=== PATIENT | male | born 1955 | race Caucasian/White ===

== ENCOUNTER 2017-11-21 16:53 | Inpatient (IN) | payer SELFPAY ==
[2017-11-21] VITALS (8 sets, daily range): BP systolic 107–155; BP diastolic 59–78
[~2017-11-21] VITALS: Ht 182.9 cm; Wt 99.8 kg
[2017-11-21] MEDS ORDERED: PROPOFOL 50 ML IV ONE ×2 (17:07→19:38)
[2017-11-21] MEDS ORDERED: MIDAZOLAM HCL/PF 5 MG/5 ML VIAL. NS ONE (17:15)
[2017-11-21] MEDS ORDERED: levETIRAcetam 1,000 MG in IV DEXTROSE 5% 100ML 100 ML IV ONE (17:15)
[2017-11-21] MEDS ORDERED: fentaNYL PF VIAL 100 MCG/2 ML VIAL IV ONE (17:15)
[2017-11-21] MEDS ORDERED: IV NORMAL SALINE 1000ML BAG 1,000 ML IV ONE (17:15)
[2017-11-21] MEDS ORDERED: PROPOFOL 10 MG/ML (20ML) VIAL. IV ONE (17:15)
[2017-11-21 17:21] LABS: BASO # 0.1 x10^3/uL (0.0-0.2); BASO % 1 % (0-3); EOS # 0.4 x10^3/uL (0.0-0.7); EOS % 3 % (0-3); HEMATOCRIT 40.3 % (39.0-53.0); HEMOGLOBIN 12.9 g/dL (13.0-17.5); LYMPH % 17 % (24-48); MEAN CORPUSCULAR HEMOGLOBIN 29 pg (25-35); MEAN CORPUSCULAR HGB CONC 32 g/dL (31-37); MEAN CORPUSCULAR VOLUME 91 fL (79-100); MONO # 1.9 x10^3/uL (0.0-1.1); MONO % 11 % (0-9); NEUT # 11.7 x10^3uL (1.8-7.7); NEUT % 69 % (31-73); PLATELET COUNT 565 x10^3/uL (140-400); RED BLOOD COUNT 4.42 x10^6/uL (4.30-5.70); RED CELL DISTRIBUTION WIDTH 13.9 % (11.5-14.5); WHITE BLOOD COUNT 17.1 x10^3/uL (4.0-11.0)
[2017-11-21 17:28] LABS: PROTHROMBIN TIME PATIENT 15.1 SEC (11.7-14.0)
[2017-11-21 17:29] LABS: CALCIUM 9.4 mg/dL (8.5-10.1); CREATININE 1.5 mg/dL (0.7-1.3); GFR 47.7; POTASSIUM 3.7 mmol/L (3.5-5.1)
[2017-11-21 17:30] LABS: BILIRUBIN,URINE NEGATIVE (NEG); CLARITY,URINE CLEAR; COLOR,URINE YELLOW; NITRITE,URINE NEGATIVE (NEG); PH,URINE 5.5; PROTEIN,URINE 30 mg/dL (NEG-TRACE); UROBILINOGEN,URINE 0.2 mg/dL (0.2 mg/dL)
[2017-11-21 17:33] LABS: ACETAMIN < 2 mcg/ml (10-30); ETHANOL < 10 mg/dL (0-10); SALIC < 2.8 mg/dL (2.8-20.0)
[2017-11-21 17:37] LABS: BARBITURATES NEG (NEG); BENZODIAZEPINES NEG (NEG); CANNABINOIDS NEG (NEG); COCAINE NEG (NEG); METHADONE NEG (NEG); OPIATES NEG (NEG); PHENCYCLIDINE NEG (NEG)
--- NOTE | 2017-11-21 17:37 | PHYS DOC ---
Adult General Chief Complaint Chief Complaint: SEIZURE HPI HPI Patient is a 62 year old he got 2-1/2 of Valium because he was combative postictal and then he became basically inadequate respirations and he was being bagged on arrival the blood sugar is 483. Review of Systems Review of Systems C Limited by mental status Current Medications Current Medications Current Medications Medications (Trade) Dose Ordered Sig/Ximena Start Time Stop Time Status Last Admin Dose Admin Fentanyl Citrate (Fentanyl 2ml Vial) 100 mcg 1X ONCE 11/21/17 17:15 11/21/17 17:16 DC Levetiracetam 1000 mg/Dextrose 110 ml @ 440 mls/hr 1X ONCE 11/21/17 17:15 11/21/17 17:29 DC 11/21/17 17:25 440 MLS/HR Midazolam HCl (Versed) 5 mg 1X ONCE 11/21/17 17:45 11/21/17 17:50 DC Piperacillin Sod/ Tazobactam Sod 3.375 gm/Sodium Chloride 50 ml @ 100 mls/hr 1X ONCE 11/21/17 18:00 11/21/17 18:29 UNV Propofol (Diprivan) 200 mg 1X ONCE 11/21/17 17:15 11/21/17 17:16 DC Sodium Chloride 1,000 ml @ 150 mls/hr [id number] 11/21/17 17:57 11/22/17 17:56 UNV Vancomycin HCl (Vanco Per Pharmacy) 1 each PRN DAILY PRN 11/21/17 18:00 UNV Allergies Allergies Allergies Coded Allergies Type Severity Reaction Last Updated Verified Unable to Assess 11/21/17 No Physical Exam Physical Exam Very ill-appearing not breathing very well. ENT: Normocephalic, atraumatic, bilateral external ears normal, oropharynx moist , no oral exudates, nose normal. [] Eyes: Pupils are 2 mm and reactive bilaterally. Is no gaze deficit. Neck: Normal range of motion, no tenderness, supple, no stridor. [] Cardiovascular:Heart rate regular rhythm, no murmur [] Lungs & Thorax: Being bagged coarse bilateral breath sounds Abdomen: Bowel sounds normal, soft, no tenderness, no masses, no pulsatile masses. [] Extremities:Bilateral wounds on both feet.associated cellulitis likely Neurologic: E 1 V 1 M 3. Patient is flexor posturing, no seizurEs inadequate respirations. Psychologic: Affect normal, judgement normal, mood normal. [] Current Patient Data Vital Signs Vital Signs Date Time Temp Pulse Resp B/P (MAP) Pulse Ox O2 Delivery O2 Flow Rate FiO2 11/21/17 17:10 97 Ventilator Lab Values Laboratory Tests Test 11/21/17 17:10 11/21/17 17:18 White Blood Count 17.1 x10^3/uL (4.0-11.0) H Red Blood Count 4.42 x10^6/uL (4.30-5.70) Hemoglobin 12.9 g/dL (13.0-17.5) L Hematocrit 40.3 % (39.0-53.0) Mean Corpuscular Volume 91 fL (79-100) Mean Corpuscular Hemoglobin 29 pg (25-35) Mean Corpuscular Hemoglobin Concent 32 g/dL (31-37) Red Cell Distribution Width 13.9 % (11.5-14.5) Platelet Count 565 x10^3/uL (140-400) H Neutrophils (%) (Auto) 69 % (31-73) Lymphocytes (%) (Auto) 17 % (24-48) L Monocytes (%) (Auto) 11 % (0-9) H Eosinophils (%) (Auto) 3 % (0-3) Basophils (%) (Auto) 1 % (0-3) Neutrophils # (Auto) 11.7 x10^3uL (1.8-7.7) H Lymphocytes # (Auto) 3.0 x10^3/uL (1.0-4.8) Monocytes # (Auto) 1.9 x10^3/uL (0.0-1.1) H Eosinophils # (Auto) 0.4 x10^3/uL (0.0-0.7) Basophils # (Auto) 0.1 x10^3/uL (0.0-0.2) Platelet Estimate Pending Prothrombin Time 15.1 SEC (11.7-14.0) H Prothrombin Time INR 1.2 (0.8-1.1) H Sodium Level 138 mmol/L (136-145) Potassium Level 3.7 mmol/L (3.5-5.1) Chloride Level 98 mmol/L (98-107) Carbon Dioxide Level 20 mmol/L (21-32) L Anion Gap 20 (6-14) H Blood Urea Nitrogen 22 mg/dL (8-26) Creatinine 1.5 mg/dL (0.7-1.3) H Estimated GFR (Cockcroft-Gault) 47.7 BUN/Creatinine Ratio 15 (6-20) Glucose Level 490 mg/dL (70-99) H Calcium Level 9.4 mg/dL (8.5-10.1) Total Bilirubin 0.2 mg/dL (0.2-1.0) Aspartate Amino Transferase (AST) 15 U/L (15-37) Alanine Aminotransferase (ALT) 24 U/L (16-63) Alkaline Phosphatase 84 U/L (46-116) Creatine Kinase 187 U/L (39-308) Total Protein 8.2 g/dL (6.4-8.2) Albumin 2.9 g/dL (3.4-5.0) L Albumin/Globulin Ratio 0.5 (1.0-1.7) L Salicylates Level < 2.8 mg/dL (2.8-20.0) L Salicylate Last Dose Date Unknown Salicylate Last Dose Time Unknown Acetaminophen Level < 2 mcg/ml (10-30) L Acetaminophen Last Dose Date Unknown Acetaminophen Last Dose Time Unknown Ethyl Alcohol Level < 10 mg/dL (0-10) Urine Collection Type U cath Urine Color Yellow Urine Clarity Clear Urine pH 5.5 Urine Specific [place] >=1.030 Urine Protein 30 mg/dL (NEG-TRACE) Urine Glucose (UA) >=1000 mg/dL (NEG) Urine Ketones (Stick) 15 mg/dL (NEG) Urine Blood Negative (NEG) Urine Nitrite Negative (NEG) Urine Bilirubin Negative (NEG) Urine Urobilinogen Dipstick 0.2 mg/dL (0.2 mg/dL) Urine Leukocyte Esterase Negative (NEG) Urine RBC 1-2 /HPF (0-2) Urine WBC 11-20 /HPF (0-4) Urine Squamous Epithelial Cells Few /LPF Urine Amorphous Sediment Present /HPF Urine Bacteria Few /HPF (0-FEW) Urine Hyaline Casts Occasional /HPF Urine Mucus Slight /LPF Urine Opiates Screen Neg (NEG) Urine Methadone Screen Neg (NEG) Urine Barbiturates Neg (NEG) Urine Phencyclidine Screen Neg (NEG) Urine Amphetamine/Methamphetamine Neg (NEG) Urine Benzodiazepines Screen Neg (NEG) Urine Cocaine Screen Neg (NEG) Urine Cannabinoids Screen Neg (NEG) Urine Ethyl Alcohol Neg (NEG) Laboratory Tests 11/21/17 17:10 Laboratory Tests 11/21/17 17:10 EKG EKG [] Interpretation Time: Normal sinus rhythm rate of 82 no obvious acute ischemic changes noted interpreted by me the time of encounter. Radiology/Procedures Radiology/Procedures [] Impressions: IMPRESSION: 1. No acute intracranial bleed or calvarial fractures. 2. Peripherally calcified lesion in the region of anterior communicating artery is highly suggestive of aneurysm. Nonemergent CT angiogram of the head recommended. Electronically signed by: Jourdan Gaviria DO (11/21/2017 5:54 PM) [facility] Course & Med Decision Making Course & Med Decision Making Pertinent Labs and Imaging studies reviewed. (See chart for details) [] Critical care time was 55 minutes exclusive of procedures. Intubation: 7.5 ET tube Mac 4, GRADE 1 ETOMIDATE SUCCINYLCHOLINE. Confirmed with end-tidal CO2 breath sounds and chest x-ray. This patient had a witnessed seizure no previous history of the same we have no real good history. Patient was having inadequate respirations after only 2.5 mg of Valium most concerned about intracranial hemorrhage in order to facilitate head CT intubated the patient. I gave Versed and fentanyl for post intubation sedation as well as propofol and a gram of IV Keppra. Rectal temperature 99.7 I think sepsis and meningitis is unlikely as he was AT WORK on lunch break prior to seizure.. NOTED U/A, SQUAMES BUT POSSIBLE UTI. In addition patient does have bilateral foot wounds concerning for infected diabetic ulcers. We will treat this patient for these infections however the neck was supple temperature was technically afebrile white count can be explained by seizure I don't think that this patient has meningitis. Discussed with Dr. Yenni ABDULLAHI, from neurology who recommended 500 mg of Keppra every 12 2 mg of Ativan when necessary every 4 EEG in the morning and vitamin B1. Dragon Disclaimer Dragon Disclaimer This electronic medical record was generated, in whole or in part, using a voice recognition dictation system. Departure Departure Impression: Primary Impression: Seizure Disposition: ADMITTED INPATIENT Admitting Physician: Gregor Minor Condition: CRITICAL STEPHIE RAE MD Nov 21, 2017 17:37
[2017-11-21 17:39] LABS: ALBUMIN 2.9 g/dL (3.4-5.0); ALBUMIN/GLOBULIN RATIO 0.5 (1.0-1.7); TOTAL BILIRUBIN 0.2 mg/dL (0.2-1.0); TOTAL PROTEIN 8.2 g/dL (6.4-8.2)
[2017-11-21 17:40] LABS: AMPHETAMINE/METHAMPHETAMINE NEG (NEG)
[2017-11-21 17:44] LABS: AMORPHOUS SEDIMENT,UR PRESENT /HPF; BACTERIA,URINE FEW /HPF (0-FEW); SQUAMOUS EPITHELIAL CELL,UR FEW /LPF
[2017-11-21 17:45] LABS: HYALINE CASTS, URINE OCCASIONAL /HPF
[2017-11-21] MEDS ORDERED: MIDAZOLAM HCL/PF 5 MG/5 ML VIAL. IV ONE ×2 (17:45→20:00)
--- NOTE | 2017-11-21 17:57 | RAD ---
PQRS Compliance statement: One or more of the following individualized dose reduction techniques were utilized for this examination: 1. Automated exposure control. 2. Adjustment of the mA and/or kV according to patient size. 3. Use of iterative reconstruction technique. Indication:seen shaking and then fell to floor at work today no prev TECHNIQUE: CT head without IV contrast COMPARISON:None FINDINGS: No pathologic extra-axial or intra-axial fluid collection. No acute intracranial bleed. The ventricles and basal cisterns are within normal limits. There is a peripherally calcified 1.6 x 1.2 cm lesion in the region of the anterior communicating artery. No focal loss of hair-white differentiation. Orbits are within normal limits. No suspicious calvarial lesion or fracture. Mucous retention cyst or polyp is seen in the left maxillary sinus. The visualized paranasal sinuses and mastoid air cells are clear. Atherosclerotic calcifications seen of the bilateral cavernous segments of the ICA. IMPRESSION: 1. No acute intracranial bleed or calvarial fractures. 2. Peripherally calcified lesion in the region of anterior communicating artery is highly suggestive of aneurysm. Nonemergent CT angiogram of the head recommended. Electronically signed by: Jourdan Gaviria DO (11/21/2017 5:54 PM) [facility]
[2017-11-21] MEDS ORDERED: THIAMINE INJ 100 MG in IV DEXTROSE 5% 50 ML IV STA (18:11)
[2017-11-21] MEDS ORDERED: POTASSIUM CHLORIDE 20 MEQ/15 ML ORAL LIQUID. NG ONE (18:15)
[2017-11-21] MEDS ORDERED: INSULIN REGULAR 100 UNIT/ML 3ML VIAL. IV ONE (18:15)
[2017-11-21] MEDS ORDERED: PIPERACILLIN/TAZOBACTAM 3.375 GM in IV NORMAL SALINE 50ML 50 ML IV ONE (18:15)
[2017-11-21 18:21] LABS: BASE EXCESS ABG -2 mmol/L (-3-3); CORRECTED PCO2 ABG 33 mmHg; CORRECTED PH ABG 7.45; CORRECTED PO2 ABG 279 mmHg; HCO3 ABG 24 mmol/L (21-28); SAT O2 ABG 99 % (92-99)
[2017-11-21 18:22] LABS: PCO2 ABG 41 mmHg (35-46); PO2 ABG 302 mmHg (65-108)
--- NOTE | 2017-11-21 18:31 | RAD ---
Indication: OG tube placement check TECHNIQUE: Single supine AP view of the abdomen COMPARISON: None FINDINGS: NG tube is seen with its tip in the body of the stomach. The visualized lung bases are clear. No abnormally dilated bowel loops. Degenerative disc disease is seen in the lumbar spine. IMPRESSION: Tip of the OG tube is in the body of the stomach. Electronically signed by: Jourdan Gaviria DO (11/21/2017 6:28 PM) [facility]
--- NOTE | 2017-11-21 18:36 | HP ---
ADMIT DATE: 11/21/2017 CHIEF COMPLAINT: Seizure and respiratory failure. HISTORY OF PRESENT ILLNESS: The patient is a pleasant elderly male who works at [employer]. He was working there today, seemed to be doing fine. In fact, I had lunch there myself and saw him working. He was fine. Apparently, he became unresponsive and had a seizure, it was witnessed. When EMS arrived, they bagged him, they gave him some Valium, but he became apneic, so they brought him to the ER. We have intubated and now admitting the patient to the ICU. We will be consulting Neurology and Pulmonary. PAST MEDICAL HISTORY: Unable to obtain. The patient is sedated on the vent. ALLERGIES: Unable to assess. FAMILY HISTORY: Unknown. SOCIAL HISTORY: We know he works at [employer], but otherwise, we did not know any other social history. MEDICATIONS: Unknown. REVIEW OF SYSTEMS: Unable to obtain. The patient is intubated. PHYSICAL EXAMINATION: VITAL SIGNS: Temperature afebrile, pulse 100, respirations 18, blood pressure 144/90 and O2 sat 97%. GENERAL: He is on a ventilator. HEART: Distant S1, S2. LUNGS: Mostly clear. ABDOMEN: Soft, a little distended. EXTREMITIES: The right foot has a severe wound. We suspect this is from peripheral vascular disease, probably secondary to diabetes. ENDOCRINE: No thyromegaly. LYMPHATICS: No cervical nodes. HEMATOPOIETIC: No bruising. LABORATORY DATA: White count 17, hemoglobin 12.9, platelets 565. Electrolytes: Sodium 138, potassium 3.7, chloride 98, bicarbonate 20, BUN 22, creatinine 1.5, glucose 490. Albumin is 2.9. Drug screen is negative. Urinalysis negative. INR is 1.2. CT of the head negative for any acute disease. ASSESSMENT AND PLAN: Seizure, elderly male who appears to have severe diabetes with severe peripheral vascular disease and foot wound. The patient has been admitted. He has been intubated, will be going to the ICU. We sedated him. We will consult Pulmonary for vent weaning, consult Neurology, consult the wound care team. Once we get his home meds, we will try to get those resumed. Frequent labs. PROGNOSIS: Guarded. CEASAR SALAS DO DR: SHEELA/chyna JOB#: [id number] / [id number]
[2017-11-21] MEDS ORDERED: VANCOMYCIN 2 GM in IV NORMAL SALINE 500ML BAG 500 ML IV ONE (19:00)
[2017-11-21] MEDS ORDERED: ETOMIDATE 20 MG/10 ML VIAL. IV ONE ×2 (19:04→20:00)
[2017-11-21] MEDS ORDERED: SUCCINYLCHOLINE 200 MG/10 ML VIAL. ONE (19:05)
[2017-11-21] MEDS ORDERED: SUCCINYLCHOLINE 200 MG/10 ML VIAL. IV ONE (20:00)
[2017-11-21 20:15] LABS: % EOS 3 % (0-5); % LYMPHS 20 % (24-48); % MONOS 10 % (0-10); % SEGS 67 % (35-66)
[2017-11-21 20:16] LABS: PLT ESTIMATE INCREASED (ADEQUATE)
[2017-11-21] MEDS: IV NORMAL SALINE 1000ML BAG 1,000 ML IV SCH (20:52)
[2017-11-21] MEDS: VANCOMYCIN PER PHARMACY MC PRN (21:02)
[2017-11-21] MEDS: levETIRAcetam 500 MG in IV DEXTROSE 5% 100ML 100 ML IV SCH (21:20)
[2017-11-21] MEDS: PROPOFOL 100 ML IV PRN (22:07)
--- NOTE | 2017-11-21 23:28 | RAD ---
Indication:ET TUBE PLACEMENT TECHNIQUE:Portable AP chest X-ray COMPARISON:Study from the same day earlier FINDINGS: Heart is normal in size. Interval retraction of ET tube with its tip in appropriate position. NG tube is seen with its tip in the body of the stomach. Heart is normal in size. Lungs are clear. No pneumothorax or pleural effusion. Visualized bony thorax within normal limits. IMPRESSION: Appropriately positioned ET tube and NG tube. No acute pulmonary process.. Electronically signed by: Jourdan Gaviria DO (11/21/2017 11:25 PM) [facility]
--- NOTE | 2017-11-21 23:42 | RAD ---
Indication:POST INTUBATION TECHNIQUE:Portable AP chest X-ray COMPARISON:None FINDINGS: ET tube is seen with its tip above the level of shi in appropriate position. NG tube is seen with its tip in the body of the stomach. Heart is normal in size. Lungs are clear. No pneumothorax or pleural effusion. Visualized bony thorax is within normal limits. IMPRESSION: Appropriately positioned ET tube and NG tube. Electronically signed by: Jourdan Gaviria DO (11/21/2017 11:39 PM) [facility]
[2017-11-22] VITALS (24 sets, daily range): BP systolic 102–175; BP diastolic 49–85
[2017-11-22 03:33] LABS: CALCIUM 8.1 mg/dL (8.5-10.1); CREATININE 0.7 mg/dL (0.7-1.3); POTASSIUM 3.8 mmol/L (3.5-5.1)
[2017-11-22] MEDS: PROPOFOL 100 ML IV PRN ×4 (04:15→21:25)
[2017-11-22] MEDS: IV NORMAL SALINE 1000ML BAG 1,000 ML IV SCH ×3 (06:15→12:12)
--- NOTE | 2017-11-22 07:41 | EKG ---
[facility] [address] [place] [address] Test Date: 2017-11-21 Test Time: 17:57:41 Pat Name: ROLY ALY Department: Room: 109 1 Gender: M [employer]: : [id number] Requested By: STEPHIE RAE Order Number: [id number] Reading MD: Alex Ward Measurements Intervals [place] Rate: 82 P: 38 NE: 180 QRS: -1 QRSD: 84 T: -21 QT: 384 QTc: 452 Interpretive Statements SINUS RHYTHM LEFTWARD AXIS Electronically Signed On 11-22-2017 16:30:00 CDT by Alex Ward
--- NOTE | 2017-11-22 07:49 | RAD ---
Portable abdomen, 11/21/2017, 8:49 PM: HISTORY: Check NG tube placement Comparison is made to a study from earlier the same day. The tip of the NG tube lies in the body of the stomach. The abdominal gas pattern is unremarkable. No organomegaly is seen. Degenerative changes are evident in the spine. IMPRESSION: The tip of the NG tube lies in the body of the stomach. Electronically signed by: Sam Jauregui MD (11/22/2017 7:45 AM) [facility]
--- NOTE | 2017-11-22 07:50 | RAD ---
Portable chest, 11/22/2017: HISTORY: Respiratory failure Comparison is made to a study from 11/21/2017. The ET tube tip lies well above the shi. An NG tube extends into the stomach. The heart size and pulmonary vascularity are normal. There is minimal right parahilar discoid atelectasis. No pulmonary consolidation is seen. There is no evidence of pleural fluid. IMPRESSION: 1. The ET tube and NG tube are in satisfactory positions. 2. Minimal right parahilar discoid atelectasis. Electronically signed by: Sam Jauregui MD (11/22/2017 7:47 AM) [facility]
--- NOTE | 2017-11-22 07:59 | PDOC ---
Infectious Disease Note Vital Sign Vital Signs Vital Signs Date Time Temp Pulse Resp B/P (MAP) Pulse Ox O2 Delivery O2 Flow Rate FiO2 11/22/17 07:00 65 15 111/60 (77) 100 Ventilator 11/22/17 04:00 97.7 97.7 Labs Lab Laboratory Tests Test 11/21/17 17:10 11/21/17 17:18 11/21/17 18:15 11/21/17 21:00 White Blood Count 17.1 x10^3/uL (4.0-11.0) Red Blood Count 4.42 x10^6/uL (4.30-5.70) Hemoglobin 12.9 g/dL (13.0-17.5) Hematocrit 40.3 % (39.0-53.0) Mean Corpuscular Volume 91 fL (79-100) Mean Corpuscular Hemoglobin 29 pg (25-35) Mean Corpuscular Hemoglobin Concent 32 g/dL (31-37) Red Cell Distribution Width 13.9 % (11.5-14.5) Platelet Count 565 x10^3/uL (140-400) Neutrophils (%) (Auto) 69 % (31-73) Lymphocytes (%) (Auto) 17 % (24-48) Monocytes (%) (Auto) 11 % (0-9) Eosinophils (%) (Auto) 3 % (0-3) Basophils (%) (Auto) 1 % (0-3) Neutrophils # (Auto) 11.7 x10^3uL (1.8-7.7) Lymphocytes # (Auto) 3.0 x10^3/uL (1.0-4.8) Monocytes # (Auto) 1.9 x10^3/uL (0.0-1.1) Eosinophils # (Auto) 0.4 x10^3/uL (0.0-0.7) Basophils # (Auto) 0.1 x10^3/uL (0.0-0.2) Segmented Neutrophils % 67 % (35-66) Lymphocytes % 20 % (24-48) Monocytes % 10 % (0-10) Eosinophils % 3 % (0-5) Platelet Estimate Increased (ADEQUATE) Prothrombin Time 15.1 SEC (11.7-14.0) Prothromb Time International Ratio 1.2 (0.8-1.1) Sodium Level 138 mmol/L (136-145) Potassium Level 3.7 mmol/L (3.5-5.1) Chloride Level 98 mmol/L (98-107) Carbon Dioxide Level 20 mmol/L (21-32) Anion Gap 20 (6-14) Blood Urea Nitrogen 22 mg/dL (8-26) Creatinine 1.5 mg/dL (0.7-1.3) Estimated GFR (Cockcroft-Gault) 47.7 BUN/Creatinine Ratio 15 (6-20) Glucose Level 490 mg/dL (70-99) Calcium Level 9.4 mg/dL (8.5-10.1) Total Bilirubin 0.2 mg/dL (0.2-1.0) Aspartate Amino Transf (AST/SGOT) 15 U/L (15-37) Alanine Aminotransferase (ALT/SGPT) 24 U/L (16-63) Alkaline Phosphatase 84 U/L (46-116) Creatine Kinase 187 U/L (39-308) Total Protein 8.2 g/dL (6.4-8.2) Albumin 2.9 g/dL (3.4-5.0) Albumin/Globulin Ratio 0.5 (1.0-1.7) Salicylates Level < 2.8 mg/dL (2.8-20.0) Salicylate Last Dose Date Unknown Salicylate Last Dose Time Unknown Acetaminophen Level < 2 mcg/ml (10-30) Acetaminophen Last Dose Date Unknown Acetaminophen Last Dose Time Unknown Ethyl Alcohol Level < 10 mg/dL (0-10) Urine Collection Type U cath Urine Color Yellow Urine Clarity Clear Urine pH 5.5 Urine Specific [place] >=1.030 Urine Protein 30 mg/dL (NEG-TRACE) Urine Glucose (UA) >=1000 mg/dL (NEG) Urine Ketones (Stick) 15 mg/dL (NEG) Urine Blood Negative (NEG) Urine Nitrite Negative (NEG) Urine Bilirubin Negative (NEG) Urine Urobilinogen Dipstick 0.2 mg/dL (0.2 mg/dL) Urine Leukocyte Esterase Negative (NEG) Urine RBC 1-2 /HPF (0-2) Urine WBC 11-20 /HPF (0-4) Urine Squamous Epithelial Cells Few /LPF Urine Amorphous Sediment Present /HPF Urine Bacteria Few /HPF (0-FEW) Urine Hyaline Casts Occasional /HPF Urine Mucus Slight /LPF Urine Opiates Screen Neg (NEG) Urine Methadone Screen Neg (NEG) Urine Barbiturates Neg (NEG) Urine Phencyclidine Screen Neg (NEG) Urine Amphetamine/Methamphetamine Neg (NEG) Urine Benzodiazepines Screen Neg (NEG) Urine Cocaine Screen Neg (NEG) Urine Cannabinoids Screen Neg (NEG) Urine Ethyl Alcohol Neg (NEG) O2 Saturation 99 % (92-99) Arterial Blood pH 7.38 (7.35-7.45) Arterial Blood pH (Temp corrected) 7.45 Arterial Blood pCO2 at Patient Temp 41 mmHg (35-46) Arterial Blood pCO2 (Temp correct) 33 mmHg Arterial Blood pO2 at Patient Temp 302 mmHg (65-108) Arterial Blood pO2 (Temp corrected) 279 mmHg Arterial Blood HCO3 24 mmol/L (21-28) Arterial Blood Base Excess -2 mmol/L (-3-3) FiO2 100.0 Lactic Acid Level 1.2 mmol/L (0.4-2.0) Test 11/22/17 02:50 Sodium Level 140 mmol/L (136-145) Potassium Level 3.8 mmol/L (3.5-5.1) Chloride Level 105 mmol/L (98-107) Carbon Dioxide Level 28 mmol/L (21-32) Anion Gap 7 (6-14) Blood Urea Nitrogen 17 mg/dL (8-26) Creatinine 0.7 mg/dL (0.7-1.3) Estimated GFR (Cockcroft-Gault) 115.0 Glucose Level 259 mg/dL (70-99) Calcium Level 8.1 mg/dL (8.5-10.1) Objective Assessment Extensive rt foot infection with likely osteomyelitis Rt foot ulcer with infection DM Respiratory failure Seizure Plan Plan of Care marla and niru vascular consult, likely will need amputation supportive care check cultures EMILIANO OLIVEIRA MD Nov 22, 2017 07:59
[2017-11-22 08:01] LABS: BASE EXCESS ABG 1 mmol/L (-3-3); HCO3 ABG 25 mmol/L (21-28); PCO2 ABG 41 mmHg (35-46); PO2 ABG 174 mmHg (65-108); SAT O2 ABG 99 % (92-99)
[2017-11-22] MEDS: CHLORHEXIDINE 0.12% 15 ML MOUTHWASH. MM SCH ×2 (09:00→20:54)
[2017-11-22] MEDS: FAMOTIDINE 20 MG/2 ML VIAL IVP SCH ×2 (09:00→20:51)
[2017-11-22] MEDS ORDERED: VANCOMYCIN 1.5 GM in IV NORMAL SALINE 500ML BAG 500 ML IV SCH ×2 (09:00→22:00)
[2017-11-22] MEDS: levETIRAcetam 500 MG in IV DEXTROSE 5% 100ML 100 ML IV SCH ×2 (09:00→20:51)
[2017-11-22 09:34] LABS: HEMATOCRIT 33.7 % (39.0-53.0); HEMOGLOBIN 11.3 g/dL (13.0-17.5); RED BLOOD COUNT 3.82 x10^6/uL (4.30-5.70); RED CELL DISTRIBUTION WIDTH 13.2 % (11.5-14.5); WHITE BLOOD COUNT 8.8 x10^3/uL (4.0-11.0)
[2017-11-22 09:43] LABS: FIO2 ABG 45
--- NOTE | 2017-11-22 09:57 | PDOC ---
Provider Note Provider Note Vascular Surgery Consult dictated Recommend right and left 1st toe open ray amputations with wound VACs for open wounds with exposed bone and severe infection. Surgery scheduled for tomorrow. LAN YAÑEZ MD Nov 22, 2017 09:57
[2017-11-22] MEDS: ENOXAPARIN 40 MG/0.4 ML SYRINGE. SQ SCH (10:00)
[2017-11-22 10:13] LABS: CALCIUM 7.5 mg/dL (8.5-10.1); CREATININE 0.7 mg/dL (0.7-1.3); MAGNESIUM 1.9 mg/dL (1.8-2.4); POTASSIUM 3.7 mmol/L (3.5-5.1)
--- NOTE | 2017-11-22 10:43 | RAD ---
Right foot, 2 views, 11/22/2017: HISTORY: Osteomyelitis No previous foot radiographs are available at this time for comparison purposes. The toes are held in dorsiflexion at the MTP joint levels. There is a mild hallux valgus deformity Foci of cortical discontinuity are seen along the medial margin of the first metatarsal head. There is some overlying soft tissue deformity. The appearance is suggestive of osteomyelitis. A lucency projected over the distal end of the proximal phalanx of the great toe is probably due to an overlying shadow. No definite fracture or dislocation is evident. Moderate degenerative changes are present the mid foot level. There is calcification along the plantar aponeurosis posteriorly related to a calcaneal spur. Arterial calcifications are evident. There is diffuse soft tissue swelling about the foot. IMPRESSION: 1. Cortical lucencies involving the first metatarsal head suggesting osteomyelitis. 2. Additional chronic findings as described above. Electronically signed by: Sam Jauregui MD (11/22/2017 10:39 AM) [facility]
[2017-11-22] MEDS ORDERED: IOHEXOL 300 MG/ML 100ML VIAL. ONE (10:45)
[2017-11-22] MEDS ORDERED: IOHEXOL 300 MG/ML 100ML VIAL. IV ONE (10:45)
[2017-11-22] MEDS ORDERED: CONTRAST GIVEN. MC PRN (11:00)
[2017-11-22] MEDS: VANCOMYCIN PER PHARMACY MC PRN (11:12)
--- NOTE | 2017-11-22 11:43 | PDOC ---
PULMONARY PROGRESS NOTES Vitals Vital Signs Date Time Temp Pulse Resp B/P (MAP) Pulse Ox O2 Delivery O2 Flow Rate FiO2 11/22/17 11:00 75 15 151/77 (101) 100 Ventilator 11/22/17 08:00 98.2 98.2 Labs Laboratory Tests Test 11/21/17 17:10 11/21/17 17:18 11/21/17 18:15 11/21/17 21:00 White Blood Count 17.1 x10^3/uL (4.0-11.0) Red Blood Count 4.42 x10^6/uL (4.30-5.70) Hemoglobin 12.9 g/dL (13.0-17.5) Hematocrit 40.3 % (39.0-53.0) Mean Corpuscular Volume 91 fL (79-100) Mean Corpuscular Hemoglobin 29 pg (25-35) Mean Corpuscular Hemoglobin Concent 32 g/dL (31-37) Red Cell Distribution Width 13.9 % (11.5-14.5) Platelet Count 565 x10^3/uL (140-400) Neutrophils (%) (Auto) 69 % (31-73) Lymphocytes (%) (Auto) 17 % (24-48) Monocytes (%) (Auto) 11 % (0-9) Eosinophils (%) (Auto) 3 % (0-3) Basophils (%) (Auto) 1 % (0-3) Neutrophils # (Auto) 11.7 x10^3uL (1.8-7.7) Lymphocytes # (Auto) 3.0 x10^3/uL (1.0-4.8) Monocytes # (Auto) 1.9 x10^3/uL (0.0-1.1) Eosinophils # (Auto) 0.4 x10^3/uL (0.0-0.7) Basophils # (Auto) 0.1 x10^3/uL (0.0-0.2) Segmented Neutrophils % 67 % (35-66) Lymphocytes % 20 % (24-48) Monocytes % 10 % (0-10) Eosinophils % 3 % (0-5) Platelet Estimate Increased (ADEQUATE) Prothrombin Time 15.1 SEC (11.7-14.0) Prothromb Time International Ratio 1.2 (0.8-1.1) Sodium Level 138 mmol/L (136-145) Potassium Level 3.7 mmol/L (3.5-5.1) Chloride Level 98 mmol/L (98-107) Carbon Dioxide Level 20 mmol/L (21-32) Anion Gap 20 (6-14) Blood Urea Nitrogen 22 mg/dL (8-26) Creatinine 1.5 mg/dL (0.7-1.3) Estimated GFR (Cockcroft-Gault) 47.7 BUN/Creatinine Ratio 15 (6-20) Glucose Level 490 mg/dL (70-99) Calcium Level 9.4 mg/dL (8.5-10.1) Total Bilirubin 0.2 mg/dL (0.2-1.0) Aspartate Amino Transf (AST/SGOT) 15 U/L (15-37) Alanine Aminotransferase (ALT/SGPT) 24 U/L (16-63) Alkaline Phosphatase 84 U/L (46-116) Creatine Kinase 187 U/L (39-308) Total Protein 8.2 g/dL (6.4-8.2) Albumin 2.9 g/dL (3.4-5.0) Albumin/Globulin Ratio 0.5 (1.0-1.7) Salicylates Level < 2.8 mg/dL (2.8-20.0) Salicylate Last Dose Date Unknown Salicylate Last Dose Time Unknown Acetaminophen Level < 2 mcg/ml (10-30) Acetaminophen Last Dose Date Unknown Acetaminophen Last Dose Time Unknown Ethyl Alcohol Level < 10 mg/dL (0-10) Urine Collection Type U cath Urine Color Yellow Urine Clarity Clear Urine pH 5.5 Urine Specific Ryan >=1.030 Urine Protein 30 mg/dL (NEG-TRACE) Urine Glucose (UA) >=1000 mg/dL (NEG) Urine Ketones (Stick) 15 mg/dL (NEG) Urine Blood Negative (NEG) Urine Nitrite Negative (NEG) Urine Bilirubin Negative (NEG) Urine Urobilinogen Dipstick 0.2 mg/dL (0.2 mg/dL) Urine Leukocyte Esterase Negative (NEG) Urine RBC 1-2 /HPF (0-2) Urine WBC 11-20 /HPF (0-4) Urine Squamous Epithelial Cells Few /LPF Urine Amorphous Sediment Present /HPF Urine Bacteria Few /HPF (0-FEW) Urine Hyaline Casts Occasional /HPF Urine Mucus Slight /LPF Urine Opiates Screen Neg (NEG) Urine Methadone Screen Neg (NEG) Urine Barbiturates Neg (NEG) Urine Phencyclidine Screen Neg (NEG) Urine Amphetamine/Methamphetamine Neg (NEG) Urine Benzodiazepines Screen Neg (NEG) Urine Cocaine Screen Neg (NEG) Urine Cannabinoids Screen Neg (NEG) Urine Ethyl Alcohol Neg (NEG) O2 Saturation 99 % (92-99) Arterial Blood pH 7.38 (7.35-7.45) Arterial Blood pH (Temp corrected) 7.45 Arterial Blood pCO2 at Patient Temp 41 mmHg (35-46) Arterial Blood pCO2 (Temp correct) 33 mmHg Arterial Blood pO2 at Patient Temp 302 mmHg (65-108) Arterial Blood pO2 (Temp corrected) 279 mmHg Arterial Blood HCO3 24 mmol/L (21-28) Arterial Blood Base Excess -2 mmol/L (-3-3) FiO2 100.0 Lactic Acid Level 1.2 mmol/L (0.4-2.0) Test 11/22/17 02:50 11/22/17 07:50 11/22/17 09:20 Sodium Level 140 mmol/L (136-145) 138 mmol/L (136-145) Potassium Level 3.8 mmol/L (3.5-5.1) 3.7 mmol/L (3.5-5.1) Chloride Level 105 mmol/L (98-107) 105 mmol/L (98-107) Carbon Dioxide Level 28 mmol/L (21-32) 26 mmol/L (21-32) Anion Gap 7 (6-14) 7 (6-14) Blood Urea Nitrogen 17 mg/dL (8-26) 16 mg/dL (8-26) Creatinine 0.7 mg/dL (0.7-1.3) 0.7 mg/dL (0.7-1.3) Estimated GFR (Cockcroft-Gault) 115.0 115.0 Glucose Level 259 mg/dL (70-99) 266 mg/dL (70-99) Calcium Level 8.1 mg/dL (8.5-10.1) 7.5 mg/dL (8.5-10.1) O2 Saturation 99 % (92-99) Arterial Blood pH 7.41 (7.35-7.45) Arterial Blood pCO2 at Patient Temp 41 mmHg (35-46) Arterial Blood pO2 at Patient Temp 174 mmHg (65-108) Arterial Blood HCO3 25 mmol/L (21-28) Arterial Blood Base Excess 1 mmol/L (-3-3) FiO2 45 White Blood Count 8.8 x10^3/uL (4.0-11.0) Red Blood Count 3.82 x10^6/uL (4.30-5.70) Hemoglobin 11.3 g/dL (13.0-17.5) Hematocrit 33.7 % (39.0-53.0) Mean Corpuscular Volume 88 fL (79-100) Mean Corpuscular Hemoglobin 30 pg (25-35) Mean Corpuscular Hemoglobin Concent 34 g/dL (31-37) Red Cell Distribution Width 13.2 % (11.5-14.5) Platelet Count 389 x10^3/uL (140-400) Magnesium Level 1.9 mg/dL (1.8-2.4) Triglycerides Level 100 mg/dL (0-150) Vitamin B12 Level 967 pg/mL (247-911) Thyroid Stimulating Hormone (TSH) 1.087 uIU/mL (0.358-3.74) Laboratory Tests Test 11/21/17 17:10 11/21/17 17:18 11/21/17 18:15 11/21/17 21:00 White Blood Count 17.1 x10^3/uL (4.0-11.0) Red Blood Count 4.42 x10^6/uL (4.30-5.70) Hemoglobin 12.9 g/dL (13.0-17.5) Hematocrit 40.3 % (39.0-53.0) Mean Corpuscular Volume 91 fL (79-100) Mean Corpuscular Hemoglobin 29 pg (25-35) Mean Corpuscular Hemoglobin Concent 32 g/dL (31-37) Red Cell Distribution Width 13.9 % (11.5-14.5) Platelet Count 565 x10^3/uL (140-400) Neutrophils (%) (Auto) 69 % (31-73) Lymphocytes (%) (Auto) 17 % (24-48) Monocytes (%) (Auto) 11 % (0-9) Eosinophils (%) (Auto) 3 % (0-3) Basophils (%) (Auto) 1 % (0-3) Neutrophils # (Auto) 11.7 x10^3uL (1.8-7.7) Lymphocytes # (Auto) 3.0 x10^3/uL (1.0-4.8) Monocytes # (Auto) 1.9 x10^3/uL (0.0-1.1) Eosinophils # (Auto) 0.4 x10^3/uL (0.0-0.7) Basophils # (Auto) 0.1 x10^3/uL (0.0-0.2) Segmented Neutrophils % 67 % (35-66) Lymphocytes % 20 % (24-48) Monocytes % 10 % (0-10) Eosinophils % 3 % (0-5) Platelet Estimate Increased (ADEQUATE) Prothrombin Time 15.1 SEC (11.7-14.0) Prothromb Time International Ratio 1.2 (0.8-1.1) Sodium Level 138 mmol/L (136-145) Potassium Level 3.7 mmol/L (3.5-5.1) Chloride Level 98 mmol/L (98-107) Carbon Dioxide Level 20 mmol/L (21-32) Anion Gap 20 (6-14) Blood Urea Nitrogen 22 mg/dL (8-26) Creatinine 1.5 mg/dL (0.7-1.3) Estimated GFR (Cockcroft-Gault) 47.7 BUN/Creatinine Ratio 15 (6-20) Glucose Level 490 mg/dL (70-99) Calcium Level 9.4 mg/dL (8.5-10.1) Total Bilirubin 0.2 mg/dL (0.2-1.0) Aspartate Amino Transf (AST/SGOT) 15 U/L (15-37) Alanine Aminotransferase (ALT/SGPT) 24 U/L (16-63) Alkaline Phosphatase 84 U/L (46-116) Creatine Kinase 187 U/L (39-308) Total Protein 8.2 g/dL (6.4-8.2) Albumin 2.9 g/dL (3.4-5.0) Albumin/Globulin Ratio 0.5 (1.0-1.7) Salicylates Level < 2.8 mg/dL (2.8-20.0) Salicylate Last Dose Date Unknown Salicylate Last Dose Time Unknown Acetaminophen Level < 2 mcg/ml (10-30) Acetaminophen Last Dose Date Unknown Acetaminophen Last Dose Time Unknown Ethyl Alcohol Level < 10 mg/dL (0-10) Urine Collection Type U cath Urine Color Yellow Urine Clarity Clear Urine pH 5.5 Urine Specific Ryan >=1.030 Urine Protein 30 mg/dL (NEG-TRACE) Urine Glucose (UA) >=1000 mg/dL (NEG) Urine Ketones (Stick) 15 mg/dL (NEG) Urine Blood Negative (NEG) Urine Nitrite Negative (NEG) Urine Bilirubin Negative (NEG) Urine Urobilinogen Dipstick 0.2 mg/dL (0.2 mg/dL) Urine Leukocyte Esterase Negative (NEG) Urine RBC 1-2 /HPF (0-2) Urine WBC 11-20 /HPF (0-4) Urine Squamous Epithelial Cells Few /LPF Urine Amorphous Sediment Present /HPF Urine Bacteria Few /HPF (0-FEW) Urine Hyaline Casts Occasional /HPF Urine Mucus Slight /LPF Urine Opiates Screen Neg (NEG) Urine Methadone Screen Neg (NEG) Urine Barbiturates Neg (NEG) Urine Phencyclidine Screen Neg (NEG) Urine Amphetamine/Methamphetamine Neg (NEG) Urine Benzodiazepines Screen Neg (NEG) Urine Cocaine Screen Neg (NEG) Urine Cannabinoids Screen Neg (NEG) Urine Ethyl Alcohol Neg (NEG) O2 Saturation 99 % (92-99) Arterial Blood pH 7.38 (7.35-7.45) Arterial Blood pH (Temp corrected) 7.45 Arterial Blood pCO2 at Patient Temp 41 mmHg (35-46) Arterial Blood pCO2 (Temp correct) 33 mmHg Arterial Blood pO2 at Patient Temp 302 mmHg (65-108) Arterial Blood pO2 (Temp corrected) 279 mmHg Arterial Blood HCO3 24 mmol/L (21-28) Arterial Blood Base Excess -2 mmol/L (-3-3) FiO2 100.0 Lactic Acid Level 1.2 mmol/L (0.4-2.0) Test 11/22/17 02:50 11/22/17 07:50 11/22/17 09:20 Sodium Level 140 mmol/L (136-145) 138 mmol/L (136-145) Potassium Level 3.8 mmol/L (3.5-5.1) 3.7 mmol/L (3.5-5.1) Chloride Level 105 mmol/L (98-107) 105 mmol/L (98-107) Carbon Dioxide Level 28 mmol/L (21-32) 26 mmol/L (21-32) Anion Gap 7 (6-14) 7 (6-14) Blood Urea Nitrogen 17 mg/dL (8-26) 16 mg/dL (8-26) Creatinine 0.7 mg/dL (0.7-1.3) 0.7 mg/dL (0.7-1.3) Estimated GFR (Cockcroft-Gault) 115.0 115.0 Glucose Level 259 mg/dL (70-99) 266 mg/dL (70-99) Calcium Level 8.1 mg/dL (8.5-10.1) 7.5 mg/dL (8.5-10.1) O2 Saturation 99 % (92-99) Arterial Blood pH 7.41 (7.35-7.45) Arterial Blood pCO2 at Patient Temp 41 mmHg (35-46) Arterial Blood pO2 at Patient Temp 174 mmHg (65-108) Arterial Blood HCO3 25 mmol/L (21-28) Arterial Blood Base Excess 1 mmol/L (-3-3) FiO2 45 White Blood Count 8.8 x10^3/uL (4.0-11.0) Red Blood Count 3.82 x10^6/uL (4.30-5.70) Hemoglobin 11.3 g/dL (13.0-17.5) Hematocrit 33.7 % (39.0-53.0) Mean Corpuscular Volume 88 fL (79-100) Mean Corpuscular Hemoglobin 30 pg (25-35) Mean Corpuscular Hemoglobin Concent 34 g/dL (31-37) Red Cell Distribution Width 13.2 % (11.5-14.5) Platelet Count 389 x10^3/uL (140-400) Magnesium Level 1.9 mg/dL (1.8-2.4) Triglycerides Level 100 mg/dL (0-150) Vitamin B12 Level 967 pg/mL (247-911) Thyroid Stimulating Hormone (TSH) 1.087 uIU/mL (0.358-3.74) Impression . FULL CONSULT DICTATED AGREE WITH CURRENT RX ACUTE RESP FAILURE/SEPSIS/SEIZURES DENNYS SHARMA MD Nov 22, 2017 11:43
[2017-11-22] MEDS: PIPERACILLIN/TAZOBACTAM 3.375 GM in IV NORMAL SALINE 50ML 50 ML IV SCH ×3 (12:16→23:57)
--- NOTE | 2017-11-22 12:26 | CONS ---
DATE OF CONSULTATION: 11/22/2017 DICTATION NUMBER: [id number] CHIEF COMPLAINT: Right and left foot open wounds and infection. HISTORY OF PRESENT ILLNESS: The patient is a 62-year-old male who reportedly developed seizures and was unresponsive at his job. He was brought to the hospital and intubated and is currently in the Intensive Care Unit. Because of this, we have no history on the patient since he is not able to give a history and no family has been able to be contacted at this point. He is currently intubated on the ventilator. There is no other history because I cannot speak with the patient and have no information in the chart and no family to speak with. REVIEW OF SYSTEMS: Unobtainable because the patient is intubated. PAST MEDICAL HISTORY: Unknown since the patient is intubated. PAST SURGICAL HISTORY: Unknown. ALLERGIES: Unknown. FAMILY HISTORY: Unknown. SOCIAL HISTORY: Unknown. MEDICATIONS: Unknown. PHYSICAL EXAMINATION: GENERAL: The patient is intubated on the ventilator. VITAL SIGNS: His blood pressure is 142/68, pulse of 74, respirations 16. He is 100% on the ventilator. NECK: His neck is supple. It is difficult to examine for carotid bruits since he is not able to hold his breath, but I do not hear any loud bruits. HEART: Regular rate and rhythm with no murmurs. LUNGS: Bilateral breath sounds to auscultation. ABDOMEN: Soft, moderately obese, nondistended and nontender to deep palpation. EXTREMITIES: His bilateral upper extremities are warm with palpable radial pulses and no swelling. His bilateral lower extremities, the right leg has moderate to severe swelling of the calf, ankle and foot, there is a large open wound on the plantar surface overlying the first metatarsal head of his toe with purulent drainage and necrotic tissue throughout the wound bed. This does palpate deep down to the bone and the first toe was also very swollen. There is a small superficial ulcer on the dorsal aspect of the fourth toe. The left lower extremity has mild swelling of the foot and ankle. There is a large open wound over the plantar surface of the first metatarsal head with pink tissue. There is necrotic tissue at the base of the wound and there is exposure of his bone which is easily palpated within the wound. On vascular examination, he has palpable bilateral dorsalis pedis pulses and bilateral palpable femoral pulses in the groins. IMPRESSION: Right and left first toe open wounds over the first metatarsal head with necrotic tissue and exposed bone consistent with bilateral osteomyelitis. I recommend bilateral open first toe ray amputations with wound VACs because of the significant infection and exposure of bone with clinical osteomyelitis. This will be scheduled for surgery tomorrow and his consent can be obtained from family. We have ordered venous and arterial duplex scans of the bilateral lower extremities. I also recommend a carotid artery duplex scan with his seizure history and difficulty examining bruits. He is currently on IV antibiotics per Infectious Disease. LAN YAÑEZ MD DR: JEANINE/chyna JOB#: [id number] / [id number]
[2017-11-22] MEDS ORDERED: DEXTROSE 50% 25 GM / 50ML DISP.SYRIN. IV PRN (12:45)
--- NOTE | 2017-11-22 13:06 | CONS ---
DATE OF CONSULTATION: 11/22/2017 ATTENDING PHYSICIAN: Gregor Minor D.O. REASON FOR CONSULTATION: The patient seen in Pulmonary consultation at the request of Dr. Minor for vent management. HISTORY OF PRESENT ILLNESS: The patient is a 62-year old who presented to the Emergency Department with seizure. He was intubated. I was asked to see him in consultation for vent management. The patient has been seen by Infectious Disease Service. He has a prior history of diabetes. Apparently, he has previous diabetic foot infection. ID has seen him in consultation. The patient was started on vancomycin and Zosyn. Apparently, he may need an amputation. There are no family members at the bedside. The history is obtained by reviewing the current documentation. PAST MEDICAL HISTORY: Diabetes, prior infection of the foot. It is not clear if he has had previous seizures in the past. SOCIAL HISTORY: Socially, no history of illicit drug or tobacco use. REVIEW OF SYSTEMS: Unobtainable secondary to the patient's condition. CURRENT MEDICATIONS: List was reviewed. PHYSICAL EXAMINATION: GENERAL: The patient was undergoing EEG. He has been afebrile. VITAL SIGNS: He is currently on assist control ventilation, tidal volume 600 and rate of 14, 30%, 5 of PEEP, sedated with Diprivan. HEENT: Eyes, the sclerae were nonicteric. NECK: Jugular venous distention could not be assessed secondary to endotracheal tube in place. CHEST: Full expansion. LUNGS: Adequate airway flow. No wheezes. CARDIOVASCULAR: Regular rate and rhythm with S1 and S2. No S3. ABDOMEN: Soft, nontender and nondistended. EXTREMITIES: No clubbing or cyanosis. Right foot ulcer and infection was present. LABORATORY DATA: White count was elevated at 17,000 and hemoglobin and hematocrit were noted. Arterial blood gas this morning: pH of 7.41, PaCO2 of 41 and pO2 174. INR was 1.2. Electrolytes noted. BUN was 22 and creatinine was 1.5. UA was noted, positive for 11-20 wbc's. Toxicology screen was negative. Ethyl alcohol was negative. RADIOLOGICAL DATA: Chest x-ray was reviewed. Minimal right perihilar atelectasis, otherwise no significant consolidation. CT head from yesterday revealed though no acute intracranial bleed or fractures. There was possible evidence of an anterior communicating artery suggestive of aneurysm. IMPRESSION: 1. Acute respiratory failure, multifactorial secondary to seizures and possible sepsis. 2. Extensive right diabetic foot infection, possible osteomyelitis. 3. Seizures. 4. Leukocytosis. 5. Diabetes. PLAN: 1. We will continue current support with a ventilator. 2. Neurology has been consulted and we will await EEG. 3. IV antibiotics per ID. 4. DVT and GI prophylaxis. 5. Initiate tube feeding for nutritional support. 6. Follow vascular surgeon input. The patient is scheduled to undergo surgery tomorrow. I do appreciate the privilege in sharing in the patient's care. DENNYS SHARMA MD DR: DEMETRIA/chyna JOB#: [id number] / [id number]
--- NOTE | 2017-11-22 13:17 | PDOC ---
PROGRESS NOTES Chief Complaint Chief Complaint Seizure DM 2 Peripheral vascular disease Foot wound History of Present Illness History of Present Illness Pt seen and examined in ICU Dw RN and resp therapy Pt sedated on ventilator A/C/14/600/30% w/ 5 PEEP Pt undergoing EEG Vitals Vitals Vital Signs Date Time Temp Pulse Resp B/P (MAP) Pulse Ox O2 Delivery O2 Flow Rate FiO2 11/22/17 12:00 Mechanical Ventilator 11/22/17 12:00 97.6 78 14 163/81 (108) 100 97.6 Physical Exam General: mild distress, Other (Pt sedated on ventilator) Heart: Regular rate, Normal S1, Normal S2 Lungs: Clear Abdomen: Normal bowel sounds, Soft Extremities: No clubbing, Other (foot wound) Skin: No rashes, Other (Foot wound) Labs LABS Laboratory Tests Test 11/21/17 17:10 11/21/17 17:18 11/21/17 18:15 11/21/17 21:00 White Blood Count 17.1 x10^3/uL (4.0-11.0) Red Blood Count 4.42 x10^6/uL (4.30-5.70) Hemoglobin 12.9 g/dL (13.0-17.5) Hematocrit 40.3 % (39.0-53.0) Mean Corpuscular Volume 91 fL (79-100) Mean Corpuscular Hemoglobin 29 pg (25-35) Mean Corpuscular Hemoglobin Concent 32 g/dL (31-37) Red Cell Distribution Width 13.9 % (11.5-14.5) Platelet Count 565 x10^3/uL (140-400) Neutrophils (%) (Auto) 69 % (31-73) Lymphocytes (%) (Auto) 17 % (24-48) Monocytes (%) (Auto) 11 % (0-9) Eosinophils (%) (Auto) 3 % (0-3) Basophils (%) (Auto) 1 % (0-3) Neutrophils # (Auto) 11.7 x10^3uL (1.8-7.7) Lymphocytes # (Auto) 3.0 x10^3/uL (1.0-4.8) Monocytes # (Auto) 1.9 x10^3/uL (0.0-1.1) Eosinophils # (Auto) 0.4 x10^3/uL (0.0-0.7) Basophils # (Auto) 0.1 x10^3/uL (0.0-0.2) Segmented Neutrophils % 67 % (35-66) Lymphocytes % 20 % (24-48) Monocytes % 10 % (0-10) Eosinophils % 3 % (0-5) Platelet Estimate Increased (ADEQUATE) Prothrombin Time 15.1 SEC (11.7-14.0) Prothromb Time International Ratio 1.2 (0.8-1.1) Sodium Level 138 mmol/L (136-145) Potassium Level 3.7 mmol/L (3.5-5.1) Chloride Level 98 mmol/L (98-107) Carbon Dioxide Level 20 mmol/L (21-32) Anion Gap 20 (6-14) Blood Urea Nitrogen 22 mg/dL (8-26) Creatinine 1.5 mg/dL (0.7-1.3) Estimated GFR (Cockcroft-Gault) 47.7 BUN/Creatinine Ratio 15 (6-20) Glucose Level 490 mg/dL (70-99) Calcium Level 9.4 mg/dL (8.5-10.1) Total Bilirubin 0.2 mg/dL (0.2-1.0) Aspartate Amino Transf (AST/SGOT) 15 U/L (15-37) Alanine Aminotransferase (ALT/SGPT) 24 U/L (16-63) Alkaline Phosphatase 84 U/L (46-116) Creatine Kinase 187 U/L (39-308) Total Protein 8.2 g/dL (6.4-8.2) Albumin 2.9 g/dL (3.4-5.0) Albumin/Globulin Ratio 0.5 (1.0-1.7) Salicylates Level < 2.8 mg/dL (2.8-20.0) Salicylate Last Dose Date Unknown Salicylate Last Dose Time Unknown Acetaminophen Level < 2 mcg/ml (10-30) Acetaminophen Last Dose Date Unknown Acetaminophen Last Dose Time Unknown Ethyl Alcohol Level < 10 mg/dL (0-10) Urine Collection Type U cath Urine Color Yellow Urine Clarity Clear Urine pH 5.5 Urine Specific [place] >=1.030 Urine Protein 30 mg/dL (NEG-TRACE) Urine Glucose (UA) >=1000 mg/dL (NEG) Urine Ketones (Stick) 15 mg/dL (NEG) Urine Blood Negative (NEG) Urine Nitrite Negative (NEG) Urine Bilirubin Negative (NEG) Urine Urobilinogen Dipstick 0.2 mg/dL (0.2 mg/dL) Urine Leukocyte Esterase Negative (NEG) Urine RBC 1-2 /HPF (0-2) Urine WBC 11-20 /HPF (0-4) Urine Squamous Epithelial Cells Few /LPF Urine Amorphous Sediment Present /HPF Urine Bacteria Few /HPF (0-FEW) Urine Hyaline Casts Occasional /HPF Urine Mucus Slight /LPF Urine Opiates Screen Neg (NEG) Urine Methadone Screen Neg (NEG) Urine Barbiturates Neg (NEG) Urine Phencyclidine Screen Neg (NEG) Urine Amphetamine/Methamphetamine Neg (NEG) Urine Benzodiazepines Screen Neg (NEG) Urine Cocaine Screen Neg (NEG) Urine Cannabinoids Screen Neg (NEG) Urine Ethyl Alcohol Neg (NEG) O2 Saturation 99 % (92-99) Arterial Blood pH 7.38 (7.35-7.45) Arterial Blood pH (Temp corrected) 7.45 Arterial Blood pCO2 at Patient Temp 41 mmHg (35-46) Arterial Blood pCO2 (Temp correct) 33 mmHg Arterial Blood pO2 at Patient Temp 302 mmHg (65-108) Arterial Blood pO2 (Temp corrected) 279 mmHg Arterial Blood HCO3 24 mmol/L (21-28) Arterial Blood Base Excess -2 mmol/L (-3-3) FiO2 100.0 Lactic Acid Level 1.2 mmol/L (0.4-2.0) Test 11/22/17 02:50 11/22/17 07:50 11/22/17 09:20 11/22/17 12:23 Sodium Level 140 mmol/L (136-145) 138 mmol/L (136-145) Potassium Level 3.8 mmol/L (3.5-5.1) 3.7 mmol/L (3.5-5.1) Chloride Level 105 mmol/L (98-107) 105 mmol/L (98-107) Carbon Dioxide Level 28 mmol/L (21-32) 26 mmol/L (21-32) Anion Gap 7 (6-14) 7 (6-14) Blood Urea Nitrogen 17 mg/dL (8-26) 16 mg/dL (8-26) Creatinine 0.7 mg/dL (0.7-1.3) 0.7 mg/dL (0.7-1.3) Estimated GFR (Cockcroft-Gault) 115.0 115.0 Glucose Level 259 mg/dL (70-99) 266 mg/dL (70-99) Calcium Level 8.1 mg/dL (8.5-10.1) 7.5 mg/dL (8.5-10.1) O2 Saturation 99 % (92-99) Arterial Blood pH 7.41 (7.35-7.45) Arterial Blood pCO2 at Patient Temp 41 mmHg (35-46) Arterial Blood pO2 at Patient Temp 174 mmHg (65-108) Arterial Blood HCO3 25 mmol/L (21-28) Arterial Blood Base Excess 1 mmol/L (-3-3) FiO2 45 White Blood Count 8.8 x10^3/uL (4.0-11.0) Red Blood Count 3.82 x10^6/uL (4.30-5.70) Hemoglobin 11.3 g/dL (13.0-17.5) Hematocrit 33.7 % (39.0-53.0) Mean Corpuscular Volume 88 fL (79-100) Mean Corpuscular Hemoglobin 30 pg (25-35) Mean Corpuscular Hemoglobin Concent 34 g/dL (31-37) Red Cell Distribution Width 13.2 % (11.5-14.5) Platelet Count 389 x10^3/uL (140-400) Magnesium Level 1.9 mg/dL (1.8-2.4) Triglycerides Level 100 mg/dL (0-150) Vitamin B12 Level 967 pg/mL (247-911) Thyroid Stimulating Hormone (TSH) 1.087 uIU/mL (0.358-3.74) Glucose (Fingerstick) 233 mg/dL (70-99) Review of Systems Review of Systems Pt sedated on ventilator Assessment and Plan Assessmemt and Plan Problems Medical Problems: (1) Seizure Status: Acute Plan: ICU monitoring Ventilator Propofol sedation Abx Vascular surgery consult Neuro consult OG feeds [place] to bedside drainage Prognosis guarded Total time 33 minutes Comment Review of Relevant I have reviewed the following items alta (where applicable) has been applied. Labs Laboratory Tests Test 11/21/17 17:10 11/21/17 17:18 11/21/17 18:15 11/21/17 21:00 White Blood Count 17.1 x10^3/uL (4.0-11.0) Red Blood Count 4.42 x10^6/uL (4.30-5.70) Hemoglobin 12.9 g/dL (13.0-17.5) Hematocrit 40.3 % (39.0-53.0) Mean Corpuscular Volume 91 fL (79-100) Mean Corpuscular Hemoglobin 29 pg (25-35) Mean Corpuscular Hemoglobin Concent 32 g/dL (31-37) Red Cell Distribution Width 13.9 % (11.5-14.5) Platelet Count 565 x10^3/uL (140-400) Neutrophils (%) (Auto) 69 % (31-73) Lymphocytes (%) (Auto) 17 % (24-48) Monocytes (%) (Auto) 11 % (0-9) Eosinophils (%) (Auto) 3 % (0-3) Basophils (%) (Auto) 1 % (0-3) Neutrophils # (Auto) 11.7 x10^3uL (1.8-7.7) Lymphocytes # (Auto) 3.0 x10^3/uL (1.0-4.8) Monocytes # (Auto) 1.9 x10^3/uL (0.0-1.1) Eosinophils # (Auto) 0.4 x10^3/uL (0.0-0.7) Basophils # (Auto) 0.1 x10^3/uL (0.0-0.2) Segmented Neutrophils % 67 % (35-66) Lymphocytes % 20 % (24-48) Monocytes % 10 % (0-10) Eosinophils % 3 % (0-5) Platelet Estimate Increased (ADEQUATE) Prothrombin Time 15.1 SEC (11.7-14.0) Prothromb Time International Ratio 1.2 (0.8-1.1) Sodium Level 138 mmol/L (136-145) Potassium Level 3.7 mmol/L (3.5-5.1) Chloride Level 98 mmol/L (98-107) Carbon Dioxide Level 20 mmol/L (21-32) Anion Gap 20 (6-14) Blood Urea Nitrogen 22 mg/dL (8-26) Creatinine 1.5 mg/dL (0.7-1.3) Estimated GFR (Cockcroft-Gault) 47.7 BUN/Creatinine Ratio 15 (6-20) Glucose Level 490 mg/dL (70-99) Calcium Level 9.4 mg/dL (8.5-10.1) Total Bilirubin 0.2 mg/dL (0.2-1.0) Aspartate Amino Transf (AST/SGOT) 15 U/L (15-37) Alanine Aminotransferase (ALT/SGPT) 24 U/L (16-63) Alkaline Phosphatase 84 U/L (46-116) Creatine Kinase 187 U/L (39-308) Total Protein 8.2 g/dL (6.4-8.2) Albumin 2.9 g/dL (3.4-5.0) Albumin/Globulin Ratio 0.5 (1.0-1.7) Salicylates Level < 2.8 mg/dL (2.8-20.0) Salicylate Last Dose Date Unknown Salicylate Last Dose Time Unknown Acetaminophen Level < 2 mcg/ml (10-30) Acetaminophen Last Dose Date Unknown Acetaminophen Last Dose Time Unknown Ethyl Alcohol Level < 10 mg/dL (0-10) Urine Collection Type U cath Urine Color Yellow Urine Clarity Clear Urine pH 5.5 Urine Specific [place] >=1.030 Urine Protein 30 mg/dL (NEG-TRACE) Urine Glucose (UA) >=1000 mg/dL (NEG) Urine Ketones (Stick) 15 mg/dL (NEG) Urine Blood Negative (NEG) Urine Nitrite Negative (NEG) Urine Bilirubin Negative (NEG) Urine Urobilinogen Dipstick 0.2 mg/dL (0.2 mg/dL) Urine Leukocyte Esterase Negative (NEG) Urine RBC 1-2 /HPF (0-2) Urine WBC 11-20 /HPF (0-4) Urine Squamous Epithelial Cells Few /LPF Urine Amorphous Sediment Present /HPF Urine Bacteria Few /HPF (0-FEW) Urine Hyaline Casts Occasional /HPF Urine Mucus Slight /LPF Urine Opiates Screen Neg (NEG) Urine Methadone Screen Neg (NEG) Urine Barbiturates Neg (NEG) Urine Phencyclidine Screen Neg (NEG) Urine Amphetamine/Methamphetamine Neg (NEG) Urine Benzodiazepines Screen Neg (NEG) Urine Cocaine Screen Neg (NEG) Urine Cannabinoids Screen Neg (NEG) Urine Ethyl Alcohol Neg (NEG) O2 Saturation 99 % (92-99) Arterial Blood pH 7.38 (7.35-7.45) Arterial Blood pH (Temp corrected) 7.45 Arterial Blood pCO2 at Patient Temp 41 mmHg (35-46) Arterial Blood pCO2 (Temp correct) 33 mmHg Arterial Blood pO2 at Patient Temp 302 mmHg (65-108) Arterial Blood pO2 (Temp corrected) 279 mmHg Arterial Blood HCO3 24 mmol/L (21-28) Arterial Blood Base Excess -2 mmol/L (-3-3) FiO2 100.0 Lactic Acid Level 1.2 mmol/L (0.4-2.0) Test 11/22/17 02:50 11/22/17 07:50 11/22/17 09:20 11/22/17 12:23 Sodium Level 140 mmol/L (136-145) 138 mmol/L (136-145) Potassium Level 3.8 mmol/L (3.5-5.1) 3.7 mmol/L (3.5-5.1) Chloride Level 105 mmol/L (98-107) 105 mmol/L (98-107) Carbon Dioxide Level 28 mmol/L (21-32) 26 mmol/L (21-32) Anion Gap 7 (6-14) 7 (6-14) Blood Urea Nitrogen 17 mg/dL (8-26) 16 mg/dL (8-26) Creatinine 0.7 mg/dL (0.7-1.3) 0.7 mg/dL (0.7-1.3) Estimated GFR (Cockcroft-Gault) 115.0 115.0 Glucose Level 259 mg/dL (70-99) 266 mg/dL (70-99) Calcium Level 8.1 mg/dL (8.5-10.1) 7.5 mg/dL (8.5-10.1) O2 Saturation 99 % (92-99) Arterial Blood pH 7.41 (7.35-7.45) Arterial Blood pCO2 at Patient Temp 41 mmHg (35-46) Arterial Blood pO2 at Patient Temp 174 mmHg (65-108) Arterial Blood HCO3 25 mmol/L (21-28) Arterial Blood Base Excess 1 mmol/L (-3-3) FiO2 45 White Blood Count 8.8 x10^3/uL (4.0-11.0) Red Blood Count 3.82 x10^6/uL (4.30-5.70) Hemoglobin 11.3 g/dL (13.0-17.5) Hematocrit 33.7 % (39.0-53.0) Mean Corpuscular Volume 88 fL (79-100) Mean Corpuscular Hemoglobin 30 pg (25-35) Mean Corpuscular Hemoglobin Concent 34 g/dL (31-37) Red Cell Distribution Width 13.2 % (11.5-14.5) Platelet Count 389 x10^3/uL (140-400) Magnesium Level 1.9 mg/dL (1.8-2.4) Triglycerides Level 100 mg/dL (0-150) Vitamin B12 Level 967 pg/mL (247-911) Thyroid Stimulating Hormone (TSH) 1.087 uIU/mL (0.358-3.74) Glucose (Fingerstick) 233 mg/dL (70-99) Laboratory Tests Test 11/21/17 17:10 11/21/17 17:18 11/21/17 18:15 11/21/17 21:00 White Blood Count 17.1 x10^3/uL (4.0-11.0) Red Blood Count 4.42 x10^6/uL (4.30-5.70) Hemoglobin 12.9 g/dL (13.0-17.5) Hematocrit 40.3 % (39.0-53.0) Mean Corpuscular Volume 91 fL (79-100) Mean Corpuscular Hemoglobin 29 pg (25-35) Mean Corpuscular Hemoglobin Concent 32 g/dL (31-37) Red Cell Distribution Width 13.9 % (11.5-14.5) Platelet Count 565 x10^3/uL (140-400) Neutrophils (%) (Auto) 69 % (31-73) Lymphocytes (%) (Auto) 17 % (24-48) Monocytes (%) (Auto) 11 % (0-9) Eosinophils (%) (Auto) 3 % (0-3) Basophils (%) (Auto) 1 % (0-3) Neutrophils # (Auto) 11.7 x10^3uL (1.8-7.7) Lymphocytes # (Auto) 3.0 x10^3/uL (1.0-4.8) Monocytes # (Auto) 1.9 x10^3/uL (0.0-1.1) Eosinophils # (Auto) 0.4 x10^3/uL (0.0-0.7) Basophils # (Auto) 0.1 x10^3/uL (0.0-0.2) Segmented Neutrophils % 67 % (35-66) Lymphocytes % 20 % (24-48) Monocytes % 10 % (0-10) Eosinophils % 3 % (0-5) Platelet Estimate Increased (ADEQUATE) Prothrombin Time 15.1 SEC (11.7-14.0) Prothromb Time International Ratio 1.2 (0.8-1.1) Sodium Level 138 mmol/L (136-145) Potassium Level 3.7 mmol/L (3.5-5.1) Chloride Level 98 mmol/L (98-107) Carbon Dioxide Level 20 mmol/L (21-32) Anion Gap 20 (6-14) Blood Urea Nitrogen 22 mg/dL (8-26) Creatinine 1.5 mg/dL (0.7-1.3) Estimated GFR (Cockcroft-Gault) 47.7 BUN/Creatinine Ratio 15 (6-20) Glucose Level 490 mg/dL (70-99) Calcium Level 9.4 mg/dL (8.5-10.1) Total Bilirubin 0.2 mg/dL (0.2-1.0) Aspartate Amino Transf (AST/SGOT) 15 U/L (15-37) Alanine Aminotransferase (ALT/SGPT) 24 U/L (16-63) Alkaline Phosphatase 84 U/L (46-116) Creatine Kinase 187 U/L (39-308) Total Protein 8.2 g/dL (6.4-8.2) Albumin 2.9 g/dL (3.4-5.0) Albumin/Globulin Ratio 0.5 (1.0-1.7) Salicylates Level < 2.8 mg/dL (2.8-20.0) Salicylate Last Dose Date Unknown Salicylate Last Dose Time Unknown Acetaminophen Level < 2 mcg/ml (10-30) Acetaminophen Last Dose Date Unknown Acetaminophen Last Dose Time Unknown Ethyl Alcohol Level < 10 mg/dL (0-10) Urine Collection Type U cath Urine Color Yellow Urine Clarity Clear Urine pH 5.5 Urine Specific [place] >=1.030 Urine Protein 30 mg/dL (NEG-TRACE) Urine Glucose (UA) >=1000 mg/dL (NEG) Urine Ketones (Stick) 15 mg/dL (NEG) Urine Blood Negative (NEG) Urine Nitrite Negative (NEG) Urine Bilirubin Negative (NEG) Urine Urobilinogen Dipstick 0.2 mg/dL (0.2 mg/dL) Urine Leukocyte Esterase Negative (NEG) Urine RBC 1-2 /HPF (0-2) Urine WBC 11-20 /HPF (0-4) Urine Squamous Epithelial Cells Few /LPF Urine Amorphous Sediment Present /HPF Urine Bacteria Few /HPF (0-FEW) Urine Hyaline Casts Occasional /HPF Urine Mucus Slight /LPF Urine Opiates Screen Neg (NEG) Urine Methadone Screen Neg (NEG) Urine Barbiturates Neg (NEG) Urine Phencyclidine Screen Neg (NEG) Urine Amphetamine/Methamphetamine Neg (NEG) Urine Benzodiazepines Screen Neg (NEG) Urine Cocaine Screen Neg (NEG) Urine Cannabinoids Screen Neg (NEG) Urine Ethyl Alcohol Neg (NEG) O2 Saturation 99 % (92-99) Arterial Blood pH 7.38 (7.35-7.45) Arterial Blood pH (Temp corrected) 7.45 Arterial Blood pCO2 at Patient Temp 41 mmHg (35-46) Arterial Blood pCO2 (Temp correct) 33 mmHg Arterial Blood pO2 at Patient Temp 302 mmHg (65-108) Arterial Blood pO2 (Temp corrected) 279 mmHg Arterial Blood HCO3 24 mmol/L (21-28) Arterial Blood Base Excess -2 mmol/L (-3-3) FiO2 100.0 Lactic Acid Level 1.2 mmol/L (0.4-2.0) Test 11/22/17 02:50 11/22/17 07:50 11/22/17 09:20 11/22/17 12:23 Sodium Level 140 mmol/L (136-145) 138 mmol/L (136-145) Potassium Level 3.8 mmol/L (3.5-5.1) 3.7 mmol/L (3.5-5.1) Chloride Level 105 mmol/L (98-107) 105 mmol/L (98-107) Carbon Dioxide Level 28 mmol/L (21-32) 26 mmol/L (21-32) Anion Gap 7 (6-14) 7 (6-14) Blood Urea Nitrogen 17 mg/dL (8-26) 16 mg/dL (8-26) Creatinine 0.7 mg/dL (0.7-1.3) 0.7 mg/dL (0.7-1.3) Estimated GFR (Cockcroft-Gault) 115.0 115.0 Glucose Level 259 mg/dL (70-99) 266 mg/dL (70-99) Calcium Level 8.1 mg/dL (8.5-10.1) 7.5 mg/dL (8.5-10.1) O2 Saturation 99 % (92-99) Arterial Blood pH 7.41 (7.35-7.45) Arterial Blood pCO2 at Patient Temp 41 mmHg (35-46) Arterial Blood pO2 at Patient Temp 174 mmHg (65-108) Arterial Blood HCO3 25 mmol/L (21-28) Arterial Blood Base Excess 1 mmol/L (-3-3) FiO2 45 White Blood Count 8.8 x10^3/uL (4.0-11.0) Red Blood Count 3.82 x10^6/uL (4.30-5.70) Hemoglobin 11.3 g/dL (13.0-17.5) Hematocrit 33.7 % (39.0-53.0) Mean Corpuscular Volume 88 fL (79-100) Mean Corpuscular Hemoglobin 30 pg (25-35) Mean Corpuscular Hemoglobin Concent 34 g/dL (31-37) Red Cell Distribution Width 13.2 % (11.5-14.5) Platelet Count 389 x10^3/uL (140-400) Magnesium Level 1.9 mg/dL (1.8-2.4) Triglycerides Level 100 mg/dL (0-150) Vitamin B12 Level 967 pg/mL (247-911) Thyroid Stimulating Hormone (TSH) 1.087 uIU/mL (0.358-3.74) Glucose (Fingerstick) 233 mg/dL (70-99) Medications Current Medications Propofol 50 ml @ As Directed STK-MED ONCE IV ; Start 11/21/17 at 17:07; Stop 12/29 at 17:08; Status DC Midazolam HCl (Versed) 5 mg 1X ONCE NS Last administered on 11/21/17at 17:05; Start 11/21/17 at 17:15; Stop 11/21/17 at 17:16; Status DC Fentanyl Citrate (Fentanyl 2ml Vial) 100 mcg 1X ONCE IV Last administered on at 17:09; Start 11/21/17 at 17:15; Stop 11/21/17 at 17:16; Status DC Levetiracetam 1000 mg/Dextrose 110 ml @ 440 mls/hr 1X ONCE IV Last administered on 11/21/17at 17:25; Start 11/21/17 at 17:15; Stop 11/21/17 at 17:29 ; Status DC Sodium Chloride 1,000 ml @ 1,000 mls/hr 1X ONCE IV Last administered on at 19:39; Start 11/21/17 at 17:15; Stop 11/21/17 at 18:14; Status DC Propofol (Diprivan) 200 mg 1X ONCE IV Last administered on 11/21/17at 17:14; Start 11/21/17 at 17:15; Stop 11/21/17 at 17:16; Status DC Midazolam HCl (Versed) 5 mg 1X ONCE IV Last administered on 11/21/17at 19:20; Start 11/21/17 at 17:45; Stop 11/21/17 at 17:50; Status DC Sodium Chloride 1,000 ml @ 150 mls/hr Q6H40M IV Last administered on at 12:12; Start 11/21/17 at 18:15; Stop 11/22/17 at 18:14 Vancomycin HCl (Vanco Per Pharmacy) 1 each PRN DAILY PRN MC SEE COMMENTS Last administered on 11/22/17at 11:12; Start 11/21/17 at 18:00 Piperacillin Sod/ Tazobactam Sod 3.375 gm/Sodium Chloride 50 ml @ 100 mls/hr 1X ONCE IV Last administered on 11/21/17at 19:04; Start 11/21/17 at 18:15; Stop 11/21/17 at 18:44; Status DC Insulin Human Regular (HumuLIN R VIAL) 10 unit 1X ONCE IV Last administered on 11/21/17at 20:55; Start 11/21/17 at 18:15; Stop 11/21/17 at 18:16; Status DC Potassium Chloride (KCl Oral Soln) 40 meq 1X ONCE NG Last administered on 11/21at 22:08; Start 11/21/17 at 18:15; Stop 11/21/17 at 18:16; Status DC Levetiracetam 500 mg/Dextrose 105 ml @ 420 mls/hr Q12HR IV Last administered on 11/22/17at 09:00; Start 11/21/17 at 21:00 Lorazepam (Ativan) 2 mg PRN Q4HRS PRN IV ANXIETY / AGITATION Last administered on 11/22/17at 12:12; Start 11/21/17 at 18:15 Thiamine HCl 100 mg/Dextrose 51 ml @ 102 mls/hr 1X STAT IV Last administered on 11/21/17at 18:33; Start 11/21/17 at 18:11; Stop 11/21/17 at 18:40; Status DC Vancomycin HCl 2 gm/Sodium Chloride 500 ml @ 250 mls/hr 1X ONCE IV Last administered on 11/21/17at 20:52; Start 11/21/17 at 19:00; Stop 11/21/17 at 20:59 ; Status DC Etomidate (Amidate) 20 mg STK-MED ONCE IV ; Start 11/21/17 at 19:04; Stop at 19:05; Status DC Succinylcholine Chloride (Anectine) 200 mg STK-MED ONCE .ROUTE ; Start 11/21/17 at 19:05; Stop 11/21/17 at 19:06; Status DC Propofol 50 ml @ As Directed STK-MED ONCE IV ; Start 11/21/17 at 19:38; Stop 12/29 at 19:39; Status DC Etomidate (Amidate) 20 mg 1X ONCE IV Last administered on 11/21/17at 17:01; Start 11/21/17 at 20:00; Stop 11/21/17 at 20:01; Status DC Succinylcholine Chloride (Anectine) 100 mg 1X ONCE IV Last administered on 12/29at 17:01; Start 11/21/17 at 20:00; Stop 11/21/17 at 20:01; Status DC Midazolam HCl (Versed) 5 mg 1X ONCE IV Last administered on 11/21/17at 17:39; Start 11/21/17 at 20:00; Stop 11/21/17 at 20:01; Status DC Vancomycin HCl 1.5 gm/Sodium Chloride 500 ml @ 250 mls/hr Q12H IV Last administered on 11/22/17at 09:56; Start 11/22/17 at 09:00; Stop 11/22/17 at 11:03 ; Status DC Fentanyl Citrate 30 ml @ 0 mls/hr CONT PRN IV PER PROTOCOL; Start 11/21/17 at 22:00 Propofol 100 ml @ 0 mls/hr CONT PRN IV PER PROTOCOL Last administered on at 07:18; Start 11/21/17 at 22:00 Chlorhexidine Gluconate (Peridex) 15 ml BID MM Last administered on 11/22/17at 09:00; Start 11/22/17 at 09:00 Famotidine (Pepcid Vial) 20 mg BID IVP Last administered on 11/22/17at 09:00; Start 11/22/17 at 09:00 Enoxaparin Sodium (Lovenox Per Pharmacy Prophylaxis Dosing) 1 each PRN DAILY PRN MC SEE COMMENTS; Start 11/22/17 at 09:30 Enoxaparin Sodium (Lovenox 40mg Syringe) 40 mg Q24H SQ Last administered on 01/29at 10:00; Start 11/22/17 at 10:00 Iohexol (Omnipaque 300 Mg/ml) 75 ml 1X ONCE IV ; Start 11/22/17 at 10:45; Stop 11/22/17 at 10:46; Status DC Info (CONTRAST GIVEN -- Rx MONITORING) 1 each PRN DAILY PRN MC SEE COMMENTS; Start 11/22/17 at 11:00; Stop 11/24/17 at 10:59 Iohexol (Omnipaque 300 Mg/ml) 100 ml STK-MED ONCE .ROUTE ; Start 11/22/17 at 10: 45; Stop 11/22/17 at 10:46; Status DC Vancomycin HCl 1.5 gm/Sodium Chloride 500 ml @ 250 mls/hr Q12H IV ; Start 11/22 at 22:00 Vancomycin HCl (Vancomycin Trough Level) 1 each 1X ONCE MC ; Start 11/23/17 at 09:30; Stop 11/23/17 at 09:31 Piperacillin Sod/ Tazobactam Sod 3.375 gm/Sodium Chloride 50 ml @ 100 mls/hr Q6HRS IV Last administered on 11/22/17at 12:16; Start 11/22/17 at 12:00 Insulin Human Lispro (HumaLOG) 0-5 UNITS Q6HRS SQ ; Start 11/22/17 at 18:00 Dextrose (Dextrose 50%-Water Syringe) 12.5 gm PRN Q15MIN PRN IV SEE COMMENTS; Start 11/22/17 at 12:45 Vitals/I & O Vital Sign - Last 24 Hours 11/21/17 11/21/17 11/21/17 11/21/17 16:55 17:09 17:10 18:46 Temp 99.7 99.7 Pulse 109 82 Resp 20 14 B/P (MAP) 162/69 (100) Pulse Ox 98 97 97 O2 Delivery Bag Valve Mask Bag Valve Mask Ventilator 11/21/17 11/21/17 11/21/17 11/21/17 18:51 18:56 19:01 19:06 Pulse 80 82 80 80 Resp 14 14 14 14 Pulse Ox 97 97 98 98 11/21/17 11/21/17 11/21/17 11/21/17 19:11 19:16 19:21 19:26 Pulse 84 90 84 80 Resp 14 14 14 14 Pulse Ox 98 98 99 100 11/21/17 11/21/17 11/21/17 11/21/17 19:31 19:36 19:41 19:46 Pulse 80 80 80 84 Resp 14 14 14 14 Pulse Ox 100 99 99 99 11/21/17 11/21/17 11/21/17 11/21/17 19:58 20:00 20:00 20:15 Temp 98.2 98.2 Pulse 84 Resp 17 17 B/P (MAP) 142/75 (97) 149/62 (91) Pulse Ox 99 99 99 O2 Delivery Ventilator Mechanical Ventilator Ventilator Ventilator 11/21/17 11/21/17 11/21/17 11/21/17 20:30 20:45 21:00 21:30 Pulse 86 74 72 68 Resp 17 17 17 17 B/P (MAP) 133/71 (91) 151/78 (102) 155/71 (99) 109/59 (76) Pulse Ox 100 100 100 100 O2 Delivery Ventilator Ventilator Ventilator Ventilator 11/21/17 11/21/17 11/21/17 11/21/17 22:00 22:20 23:00 23:51 Pulse 68 64 Resp 17 17 B/P (MAP) 107/60 (76) 119/67 (84) Pulse Ox 100 100 100 100 O2 Delivery Ventilator Ventilator Ventilator Ventilator 11/21/17 11/22/17 11/22/17 11/22/17 23:59 00:00 01:00 01:35 Temp 97.7 97.7 Pulse 66 62 Resp 17 17 B/P (MAP) 153/81 (105) 143/75 (97) Pulse Ox 100 100 100 O2 Delivery Mechanical Ventilator Ventilator Ventilator Ventilator 11/22/17 11/22/17 11/22/17 11/22/17 02:00 03:00 03:50 04:00 Temp 97.7 97.7 Pulse 64 64 71 Resp 19 17 17 B/P (MAP) 140/70 (93) 156/80 (105) 135/70 (91) Pulse Ox 100 100 100 100 O2 Delivery Ventilator Ventilator Ventilator Ventilator 11/22/17 11/22/17 11/22/17 11/22/17 04:00 05:00 05:50 06:00 Pulse 66 63 Resp 18 18 B/P (MAP) 140/63 (88) 122/61 (81) Pulse Ox 100 100 100 O2 Delivery Mechanical Ventilator Ventilator Ventilator Ventilator 11/22/17 11/22/17 11/22/17 11/22/17 07:00 07:27 08:00 08:00 Temp 98.2 98.2 Pulse 65 66 Resp 15 14 B/P (MAP) 111/60 (77) 109/67 (81) Pulse Ox 100 100 100 O2 Delivery Ventilator Ventilator Mechanical Ventilator Ventilator 11/22/17 11/22/17 11/22/17 11/22/17 09:00 09:25 10:00 11:00 Pulse 74 78 75 Resp 16 14 15 B/P (MAP) 142/68 (92) 145/73 (97) 151/77 (101) Pulse Ox 100 100 100 100 O2 Delivery Ventilator Ventilator Ventilator Ventilator 11/22/17 11/22/17 11/22/17 11:30 12:00 12:00 Temp 97.6 97.6 Pulse 78 Resp 14 B/P (MAP) 163/81 (108) Pulse Ox 100 100 O2 Delivery Ventilator Ventilator Mechanical Ventilator Intake and Output 11/21/17 11/21/17 11/22/17 15:00 23:00 07:00 Intake Total 211 ml 2356 ml Output Total 535 ml 430 ml Balance -324 ml 1926 ml CASTLE,NIAL K III DO Nov 22, 2017 13:17
--- NOTE | 2017-11-22 15:04 | PDOC2 ---
NEUROLOGY CONSULT Date of Admission Date of Admission DATE: 11/22/17 TIME: 14:46 Reason for Consult Reason for Consult: IMPRESSION: Seizure, provoked by metabolic disturbances. Metabolic encephalopathy. Respiratory failure, acute. Hyperglycemia, glucose level 490 mg/dlL on 11/21. UTI. DM, not well controlled. HTN. Acon aneurysm? Chronic cellulitis, LE. Obesity. RECOMMENDATIONS/PLAN: Keppra 500 mg q12h x 1 week, then 250 mg bid x 1 week, then stop. Ativan 2 mg IV q 4-6 h PRN for seizures. Control hyperglycemia. Treat medical diseases. HCT to help rule out aneurysm. Lab: see orders. Prevent DVT. HISTORY OF THE PRESENT ILLNESS: This 62-y-old male patient with Hx of DM on Insulin per history of the patient suddenly LOC and had a seizure as convulsion during work. EMS was called and he was brought to the ER of [facility] and was found hyperglycemia and his glucose level was 490 mg/dl. No history of seizure in the past. PAST MEDICAL HISTORY: DM. PAST SURGERY HISTORY: No major surgery recently. ALLERGY: Unknown MEDICATIONS: Refer to [facility] HISTORY: Non contributory. SOCIAL HISTORY: He works at [employer]. Unknown his history of substance or drugs. REVIEW OF SYSTEMS: Constitutional: Obese. Head: No traumatic brain or head injury. Skin: No edema, or rash. Ear: No infection. Eyes: No vision loss or color blindness. Nose: No bleeding or purulent discharges. Hearing: No hearing decrease. Neck: No injury. Cardiac: HTN. Pulmonary: No COPD. GI: No GI ulcer, GI bleeding. Urinary/genital: UTI. Endocrinologic: Diabetes Mellitus, obesity. Skeletomuscular: No muscular atrophy, deformity. Neurological: see HP. Psychiatric: Unknown drug use/abuse. Otherwise, not [id number] review of systems. PHYSICAL EXAMINATION: General appearance is in acute distress. HEENT: Normocephalic and nontraumatic. Eyes, nose, ears, and throat are unremarkable. Neck is supple. No lymphadenopathy. No bruits are heard over the carotid artery. No crepitus. Cardiovascular: S1, S2, regular rate and rhythm. Pulmonary: On event. Abdomen: Bowel sounds are positive. Extremities: Wounds in LE. No restriction of range of motion NEUROLOGICAL EXAMINATION: Lethargic. Not oriented to time, place and person. PERRL. EOMI. CN: no focal findings. Muscle tone: within normal. Muscle strength: moves all extremities to stimuli. DTR: 1-2 Plantar reflex: Neutral response bilaterally Gait: not examined in bed. . Sensory exam: no abnormal findings. Not able to access cerebellar signs. F-T-N test not performed. Current Medications Current Medications Current Medications Propofol 50 ml @ As Directed STK-MED ONCE IV ; Start 11/21/17 at 17:07; Stop 12/29 at 17:08; Status DC Midazolam HCl (Versed) 5 mg 1X ONCE NS Last administered on 11/21/17at 17:05; Start 11/21/17 at 17:15; Stop 11/21/17 at 17:16; Status DC Fentanyl Citrate (Fentanyl 2ml Vial) 100 mcg 1X ONCE IV Last administered on at 17:09; Start 11/21/17 at 17:15; Stop 11/21/17 at 17:16; Status DC Levetiracetam 1000 mg/Dextrose 110 ml @ 440 mls/hr 1X ONCE IV Last administered on 11/21/17at 17:25; Start 11/21/17 at 17:15; Stop 11/21/17 at 17:29 ; Status DC Sodium Chloride 1,000 ml @ 1,000 mls/hr 1X ONCE IV Last administered on at 19:39; Start 11/21/17 at 17:15; Stop 11/21/17 at 18:14; Status DC Propofol (Diprivan) 200 mg 1X ONCE IV Last administered on 11/21/17at 17:14; Start 11/21/17 at 17:15; Stop 11/21/17 at 17:16; Status DC Midazolam HCl (Versed) 5 mg 1X ONCE IV Last administered on 11/21/17at 19:20; Start 11/21/17 at 17:45; Stop 11/21/17 at 17:50; Status DC Sodium Chloride 1,000 ml @ 150 mls/hr Q6H40M IV Last administered on at 12:12; Start 11/21/17 at 18:15; Stop 11/22/17 at 18:14 Vancomycin HCl (Vanco Per Pharmacy) 1 each PRN DAILY PRN MC SEE COMMENTS Last administered on 11/22/17at 11:12; Start 11/21/17 at 18:00 Piperacillin Sod/ Tazobactam Sod 3.375 gm/Sodium Chloride 50 ml @ 100 mls/hr 1X ONCE IV Last administered on 11/21/17at 19:04; Start 11/21/17 at 18:15; Stop 11/21/17 at 18:44; Status DC Insulin Human Regular (HumuLIN R VIAL) 10 unit 1X ONCE IV Last administered on 11/21/17at 20:55; Start 11/21/17 at 18:15; Stop 11/21/17 at 18:16; Status DC Potassium Chloride (KCl Oral Soln) 40 meq 1X ONCE NG Last administered on 11/21at 22:08; Start 11/21/17 at 18:15; Stop 11/21/17 at 18:16; Status DC Levetiracetam 500 mg/Dextrose 105 ml @ 420 mls/hr Q12HR IV Last administered on 11/22/17at 09:00; Start 11/21/17 at 21:00 Lorazepam (Ativan) 2 mg PRN Q4HRS PRN IV ANXIETY / AGITATION Last administered on 11/22/17at 12:12; Start 11/21/17 at 18:15 Thiamine HCl 100 mg/Dextrose 51 ml @ 102 mls/hr 1X STAT IV Last administered on 11/21/17at 18:33; Start 11/21/17 at 18:11; Stop 11/21/17 at 18:40; Status DC Vancomycin HCl 2 gm/Sodium Chloride 500 ml @ 250 mls/hr 1X ONCE IV Last administered on 11/21/17at 20:52; Start 11/21/17 at 19:00; Stop 11/21/17 at 20:59 ; Status DC Etomidate (Amidate) 20 mg STK-MED ONCE IV ; Start 11/21/17 at 19:04; Stop at 19:05; Status DC Succinylcholine Chloride (Anectine) 200 mg STK-MED ONCE .ROUTE ; Start 11/21/17 at 19:05; Stop 11/21/17 at 19:06; Status DC Propofol 50 ml @ As Directed STK-MED ONCE IV ; Start 11/21/17 at 19:38; Stop 12/29 at 19:39; Status DC Etomidate (Amidate) 20 mg 1X ONCE IV Last administered on 11/21/17at 17:01; Start 11/21/17 at 20:00; Stop 11/21/17 at 20:01; Status DC Succinylcholine Chloride (Anectine) 100 mg 1X ONCE IV Last administered on 12/29at 17:01; Start 11/21/17 at 20:00; Stop 11/21/17 at 20:01; Status DC Midazolam HCl (Versed) 5 mg 1X ONCE IV Last administered on 11/21/17at 17:39; Start 11/21/17 at 20:00; Stop 11/21/17 at 20:01; Status DC Vancomycin HCl 1.5 gm/Sodium Chloride 500 ml @ 250 mls/hr Q12H IV Last administered on 11/22/17at 09:56; Start 11/22/17 at 09:00; Stop 11/22/17 at 11:03 ; Status DC Fentanyl Citrate 30 ml @ 0 mls/hr CONT PRN IV PER PROTOCOL; Start 11/21/17 at 22:00 Propofol 100 ml @ 0 mls/hr CONT PRN IV PER PROTOCOL Last administered on at 07:18; Start 11/21/17 at 22:00 Chlorhexidine Gluconate (Peridex) 15 ml BID MM Last administered on 11/22/17at 09:00; Start 11/22/17 at 09:00 Famotidine (Pepcid Vial) 20 mg BID IVP Last administered on 11/22/17at 09:00; Start 11/22/17 at 09:00 Enoxaparin Sodium (Lovenox Per Pharmacy Prophylaxis Dosing) 1 each PRN DAILY PRN MC SEE COMMENTS; Start 11/22/17 at 09:30 Enoxaparin Sodium (Lovenox 40mg Syringe) 40 mg Q24H SQ Last administered on 01/29at 10:00; Start 11/22/17 at 10:00 Iohexol (Omnipaque 300 Mg/ml) 75 ml 1X ONCE IV ; Start 11/22/17 at 10:45; Stop 11/22/17 at 10:46; Status DC Info (CONTRAST GIVEN -- Rx MONITORING) 1 each PRN DAILY PRN MC SEE COMMENTS; Start 11/22/17 at 11:00; Stop 11/24/17 at 10:59 Iohexol (Omnipaque 300 Mg/ml) 100 ml STK-MED ONCE .ROUTE ; Start 11/22/17 at 10: 45; Stop 11/22/17 at 10:46; Status DC Vancomycin HCl 1.5 gm/Sodium Chloride 500 ml @ 250 mls/hr Q12H IV ; Start 11/22 at 22:00 Vancomycin HCl (Vancomycin Trough Level) 1 each 1X ONCE MC ; Start 11/23/17 at 09:30; Stop 11/23/17 at 09:31 Piperacillin Sod/ Tazobactam Sod 3.375 gm/Sodium Chloride 50 ml @ 100 mls/hr Q6HRS IV Last administered on 11/22/17at 12:16; Start 11/22/17 at 12:00 Insulin Human Lispro (HumaLOG) 0-5 UNITS Q6HRS SQ ; Start 11/22/17 at 18:00 Dextrose (Dextrose 50%-Water Syringe) 12.5 gm PRN Q15MIN PRN IV SEE COMMENTS; Start 11/22/17 at 12:45 Allergies Allergies: Allergies Coded Allergies Type Severity Reaction Last Updated Verified Unable to Assess 11/21/17 No ROS Review of System The patient denies any associated fevers, chills, headache, ear pain, rhinorrhea , sore throat, stiff neck, productive cough, chest pain, shortness of breath, back or flank pain, abdominal pain, nausea, vomiting, diarrhea, constipation, dysuria, rash, numbness, weakness, tingling, incontinence, difficulty ambulating, or diaphoresis. Physical Exam Physical Exam General: Well developed, well nourished, no acute distress, well appearing HEENT: Pupils equally round and reactive to light, EOMI, no discharge, normal conjunctiva Neck: Supple, no nuchal rigidity, no JVD, trachea midline, no tenderness Cardiac: RRR, no murmurs, no gallops, no rubs Chest/Lungs: CTAB, no wheeze, no rhonchi, no crackles Abdomen: soft, non-distended, no guarding, no peritoneal signs, non-tender Back: No tenderness Extremities: no edema, pulses intact, non-tender,capillary refill <3 sec bilateral upper and lower extremities, Neuro: Alert and oriented x 4, no focal deficits, normal speech Vitals Vitals: Vital Signs Date Time Temp Pulse Resp B/P (MAP) Pulse Ox O2 Delivery O2 Flow Rate FiO2 11/22/17 14:00 71 14 111/54 (73) 100 Ventilator 11/22/17 12:00 97.6 97.6 Labs Labs Laboratory Tests Test 11/21/17 17:10 11/21/17 17:18 11/21/17 18:15 11/21/17 21:00 White Blood Count 17.1 x10^3/uL (4.0-11.0) Red Blood Count 4.42 x10^6/uL (4.30-5.70) Hemoglobin 12.9 g/dL (13.0-17.5) Hematocrit 40.3 % (39.0-53.0) Mean Corpuscular Volume 91 fL (79-100) Mean Corpuscular Hemoglobin 29 pg (25-35) Mean Corpuscular Hemoglobin Concent 32 g/dL (31-37) Red Cell Distribution Width 13.9 % (11.5-14.5) Platelet Count 565 x10^3/uL (140-400) Neutrophils (%) (Auto) 69 % (31-73) Lymphocytes (%) (Auto) 17 % (24-48) Monocytes (%) (Auto) 11 % (0-9) Eosinophils (%) (Auto) 3 % (0-3) Basophils (%) (Auto) 1 % (0-3) Neutrophils # (Auto) 11.7 x10^3uL (1.8-7.7) Lymphocytes # (Auto) 3.0 x10^3/uL (1.0-4.8) Monocytes # (Auto) 1.9 x10^3/uL (0.0-1.1) Eosinophils # (Auto) 0.4 x10^3/uL (0.0-0.7) Basophils # (Auto) 0.1 x10^3/uL (0.0-0.2) Segmented Neutrophils % 67 % (35-66) Lymphocytes % 20 % (24-48) Monocytes % 10 % (0-10) Eosinophils % 3 % (0-5) Platelet Estimate Increased (ADEQUATE) Prothrombin Time 15.1 SEC (11.7-14.0) Prothromb Time International Ratio 1.2 (0.8-1.1) Sodium Level 138 mmol/L (136-145) Potassium Level 3.7 mmol/L (3.5-5.1) Chloride Level 98 mmol/L (98-107) Carbon Dioxide Level 20 mmol/L (21-32) Anion Gap 20 (6-14) Blood Urea Nitrogen 22 mg/dL (8-26) Creatinine 1.5 mg/dL (0.7-1.3) Estimated GFR (Cockcroft-Gault) 47.7 BUN/Creatinine Ratio 15 (6-20) Glucose Level 490 mg/dL (70-99) Calcium Level 9.4 mg/dL (8.5-10.1) Total Bilirubin 0.2 mg/dL (0.2-1.0) Aspartate Amino Transf (AST/SGOT) 15 U/L (15-37) Alanine Aminotransferase (ALT/SGPT) 24 U/L (16-63) Alkaline Phosphatase 84 U/L (46-116) Creatine Kinase 187 U/L (39-308) Total Protein 8.2 g/dL (6.4-8.2) Albumin 2.9 g/dL (3.4-5.0) Albumin/Globulin Ratio 0.5 (1.0-1.7) Salicylates Level < 2.8 mg/dL (2.8-20.0) Salicylate Last Dose Date Unknown Salicylate Last Dose Time Unknown Acetaminophen Level < 2 mcg/ml (10-30) Acetaminophen Last Dose Date Unknown Acetaminophen Last Dose Time Unknown Ethyl Alcohol Level < 10 mg/dL (0-10) Urine Collection Type U cath Urine Color Yellow Urine Clarity Clear Urine pH 5.5 Urine Specific Hosford >=1.030 Urine Protein 30 mg/dL (NEG-TRACE) Urine Glucose (UA) >=1000 mg/dL (NEG) Urine Ketones (Stick) 15 mg/dL (NEG) Urine Blood Negative (NEG) Urine Nitrite Negative (NEG) Urine Bilirubin Negative (NEG) Urine Urobilinogen Dipstick 0.2 mg/dL (0.2 mg/dL) Urine Leukocyte Esterase Negative (NEG) Urine RBC 1-2 /HPF (0-2) Urine WBC 11-20 /HPF (0-4) Urine Squamous Epithelial Cells Few /LPF Urine Amorphous Sediment Present /HPF Urine Bacteria Few /HPF (0-FEW) Urine Hyaline Casts Occasional /HPF Urine Mucus Slight /LPF Urine Opiates Screen Neg (NEG) Urine Methadone Screen Neg (NEG) Urine Barbiturates Neg (NEG) Urine Phencyclidine Screen Neg (NEG) Urine Amphetamine/Methamphetamine Neg (NEG) Urine Benzodiazepines Screen Neg (NEG) Urine Cocaine Screen Neg (NEG) Urine Cannabinoids Screen Neg (NEG) Urine Ethyl Alcohol Neg (NEG) O2 Saturation 99 % (92-99) Arterial Blood pH 7.38 (7.35-7.45) Arterial Blood pH (Temp corrected) 7.45 Arterial Blood pCO2 at Patient Temp 41 mmHg (35-46) Arterial Blood pCO2 (Temp correct) 33 mmHg Arterial Blood pO2 at Patient Temp 302 mmHg (65-108) Arterial Blood pO2 (Temp corrected) 279 mmHg Arterial Blood HCO3 24 mmol/L (21-28) Arterial Blood Base Excess -2 mmol/L (-3-3) FiO2 100.0 Lactic Acid Level 1.2 mmol/L (0.4-2.0) Test 11/22/17 02:50 11/22/17 07:50 11/22/17 09:20 11/22/17 12:23 Sodium Level 140 mmol/L (136-145) 138 mmol/L (136-145) Potassium Level 3.8 mmol/L (3.5-5.1) 3.7 mmol/L (3.5-5.1) Chloride Level 105 mmol/L (98-107) 105 mmol/L (98-107) Carbon Dioxide Level 28 mmol/L (21-32) 26 mmol/L (21-32) Anion Gap 7 (6-14) 7 (6-14) Blood Urea Nitrogen 17 mg/dL (8-26) 16 mg/dL (8-26) Creatinine 0.7 mg/dL (0.7-1.3) 0.7 mg/dL (0.7-1.3) Estimated GFR (Cockcroft-Gault) 115.0 115.0 Glucose Level 259 mg/dL (70-99) 266 mg/dL (70-99) Calcium Level 8.1 mg/dL (8.5-10.1) 7.5 mg/dL (8.5-10.1) O2 Saturation 99 % (92-99) Arterial Blood pH 7.41 (7.35-7.45) Arterial Blood pCO2 at Patient Temp 41 mmHg (35-46) Arterial Blood pO2 at Patient Temp 174 mmHg (65-108) Arterial Blood HCO3 25 mmol/L (21-28) Arterial Blood Base Excess 1 mmol/L (-3-3) FiO2 45 White Blood Count 8.8 x10^3/uL (4.0-11.0) Red Blood Count 3.82 x10^6/uL (4.30-5.70) Hemoglobin 11.3 g/dL (13.0-17.5) Hematocrit 33.7 % (39.0-53.0) Mean Corpuscular Volume 88 fL (79-100) Mean Corpuscular Hemoglobin 30 pg (25-35) Mean Corpuscular Hemoglobin Concent 34 g/dL (31-37) Red Cell Distribution Width 13.2 % (11.5-14.5) Platelet Count 389 x10^3/uL (140-400) Magnesium Level 1.9 mg/dL (1.8-2.4) Triglycerides Level 100 mg/dL (0-150) Vitamin B12 Level 967 pg/mL (247-911) Thyroid Stimulating Hormone (TSH) 1.087 uIU/mL (0.358-3.74) Glucose (Fingerstick) 233 mg/dL (70-99) Laboratory Tests Test 11/21/17 17:10 11/21/17 17:18 11/21/17 18:15 11/21/17 21:00 White Blood Count 17.1 x10^3/uL (4.0-11.0) Red Blood Count 4.42 x10^6/uL (4.30-5.70) Hemoglobin 12.9 g/dL (13.0-17.5) Hematocrit 40.3 % (39.0-53.0) Mean Corpuscular Volume 91 fL (79-100) Mean Corpuscular Hemoglobin 29 pg (25-35) Mean Corpuscular Hemoglobin Concent 32 g/dL (31-37) Red Cell Distribution Width 13.9 % (11.5-14.5) Platelet Count 565 x10^3/uL (140-400) Neutrophils (%) (Auto) 69 % (31-73) Lymphocytes (%) (Auto) 17 % (24-48) Monocytes (%) (Auto) 11 % (0-9) Eosinophils (%) (Auto) 3 % (0-3) Basophils (%) (Auto) 1 % (0-3) Neutrophils # (Auto) 11.7 x10^3uL (1.8-7.7) Lymphocytes # (Auto) 3.0 x10^3/uL (1.0-4.8) Monocytes # (Auto) 1.9 x10^3/uL (0.0-1.1) Eosinophils # (Auto) 0.4 x10^3/uL (0.0-0.7) Basophils # (Auto) 0.1 x10^3/uL (0.0-0.2) Segmented Neutrophils % 67 % (35-66) Lymphocytes % 20 % (24-48) Monocytes % 10 % (0-10) Eosinophils % 3 % (0-5) Platelet Estimate Increased (ADEQUATE) Prothrombin Time 15.1 SEC (11.7-14.0) Prothromb Time International Ratio 1.2 (0.8-1.1) Sodium Level 138 mmol/L (136-145) Potassium Level 3.7 mmol/L (3.5-5.1) Chloride Level 98 mmol/L (98-107) Carbon Dioxide Level 20 mmol/L (21-32) Anion Gap 20 (6-14) Blood Urea Nitrogen 22 mg/dL (8-26) Creatinine 1.5 mg/dL (0.7-1.3) Estimated GFR (Cockcroft-Gault) 47.7 BUN/Creatinine Ratio 15 (6-20) Glucose Level 490 mg/dL (70-99) Calcium Level 9.4 mg/dL (8.5-10.1) Total Bilirubin 0.2 mg/dL (0.2-1.0) Aspartate Amino Transf (AST/SGOT) 15 U/L (15-37) Alanine Aminotransferase (ALT/SGPT) 24 U/L (16-63) Alkaline Phosphatase 84 U/L (46-116) Creatine Kinase 187 U/L (39-308) Total Protein 8.2 g/dL (6.4-8.2) Albumin 2.9 g/dL (3.4-5.0) Albumin/Globulin Ratio 0.5 (1.0-1.7) Salicylates Level < 2.8 mg/dL (2.8-20.0) Salicylate Last Dose Date Unknown Salicylate Last Dose Time Unknown Acetaminophen Level < 2 mcg/ml (10-30) Acetaminophen Last Dose Date Unknown Acetaminophen Last Dose Time Unknown Ethyl Alcohol Level < 10 mg/dL (0-10) Urine Collection Type U cath Urine Color Yellow Urine Clarity Clear Urine pH 5.5 Urine Specific Hos[place] >=1.030 Urine Protein 30 mg/dL (NEG-TRACE) Urine Glucose (UA) >=1000 mg/dL (NEG) Urine Ketones (Stick) 15 mg/dL (NEG) Urine Blood Negative (NEG) Urine Nitrite Negative (NEG) Urine Bilirubin Negative (NEG) Urine Urobilinogen Dipstick 0.2 mg/dL (0.2 mg/dL) Urine Leukocyte Esterase Negative (NEG) Urine RBC 1-2 /HPF (0-2) Urine WBC 11-20 /HPF (0-4) Urine Squamous Epithelial Cells Few /LPF Urine Amorphous Sediment Present /HPF Urine Bacteria Few /HPF (0-FEW) Urine Hyaline Casts Occasional /HPF Urine Mucus Slight /LPF Urine Opiates Screen Neg (NEG) Urine Methadone Screen Neg (NEG) Urine Barbiturates Neg (NEG) Urine Phencyclidine Screen Neg (NEG) Urine Amphetamine/Methamphetamine Neg (NEG) Urine Benzodiazepines Screen Neg (NEG) Urine Cocaine Screen Neg (NEG) Urine Cannabinoids Screen Neg (NEG) Urine Ethyl Alcohol Neg (NEG) O2 Saturation 99 % (92-99) Arterial Blood pH 7.38 (7.35-7.45) Arterial Blood pH (Temp corrected) 7.45 Arterial Blood pCO2 at Patient Temp 41 mmHg (35-46) Arterial Blood pCO2 (Temp correct) 33 mmHg Arterial Blood pO2 at Patient Temp 302 mmHg (65-108) Arterial Blood pO2 (Temp corrected) 279 mmHg Arterial Blood HCO3 24 mmol/L (21-28) Arterial Blood Base Excess -2 mmol/L (-3-3) FiO2 100.0 Lactic Acid Level 1.2 mmol/L (0.4-2.0) Test 11/22/17 02:50 11/22/17 07:50 11/22/17 09:20 11/22/17 12:23 Sodium Level 140 mmol/L (136-145) 138 mmol/L (136-145) Potassium Level 3.8 mmol/L (3.5-5.1) 3.7 mmol/L (3.5-5.1) Chloride Level 105 mmol/L (98-107) 105 mmol/L (98-107) Carbon Dioxide Level 28 mmol/L (21-32) 26 mmol/L (21-32) Anion Gap 7 (6-14) 7 (6-14) Blood Urea Nitrogen 17 mg/dL (8-26) 16 mg/dL (8-26) Creatinine 0.7 mg/dL (0.7-1.3) 0.7 mg/dL (0.7-1.3) Estimated GFR (Cockcroft-Gault) 115.0 115.0 Glucose Level 259 mg/dL (70-99) 266 mg/dL (70-99) Calcium Level 8.1 mg/dL (8.5-10.1) 7.5 mg/dL (8.5-10.1) O2 Saturation 99 % (92-99) Arterial Blood pH 7.41 (7.35-7.45) Arterial Blood pCO2 at Patient Temp 41 mmHg (35-46) Arterial Blood pO2 at Patient Temp 174 mmHg (65-108) Arterial Blood HCO3 25 mmol/L (21-28) Arterial Blood Base Excess 1 mmol/L (-3-3) FiO2 45 White Blood Count 8.8 x10^3/uL (4.0-11.0) Red Blood Count 3.82 x10^6/uL (4.30-5.70) Hemoglobin 11.3 g/dL (13.0-17.5) Hematocrit 33.7 % (39.0-53.0) Mean Corpuscular Volume 88 fL (79-100) Mean Corpuscular Hemoglobin 30 pg (25-35) Mean Corpuscular Hemoglobin Concent 34 g/dL (31-37) Red Cell Distribution Width 13.2 % (11.5-14.5) Platelet Count 389 x10^3/uL (140-400) Magnesium Level 1.9 mg/dL (1.8-2.4) Triglycerides Level 100 mg/dL (0-150) Vitamin B12 Level 967 pg/mL (247-911) Thyroid Stimulating Hormone (TSH) 1.087 uIU/mL (0.358-3.74) Glucose (Fingerstick) 233 mg/dL (70-99) POLLO ABDULLAHI MD Nov 22, 2017 15:04
--- NOTE | 2017-11-22 15:18 | RAD ---
CTA of the head with contrast, 11/22/2017: HISTORY: Abnormal CT, seizure, patient unresponsive Multidetector CT imaging was performed following an IV bolus injection of iodinated contrast material. Multiplanar reconstructions were produced including coronal and sagittal MIP images as well as 3-D volume rendered reconstructions of the major arteries. The degree of arterial opacification is suboptimal. There is moderate calcific plaquing involving the cavernous segments of both distal internal carotid arteries without evidence of high-grade stenosis. There is an aneurysm arising from the left side of the anterior communicating artery. Its opacified segment measures approximately 6 x 7 x 8 mm. There is an adjacent rim-like calcification extending anterolaterally to the left which presumably represents a thrombosed component of the aneurysm. This overall process including the opacified stump and thrombosed segment measures approximately 1.8 cm in greatest diameter. The A1 segment of the left anterior cerebral artery is smaller than on the right. Both anterior cerebral arteries and their major branches are patent. The middle cerebral arteries and their major branches are unremarkable. The basilar and posterior cerebral arteries are patent. No additional aneurysm is identified. IMPRESSION: 1. Suboptimal exam. 2. Large, partially thrombosed anterior communicating artery aneurysm as described above. PQRS Compliance Statement: One or more of the following individualized dose reduction techniques were utilized for this examination: 1. Automated exposure control 2. Adjustment of the mA and/or kV according to patient size 3. Use of iterative reconstruction technique Electronically signed by: Sam Jauregui MD (11/22/2017 3:15 PM) [facility]
[2017-11-22] MEDS: INSULIN LISPRO 300 UNITS/3 ML INSULN.PEN. SQ SCH (18:00)
[2017-11-23] VITALS (25 sets, daily range): BP systolic 103–187; BP diastolic 48–97
--- NOTE | 2017-11-23 01:29 | CONS ---
DATE OF CONSULTATION: REASON FOR CONSULTATION: Intracranial aneurysm. HISTORY OF PRESENT ILLNESS: The patient is a 62-year-old man who was working at [employer] near [facility]. Yesterday evening, he lost consciousness and per witnesses, he experienced a seizure. He was treated by EMS and was felt to be apneic and he was intubated after being brought through the Emergency Room and admitted to the Intensive Care Unit. Per the nurse, he was scheduled to have toe amputations done tomorrow and today, he was left intubated in preparation for that. During his evaluation, he had a CT scan of the head performed in which the abnormality was seen suggesting intracranial aneurysm and later today, he underwent a CT angiogram. PAST MEDICAL HISTORY: Includes poorly controlled diabetes, hypertension, cellulitis of his lower extremities and now with osteomyelitis and necrotic tissue in both the feet, hyperglycemia, urinary tract infection. PAST SURGICAL HISTORY: No major surgery recently. ALLERGIES: Unknown. MEDICATIONS: Reviewed in the MRAD and noncontributory. PERSONAL HISTORY: Works at [employer]. REVIEW OF SYSTEMS: Unobtainable. PHYSICAL EXAMINATION: At this time, he is supine in bed, sedated. Earlier today, it was related to me that he was off sedation and he awakens and open his eyes, follow commands briskly with upper and lower extremities bilaterally. Currently, his pupils are equal and reactive to light with conjugate gaze. His face is symmetric. Neck supple. He responds to painful stimulation, upper and lower extremities bilaterally. LABORATORY DATA: I reviewed a CT scan of the brain. On that study, there is an abnormality in the region of the anterior kashia of Membreno/anterior communicating artery region, in which there is a peripherally calcified 1.6 x 1.2 cm lesion. A CTA was performed in which an anterior communicating artery aneurysm was seen with an opacified segment measuring 6 x 7 x 8 mm and then an adjacent calcified portion which appeared to have a thrombus present and in total diameter measured 18 mm. There was no evidence of hemorrhage. SUMMARY: I have a number of thoughts about the patient. The etiology of his episode of loss of conscious is not clearly defined. If one supposes that it is due to sepsis related to his toes, then I think it is reasonable to move forward with surgical debridement, etc. tomorrow followed by extubation and assessment of his neurologic condition. I am going to have his images placed on the cloud and his asymptomatic aneurysm can be then discussed with [facility]. There is a significant 5-year hemorrhage right from an aneurysm of this size; therefore, it will need to be treated. I appreciate asking us to see the patient. LEX NICHOLS MD DR: TEENA/chyna JOB#: [id number] / [id number]
[2017-11-23] MEDS: PROPOFOL 100 ML IV PRN ×2 (02:09→06:42)
[2017-11-23 05:07] LABS: BASO % 0 % (0-3); EOS # 0.3 x10^3/uL (0.0-0.7); EOS % 3 % (0-3); HEMOGLOBIN 12.3 g/dL (13.0-17.5); LYMPH # 1.3 x10^3/uL (1.0-4.8); LYMPH % 15 % (24-48); MEAN CORPUSCULAR HEMOGLOBIN 30 pg (25-35); MEAN CORPUSCULAR HGB CONC 34 g/dL (31-37); MEAN CORPUSCULAR VOLUME 88 fL (79-100); MONO # 0.7 x10^3/uL (0.0-1.1); MONO % 8 % (0-9); NEUT # 6.7 x10^3uL (1.8-7.7); NEUT % 74 % (31-73); PLATELET COUNT 431 x10^3/uL (140-400); RED BLOOD COUNT 4.09 x10^6/uL (4.30-5.70); RED CELL DISTRIBUTION WIDTH 13.5 % (11.5-14.5); WHITE BLOOD COUNT 9.1 x10^3/uL (4.0-11.0)
[2017-11-23 05:15] LABS: CALCIUM 7.5 mg/dL (8.5-10.1); CREATININE 0.7 mg/dL (0.7-1.3); POTASSIUM 3.4 mmol/L (3.5-5.1)
[2017-11-23] MEDS ORDERED: BACITRACIN 50,000 UNIT in IV NORMAL SALINE 500ML BAG 500 ML IRR ONE (06:00)
[2017-11-23] MEDS: INSULIN LISPRO 300 UNITS/3 ML INSULN.PEN. SQ SCH ×5 (06:00→23:30)
[2017-11-23] MEDS: PIPERACILLIN/TAZOBACTAM 3.375 GM in IV NORMAL SALINE 50ML 50 ML IV SCH ×4 (06:08→23:29)
[2017-11-23] MEDS ORDERED: fentaNYL PF VIAL 100 MCG/2 ML VIAL IV PRN ×2 (07:00)
[2017-11-23] MEDS ORDERED: LIDOCAINE 1% PF 2 ML VIAL. ID PRN (07:00)
[2017-11-23] MEDS ORDERED: MORPHINE SULFATE 2 MG/ML VIAL. IV PRN (07:00)
[2017-11-23] MEDS ORDERED: PROCHLORPERAZINE 10 MG/2 ML VIAL. IV PRN (07:00)
[2017-11-23] MEDS ORDERED: IV RINGERS,LACTATED 1000ML 1,000 ML IV SCH (07:00)
[2017-11-23] MEDS ORDERED: HYDROmorphone 2 MG/ML VIAL IV PRN (07:00)
--- NOTE | 2017-11-23 07:46 | PDOC ---
Infectious Disease Note Subjective Subjective pt is intubated on vent ROS ROS no n/v/d/fever Vital Sign Vital Signs Vital Signs Date Time Temp Pulse Resp B/P (MAP) Pulse Ox O2 Delivery O2 Flow Rate FiO2 11/23/17 07:00 77 15 121/63 (82) 100 Ventilator 11/23/17 04:00 98.2 98.2 Physical Exam PHYSICAL EXAM GENERAL: Sedated, orally intubated gentleman, not in distress. VITAL SIGNS: Stable, afebrile. HEENT: NAD. NECK: Supple, no JVP, no lymphadenopathy. LUNGS: Clear. HEART: S1, S2 regular. ABDOMEN: Benign. EXTREMITIES: Some pitting edema present. The patient does have extensive infection of the right foot at the first metatarsophalangeal joint area with lopez pus coming and appears to have a destroyed bone. The patient does have a similar area on the left foot ulcer, which appears to be not as bad as the right one. The patient had been moving all the extremities before his intubation. NEUROLOGIC: Intact other than seizure and postictal state. Labs Lab Laboratory Tests Test 11/22/17 07:50 11/22/17 09:20 11/22/17 12:23 11/22/17 18:09 O2 Saturation 99 % (92-99) Arterial Blood pH 7.41 (7.35-7.45) Arterial Blood pCO2 at Patient Temp 41 mmHg (35-46) Arterial Blood pO2 at Patient Temp 174 mmHg (65-108) Arterial Blood HCO3 25 mmol/L (21-28) Arterial Blood Base Excess 1 mmol/L (-3-3) FiO2 45 White Blood Count 8.8 x10^3/uL (4.0-11.0) Red Blood Count 3.82 x10^6/uL (4.30-5.70) Hemoglobin 11.3 g/dL (13.0-17.5) Hematocrit 33.7 % (39.0-53.0) Mean Corpuscular Volume 88 fL (79-100) Mean Corpuscular Hemoglobin 30 pg (25-35) Mean Corpuscular Hemoglobin Concent 34 g/dL (31-37) Red Cell Distribution Width 13.2 % (11.5-14.5) Platelet Count 389 x10^3/uL (140-400) Sodium Level 138 mmol/L (136-145) Potassium Level 3.7 mmol/L (3.5-5.1) Chloride Level 105 mmol/L (98-107) Carbon Dioxide Level 26 mmol/L (21-32) Anion Gap 7 (6-14) Blood Urea Nitrogen 16 mg/dL (8-26) Creatinine 0.7 mg/dL (0.7-1.3) Estimated GFR (Cockcroft-Gault) 115.0 Glucose Level 266 mg/dL (70-99) Calcium Level 7.5 mg/dL (8.5-10.1) Magnesium Level 1.9 mg/dL (1.8-2.4) Triglycerides Level 100 mg/dL (0-150) Vitamin B12 Level 967 pg/mL (247-911) Thyroid Stimulating Hormone (TSH) 1.087 uIU/mL (0.358-3.74) Glucose (Fingerstick) 233 mg/dL (70-99) 242 mg/dL (70-99) Test 11/22/17 23:53 11/23/17 04:30 11/23/17 06:06 Glucose (Fingerstick) 213 mg/dL (70-99) 192 mg/dL (70-99) White Blood Count 9.1 x10^3/uL (4.0-11.0) Red Blood Count 4.09 x10^6/uL (4.30-5.70) Hemoglobin 12.3 g/dL (13.0-17.5) Hematocrit 36.0 % (39.0-53.0) Mean Corpuscular Volume 88 fL (79-100) Mean Corpuscular Hemoglobin 30 pg (25-35) Mean Corpuscular Hemoglobin Concent 34 g/dL (31-37) Red Cell Distribution Width 13.5 % (11.5-14.5) Platelet Count 431 x10^3/uL (140-400) Neutrophils (%) (Auto) 74 % (31-73) Lymphocytes (%) (Auto) 15 % (24-48) Monocytes (%) (Auto) 8 % (0-9) Eosinophils (%) (Auto) 3 % (0-3) Basophils (%) (Auto) 0 % (0-3) Neutrophils # (Auto) 6.7 x10^3uL (1.8-7.7) Lymphocytes # (Auto) 1.3 x10^3/uL (1.0-4.8) Monocytes # (Auto) 0.7 x10^3/uL (0.0-1.1) Eosinophils # (Auto) 0.3 x10^3/uL (0.0-0.7) Basophils # (Auto) 0.0 x10^3/uL (0.0-0.2) Sodium Level 138 mmol/L (136-145) Potassium Level 3.4 mmol/L (3.5-5.1) Chloride Level 105 mmol/L (98-107) Carbon Dioxide Level 24 mmol/L (21-32) Anion Gap 9 (6-14) Blood Urea Nitrogen 8 mg/dL (8-26) Creatinine 0.7 mg/dL (0.7-1.3) Estimated GFR (Cockcroft-Gault) 115.0 Glucose Level 226 mg/dL (70-99) Calcium Level 7.5 mg/dL (8.5-10.1) Micro Microbiology 11/21/17 Blood Culture - Preliminary, Resulted NO GROWTH AFTER 1 DAY Objective Assessment 1. Extensive right diabetic foot infection with osteomyelitis 2. Left foot also there is an ulcer with arthropathy. 3. Seizure. 4. Leukocytosis. 5 Respiratory failure. 6. Diabetes with poor control. Plan Plan of Care vanc and zosyn amputation planned for today supportive care check cultures EMILIANO OLIVEIRA MD Nov 23, 2017 07:46
[2017-11-23] MEDS ORDERED: POTASSIUM CHLORIDE 20MEQ 50 ML IV ONE (08:00)
--- NOTE | 2017-11-23 08:21 | RAD ---
BILATERAL LOWER EXTREMITY ULTRASOUND WITH DOPPLER 11/23/2017 12:32 AM Clinical Information: Bilateral lower extremity edema and lesions involving the feet. Comparison: None. Technique: Multiple grayscale, color Doppler, and spectral Doppler sonographic images of the lower extremity venous and arterial structures were obtained. Findings: Venous: The right common femoral, femoral, and popliteal veins exhibit normal compression, respiratory phasicity, and augmentation. No intraluminal thrombi are identified. Color Doppler flow is demonstrated in the right posterior tibial and peroneal veins. The left common femoral, femoral, and popliteal veins exhibit normal compression, respiratory phasicity, and augmentation. No intraluminal thrombi are identified. Color Doppler flow is demonstrated in the left posterior tibial and peroneal veins. Greater saphenous veins are patent. There is a right groin lymph node measuring 11 mm by short axis. Findings are likely reactive. Arterial: Monophasic waveforms are identified in the right posterior tibial artery, anterior tibial artery, peroneal artery and dorsalis pedis artery. Monophasic waveforms are identified in the left dorsalis pedis artery. Otherwise, triphasic waveforms are identified. Mild plaque is identified throughout bilateral lower extremities. Right lower extremity arterial system peak systolic velocities: Common femoral artery: 162 cm/s Deep femoral artery: 107 cm/s Superficial femoral artery, proximal: 122 cm/s Superficial femoral artery, mid: 136 cm/s Superficial femoral artery, distal: 117 cm/s Popliteal artery: 130 cm/s Posterior tibial artery, proximal: 108 cm/s Posterior tibial artery, distal: 96 cm/s Peroneal artery: 62 cm/s Anterior tibial artery: 115 cm/s Dorsalis pedis artery: 143 cm/s Left lower extremity arterial system peak systolic velocities: Common femoral artery: 127 cm/s Deep femoral artery: 68 cm/s Superficial femoral artery, proximal: 85 cm/s Superficial femoral artery, mid: 99 cm/s Superficial femoral artery, distal: 96 cm/s Popliteal artery: 89 cm/s Posterior tibial artery, proximal: 91 cm/s Posterior tibial artery, distal: 71 cm/s Peroneal artery: 59 cm/s Anterior tibial artery: 47 cm/s Dorsalis pedis artery: 48 cm/s Impression: 1. No evidence of deep venous thrombosis. 2. There is increased velocity within the right dorsalis pedis artery suggestive of at least mild stenosis. 3. Mild plaque noted throughout bilateral lower extremities without significant flow-limiting stenosis. Electronically signed by: Fadia Alvarez MD (11/23/2017 8:18 AM) [id number]
--- NOTE | 2017-11-23 08:26 | RAD ---
Chest radiograph 11/23/2017 9:00 AM INDICATION: Respiratory failure COMPARISON: November 22, 2017 TECHNIQUE: Portable upright frontal view of the chest is provided. FINDINGS: The cardiomediastinal silhouette is within normal limits. Endotracheal tube terminates 6.5 cm above the level of the shi. This may be advanced 2-3 cm. Nasogastric tube appears to be in similar position. There are no pleural effusions. There is no pulmonary vascular congestion. There is no pneumothorax. The lungs are clear. Moderate osteoarthrosis of the glenohumeral joints, right greater than left. IMPRESSION: Endotracheal tube terminates 6.5 cm above the level of shi. This may be advanced 2-3 cm. Findings are similar to the prior examination. Electronically signed by: Fadia Alvarez MD (11/23/2017 8:22 AM) [id number]
--- NOTE | 2017-11-23 08:31 | RAD ---
Ultrasound carotid Doppler 11/23/2017 12:01 AM INDICATION: Altered mental status, ventilated COMPARISON: None available TECHNIQUE: Sonographic imaging of the carotid vasculature was performed utilizing grayscale, color Doppler and spectral waveform analysis. FINDINGS: (All velocities are measured cm per second) Right carotid: Peak systolic velocity: Proximal common carotid artery: 77 Middle common carotid artery: 98 Distal common carotid artery: 76 Proximal internal carotid artery: 48 Middle internal carotid artery: 69 Distal internal carotid artery: 75 End-diastolic velocity: 38 Internal carotid artery/common carotid artery ratio: 0.4-0.7 External carotid artery: 70 Vertebral artery: Antegrade flow; 23 Left carotid: Peak systolic velocity: Proximal common carotid artery: 117 Middle common carotid artery: 124 Distal common carotid artery: 99 Proximal internal carotid artery: 79 Middle internal carotid artery: 88 Distal internal carotid artery: 71 End-diastolic velocity: 35 Internal carotid artery/common carotid artery ratio: 0.5-0.7 External carotid artery: 181 Vertebral artery: Antegrade flow; 54 IMPRESSION: 1. No evidence for flow-limiting carotid stenosis. 2. 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 3. Evaluation of the carotid vasculature and measurements for luminal stenosis was performed utilizing NASCET criteria. Electronically signed by: Fadia Alvarez MD (11/23/2017 8:28 AM) [id number]
[2017-11-23] MEDS: FAMOTIDINE 20 MG/2 ML VIAL IVP SCH ×2 (08:33→20:50)
[2017-11-23] MEDS: levETIRAcetam 500 MG in IV DEXTROSE 5% 100ML 100 ML IV SCH ×2 (08:33→20:50)
[2017-11-23] MEDS: ENOXAPARIN 40 MG/0.4 ML SYRINGE. SQ SCH (08:33)
[2017-11-23] MEDS: CHLORHEXIDINE 0.12% 15 ML MOUTHWASH. MM SCH (08:33)
--- NOTE | 2017-11-23 08:37 | PDOC ---
PULMONARY PROGRESS NOTES Subjective PT ON AC MODE Vitals Vital Signs Date Time Temp Pulse Resp B/P (MAP) Pulse Ox O2 Delivery O2 Flow Rate FiO2 11/23/17 07:50 100 Ventilator 11/23/17 07:00 77 15 121/63 (82) 11/23/17 04:00 98.2 98.2 ROS: No Nausea, No Chest Pain, No Abdominal Pain, No Increase Cough Lungs: Clear Cardiovascular: S1, S2 Abdomen: Soft Extremities: No Edema Skin: Warm Labs Laboratory Tests Test 11/21/17 17:10 11/21/17 17:18 11/21/17 18:15 11/21/17 21:00 White Blood Count 17.1 x10^3/uL (4.0-11.0) Red Blood Count 4.42 x10^6/uL (4.30-5.70) Hemoglobin 12.9 g/dL (13.0-17.5) Hematocrit 40.3 % (39.0-53.0) Mean Corpuscular Volume 91 fL (79-100) Mean Corpuscular Hemoglobin 29 pg (25-35) Mean Corpuscular Hemoglobin Concent 32 g/dL (31-37) Red Cell Distribution Width 13.9 % (11.5-14.5) Platelet Count 565 x10^3/uL (140-400) Neutrophils (%) (Auto) 69 % (31-73) Lymphocytes (%) (Auto) 17 % (24-48) Monocytes (%) (Auto) 11 % (0-9) Eosinophils (%) (Auto) 3 % (0-3) Basophils (%) (Auto) 1 % (0-3) Neutrophils # (Auto) 11.7 x10^3uL (1.8-7.7) Lymphocytes # (Auto) 3.0 x10^3/uL (1.0-4.8) Monocytes # (Auto) 1.9 x10^3/uL (0.0-1.1) Eosinophils # (Auto) 0.4 x10^3/uL (0.0-0.7) Basophils # (Auto) 0.1 x10^3/uL (0.0-0.2) Segmented Neutrophils % 67 % (35-66) Lymphocytes % 20 % (24-48) Monocytes % 10 % (0-10) Eosinophils % 3 % (0-5) Platelet Estimate Increased (ADEQUATE) Prothrombin Time 15.1 SEC (11.7-14.0) Prothromb Time International Ratio 1.2 (0.8-1.1) Sodium Level 138 mmol/L (136-145) Potassium Level 3.7 mmol/L (3.5-5.1) Chloride Level 98 mmol/L (98-107) Carbon Dioxide Level 20 mmol/L (21-32) Anion Gap 20 (6-14) Blood Urea Nitrogen 22 mg/dL (8-26) Creatinine 1.5 mg/dL (0.7-1.3) Estimated GFR (Cockcroft-Gault) 47.7 BUN/Creatinine Ratio 15 (6-20) Glucose Level 490 mg/dL (70-99) Calcium Level 9.4 mg/dL (8.5-10.1) Total Bilirubin 0.2 mg/dL (0.2-1.0) Aspartate Amino Transf (AST/SGOT) 15 U/L (15-37) Alanine Aminotransferase (ALT/SGPT) 24 U/L (16-63) Alkaline Phosphatase 84 U/L (46-116) Creatine Kinase 187 U/L (39-308) Total Protein 8.2 g/dL (6.4-8.2) Albumin 2.9 g/dL (3.4-5.0) Albumin/Globulin Ratio 0.5 (1.0-1.7) Salicylates Level < 2.8 mg/dL (2.8-20.0) Salicylate Last Dose Date Unknown Salicylate Last Dose Time Unknown Acetaminophen Level < 2 mcg/ml (10-30) Acetaminophen Last Dose Date Unknown Acetaminophen Last Dose Time Unknown Ethyl Alcohol Level < 10 mg/dL (0-10) Urine Collection Type U cath Urine Color Yellow Urine Clarity Clear Urine pH 5.5 Urine Specific [place] >=1.030 Urine Protein 30 mg/dL (NEG-TRACE) Urine Glucose (UA) >=1000 mg/dL (NEG) Urine Ketones (Stick) 15 mg/dL (NEG) Urine Blood Negative (NEG) Urine Nitrite Negative (NEG) Urine Bilirubin Negative (NEG) Urine Urobilinogen Dipstick 0.2 mg/dL (0.2 mg/dL) Urine Leukocyte Esterase Negative (NEG) Urine RBC 1-2 /HPF (0-2) Urine WBC 11-20 /HPF (0-4) Urine Squamous Epithelial Cells Few /LPF Urine Amorphous Sediment Present /HPF Urine Bacteria Few /HPF (0-FEW) Urine Hyaline Casts Occasional /HPF Urine Mucus Slight /LPF Urine Opiates Screen Neg (NEG) Urine Methadone Screen Neg (NEG) Urine Barbiturates Neg (NEG) Urine Phencyclidine Screen Neg (NEG) Urine Amphetamine/Methamphetamine Neg (NEG) Urine Benzodiazepines Screen Neg (NEG) Urine Cocaine Screen Neg (NEG) Urine Cannabinoids Screen Neg (NEG) Urine Ethyl Alcohol Neg (NEG) O2 Saturation 99 % (92-99) Arterial Blood pH 7.38 (7.35-7.45) Arterial Blood pH (Temp corrected) 7.45 Arterial Blood pCO2 at Patient Temp 41 mmHg (35-46) Arterial Blood pCO2 (Temp correct) 33 mmHg Arterial Blood pO2 at Patient Temp 302 mmHg (65-108) Arterial Blood pO2 (Temp corrected) 279 mmHg Arterial Blood HCO3 24 mmol/L (21-28) Arterial Blood Base Excess -2 mmol/L (-3-3) FiO2 100.0 Lactic Acid Level 1.2 mmol/L (0.4-2.0) Test 11/21/17 22:30 11/22/17 02:50 11/22/17 07:50 11/22/17 09:20 Nasal Screen MRSA (PCR) Negative (Negative) Sodium Level 140 mmol/L (136-145) 138 mmol/L (136-145) Potassium Level 3.8 mmol/L (3.5-5.1) 3.7 mmol/L (3.5-5.1) Chloride Level 105 mmol/L (98-107) 105 mmol/L (98-107) Carbon Dioxide Level 28 mmol/L (21-32) 26 mmol/L (21-32) Anion Gap 7 (6-14) 7 (6-14) Blood Urea Nitrogen 17 mg/dL (8-26) 16 mg/dL (8-26) Creatinine 0.7 mg/dL (0.7-1.3) 0.7 mg/dL (0.7-1.3) Estimated GFR (Cockcroft-Gault) 115.0 115.0 Glucose Level 259 mg/dL (70-99) 266 mg/dL (70-99) Calcium Level 8.1 mg/dL (8.5-10.1) 7.5 mg/dL (8.5-10.1) O2 Saturation 99 % (92-99) Arterial Blood pH 7.41 (7.35-7.45) Arterial Blood pCO2 at Patient Temp 41 mmHg (35-46) Arterial Blood pO2 at Patient Temp 174 mmHg (65-108) Arterial Blood HCO3 25 mmol/L (21-28) Arterial Blood Base Excess 1 mmol/L (-3-3) FiO2 45 White Blood Count 8.8 x10^3/uL (4.0-11.0) Red Blood Count 3.82 x10^6/uL (4.30-5.70) Hemoglobin 11.3 g/dL (13.0-17.5) Hematocrit 33.7 % (39.0-53.0) Mean Corpuscular Volume 88 fL (79-100) Mean Corpuscular Hemoglobin 30 pg (25-35) Mean Corpuscular Hemoglobin Concent 34 g/dL (31-37) Red Cell Distribution Width 13.2 % (11.5-14.5) Platelet Count 389 x10^3/uL (140-400) Magnesium Level 1.9 mg/dL (1.8-2.4) Triglycerides Level 100 mg/dL (0-150) Vitamin B12 Level 967 pg/mL (247-911) Thyroid Stimulating Hormone (TSH) 1.087 uIU/mL (0.358-3.74) Test 11/22/17 12:23 11/22/17 18:09 11/22/17 23:53 11/23/17 04:30 Glucose (Fingerstick) 233 mg/dL (70-99) 242 mg/dL (70-99) 213 mg/dL (70-99) White Blood Count 9.1 x10^3/uL (4.0-11.0) Red Blood Count 4.09 x10^6/uL (4.30-5.70) Hemoglobin 12.3 g/dL (13.0-17.5) Hematocrit 36.0 % (39.0-53.0) Mean Corpuscular Volume 88 fL (79-100) Mean Corpuscular Hemoglobin 30 pg (25-35) Mean Corpuscular Hemoglobin Concent 34 g/dL (31-37) Red Cell Distribution Width 13.5 % (11.5-14.5) Platelet Count 431 x10^3/uL (140-400) Neutrophils (%) (Auto) 74 % (31-73) Lymphocytes (%) (Auto) 15 % (24-48) Monocytes (%) (Auto) 8 % (0-9) Eosinophils (%) (Auto) 3 % (0-3) Basophils (%) (Auto) 0 % (0-3) Neutrophils # (Auto) 6.7 x10^3uL (1.8-7.7) Lymphocytes # (Auto) 1.3 x10^3/uL (1.0-4.8) Monocytes # (Auto) 0.7 x10^3/uL (0.0-1.1) Eosinophils # (Auto) 0.3 x10^3/uL (0.0-0.7) Basophils # (Auto) 0.0 x10^3/uL (0.0-0.2) Sodium Level 138 mmol/L (136-145) Potassium Level 3.4 mmol/L (3.5-5.1) Chloride Level 105 mmol/L (98-107) Carbon Dioxide Level 24 mmol/L (21-32) Anion Gap 9 (6-14) Blood Urea Nitrogen 8 mg/dL (8-26) Creatinine 0.7 mg/dL (0.7-1.3) Estimated GFR (Cockcroft-Gault) 115.0 Glucose Level 226 mg/dL (70-99) Calcium Level 7.5 mg/dL (8.5-10.1) Test 11/23/17 06:06 Glucose (Fingerstick) 192 mg/dL (70-99) Laboratory Tests Test 11/22/17 09:20 11/22/17 12:23 11/22/17 18:09 11/22/17 23:53 White Blood Count 8.8 x10^3/uL (4.0-11.0) Red Blood Count 3.82 x10^6/uL (4.30-5.70) Hemoglobin 11.3 g/dL (13.0-17.5) Hematocrit 33.7 % (39.0-53.0) Mean Corpuscular Volume 88 fL (79-100) Mean Corpuscular Hemoglobin 30 pg (25-35) Mean Corpuscular Hemoglobin Concent 34 g/dL (31-37) Red Cell Distribution Width 13.2 % (11.5-14.5) Platelet Count 389 x10^3/uL (140-400) Sodium Level 138 mmol/L (136-145) Potassium Level 3.7 mmol/L (3.5-5.1) Chloride Level 105 mmol/L (98-107) Carbon Dioxide Level 26 mmol/L (21-32) Anion Gap 7 (6-14) Blood Urea Nitrogen 16 mg/dL (8-26) Creatinine 0.7 mg/dL (0.7-1.3) Estimated GFR (Cockcroft-Gault) 115.0 Glucose Level 266 mg/dL (70-99) Calcium Level 7.5 mg/dL (8.5-10.1) Magnesium Level 1.9 mg/dL (1.8-2.4) Triglycerides Level 100 mg/dL (0-150) Vitamin B12 Level 967 pg/mL (247-911) Thyroid Stimulating Hormone (TSH) 1.087 uIU/mL (0.358-3.74) Glucose (Fingerstick) 233 mg/dL (70-99) 242 mg/dL (70-99) 213 mg/dL (70-99) Test 11/23/17 04:30 11/23/17 06:06 White Blood Count 9.1 x10^3/uL (4.0-11.0) Red Blood Count 4.09 x10^6/uL (4.30-5.70) Hemoglobin 12.3 g/dL (13.0-17.5) Hematocrit 36.0 % (39.0-53.0) Mean Corpuscular Volume 88 fL (79-100) Mean Corpuscular Hemoglobin 30 pg (25-35) Mean Corpuscular Hemoglobin Concent 34 g/dL (31-37) Red Cell Distribution Width 13.5 % (11.5-14.5) Platelet Count 431 x10^3/uL (140-400) Neutrophils (%) (Auto) 74 % (31-73) Lymphocytes (%) (Auto) 15 % (24-48) Monocytes (%) (Auto) 8 % (0-9) Eosinophils (%) (Auto) 3 % (0-3) Basophils (%) (Auto) 0 % (0-3) Neutrophils # (Auto) 6.7 x10^3uL (1.8-7.7) Lymphocytes # (Auto) 1.3 x10^3/uL (1.0-4.8) Monocytes # (Auto) 0.7 x10^3/uL (0.0-1.1) Eosinophils # (Auto) 0.3 x10^3/uL (0.0-0.7) Basophils # (Auto) 0.0 x10^3/uL (0.0-0.2) Sodium Level 138 mmol/L (136-145) Potassium Level 3.4 mmol/L (3.5-5.1) Chloride Level 105 mmol/L (98-107) Carbon Dioxide Level 24 mmol/L (21-32) Anion Gap 9 (6-14) Blood Urea Nitrogen 8 mg/dL (8-26) Creatinine 0.7 mg/dL (0.7-1.3) Estimated GFR (Cockcroft-Gault) 115.0 Glucose Level 226 mg/dL (70-99) Calcium Level 7.5 mg/dL (8.5-10.1) Glucose (Fingerstick) 192 mg/dL (70-99) Impression . 1. Acute respiratory failure, multifactorial secondary to seizures and possible sepsis. 2. Extensive right diabetic foot infection, possible osteomyelitis. 3. Seizures. 4. Leukocytosis. 5. Diabetes. Plan . EMR DOWN COULD NOT FINISH NOTE SURGERY TODAY POSSIBLE EXTUBATION LATER DVT GI PROPH D/W DR ABDULLAHI FOLLOW NEURO INPUT DENNYS SHARMA MD Nov 23, 2017 08:37
[2017-11-23 09:15] LABS: BASE EXCESS ABG -1 mmol/L (-3-3); HCO3 ABG 24 mmol/L (21-28); PCO2 ABG 39 mmHg (35-46); PO2 ABG 103 mmHg (65-108); SAT O2 ABG 98 % (92-99)
[2017-11-23] MEDS: VANCOMYCIN PER PHARMACY MC PRN ×3 (09:29→10:05)
[2017-11-23 09:31] LABS: FIO2 ABG 30
--- NOTE | 2017-11-23 09:37 | PDOC ---
PROGRESS NOTES Chief Complaint Chief Complaint Sepsis Osteomyelitis Seizure DM 2 Peripheral vascular disease Foot wound Acom aneurysm History of Present Illness History of Present Illness Pt seen and examined in ICU Dw RN Pt sedated on ventilator A/C/14/600/30% w/ 5 PEEP Vitals Vitals Vital Signs Date Time Temp Pulse Resp B/P (MAP) Pulse Ox O2 Delivery O2 Flow Rate FiO2 11/23/17 07:50 100 Ventilator 11/23/17 07:00 77 15 121/63 (82) 11/23/17 04:00 98.2 98.2 Physical Exam General: No acute distress, Other (Pt sedated on ventilator) Heart: Regular rate, Normal S1, Normal S2 Lungs: Clear Abdomen: Normal bowel sounds, Soft Extremities: No clubbing, Other (R foot infection, L foot ulcer) Skin: No rashes, Other (R foot infection, L foot ulcer) Labs LABS Laboratory Tests Test 11/22/17 12:23 11/22/17 18:09 11/22/17 23:53 11/23/17 04:30 Glucose (Fingerstick) 233 mg/dL (70-99) 242 mg/dL (70-99) 213 mg/dL (70-99) White Blood Count 9.1 x10^3/uL (4.0-11.0) Red Blood Count 4.09 x10^6/uL (4.30-5.70) Hemoglobin 12.3 g/dL (13.0-17.5) Hematocrit 36.0 % (39.0-53.0) Mean Corpuscular Volume 88 fL (79-100) Mean Corpuscular Hemoglobin 30 pg (25-35) Mean Corpuscular Hemoglobin Concent 34 g/dL (31-37) Red Cell Distribution Width 13.5 % (11.5-14.5) Platelet Count 431 x10^3/uL (140-400) Neutrophils (%) (Auto) 74 % (31-73) Lymphocytes (%) (Auto) 15 % (24-48) Monocytes (%) (Auto) 8 % (0-9) Eosinophils (%) (Auto) 3 % (0-3) Basophils (%) (Auto) 0 % (0-3) Neutrophils # (Auto) 6.7 x10^3uL (1.8-7.7) Lymphocytes # (Auto) 1.3 x10^3/uL (1.0-4.8) Monocytes # (Auto) 0.7 x10^3/uL (0.0-1.1) Eosinophils # (Auto) 0.3 x10^3/uL (0.0-0.7) Basophils # (Auto) 0.0 x10^3/uL (0.0-0.2) Sodium Level 138 mmol/L (136-145) Potassium Level 3.4 mmol/L (3.5-5.1) Chloride Level 105 mmol/L (98-107) Carbon Dioxide Level 24 mmol/L (21-32) Anion Gap 9 (6-14) Blood Urea Nitrogen 8 mg/dL (8-26) Creatinine 0.7 mg/dL (0.7-1.3) Estimated GFR (Cockcroft-Gault) 115.0 Glucose Level 226 mg/dL (70-99) Calcium Level 7.5 mg/dL (8.5-10.1) Test 11/23/17 06:06 11/23/17 08:30 Glucose (Fingerstick) 192 mg/dL (70-99) O2 Saturation 98 % (92-99) Arterial Blood pH 7.40 (7.35-7.45) Arterial Blood pCO2 at Patient Temp 39 mmHg (35-46) Arterial Blood pO2 at Patient Temp 103 mmHg (65-108) Arterial Blood HCO3 24 mmol/L (21-28) Arterial Blood Base Excess -1 mmol/L (-3-3) FiO2 30 Review of Systems Review of Systems Pt sedated on ventilator Assessment and Plan Assessmemt and Plan Problems Medical Problems: (1) Seizure Status: Acute Sepsis Osteomyelitis Seizure DM 2 Peripheral vascular disease Foot wound Acom aneurysm Plan: ICU monitoring Ventilator Propofol sedation Abx OG tube [place] to bedside drainage Labs Amputation planned for today Appreciate subspecialist input Comment Review of Relevant I have reviewed the following items alta (where applicable) has been applied. Labs Laboratory Tests Test 11/21/17 17:10 11/21/17 17:18 11/21/17 18:15 11/21/17 21:00 White Blood Count 17.1 x10^3/uL (4.0-11.0) Red Blood Count 4.42 x10^6/uL (4.30-5.70) Hemoglobin 12.9 g/dL (13.0-17.5) Hematocrit 40.3 % (39.0-53.0) Mean Corpuscular Volume 91 fL (79-100) Mean Corpuscular Hemoglobin 29 pg (25-35) Mean Corpuscular Hemoglobin Concent 32 g/dL (31-37) Red Cell Distribution Width 13.9 % (11.5-14.5) Platelet Count 565 x10^3/uL (140-400) Neutrophils (%) (Auto) 69 % (31-73) Lymphocytes (%) (Auto) 17 % (24-48) Monocytes (%) (Auto) 11 % (0-9) Eosinophils (%) (Auto) 3 % (0-3) Basophils (%) (Auto) 1 % (0-3) Neutrophils # (Auto) 11.7 x10^3uL (1.8-7.7) Lymphocytes # (Auto) 3.0 x10^3/uL (1.0-4.8) Monocytes # (Auto) 1.9 x10^3/uL (0.0-1.1) Eosinophils # (Auto) 0.4 x10^3/uL (0.0-0.7) Basophils # (Auto) 0.1 x10^3/uL (0.0-0.2) Segmented Neutrophils % 67 % (35-66) Lymphocytes % 20 % (24-48) Monocytes % 10 % (0-10) Eosinophils % 3 % (0-5) Platelet Estimate Increased (ADEQUATE) Prothrombin Time 15.1 SEC (11.7-14.0) Prothromb Time International Ratio 1.2 (0.8-1.1) Sodium Level 138 mmol/L (136-145) Potassium Level 3.7 mmol/L (3.5-5.1) Chloride Level 98 mmol/L (98-107) Carbon Dioxide Level 20 mmol/L (21-32) Anion Gap 20 (6-14) Blood Urea Nitrogen 22 mg/dL (8-26) Creatinine 1.5 mg/dL (0.7-1.3) Estimated GFR (Cockcroft-Gault) 47.7 BUN/Creatinine Ratio 15 (6-20) Glucose Level 490 mg/dL (70-99) Calcium Level 9.4 mg/dL (8.5-10.1) Total Bilirubin 0.2 mg/dL (0.2-1.0) Aspartate Amino Transf (AST/SGOT) 15 U/L (15-37) Alanine Aminotransferase (ALT/SGPT) 24 U/L (16-63) Alkaline Phosphatase 84 U/L (46-116) Creatine Kinase 187 U/L (39-308) Total Protein 8.2 g/dL (6.4-8.2) Albumin 2.9 g/dL (3.4-5.0) Albumin/Globulin Ratio 0.5 (1.0-1.7) Salicylates Level < 2.8 mg/dL (2.8-20.0) Salicylate Last Dose Date Unknown Salicylate Last Dose Time Unknown Acetaminophen Level < 2 mcg/ml (10-30) Acetaminophen Last Dose Date Unknown Acetaminophen Last Dose Time Unknown Ethyl Alcohol Level < 10 mg/dL (0-10) Urine Collection Type U cath Urine Color Yellow Urine Clarity Clear Urine pH 5.5 Urine Specific [place] >=1.030 Urine Protein 30 mg/dL (NEG-TRACE) Urine Glucose (UA) >=1000 mg/dL (NEG) Urine Ketones (Stick) 15 mg/dL (NEG) Urine Blood Negative (NEG) Urine Nitrite Negative (NEG) Urine Bilirubin Negative (NEG) Urine Urobilinogen Dipstick 0.2 mg/dL (0.2 mg/dL) Urine Leukocyte Esterase Negative (NEG) Urine RBC 1-2 /HPF (0-2) Urine WBC 11-20 /HPF (0-4) Urine Squamous Epithelial Cells Few /LPF Urine Amorphous Sediment Present /HPF Urine Bacteria Few /HPF (0-FEW) Urine Hyaline Casts Occasional /HPF Urine Mucus Slight /LPF Urine Opiates Screen Neg (NEG) Urine Methadone Screen Neg (NEG) Urine Barbiturates Neg (NEG) Urine Phencyclidine Screen Neg (NEG) Urine Amphetamine/Methamphetamine Neg (NEG) Urine Benzodiazepines Screen Neg (NEG) Urine Cocaine Screen Neg (NEG) Urine Cannabinoids Screen Neg (NEG) Urine Ethyl Alcohol Neg (NEG) O2 Saturation 99 % (92-99) Arterial Blood pH 7.38 (7.35-7.45) Arterial Blood pH (Temp corrected) 7.45 Arterial Blood pCO2 at Patient Temp 41 mmHg (35-46) Arterial Blood pCO2 (Temp correct) 33 mmHg Arterial Blood pO2 at Patient Temp 302 mmHg (65-108) Arterial Blood pO2 (Temp corrected) 279 mmHg Arterial Blood HCO3 24 mmol/L (21-28) Arterial Blood Base Excess -2 mmol/L (-3-3) FiO2 100.0 Lactic Acid Level 1.2 mmol/L (0.4-2.0) Test 11/21/17 22:30 11/22/17 02:50 11/22/17 07:50 11/22/17 09:20 Nasal Screen MRSA (PCR) Negative (Negative) Sodium Level 140 mmol/L (136-145) 138 mmol/L (136-145) Potassium Level 3.8 mmol/L (3.5-5.1) 3.7 mmol/L (3.5-5.1) Chloride Level 105 mmol/L (98-107) 105 mmol/L (98-107) Carbon Dioxide Level 28 mmol/L (21-32) 26 mmol/L (21-32) Anion Gap 7 (6-14) 7 (6-14) Blood Urea Nitrogen 17 mg/dL (8-26) 16 mg/dL (8-26) Creatinine 0.7 mg/dL (0.7-1.3) 0.7 mg/dL (0.7-1.3) Estimated GFR (Cockcroft-Gault) 115.0 115.0 Glucose Level 259 mg/dL (70-99) 266 mg/dL (70-99) Calcium Level 8.1 mg/dL (8.5-10.1) 7.5 mg/dL (8.5-10.1) O2 Saturation 99 % (92-99) Arterial Blood pH 7.41 (7.35-7.45) Arterial Blood pCO2 at Patient Temp 41 mmHg (35-46) Arterial Blood pO2 at Patient Temp 174 mmHg (65-108) Arterial Blood HCO3 25 mmol/L (21-28) Arterial Blood Base Excess 1 mmol/L (-3-3) FiO2 45 White Blood Count 8.8 x10^3/uL (4.0-11.0) Red Blood Count 3.82 x10^6/uL (4.30-5.70) Hemoglobin 11.3 g/dL (13.0-17.5) Hematocrit 33.7 % (39.0-53.0) Mean Corpuscular Volume 88 fL (79-100) Mean Corpuscular Hemoglobin 30 pg (25-35) Mean Corpuscular Hemoglobin Concent 34 g/dL (31-37) Red Cell Distribution Width 13.2 % (11.5-14.5) Platelet Count 389 x10^3/uL (140-400) Magnesium Level 1.9 mg/dL (1.8-2.4) Triglycerides Level 100 mg/dL (0-150) Vitamin B12 Level 967 pg/mL (247-911) Thyroid Stimulating Hormone (TSH) 1.087 uIU/mL (0.358-3.74) Test 11/22/17 12:23 11/22/17 18:09 11/22/17 23:53 11/23/17 04:30 Glucose (Fingerstick) 233 mg/dL (70-99) 242 mg/dL (70-99) 213 mg/dL (70-99) White Blood Count 9.1 x10^3/uL (4.0-11.0) Red Blood Count 4.09 x10^6/uL (4.30-5.70) Hemoglobin 12.3 g/dL (13.0-17.5) Hematocrit 36.0 % (39.0-53.0) Mean Corpuscular Volume 88 fL (79-100) Mean Corpuscular Hemoglobin 30 pg (25-35) Mean Corpuscular Hemoglobin Concent 34 g/dL (31-37) Red Cell Distribution Width 13.5 % (11.5-14.5) Platelet Count 431 x10^3/uL (140-400) Neutrophils (%) (Auto) 74 % (31-73) Lymphocytes (%) (Auto) 15 % (24-48) Monocytes (%) (Auto) 8 % (0-9) Eosinophils (%) (Auto) 3 % (0-3) Basophils (%) (Auto) 0 % (0-3) Neutrophils # (Auto) 6.7 x10^3uL (1.8-7.7) Lymphocytes # (Auto) 1.3 x10^3/uL (1.0-4.8) Monocytes # (Auto) 0.7 x10^3/uL (0.0-1.1) Eosinophils # (Auto) 0.3 x10^3/uL (0.0-0.7) Basophils # (Auto) 0.0 x10^3/uL (0.0-0.2) Sodium Level 138 mmol/L (136-145) Potassium Level 3.4 mmol/L (3.5-5.1) Chloride Level 105 mmol/L (98-107) Carbon Dioxide Level 24 mmol/L (21-32) Anion Gap 9 (6-14) Blood Urea Nitrogen 8 mg/dL (8-26) Creatinine 0.7 mg/dL (0.7-1.3) Estimated GFR (Cockcroft-Gault) 115.0 Glucose Level 226 mg/dL (70-99) Calcium Level 7.5 mg/dL (8.5-10.1) Test 11/23/17 06:06 11/23/17 08:30 Glucose (Fingerstick) 192 mg/dL (70-99) O2 Saturation 98 % (92-99) Arterial Blood pH 7.40 (7.35-7.45) Arterial Blood pCO2 at Patient Temp 39 mmHg (35-46) Arterial Blood pO2 at Patient Temp 103 mmHg (65-108) Arterial Blood HCO3 24 mmol/L (21-28) Arterial Blood Base Excess -1 mmol/L (-3-3) FiO2 30 Laboratory Tests Test 11/22/17 12:23 11/22/17 18:09 11/22/17 23:53 11/23/17 04:30 Glucose (Fingerstick) 233 mg/dL (70-99) 242 mg/dL (70-99) 213 mg/dL (70-99) White Blood Count 9.1 x10^3/uL (4.0-11.0) Red Blood Count 4.09 x10^6/uL (4.30-5.70) Hemoglobin 12.3 g/dL (13.0-17.5) Hematocrit 36.0 % (39.0-53.0) Mean Corpuscular Volume 88 fL (79-100) Mean Corpuscular Hemoglobin 30 pg (25-35) Mean Corpuscular Hemoglobin Concent 34 g/dL (31-37) Red Cell Distribution Width 13.5 % (11.5-14.5) Platelet Count 431 x10^3/uL (140-400) Neutrophils (%) (Auto) 74 % (31-73) Lymphocytes (%) (Auto) 15 % (24-48) Monocytes (%) (Auto) 8 % (0-9) Eosinophils (%) (Auto) 3 % (0-3) Basophils (%) (Auto) 0 % (0-3) Neutrophils # (Auto) 6.7 x10^3uL (1.8-7.7) Lymphocytes # (Auto) 1.3 x10^3/uL (1.0-4.8) Monocytes # (Auto) 0.7 x10^3/uL (0.0-1.1) Eosinophils # (Auto) 0.3 x10^3/uL (0.0-0.7) Basophils # (Auto) 0.0 x10^3/uL (0.0-0.2) Sodium Level 138 mmol/L (136-145) Potassium Level 3.4 mmol/L (3.5-5.1) Chloride Level 105 mmol/L (98-107) Carbon Dioxide Level 24 mmol/L (21-32) Anion Gap 9 (6-14) Blood Urea Nitrogen 8 mg/dL (8-26) Creatinine 0.7 mg/dL (0.7-1.3) Estimated GFR (Cockcroft-Gault) 115.0 Glucose Level 226 mg/dL (70-99) Calcium Level 7.5 mg/dL (8.5-10.1) Test 11/23/17 06:06 11/23/17 08:30 Glucose (Fingerstick) 192 mg/dL (70-99) O2 Saturation 98 % (92-99) Arterial Blood pH 7.40 (7.35-7.45) Arterial Blood pCO2 at Patient Temp 39 mmHg (35-46) Arterial Blood pO2 at Patient Temp 103 mmHg (65-108) Arterial Blood HCO3 24 mmol/L (21-28) Arterial Blood Base Excess -1 mmol/L (-3-3) FiO2 30 Microbiology 11/21/17 Blood Culture - Preliminary, Resulted NO GROWTH AFTER 1 DAY Medications Current Medications Propofol 50 ml @ As Directed STK-MED ONCE IV ; Start 11/21/17 at 17:07; Stop 12/29 at 17:08; Status DC Midazolam HCl (Versed) 5 mg 1X ONCE NS Last administered on 11/21/17at 17:05; Start 11/21/17 at 17:15; Stop 11/21/17 at 17:16; Status DC Fentanyl Citrate (Fentanyl 2ml Vial) 100 mcg 1X ONCE IV Last administered on at 17:09; Start 11/21/17 at 17:15; Stop 11/21/17 at 17:16; Status DC Levetiracetam 1000 mg/Dextrose 110 ml @ 440 mls/hr 1X ONCE IV Last administered on 11/21/17at 17:25; Start 11/21/17 at 17:15; Stop 11/21/17 at 17:29 ; Status DC Sodium Chloride 1,000 ml @ 1,000 mls/hr 1X ONCE IV Last administered on at 19:39; Start 11/21/17 at 17:15; Stop 11/21/17 at 18:14; Status DC Propofol (Diprivan) 200 mg 1X ONCE IV Last administered on 11/21/17at 17:14; Start 11/21/17 at 17:15; Stop 11/21/17 at 17:16; Status DC Midazolam HCl (Versed) 5 mg 1X ONCE IV Last administered on 11/21/17at 19:20; Start 11/21/17 at 17:45; Stop 11/21/17 at 17:50; Status DC Sodium Chloride 1,000 ml @ 150 mls/hr Q6H40M IV Last administered on at 12:12; Start 11/21/17 at 18:15; Stop 11/22/17 at 18:14; Status DC Vancomycin HCl (Vanco Per Pharmacy) 1 each PRN DAILY PRN MC SEE COMMENTS Last administered on 11/22/17at 11:12; Start 11/21/17 at 18:00 Piperacillin Sod/ Tazobactam Sod 3.375 gm/Sodium Chloride 50 ml @ 100 mls/hr 1X ONCE IV Last administered on 11/21/17at 19:04; Start 11/21/17 at 18:15; Stop 11/21/17 at 18:44; Status DC Insulin Human Regular (HumuLIN R VIAL) 10 unit 1X ONCE IV Last administered on 11/21/17at 20:55; Start 11/21/17 at 18:15; Stop 11/21/17 at 18:16; Status DC Potassium Chloride (KCl Oral Soln) 40 meq 1X ONCE NG Last administered on 11/21at 22:08; Start 11/21/17 at 18:15; Stop 11/21/17 at 18:16; Status DC Levetiracetam 500 mg/Dextrose 105 ml @ 420 mls/hr Q12HR IV Last administered on 11/23/17at 08:33; Start 11/21/17 at 21:00 Lorazepam (Ativan) 2 mg PRN Q4HRS PRN IV ANXIETY / AGITATION Last administered on 11/22/17at 12:12; Start 11/21/17 at 18:15 Thiamine HCl 100 mg/Dextrose 51 ml @ 102 mls/hr 1X STAT IV Last administered on 11/21/17at 18:33; Start 11/21/17 at 18:11; Stop 11/21/17 at 18:40; Status DC Vancomycin HCl 2 gm/Sodium Chloride 500 ml @ 250 mls/hr 1X ONCE IV Last administered on 11/21/17at 20:52; Start 11/21/17 at 19:00; Stop 11/21/17 at 20:59 ; Status DC Etomidate (Amidate) 20 mg STK-MED ONCE IV ; Start 11/21/17 at 19:04; Stop at 19:05; Status DC Succinylcholine Chloride (Anectine) 200 mg STK-MED ONCE .ROUTE ; Start 11/21/17 at 19:05; Stop 11/21/17 at 19:06; Status DC Propofol 50 ml @ As Directed STK-MED ONCE IV ; Start 11/21/17 at 19:38; Stop 12/29 at 19:39; Status DC Etomidate (Amidate) 20 mg 1X ONCE IV Last administered on 11/21/17at 17:01; Start 11/21/17 at 20:00; Stop 11/21/17 at 20:01; Status DC Succinylcholine Chloride (Anectine) 100 mg 1X ONCE IV Last administered on 12/29at 17:01; Start 11/21/17 at 20:00; Stop 11/21/17 at 20:01; Status DC Midazolam HCl (Versed) 5 mg 1X ONCE IV Last administered on 11/21/17at 17:39; Start 11/21/17 at 20:00; Stop 11/21/17 at 20:01; Status DC Vancomycin HCl 1.5 gm/Sodium Chloride 500 ml @ 250 mls/hr Q12H IV Last administered on 11/22/17at 09:56; Start 11/22/17 at 09:00; Stop 11/22/17 at 11:03 ; Status DC Fentanyl Citrate 30 ml @ 0 mls/hr CONT PRN IV PER PROTOCOL; Start 11/21/17 at 22:00 Propofol 100 ml @ 0 mls/hr CONT PRN IV PER PROTOCOL Last administered on at 06:42; Start 11/21/17 at 22:00 Chlorhexidine Gluconate (Peridex) 15 ml BID MM Last administered on 11/23/17at 08:33; Start 11/22/17 at 09:00 Famotidine (Pepcid Vial) 20 mg BID IVP Last administered on 11/23/17at 08:33; Start 11/22/17 at 09:00 Enoxaparin Sodium (Lovenox Per Pharmacy Prophylaxis Dosing) 1 each PRN DAILY PRN MC SEE COMMENTS; Start 11/22/17 at 09:30 Enoxaparin Sodium (Lovenox 40mg Syringe) 40 mg Q24H SQ Last administered on 01/29at 10:00; Start 11/22/17 at 10:00 Iohexol (Omnipaque 300 Mg/ml) 75 ml 1X ONCE IV Last administered on 11/22/17at 10:45; Start 11/22/17 at 10:45; Stop 11/22/17 at 10:46; Status DC Info (CONTRAST GIVEN -- Rx MONITORING) 1 each PRN DAILY PRN MC SEE COMMENTS; Start 11/22/17 at 11:00; Stop 11/24/17 at 10:59 Iohexol (Omnipaque 300 Mg/ml) 100 ml STK-MED ONCE .ROUTE ; Start 11/22/17 at 10: 45; Stop 11/22/17 at 10:46; Status DC Vancomycin HCl 1.5 gm/Sodium Chloride 500 ml @ 250 mls/hr Q12H IV Last administered on 11/22/17at 22:24; Start 11/22/17 at 22:00 Vancomycin HCl (Vancomycin Trough Level) 1 each 1X ONCE MC ; Start 11/23/17 at 09:30; Stop 11/23/17 at 09:31 Piperacillin Sod/ Tazobactam Sod 3.375 gm/Sodium Chloride 50 ml @ 100 mls/hr Q6HRS IV Last administered on 11/23/17at 06:08; Start 11/22/17 at 12:00 Insulin Human Lispro (HumaLOG) 0-5 UNITS Q6HRS SQ ; Start 11/22/17 at 18:00 Dextrose (Dextrose 50%-Water Syringe) 12.5 gm PRN Q15MIN PRN IV SEE COMMENTS; Start 11/22/17 at 12:45 Fentanyl Citrate (Fentanyl 2ml Vial) 25 mcg PRN Q5MIN PRN IV MILD PAIN; Start 11/23/17 at 07:00; Stop 11/24/17 at 06:59 Fentanyl Citrate (Fentanyl 2ml Vial) 50 mcg PRN Q5MIN PRN IV MODERATE TO SEVERE PAIN; Start 11/23/17 at 07:00; Stop 11/24/17 at 06:59 Morphine Sulfate (Morphine Sulfate) 1 mg PRN Q10MIN PRN IV SEVERE PAIN; Start 11/23/17 at 07:00; Stop 11/24/17 at 06:59 Ringer's Solution 1,000 ml @ 30 mls/hr Q24H IV ; Start 11/23/17 at 07:00; Stop 11/23/17 at 18:59 Lidocaine HCl (Xylocaine-Mpf 1% 2ml Vial) 2 ml PRN 1X PRN ID IV START; Start at 07:00; Stop 11/24/17 at 06:59 Hydromorphone HCl (Dilaudid) 0.5 mg PRN Q10MIN PRN IV SEV PAIN, Second choice; Start 11/23/17 at 07:00; Stop 11/24/17 at 06:59 Prochlorperazine Edisylate (Compazine) 5 mg PACU PRN PRN IV NAUSEA, MRX1; Start 11/23/17 at 07:00; Stop 11/24/17 at 06:59 Bacitracin 00725 unit/Sodium Chloride 500 ml @ 500 mls/hr 1X ONCE IRR ; Start 11/23/17 at 06:00; Stop 11/23/17 at 06:59; Status DC Potassium Chloride/Water 50 ml @ 50 mls/hr 1X ONCE IV Last administered on 02/28at 07:58; Start 11/23/17 at 08:00; Stop 11/23/17 at 08:59; Status DC Vitals/I & O Vital Sign - Last 24 Hours 11/22/17 11/22/17 11/22/17 11/22/17 10:00 11:00 11:30 12:00 Temp 97.6 97.6 Pulse 78 75 78 Resp 14 15 14 B/P (MAP) 145/73 (97) 151/77 (101) 163/81 (108) Pulse Ox 100 100 100 100 O2 Delivery Ventilator Ventilator Ventilator Ventilator 11/22/17 11/22/17 11/22/17 11/22/17 12:00 13:00 13:21 14:00 Pulse 72 71 Resp 12 14 B/P (MAP) 102/49 (66) 111/54 (73) Pulse Ox 100 100 100 O2 Delivery Mechanical Ventilator Ventilator Ventilator Ventilator 11/22/17 11/22/17 11/22/17 11/22/17 15:00 15:27 16:00 16:00 Temp 98.3 98.3 Pulse 78 79 Resp 14 14 B/P (MAP) 172/79 (110) 151/75 (100) Pulse Ox 100 100 100 O2 Delivery Ventilator Ventilator Mechanical Ventilator Ventilator 11/22/17 11/22/17 11/22/17 11/22/17 17:00 17:10 18:00 19:00 Pulse 79 78 76 Resp 14 14 14 B/P (MAP) 166/80 (108) 163/80 (107) 164/80 (108) Pulse Ox 100 100 100 100 O2 Delivery Ventilator Ventilator Ventilator Ventilator 11/22/17 11/22/17 11/22/17 11/22/17 19:38 20:00 20:00 21:00 Temp 98.6 98.6 Pulse 84 78 Resp 13 15 B/P (MAP) 173/81 (111) 175/85 (115) Pulse Ox 100 100 100 O2 Delivery Ventilator Mechanical Ventilator Ventilator Ventilator 11/22/17 11/22/17 11/22/17 11/22/17 21:11 22:00 23:00 23:15 Pulse 76 76 Resp 14 14 B/P (MAP) 163/79 (107) 165/75 (105) Pulse Ox 100 100 100 100 O2 Delivery Ventilator Ventilator Ventilator 11/22/17 11/23/17 11/23/17 11/23/17 23:59 00:00 01:00 01:00 Temp 99.2 99.2 Pulse 71 75 Resp 14 14 B/P (MAP) 170/81 (110) 159/71 (100) Pulse Ox 100 100 100 O2 Delivery Mechanical Ventilator Ventilator Ventilator Ventilator 11/23/17 11/23/17 11/23/17 11/23/17 02:00 02:56 03:00 04:00 Pulse 74 78 Resp 15 14 B/P (MAP) 137/64 (88) 126/64 (84) Pulse Ox 100 100 100 O2 Delivery Ventilator Ventilator Ventilator Mechanical Ventilator 11/23/17 11/23/17 11/23/17 11/23/17 04:00 05:00 05:30 06:00 Temp 98.2 98.2 Pulse 74 78 76 Resp 14 14 14 B/P (MAP) 142/60 (87) 154/69 (97) 127/65 (85) Pulse Ox 100 100 100 100 O2 Delivery Ventilator Ventilator Ventilator Ventilator 11/23/17 11/23/17 07:00 07:50 Pulse 77 Resp 15 B/P (MAP) 121/63 (82) Pulse Ox 100 100 O2 Delivery Ventilator Ventilator Intake and Output 11/22/17 11/22/17 11/23/17 15:00 23:00 07:00 Intake Total 655 ml 1840.29 ml 820 ml Output Total 1785 ml 1410 ml 520 ml Balance -1130 ml 430.29 ml 300 ml CEASAR SALAS III DO Nov 23, 2017 09:37
[2017-11-23 09:54] LABS: VANC TR 7.7 mcg/mL (10.0-20.0)
[2017-11-23] MEDS: VANCOMYCIN 1.5 GM in IV NORMAL SALINE 500ML BAG 500 ML IV SCH ×2 (10:39→18:05)
--- NOTE | 2017-11-23 11:23 | CONS ---
DATE OF CONSULTATION: 11/22/2017 REQUESTING PHYSICIAN: Dr. Minor. REASON FOR CONSULTATION: Diabetic foot infection. HISTORY OF PRESENT ILLNESS: This is a 62-year-old gentleman who was brought in after having a seizure. It is unknown whether the patient has history of seizure or not. The patient is diabetic. He does not have insurance. He has diabetic foot infection and he has been using "fish" antibiotics. The patient is currently orally intubated on a ventilator. All the information was obtained through chart review and discussing with the patient's nurse. There is no nausea, vomiting, diarrhea noted. There was no fever noted. The patient did have leukocytosis and he had acute renal failure that has improved. PAST MEDICAL HISTORY: Evidently is positive for diabetes and he has infection and he has been using the fish antibiotics. It is unclear whether he has had history of seizure or not. SOCIAL HISTORY: Negative for smoking, alcohol, illicit drug use. He works at ____. CURRENT MEDICATIONS: The patient is started on vancomycin and Zosyn. REVIEW OF SYSTEMS: Unable to obtain other than what I mentioned in the HPI through the patient's nurse. PHYSICAL EXAMINATION: GENERAL: Sedated, orally intubated gentleman, not in distress. VITAL SIGNS: Stable, afebrile. The patient did have a T-max of 99.7. HEENT: NAD. NECK: Supple, no JVP, no lymphadenopathy. LUNGS: Clear. HEART: S1, S2 regular. ABDOMEN: Benign. EXTREMITIES: Some pitting edema present. The patient does have extensive infection of the right foot at the first metatarsophalangeal joint area with lopez pus coming and appears to have a destroyed bone. The patient does have a similar area on the left foot ulcer, which appears to be not as bad as the right one. The patient had been moving all the extremities before his intubation. NEUROLOGIC: Intact other than seizure and postictal state. LABORATORY DATA: White count is 17.1, hemoglobin 12.9, platelets are 565,000. BUN and creatinine from 22 and 1.5, improved to 17 and 0.7. Blood glucose has been all over the place. Lactic acid 1.2. Urinalysis showed 11-20 wbc's. His drug screen was negative. IMAGING: Chest x-ray unremarkable. CT of the head showed there is a peripherally calcified lesion in the region of the anterior communicating artery highly suggestive of aneurysm. IMPRESSION: 1. Extensive right diabetic foot infection with appears to have osteomyelitis and infection. 2. Left foot also there is an ulcer with arthropathy. 3. Seizure. 4. Leukocytosis. 5 Respiratory failure. 6. Diabetes with poor control. RECOMMENDATIONS: Continue vancomycin and Zosyn. The patient is going to need amputation, at least right first ray amputation. He may also need that on the left side eventually. Supportive care. Leg elevation. We will check the cultures and continue to follow. Thank you very much, Dr. Minor, for giving me the opportunity to participate in this patient's care. EMILIANO OLIVEIRA MD DR: ATIYA/chyna JOB#: [id number] / [id number]
[2017-11-23] MEDS ORDERED: ROCURONIUM 50 MG/5 ML VIAL. ONE (13:30)
[2017-11-23] MEDS ORDERED: SEVOFLURANE 31 TO 60 MINUTES. IH ONE (14:00)
--- NOTE | 2017-11-23 14:06 | PDOC ---
BRIEF OPERATIVE NOTE Date: Nov 23, 2017 Pre-Op Diagnosis Right first toe ulcer with infection, left first toe ulcer Post-Op Diagnosis same Procedure Performed Right first toe open ray amputation Left first toe ulcer excisional debridement of bone and tissue, [id number] Surgeon Dr. Laws Telephonic Rn Emmanuel Ramírez NP Anesthesia Type: General Blood Loss 100cc Specimens Obtained right first toe Findings right first toe with purulent drainage, left toe no drainage Complications none Operative Note see dictated note EMMANUEL RAMÍREZ [employer] Nov 23, 2017 14:06
--- NOTE | 2017-11-23 15:20 | PDOC ---
PROGRESS NOTES Assessment Assessment Seizure, provoked by metabolic disturbances. Metabolic encephalopathy. Respiratory failure, acute. Hyperglycemia, glucose level 490 mg/dlL on 11/21. UTI. DM, not well controlled. HTN. 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 Chronic cellulitis, LE. Ulcers in toes. Obesity. RECOMMENDATIONS/PLAN: Keppra 500 mg q12h x 1 week, then 250 mg bid x 1 week, then stop. Ativan 2 mg IV q 4-6 h PRN for seizures. Control hyperglycemia. Treat medical diseases. Consulted Neurosurgery for aneurysm. Surgical treatment for toe ulcers. Prevent DVT. HISTORY OF THE PRESENT ILLNESS: This 62-y-old male patient with Hx of DM on Insulin per history of the patient suddenly LOC and had a seizure as convulsion during work. EMS was called and he was brought to the ER of [facility] and was found hyperglycemia and his glucose level was 490 mg/dl. No history of seizure in the past. PAST MEDICAL HISTORY: DM. PAST SURGERY HISTORY: No major surgery recently. ALLERGY: Unknown MEDICATIONS: Refer to [facility] HISTORY: Non contributory. SOCIAL HISTORY: He works at [employer]. Unknown his history of substance or drugs. REVIEW OF SYSTEMS: Constitutional: Obese. Head: No traumatic brain or head injury. Skin: No edema, or rash. Ear: No infection. Eyes: No vision loss or color blindness. Nose: No bleeding or purulent discharges. Hearing: No hearing decrease. Neck: No injury. Cardiac: HTN. Pulmonary: No COPD. GI: No GI ulcer, GI bleeding. Urinary/genital: UTI. Endocrinologic: Diabetes Mellitus, obesity. Skeletomuscular: No muscular atrophy, deformity. Neurological: see HP. Psychiatric: Unknown drug use/abuse. Otherwise, not [id number] review of systems. PHYSICAL EXAMINATION: General appearance is in subacute distress. HEENT: Normocephalic and nontraumatic. Eyes, nose, ears, and throat are unremarkable. Neck is supple. No lymphadenopathy. No bruits are heard over the carotid artery. No crepitus. Cardiovascular: S1, S2, regular rate and rhythm. Pulmonary: On event. Abdomen: Bowel sounds are positive. Extremities: Wounds in LE. No restriction of range of motion NEUROLOGICAL EXAMINATION: Lethargic. Not oriented to time, place and person. PERRL. EOMI. CN: no focal findings. Muscle tone: within normal. Muscle strength: moves all extremities to stimuli. DTR: 1-2 Plantar reflex: Neutral response bilaterally Gait: Not able to walk at the present time. Sensory exam: no abnormal findings. Not able to access cerebellar signs. F-T-N test not performed due to not follow commands. Objective Objective Vital Signs Date Time Temp Pulse Resp B/P (MAP) Pulse Ox O2 Delivery O2 Flow Rate FiO2 11/23/17 13:00 70 14 107/49 (68) 100 Ventilator 11/23/17 12:00 99.0 99.0 Intake and Output 11/23/17 07:00 Intake Total 3315.29 ml Output Total 3715 ml Balance -399.71 ml Intake IV Total 3315.29 ml Output Urine Total 3415 ml Gastric Drainage Total 300 ml Vitals Signs Vitals VS - Last 72 Hours, by Label Date Time Temp Pulse Resp B/P (MAP) Pulse Ox O2 Delivery O2 Flow Rate FiO2 11/23/17 13:00 70 14 107/49 (68) 100 Ventilator 11/23/17 12:00 99.0 77 16 154/68 (96) 100 Ventilator 99.0 11/23/17 12:00 Mechanical Ventilator 11/23/17 11:00 76 15 153/66 (95) 100 Ventilator 11/23/17 10:00 79 15 149/69 (95) 100 Ventilator 11/23/17 09:51 100 Ventilator 11/23/17 09:00 77 14 147/75 (99) 100 Ventilator 11/23/17 08:00 Mechanical Ventilator 11/23/17 08:00 98.4 80 14 163/79 (107) 100 Ventilator 98.4 11/23/17 07:50 100 Ventilator 11/23/17 07:00 77 15 121/63 (82) 100 Ventilator 11/23/17 06:00 76 14 127/65 (85) 100 Ventilator 11/23/17 05:30 100 Ventilator 11/23/17 05:00 78 14 154/69 (97) 100 Ventilator 11/23/17 04:00 98.2 74 14 142/60 (87) 100 Ventilator 98.2 11/23/17 04:00 Mechanical Ventilator 11/23/17 03:00 78 14 126/64 (84) 100 Ventilator 11/23/17 02:56 100 Ventilator 11/23/17 02:00 74 15 137/64 (88) 100 Ventilator 11/23/17 01:00 100 Ventilator 11/23/17 01:00 75 14 159/71 (100) 100 Ventilator 11/23/17 00:00 99.2 71 14 170/81 (110) 100 Ventilator 99.2 11/22/17 23:59 Mechanical Ventilator 11/22/17 23:15 100 Ventilator 11/22/17 23:00 76 14 165/75 (105) 100 11/22/17 22:00 76 14 163/79 (107) 100 Ventilator 11/22/17 21:11 100 Ventilator 11/22/17 21:00 78 15 175/85 (115) 100 Ventilator 11/22/17 20:00 98.6 84 13 173/81 (111) 100 Ventilator 98.6 11/22/17 20:00 Mechanical Ventilator 11/22/17 19:38 100 Ventilator 11/22/17 19:00 76 14 164/80 (108) 100 Ventilator 11/22/17 18:00 78 14 163/80 (107) 100 Ventilator 11/22/17 17:10 100 Ventilator 11/22/17 17:00 79 14 166/80 (108) 100 Ventilator 11/22/17 16:00 98.3 79 14 151/75 (100) 100 Ventilator 98.3 11/22/17 16:00 Mechanical Ventilator 11/22/17 15:27 100 Ventilator 11/22/17 15:00 78 14 172/79 (110) 100 Ventilator 11/22/17 14:00 71 14 111/54 (73) 100 Ventilator 11/22/17 13:21 100 Ventilator 11/22/17 13:00 72 12 102/49 (66) 100 Ventilator 11/22/17 12:00 Mechanical Ventilator 11/22/17 12:00 97.6 78 14 163/81 (108) 100 Ventilator 97.6 11/22/17 11:30 100 Ventilator 11/22/17 11:00 75 15 151/77 (101) 100 Ventilator 11/22/17 10:00 78 14 145/73 (97) 100 Ventilator 11/22/17 09:25 100 Ventilator 11/22/17 09:00 74 16 142/68 (92) 100 Ventilator 11/22/17 08:00 98.2 66 14 109/67 (81) 100 Ventilator 98.2 11/22/17 08:00 Mechanical Ventilator 11/22/17 07:27 100 Ventilator 11/22/17 07:00 65 15 111/60 (77) 100 Ventilator Laboratory Laboratory Laboratory Tests Test 11/22/17 18:09 11/22/17 23:53 11/23/17 04:30 11/23/17 06:06 Glucose (Fingerstick) 242 mg/dL (70-99) 213 mg/dL (70-99) 192 mg/dL (70-99) White Blood Count 9.1 x10^3/uL (4.0-11.0) Red Blood Count 4.09 x10^6/uL (4.30-5.70) Hemoglobin 12.3 g/dL (13.0-17.5) Hematocrit 36.0 % (39.0-53.0) Mean Corpuscular Volume 88 fL (79-100) Mean Corpuscular Hemoglobin 30 pg (25-35) Mean Corpuscular Hemoglobin Concent 34 g/dL (31-37) Red Cell Distribution Width 13.5 % (11.5-14.5) Platelet Count 431 x10^3/uL (140-400) Neutrophils (%) (Auto) 74 % (31-73) Lymphocytes (%) (Auto) 15 % (24-48) Monocytes (%) (Auto) 8 % (0-9) Eosinophils (%) (Auto) 3 % (0-3) Basophils (%) (Auto) 0 % (0-3) Neutrophils # (Auto) 6.7 x10^3uL (1.8-7.7) Lymphocytes # (Auto) 1.3 x10^3/uL (1.0-4.8) Monocytes # (Auto) 0.7 x10^3/uL (0.0-1.1) Eosinophils # (Auto) 0.3 x10^3/uL (0.0-0.7) Basophils # (Auto) 0.0 x10^3/uL (0.0-0.2) Sodium Level 138 mmol/L (136-145) Potassium Level 3.4 mmol/L (3.5-5.1) Chloride Level 105 mmol/L (98-107) Carbon Dioxide Level 24 mmol/L (21-32) Anion Gap 9 (6-14) Blood Urea Nitrogen 8 mg/dL (8-26) Creatinine 0.7 mg/dL (0.7-1.3) Estimated GFR (Cockcroft-Gault) 115.0 Glucose Level 226 mg/dL (70-99) Calcium Level 7.5 mg/dL (8.5-10.1) Test 11/23/17 08:30 11/23/17 09:25 11/23/17 12:50 O2 Saturation 98 % (92-99) Arterial Blood pH 7.40 (7.35-7.45) Arterial Blood pCO2 at Patient Temp 39 mmHg (35-46) Arterial Blood pO2 at Patient Temp 103 mmHg (65-108) Arterial Blood HCO3 24 mmol/L (21-28) Arterial Blood Base Excess -1 mmol/L (-3-3) FiO2 30 Vancomycin Level Trough 7.7 mcg/mL (10.0-20.0) Vancomycin Last Dose Date 11/22/17 Vancomycin Last Dose Time 2200 Glucose (Fingerstick) 224 mg/dL (70-99) Microbiology 11/21/17 Blood Culture - Preliminary, Resulted NO GROWTH AFTER 1 DAY Medication Medications Current Medications Bacitracin 43394 unit/Sodium Chloride 500 ml @ 500 mls/hr 1X ONCE IRR Last administered on 11/23/17at 13:32; Start 11/23/17 at 06:00; Stop 11/23/17 at 06:59 ; Status DC Fentanyl Citrate (Fentanyl 2ml Vial) 25 mcg PRN Q5MIN PRN IV MILD PAIN; Start 11/23/17 at 07:00; Stop 11/24/17 at 06:59 Fentanyl Citrate (Fentanyl 2ml Vial) 50 mcg PRN Q5MIN PRN IV MODERATE TO SEVERE PAIN; Start 11/23/17 at 07:00; Stop 11/24/17 at 06:59 Hydromorphone HCl (Dilaudid) 0.5 mg PRN Q10MIN PRN IV SEV PAIN, Second choice; Start 11/23/17 at 07:00; Stop 11/24/17 at 06:59 Insulin Human Lispro (HumaLOG) 0-5 UNITS Q6HRS SQ ; Start 11/22/17 at 18:00 Lidocaine HCl (Xylocaine-Mpf 1% 2ml Vial) 2 ml PRN 1X PRN ID IV START; Start at 07:00; Stop 11/24/17 at 06:59 Morphine Sulfate (Morphine Sulfate) 1 mg PRN Q10MIN PRN IV SEVERE PAIN; Start 11/23/17 at 07:00; Stop 11/24/17 at 06:59 Potassium Chloride/Water 50 ml @ 50 mls/hr 1X ONCE IV Last administered on 02/28at 07:58; Start 11/23/17 at 08:00; Stop 11/23/17 at 08:59; Status DC Prochlorperazine Edisylate (Compazine) 5 mg PACU PRN PRN IV NAUSEA, MRX1; Start 11/23/17 at 07:00; Stop 11/24/17 at 06:59 Ringer's Solution 1,000 ml @ 30 mls/hr Q24H IV ; Start 11/23/17 at 07:00; Stop 11/23/17 at 18:59 Rocuronium [place] (Zemuron) 50 mg STK-MED ONCE .ROUTE ; Start 11/23/17 at 13:30 ; Stop 11/23/17 at 13:31; Status DC Sevoflurane (Ultane) 30 ml STK-MED ONCE IH ; Start 11/23/17 at 14:00; Stop 11/23 at 14:01; Status DC Vancomycin HCl (Vancomycin Trough Level) 1 each 1X ONCE MC Last administered on 11/23/17at 09:30; Start 11/23/17 at 09:30; Stop 11/23/17 at 09:31; Status DC Vancomycin HCl (Vancomycin Trough Level) 1 each 1X ONCE MC ; Start 11/24/17 at 10:00; Stop 11/24/17 at 10:01 Vancomycin HCl 1.5 gm/Sodium Chloride 500 ml @ 250 mls/hr Q12H IV Last administered on 11/22/17at 22:24; Start 11/22/17 at 22:00; Stop 11/23/17 at 10:01 ; Status DC Vancomycin HCl 1.5 gm/Sodium Chloride 500 ml @ 250 mls/hr Q8H IV Last administered on 11/23/17at 10:39; Start 11/23/17 at 10:30 Comment Review of Relevant I have reviewed the following items alta (where applicable) has been applied. POLLO ABDULLAHI MD Nov 23, 2017 15:20
--- NOTE | 2017-11-23 15:27 | PDOC ---
PROGRESS NOTES Subjective Subjective sedated on vent back from OR Objective Objective Vital Signs Date Time Temp Pulse Resp B/P (MAP) Pulse Ox O2 Delivery O2 Flow Rate FiO2 11/23/17 13:00 70 14 107/49 (68) 100 Ventilator 11/23/17 12:00 99.0 99.0 Intake and Output 11/23/17 07:00 Intake Total 3315.29 ml Output Total 3715 ml Balance -399.71 ml Intake IV Total 3315.29 ml Output Urine Total 3415 ml Gastric Drainage Total 300 ml Physical Exam General: Other (sedated, VSS) Assessment Assessment Problems Medical Problems: (1) Seizure Status: Acute Plan Plan of Care work towards extubation so that he may be assessed neurologically will follow Comment Review of Relevant I have reviewed the following items alta (where applicable) has been applied. Labs Laboratory Tests Test 11/21/17 17:10 11/21/17 17:18 11/21/17 18:15 11/21/17 21:00 White Blood Count 17.1 x10^3/uL (4.0-11.0) Red Blood Count 4.42 x10^6/uL (4.30-5.70) Hemoglobin 12.9 g/dL (13.0-17.5) Hematocrit 40.3 % (39.0-53.0) Mean Corpuscular Volume 91 fL (79-100) Mean Corpuscular Hemoglobin 29 pg (25-35) Mean Corpuscular Hemoglobin Concent 32 g/dL (31-37) Red Cell Distribution Width 13.9 % (11.5-14.5) Platelet Count 565 x10^3/uL (140-400) Neutrophils (%) (Auto) 69 % (31-73) Lymphocytes (%) (Auto) 17 % (24-48) Monocytes (%) (Auto) 11 % (0-9) Eosinophils (%) (Auto) 3 % (0-3) Basophils (%) (Auto) 1 % (0-3) Neutrophils # (Auto) 11.7 x10^3uL (1.8-7.7) Lymphocytes # (Auto) 3.0 x10^3/uL (1.0-4.8) Monocytes # (Auto) 1.9 x10^3/uL (0.0-1.1) Eosinophils # (Auto) 0.4 x10^3/uL (0.0-0.7) Basophils # (Auto) 0.1 x10^3/uL (0.0-0.2) Segmented Neutrophils % 67 % (35-66) Lymphocytes % 20 % (24-48) Monocytes % 10 % (0-10) Eosinophils % 3 % (0-5) Platelet Estimate Increased (ADEQUATE) Prothrombin Time 15.1 SEC (11.7-14.0) Prothromb Time International Ratio 1.2 (0.8-1.1) Sodium Level 138 mmol/L (136-145) Potassium Level 3.7 mmol/L (3.5-5.1) Chloride Level 98 mmol/L (98-107) Carbon Dioxide Level 20 mmol/L (21-32) Anion Gap 20 (6-14) Blood Urea Nitrogen 22 mg/dL (8-26) Creatinine 1.5 mg/dL (0.7-1.3) Estimated GFR (Cockcroft-Gault) 47.7 BUN/Creatinine Ratio 15 (6-20) Glucose Level 490 mg/dL (70-99) Calcium Level 9.4 mg/dL (8.5-10.1) Total Bilirubin 0.2 mg/dL (0.2-1.0) Aspartate Amino Transf (AST/SGOT) 15 U/L (15-37) Alanine Aminotransferase (ALT/SGPT) 24 U/L (16-63) Alkaline Phosphatase 84 U/L (46-116) Creatine Kinase 187 U/L (39-308) Total Protein 8.2 g/dL (6.4-8.2) Albumin 2.9 g/dL (3.4-5.0) Albumin/Globulin Ratio 0.5 (1.0-1.7) Salicylates Level < 2.8 mg/dL (2.8-20.0) Salicylate Last Dose Date Unknown Salicylate Last Dose Time Unknown Acetaminophen Level < 2 mcg/ml (10-30) Acetaminophen Last Dose Date Unknown Acetaminophen Last Dose Time Unknown Ethyl Alcohol Level < 10 mg/dL (0-10) Urine Collection Type U cath Urine Color Yellow Urine Clarity Clear Urine pH 5.5 Urine Specific [place] >=1.030 Urine Protein 30 mg/dL (NEG-TRACE) Urine Glucose (UA) >=1000 mg/dL (NEG) Urine Ketones (Stick) 15 mg/dL (NEG) Urine Blood Negative (NEG) Urine Nitrite Negative (NEG) Urine Bilirubin Negative (NEG) Urine Urobilinogen Dipstick 0.2 mg/dL (0.2 mg/dL) Urine Leukocyte Esterase Negative (NEG) Urine RBC 1-2 /HPF (0-2) Urine WBC 11-20 /HPF (0-4) Urine Squamous Epithelial Cells Few /LPF Urine Amorphous Sediment Present /HPF Urine Bacteria Few /HPF (0-FEW) Urine Hyaline Casts Occasional /HPF Urine Mucus Slight /LPF Urine Opiates Screen Neg (NEG) Urine Methadone Screen Neg (NEG) Urine Barbiturates Neg (NEG) Urine Phencyclidine Screen Neg (NEG) Urine Amphetamine/Methamphetamine Neg (NEG) Urine Benzodiazepines Screen Neg (NEG) Urine Cocaine Screen Neg (NEG) Urine Cannabinoids Screen Neg (NEG) Urine Ethyl Alcohol Neg (NEG) O2 Saturation 99 % (92-99) Arterial Blood pH 7.38 (7.35-7.45) Arterial Blood pH (Temp corrected) 7.45 Arterial Blood pCO2 at Patient Temp 41 mmHg (35-46) Arterial Blood pCO2 (Temp correct) 33 mmHg Arterial Blood pO2 at Patient Temp 302 mmHg (65-108) Arterial Blood pO2 (Temp corrected) 279 mmHg Arterial Blood HCO3 24 mmol/L (21-28) Arterial Blood Base Excess -2 mmol/L (-3-3) FiO2 100.0 Lactic Acid Level 1.2 mmol/L (0.4-2.0) Test 11/21/17 22:30 11/22/17 02:50 11/22/17 07:50 11/22/17 09:20 Nasal Screen MRSA (PCR) Negative (Negative) Sodium Level 140 mmol/L (136-145) 138 mmol/L (136-145) Potassium Level 3.8 mmol/L (3.5-5.1) 3.7 mmol/L (3.5-5.1) Chloride Level 105 mmol/L (98-107) 105 mmol/L (98-107) Carbon Dioxide Level 28 mmol/L (21-32) 26 mmol/L (21-32) Anion Gap 7 (6-14) 7 (6-14) Blood Urea Nitrogen 17 mg/dL (8-26) 16 mg/dL (8-26) Creatinine 0.7 mg/dL (0.7-1.3) 0.7 mg/dL (0.7-1.3) Estimated GFR (Cockcroft-Gault) 115.0 115.0 Glucose Level 259 mg/dL (70-99) 266 mg/dL (70-99) Calcium Level 8.1 mg/dL (8.5-10.1) 7.5 mg/dL (8.5-10.1) O2 Saturation 99 % (92-99) Arterial Blood pH 7.41 (7.35-7.45) Arterial Blood pCO2 at Patient Temp 41 mmHg (35-46) Arterial Blood pO2 at Patient Temp 174 mmHg (65-108) Arterial Blood HCO3 25 mmol/L (21-28) Arterial Blood Base Excess 1 mmol/L (-3-3) FiO2 45 White Blood Count 8.8 x10^3/uL (4.0-11.0) Red Blood Count 3.82 x10^6/uL (4.30-5.70) Hemoglobin 11.3 g/dL (13.0-17.5) Hematocrit 33.7 % (39.0-53.0) Mean Corpuscular Volume 88 fL (79-100) Mean Corpuscular Hemoglobin 30 pg (25-35) Mean Corpuscular Hemoglobin Concent 34 g/dL (31-37) Red Cell Distribution Width 13.2 % (11.5-14.5) Platelet Count 389 x10^3/uL (140-400) Magnesium Level 1.9 mg/dL (1.8-2.4) Triglycerides Level 100 mg/dL (0-150) Vitamin B12 Level 967 pg/mL (247-911) Thyroid Stimulating Hormone (TSH) 1.087 uIU/mL (0.358-3.74) Test 11/22/17 12:23 11/22/17 18:09 11/22/17 23:53 11/23/17 04:30 Glucose (Fingerstick) 233 mg/dL (70-99) 242 mg/dL (70-99) 213 mg/dL (70-99) White Blood Count 9.1 x10^3/uL (4.0-11.0) Red Blood Count 4.09 x10^6/uL (4.30-5.70) Hemoglobin 12.3 g/dL (13.0-17.5) Hematocrit 36.0 % (39.0-53.0) Mean Corpuscular Volume 88 fL (79-100) Mean Corpuscular Hemoglobin 30 pg (25-35) Mean Corpuscular Hemoglobin Concent 34 g/dL (31-37) Red Cell Distribution Width 13.5 % (11.5-14.5) Platelet Count 431 x10^3/uL (140-400) Neutrophils (%) (Auto) 74 % (31-73) Lymphocytes (%) (Auto) 15 % (24-48) Monocytes (%) (Auto) 8 % (0-9) Eosinophils (%) (Auto) 3 % (0-3) Basophils (%) (Auto) 0 % (0-3) Neutrophils # (Auto) 6.7 x10^3uL (1.8-7.7) Lymphocytes # (Auto) 1.3 x10^3/uL (1.0-4.8) Monocytes # (Auto) 0.7 x10^3/uL (0.0-1.1) Eosinophils # (Auto) 0.3 x10^3/uL (0.0-0.7) Basophils # (Auto) 0.0 x10^3/uL (0.0-0.2) Sodium Level 138 mmol/L (136-145) Potassium Level 3.4 mmol/L (3.5-5.1) Chloride Level 105 mmol/L (98-107) Carbon Dioxide Level 24 mmol/L (21-32) Anion Gap 9 (6-14) Blood Urea Nitrogen 8 mg/dL (8-26) Creatinine 0.7 mg/dL (0.7-1.3) Estimated GFR (Cockcroft-Gault) 115.0 Glucose Level 226 mg/dL (70-99) Calcium Level 7.5 mg/dL (8.5-10.1) Test 11/23/17 06:06 11/23/17 08:30 11/23/17 09:25 11/23/17 12:50 Glucose (Fingerstick) 192 mg/dL (70-99) 224 mg/dL (70-99) O2 Saturation 98 % (92-99) Arterial Blood pH 7.40 (7.35-7.45) Arterial Blood pCO2 at Patient Temp 39 mmHg (35-46) Arterial Blood pO2 at Patient Temp 103 mmHg (65-108) Arterial Blood HCO3 24 mmol/L (21-28) Arterial Blood Base Excess -1 mmol/L (-3-3) FiO2 30 Vancomycin Level Trough 7.7 mcg/mL (10.0-20.0) Vancomycin Last Dose Date 11/22/17 Vancomycin Last Dose Time 2200 Laboratory Tests Test 11/22/17 18:09 11/22/17 23:53 11/23/17 04:30 11/23/17 06:06 Glucose (Fingerstick) 242 mg/dL (70-99) 213 mg/dL (70-99) 192 mg/dL (70-99) White Blood Count 9.1 x10^3/uL (4.0-11.0) Red Blood Count 4.09 x10^6/uL (4.30-5.70) Hemoglobin 12.3 g/dL (13.0-17.5) Hematocrit 36.0 % (39.0-53.0) Mean Corpuscular Volume 88 fL (79-100) Mean Corpuscular Hemoglobin 30 pg (25-35) Mean Corpuscular Hemoglobin Concent 34 g/dL (31-37) Red Cell Distribution Width 13.5 % (11.5-14.5) Platelet Count 431 x10^3/uL (140-400) Neutrophils (%) (Auto) 74 % (31-73) Lymphocytes (%) (Auto) 15 % (24-48) Monocytes (%) (Auto) 8 % (0-9) Eosinophils (%) (Auto) 3 % (0-3) Basophils (%) (Auto) 0 % (0-3) Neutrophils # (Auto) 6.7 x10^3uL (1.8-7.7) Lymphocytes # (Auto) 1.3 x10^3/uL (1.0-4.8) Monocytes # (Auto) 0.7 x10^3/uL (0.0-1.1) Eosinophils # (Auto) 0.3 x10^3/uL (0.0-0.7) Basophils # (Auto) 0.0 x10^3/uL (0.0-0.2) Sodium Level 138 mmol/L (136-145) Potassium Level 3.4 mmol/L (3.5-5.1) Chloride Level 105 mmol/L (98-107) Carbon Dioxide Level 24 mmol/L (21-32) Anion Gap 9 (6-14) Blood Urea Nitrogen 8 mg/dL (8-26) Creatinine 0.7 mg/dL (0.7-1.3) Estimated GFR (Cockcroft-Gault) 115.0 Glucose Level 226 mg/dL (70-99) Calcium Level 7.5 mg/dL (8.5-10.1) Test 11/23/17 08:30 11/23/17 09:25 11/23/17 12:50 O2 Saturation 98 % (92-99) Arterial Blood pH 7.40 (7.35-7.45) Arterial Blood pCO2 at Patient Temp 39 mmHg (35-46) Arterial Blood pO2 at Patient Temp 103 mmHg (65-108) Arterial Blood HCO3 24 mmol/L (21-28) Arterial Blood Base Excess -1 mmol/L (-3-3) FiO2 30 Vancomycin Level Trough 7.7 mcg/mL (10.0-20.0) Vancomycin Last Dose Date 11/22/17 Vancomycin Last Dose Time 2200 Glucose (Fingerstick) 224 mg/dL (70-99) Microbiology 11/21/17 Blood Culture - Preliminary, Resulted NO GROWTH AFTER 1 DAY Medications Current Medications Propofol 50 ml @ As Directed STK-MED ONCE IV ; Start 11/21/17 at 17:07; Stop 12/29 at 17:08; Status DC Midazolam HCl (Versed) 5 mg 1X ONCE NS Last administered on 11/21/17at 17:05; Start 11/21/17 at 17:15; Stop 11/21/17 at 17:16; Status DC Fentanyl Citrate (Fentanyl 2ml Vial) 100 mcg 1X ONCE IV Last administered on at 17:09; Start 11/21/17 at 17:15; Stop 11/21/17 at 17:16; Status DC Levetiracetam 1000 mg/Dextrose 110 ml @ 440 mls/hr 1X ONCE IV Last administered on 11/21/17at 17:25; Start 11/21/17 at 17:15; Stop 11/21/17 at 17:29 ; Status DC Sodium Chloride 1,000 ml @ 1,000 mls/hr 1X ONCE IV Last administered on at 19:39; Start 11/21/17 at 17:15; Stop 11/21/17 at 18:14; Status DC Propofol (Diprivan) 200 mg 1X ONCE IV Last administered on 11/21/17at 17:14; Start 11/21/17 at 17:15; Stop 11/21/17 at 17:16; Status DC Midazolam HCl (Versed) 5 mg 1X ONCE IV Last administered on 11/21/17at 19:20; Start 11/21/17 at 17:45; Stop 11/21/17 at 17:50; Status DC Sodium Chloride 1,000 ml @ 150 mls/hr Q6H40M IV Last administered on at 12:12; Start 11/21/17 at 18:15; Stop 11/22/17 at 18:14; Status DC Vancomycin HCl (Vanco Per Pharmacy) 1 each PRN DAILY PRN MC SEE COMMENTS Last administered on 11/23/17at 10:05; Start 11/21/17 at 18:00 Piperacillin Sod/ Tazobactam Sod 3.375 gm/Sodium Chloride 50 ml @ 100 mls/hr 1X ONCE IV Last administered on 11/21/17at 19:04; Start 11/21/17 at 18:15; Stop 11/21/17 at 18:44; Status DC Insulin Human Regular (HumuLIN R VIAL) 10 unit 1X ONCE IV Last administered on 11/21/17at 20:55; Start 11/21/17 at 18:15; Stop 11/21/17 at 18:16; Status DC Potassium Chloride (KCl Oral Soln) 40 meq 1X ONCE NG Last administered on 11/21at 22:08; Start 11/21/17 at 18:15; Stop 11/21/17 at 18:16; Status DC Levetiracetam 500 mg/Dextrose 105 ml @ 420 mls/hr Q12HR IV Last administered on 11/23/17at 08:33; Start 11/21/17 at 21:00 Lorazepam (Ativan) 2 mg PRN Q4HRS PRN IV ANXIETY / AGITATION Last administered on 11/22/17at 12:12; Start 11/21/17 at 18:15 Thiamine HCl 100 mg/Dextrose 51 ml @ 102 mls/hr 1X STAT IV Last administered on 11/21/17at 18:33; Start 11/21/17 at 18:11; Stop 11/21/17 at 18:40; Status DC Vancomycin HCl 2 gm/Sodium Chloride 500 ml @ 250 mls/hr 1X ONCE IV Last administered on 11/21/17at 20:52; Start 11/21/17 at 19:00; Stop 11/21/17 at 20:59 ; Status DC Etomidate (Amidate) 20 mg STK-MED ONCE IV ; Start 11/21/17 at 19:04; Stop at 19:05; Status DC Succinylcholine Chloride (Anectine) 200 mg STK-MED ONCE .ROUTE ; Start 11/21/17 at 19:05; Stop 11/21/17 at 19:06; Status DC Propofol 50 ml @ As Directed STK-MED ONCE IV ; Start 11/21/17 at 19:38; Stop 12/29 at 19:39; Status DC Etomidate (Amidate) 20 mg 1X ONCE IV Last administered on 11/21/17at 17:01; Start 11/21/17 at 20:00; Stop 11/21/17 at 20:01; Status DC Succinylcholine Chloride (Anectine) 100 mg 1X ONCE IV Last administered on 12/29at 17:01; Start 11/21/17 at 20:00; Stop 11/21/17 at 20:01; Status DC Midazolam HCl (Versed) 5 mg 1X ONCE IV Last administered on 11/21/17at 17:39; Start 11/21/17 at 20:00; Stop 11/21/17 at 20:01; Status DC Vancomycin HCl 1.5 gm/Sodium Chloride 500 ml @ 250 mls/hr Q12H IV Last administered on 11/22/17at 09:56; Start 11/22/17 at 09:00; Stop 11/22/17 at 11:03 ; Status DC Fentanyl Citrate 30 ml @ 0 mls/hr CONT PRN IV PER PROTOCOL; Start 11/21/17 at 22:00 Propofol 100 ml @ 0 mls/hr CONT PRN IV PER PROTOCOL Last administered on at 06:42; Start 11/21/17 at 22:00 Chlorhexidine Gluconate (Peridex) 15 ml BID MM Last administered on 11/23/17at 08:33; Start 11/22/17 at 09:00 Famotidine (Pepcid Vial) 20 mg BID IVP Last administered on 11/23/17at 08:33; Start 11/22/17 at 09:00 Enoxaparin Sodium (Lovenox Per Pharmacy Prophylaxis Dosing) 1 each PRN DAILY PRN MC SEE COMMENTS; Start 11/22/17 at 09:30 Enoxaparin Sodium (Lovenox 40mg Syringe) 40 mg Q24H SQ Last administered on 01/29at 10:00; Start 11/22/17 at 10:00 Iohexol (Omnipaque 300 Mg/ml) 75 ml 1X ONCE IV Last administered on 11/22/17at 10:45; Start 11/22/17 at 10:45; Stop 11/22/17 at 10:46; Status DC Info (CONTRAST GIVEN -- Rx MONITORING) 1 each PRN DAILY PRN MC SEE COMMENTS; Start 11/22/17 at 11:00; Stop 11/24/17 at 10:59 Iohexol (Omnipaque 300 Mg/ml) 100 ml STK-MED ONCE .ROUTE ; Start 11/22/17 at 10: 45; Stop 11/22/17 at 10:46; Status DC Vancomycin HCl 1.5 gm/Sodium Chloride 500 ml @ 250 mls/hr Q12H IV Last administered on 11/22/17at 22:24; Start 11/22/17 at 22:00; Stop 11/23/17 at 10:01 ; Status DC Vancomycin HCl (Vancomycin Trough Level) 1 each 1X ONCE MC Last administered on 11/23/17at 09:30; Start 11/23/17 at 09:30; Stop 11/23/17 at 09:31; Status DC Piperacillin Sod/ Tazobactam Sod 3.375 gm/Sodium Chloride 50 ml @ 100 mls/hr Q6HRS IV Last administered on 11/23/17at 12:45; Start 11/22/17 at 12:00 Insulin Human Lispro (HumaLOG) 0-5 UNITS Q6HRS SQ ; Start 11/22/17 at 18:00 Dextrose (Dextrose 50%-Water Syringe) 12.5 gm PRN Q15MIN PRN IV SEE COMMENTS; Start 11/22/17 at 12:45 Fentanyl Citrate (Fentanyl 2ml Vial) 25 mcg PRN Q5MIN PRN IV MILD PAIN; Start 11/23/17 at 07:00; Stop 11/24/17 at 06:59 Fentanyl Citrate (Fentanyl 2ml Vial) 50 mcg PRN Q5MIN PRN IV MODERATE TO SEVERE PAIN; Start 11/23/17 at 07:00; Stop 11/24/17 at 06:59 Morphine Sulfate (Morphine Sulfate) 1 mg PRN Q10MIN PRN IV SEVERE PAIN; Start 11/23/17 at 07:00; Stop 11/24/17 at 06:59 Ringer's Solution 1,000 ml @ 30 mls/hr Q24H IV ; Start 11/23/17 at 07:00; Stop 11/23/17 at 18:59 Lidocaine HCl (Xylocaine-Mpf 1% 2ml Vial) 2 ml PRN 1X PRN ID IV START; Start at 07:00; Stop 11/24/17 at 06:59 Hydromorphone HCl (Dilaudid) 0.5 mg PRN Q10MIN PRN IV SEV PAIN, Second choice; Start 11/23/17 at 07:00; Stop 11/24/17 at 06:59 Prochlorperazine Edisylate (Compazine) 5 mg PACU PRN PRN IV NAUSEA, MRX1; Start 11/23/17 at 07:00; Stop 11/24/17 at 06:59 Bacitracin 38210 unit/Sodium Chloride 500 ml @ 500 mls/hr 1X ONCE IRR Last administered on 11/23/17at 13:32; Start 11/23/17 at 06:00; Stop 11/23/17 at 06:59 ; Status DC Potassium Chloride/Water 50 ml @ 50 mls/hr 1X ONCE IV Last administered on 02/28at 07:58; Start 11/23/17 at 08:00; Stop 11/23/17 at 08:59; Status DC Vancomycin HCl 1.5 gm/Sodium Chloride 500 ml @ 250 mls/hr Q8H IV Last administered on 11/23/17at 10:39; Start 11/23/17 at 10:30 Vancomycin HCl (Vancomycin Trough Level) 1 each 1X ONCE MC ; Start 11/24/17 at 10:00; Stop 11/24/17 at 10:01 Rocuronium [place] (Zemuron) 50 mg STK-MED ONCE .ROUTE ; Start 11/23/17 at 13:30 ; Stop 11/23/17 at 13:31; Status DC Sevoflurane (Ultane) 30 ml STK-MED ONCE IH ; Start 11/23/17 at 14:00; Stop 11/23 at 14:01; Status DC Vitals/I & O Vital Sign - Last 24 Hours 11/22/17 11/22/17 11/22/17 11/22/17 15:27 16:00 16:00 17:00 Temp 98.3 98.3 Pulse 79 79 Resp 14 14 B/P (MAP) 151/75 (100) 166/80 (108) Pulse Ox 100 100 100 O2 Delivery Ventilator Mechanical Ventilator Ventilator Ventilator 11/22/17 11/22/17 11/22/17 11/22/17 17:10 18:00 19:00 19:38 Pulse 78 76 Resp 14 14 B/P (MAP) 163/80 (107) 164/80 (108) Pulse Ox 100 100 100 100 O2 Delivery Ventilator Ventilator Ventilator Ventilator 11/22/17 11/22/17 11/22/17 11/22/17 20:00 20:00 21:00 21:11 Temp 98.6 98.6 Pulse 84 78 Resp 13 15 B/P (MAP) 173/81 (111) 175/85 (115) Pulse Ox 100 100 100 O2 Delivery Mechanical Ventilator Ventilator Ventilator Ventilator 11/22/17 11/22/17 11/22/17 11/22/17 22:00 23:00 23:15 23:59 Pulse 76 76 Resp 14 14 B/P (MAP) 163/79 (107) 165/75 (105) Pulse Ox 100 100 100 O2 Delivery Ventilator Ventilator Mechanical Ventilator 11/23/17 11/23/17 11/23/17 11/23/17 00:00 01:00 01:00 02:00 Temp 99.2 99.2 Pulse 71 75 74 Resp 14 14 15 B/P (MAP) 170/81 (110) 159/71 (100) 137/64 (88) Pulse Ox 100 100 100 100 O2 Delivery Ventilator Ventilator Ventilator Ventilator 11/23/17 11/23/17 11/23/17 11/23/17 02:56 03:00 04:00 04:00 Temp 98.2 98.2 Pulse 78 74 Resp 14 14 B/P (MAP) 126/64 (84) 142/60 (87) Pulse Ox 100 100 100 O2 Delivery Ventilator Ventilator Mechanical Ventilator Ventilator 11/23/17 11/23/17 11/23/17 11/23/17 05:00 05:30 06:00 07:00 Pulse 78 76 77 Resp 14 14 15 B/P (MAP) 154/69 (97) 127/65 (85) 121/63 (82) Pulse Ox 100 100 100 100 O2 Delivery Ventilator Ventilator Ventilator Ventilator 11/23/17 11/23/17 11/23/17 11/23/17 07:50 08:00 08:00 09:00 Temp 98.4 98.4 Pulse 80 77 Resp 14 14 B/P (MAP) 163/79 (107) 147/75 (99) Pulse Ox 100 100 100 O2 Delivery Ventilator Ventilator Mechanical Ventilator Ventilator 11/23/17 11/23/17 11/23/17 11/23/17 09:51 10:00 11:00 12:00 Pulse 79 76 Resp 15 15 B/P (MAP) 149/69 (95) 153/66 (95) Pulse Ox 100 100 100 O2 Delivery Ventilator Ventilator Ventilator Mechanical Ventilator 11/23/17 11/23/17 12:00 13:00 Temp 99.0 99.0 Pulse 77 70 Resp 16 14 B/P (MAP) 154/68 (96) 107/49 (68) Pulse Ox 100 100 O2 Delivery Ventilator Ventilator Intake and Output 11/22/17 11/22/17 11/23/17 15:00 23:00 07:00 Intake Total 655 ml 1840.29 ml 820 ml Output Total 1785 ml 1410 ml 520 ml Balance -1130 ml 430.29 ml 300 ml LEX NICHOLS MD Nov 23, 2017 15:27
--- NOTE | 2017-11-23 16:14 | OP ---
DATE OF SURGERY: 11/23/2017 SURGEON: Kay Laws M.D. REGISTERED ART THERAPIST: Barb Cuello APRN. PREOPERATIVE DIAGNOSIS: 1. 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 2. Left foot open wound with necrotic tissue overlying the first metatarsal head. POSTOPERATIVE DIAGNOSES: 1. 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 2. Left foot open wound with necrotic tissue overlying the first metatarsal head. OPERATION PERFORMED: 1. Right first toe open ray amputation with amputation including the metatarsal head. 2. Left foot debridement removing necrotic skin, subcutaneous tissue and bone from the wound overlying the first metatarsal head, following debridement the wound measured 2.5 cm in length x 2 cm in width x 1 cm in depth. ANESTHESIA USED: General anesthesia. BLOOD LOSS: 50 mL. INDICATIONS: The patient is a 62-year-old male who at his work yesterday developed seizures and became unresponsive. He was brought to [facility], intubated and placed in the intensive care unit. He was found to have a large open gangrenous wound on the plantar surface of his right foot overlying the first metatarsal head. This had purulent drainage, lopez gangrene and exposed bone with cellulitis of his foot and lower leg. He also has a chronic open wound on the plantar surface of the left foot overlying the first metatarsal head with some necrotic tissue within the wound bed and palpable bone. This wound was smaller than the right and certainly less infection. I recommended a right first toe ray open amputation and likely left first toe amputation versus debridement of the wound. Informed consent was obtained from the patient's sister since the patient himself was intubated. DETAILS OF THE OPERATION: The patient was brought into the operating room and placed on table in supine position. He was under general anesthesia monitored throughout the case by the anesthesiologist. His right and left foot were prepped and draped by normal sterile fashion. I began by making an incision around the base of the right first toe. I extended this onto the plantar surface of the foot, making an elliptical incision around the large open gangrenous wound. I saved as much healthy skin as possible, but this was a large incision because of the large size of the wound itself. We then dissected down through the subcutaneous tissue, all muscular and tendon layers were divided down to the bone. We dissected out the metatarsal head and transected the bone proximal to the metatarsal head with a bone cutter and removed the toe. There was good pulsatile bleeding, which was controlled with electrocautery. The bone was brought back within the wound with a rongeur. So, there is no exposed or protruding bone and it was healthy at this level. All areas of unhealthy tissue were excised. There is no further lopez gangrene or purulent drainage from the residual wound itself. This is a large open area with the large size of his foot and gangrenous wound that had to be excised. Hemostasis was gained with electrocautery. All exposed tendons were removed. We irrigated the open wound with copious amounts of antibiotic solution. The wound was packed with antibiotic-soaked gauze, ABD pads, Kerlix wraps and an Henry bandage. We then explored the left foot wound, the open wound is overlying the first metatarsal head. I excised out some necrotic subcutaneous tissue and dissection continued to unhealthy exposed bone. The bone was very soft. I excised this area of the bone with a rongeur and underlying this was fairly healthy bone with no purulent drainage, no abscess cavities or gangrene found. I felt it was worth trying a wound VAC to the left foot and seeing if we could heal this wound without amputation of the first toe. First toe would need to require a ray amputation because of the location of the wound. I therefore irrigated the open wound with copious amounts of antibiotic solution. Hemostasis was gained with electrocautery. We packed the wound with antibiotic-soaked gauze, wrapped it with ABD pads, Kerlix and an Henry bandage. He tolerated the surgery, will be taken back to the Intensive Care Unit for further monitoring and care. KAY LAWS MD DR: JEANINE/chyna JOB#: [id number] / [id number]
[2017-11-23] MEDS: LABETALOL 20 MG/4 ML DISP.SYRIN. IVP PRN (18:07)
--- NOTE | 2017-11-23 19:27 | EEG ---
DATE OF SERVICE: 11/22/2017 ELECTROENCEPHALOGRAM NUMBER: [id number]. OBJECTIVE: This is a 62-year-old male patient with history of mental status changes and new onset seizure. EEG was requested to evaluate cerebral activity. METHODS: Twenty electrodes were applied according to the international 10-20 electrode placement system. EKG monitoring, hyperventilation, intermittent photic stimulation, monopolar and bipolar montages are routinely utilized. The record was obtained on a digital system with video monitoring. FINDINGS: 1. Background: The patient was recorded in the decreased response state. The overall background amplitude is 10-20 microvolts. A posterior dominant rhythm of 7-8 Hz is observed with superimposed slowing in the theta and delta frequencies. 2. Abnormalities: No specific epileptiform discharge or electrographic seizure is seen. Slowing in the theta and delta frequencies for about 50% of the time. 3. Activation: Hyperventilation was not performed because the patient was ventilated. Intermittent photic stimulation was performed with photic driving. IMPRESSION: This electroencephalogram is an abnormal study for the decreased response state. There is superimposed slowing in the theta and delta frequencies about 50% of time. No focal, lateralizing, specific epileptiform discharge or electrographic seizure is seen. This pattern of electroencephalogram may suggest encephalopathy. POLLO ABDULLAHI MD DR: DEYSI/chyna JOB#: [id number] / [id number] MARTITA
[2017-11-23] MEDS: HYDROcodone/APAP 5/325MG 1 TAB TABLET PO PRN (21:43)
[2017-11-24] VITALS (19 sets, daily range): BP systolic 102–208; BP diastolic 48–94
[2017-11-24] MEDS: VANCOMYCIN 1.5 GM in IV NORMAL SALINE 500ML BAG 500 ML IV SCH ×2 (02:00→10:30)
[2017-11-24] MEDS: HYDROcodone/APAP 5/325MG 1 TAB TABLET PO PRN ×3 (02:01→10:02)
[2017-11-24 05:11] LABS: BASO % 0 % (0-3); EOS # 0.2 x10^3/uL (0.0-0.7); EOS % 2 % (0-3); HEMATOCRIT 34.3 % (39.0-53.0); HEMOGLOBIN 11.6 g/dL (13.0-17.5); LYMPH # 1.7 x10^3/uL (1.0-4.8); LYMPH % 18 % (24-48); MEAN CORPUSCULAR HEMOGLOBIN 30 pg (25-35); MEAN CORPUSCULAR HGB CONC 34 g/dL (31-37); MEAN CORPUSCULAR VOLUME 88 fL (79-100); MONO # 0.8 x10^3/uL (0.0-1.1); MONO % 9 % (0-9); NEUT # 6.4 x10^3uL (1.8-7.7); NEUT % 70 % (31-73); PLATELET COUNT 404 x10^3/uL (140-400); RED BLOOD COUNT 3.91 x10^6/uL (4.30-5.70); RED CELL DISTRIBUTION WIDTH 13.4 % (11.5-14.5); WHITE BLOOD COUNT 9.2 x10^3/uL (4.0-11.0)
[2017-11-24] MEDS: PIPERACILLIN/TAZOBACTAM 3.375 GM in IV NORMAL SALINE 50ML 50 ML IV SCH ×3 (05:33→17:59)
[2017-11-24] MEDS: INSULIN LISPRO 300 UNITS/3 ML INSULN.PEN. SQ SCH ×3 (05:34→18:07)
[2017-11-24 05:47] LABS: CALCIUM 7.8 mg/dL (8.5-10.1); CREATININE 0.7 mg/dL (0.7-1.3); POTASSIUM 3.4 mmol/L (3.5-5.1)
--- NOTE | 2017-11-24 07:53 | PDOC ---
Infectious Disease Note Subjective Subjective extubated , awake , says feeling good ROS ROS no n/v/d/sob Vital Sign Vital Signs Vital Signs Date Time Temp Pulse Resp B/P (MAP) Pulse Ox O2 Delivery O2 Flow Rate FiO2 11/24/17 07:00 77 15 140/58 (85) 100 Room Air 11/24/17 04:00 99.1 99.1 11/23/17 21:00 2.0 Physical Exam PHYSICAL EXAM GENERAL: awake, not in distress. VITAL SIGNS: Stable, HEENT: NAD. NECK: Supple, no JVP, no lymphadenopathy. LUNGS: Clear. HEART: S1, S2 regular. ABDOMEN: Benign. EXTREMITIES: Some pitting edema present. The patient does have extensive infection of the right foot at the first metatarsophalangeal joint area with lopez pus coming and appears to have a destroyed bone. The patient does have a similar area on the left foot ulcer, which appears to be not as bad as the right one. The patient had been moving all the extremities before his intubation. NEUROLOGIC: A and O x 3, no focal deficit Labs Lab Laboratory Tests Test 11/23/17 08:30 11/23/17 09:25 11/23/17 12:50 11/23/17 17:30 O2 Saturation 98 % (92-99) Arterial Blood pH 7.40 (7.35-7.45) Arterial Blood pCO2 at Patient Temp 39 mmHg (35-46) Arterial Blood pO2 at Patient Temp 103 mmHg (65-108) Arterial Blood HCO3 24 mmol/L (21-28) Arterial Blood Base Excess -1 mmol/L (-3-3) FiO2 30 Vancomycin Level Trough 7.7 mcg/mL (10.0-20.0) Vancomycin Last Dose Date 11/22/17 Vancomycin Last Dose Time 2200 Glucose (Fingerstick) 224 mg/dL (70-99) 212 mg/dL (70-99) Test 11/23/17 23:28 11/24/17 04:55 11/24/17 05:32 Glucose (Fingerstick) 247 mg/dL (70-99) 189 mg/dL (70-99) White Blood Count 9.2 x10^3/uL (4.0-11.0) Red Blood Count 3.91 x10^6/uL (4.30-5.70) Hemoglobin 11.6 g/dL (13.0-17.5) Hematocrit 34.3 % (39.0-53.0) Mean Corpuscular Volume 88 fL (79-100) Mean Corpuscular Hemoglobin 30 pg (25-35) Mean Corpuscular Hemoglobin Concent 34 g/dL (31-37) Red Cell Distribution Width 13.4 % (11.5-14.5) Platelet Count 404 x10^3/uL (140-400) Neutrophils (%) (Auto) 70 % (31-73) Lymphocytes (%) (Auto) 18 % (24-48) Monocytes (%) (Auto) 9 % (0-9) Eosinophils (%) (Auto) 2 % (0-3) Basophils (%) (Auto) 0 % (0-3) Neutrophils # (Auto) 6.4 x10^3uL (1.8-7.7) Lymphocytes # (Auto) 1.7 x10^3/uL (1.0-4.8) Monocytes # (Auto) 0.8 x10^3/uL (0.0-1.1) Eosinophils # (Auto) 0.2 x10^3/uL (0.0-0.7) Basophils # (Auto) 0.0 x10^3/uL (0.0-0.2) Sodium Level 142 mmol/L (136-145) Potassium Level 3.4 mmol/L (3.5-5.1) Chloride Level 107 mmol/L (98-107) Carbon Dioxide Level 25 mmol/L (21-32) Anion Gap 10 (6-14) Blood Urea Nitrogen 5 mg/dL (8-26) Creatinine 0.7 mg/dL (0.7-1.3) Estimated GFR (Cockcroft-Gault) 115.0 Glucose Level 216 mg/dL (70-99) Calcium Level 7.8 mg/dL (8.5-10.1) Micro Microbiology 11/21/17 Blood Culture - Preliminary, Resulted NO GROWTH AFTER 1 DAY Objective Assessment 1. Extensive right diabetic foot infection with osteomyelitis s/p left foot debridement, rt [address] st ray amputation 2. Left foot also there is an ulcer with arthropathy. 3. Seizure. 4. Leukocytosis. 5 Respiratory failure. 6. Diabetes with poor control. Plan Plan of Care [facility] supportive care check cultures EMILIANO OLIVEIRA MD Nov 24, 2017 07:53
[2017-11-24] MEDS: FAMOTIDINE 20 MG/2 ML VIAL IVP SCH ×2 (08:37→20:47)
[2017-11-24] MEDS: levETIRAcetam 500 MG in IV DEXTROSE 5% 100ML 100 ML IV SCH ×2 (08:47→20:47)
[2017-11-24] MEDS ORDERED: INSULIN LISPRO 300 UNITS/3 ML INSULN.PEN. SQ SCH ×2 (09:00→17:00)
--- NOTE | 2017-11-24 09:27 | PDOC ---
PULMONARY PROGRESS NOTES Subjective PT OFF 02 DID WELL EXTUBATED 11/23 Vitals Vital Signs Date Time Temp Pulse Resp B/P (MAP) Pulse Ox O2 Delivery O2 Flow Rate FiO2 11/24/17 07:00 77 15 140/58 (85) 100 Room Air 11/24/17 04:00 99.1 99.1 11/23/17 21:00 2.0 ROS: No Nausea, No Chest Pain, No Abdominal Pain, No Increase Cough Lungs: Clear Cardiovascular: S1, S2 Abdomen: Soft Neuro Exam: Alert Extremities: No Edema Labs Laboratory Tests Test 11/22/17 12:23 11/22/17 18:09 11/22/17 23:53 11/23/17 04:30 Glucose (Fingerstick) 233 mg/dL (70-99) 242 mg/dL (70-99) 213 mg/dL (70-99) White Blood Count 9.1 x10^3/uL (4.0-11.0) Red Blood Count 4.09 x10^6/uL (4.30-5.70) Hemoglobin 12.3 g/dL (13.0-17.5) Hematocrit 36.0 % (39.0-53.0) Mean Corpuscular Volume 88 fL (79-100) Mean Corpuscular Hemoglobin 30 pg (25-35) Mean Corpuscular Hemoglobin Concent 34 g/dL (31-37) Red Cell Distribution Width 13.5 % (11.5-14.5) Platelet Count 431 x10^3/uL (140-400) Neutrophils (%) (Auto) 74 % (31-73) Lymphocytes (%) (Auto) 15 % (24-48) Monocytes (%) (Auto) 8 % (0-9) Eosinophils (%) (Auto) 3 % (0-3) Basophils (%) (Auto) 0 % (0-3) Neutrophils # (Auto) 6.7 x10^3uL (1.8-7.7) Lymphocytes # (Auto) 1.3 x10^3/uL (1.0-4.8) Monocytes # (Auto) 0.7 x10^3/uL (0.0-1.1) Eosinophils # (Auto) 0.3 x10^3/uL (0.0-0.7) Basophils # (Auto) 0.0 x10^3/uL (0.0-0.2) Sodium Level 138 mmol/L (136-145) Potassium Level 3.4 mmol/L (3.5-5.1) Chloride Level 105 mmol/L (98-107) Carbon Dioxide Level 24 mmol/L (21-32) Anion Gap 9 (6-14) Blood Urea Nitrogen 8 mg/dL (8-26) Creatinine 0.7 mg/dL (0.7-1.3) Estimated GFR (Cockcroft-Gault) 115.0 Glucose Level 226 mg/dL (70-99) Calcium Level 7.5 mg/dL (8.5-10.1) Test 11/23/17 06:06 11/23/17 08:30 11/23/17 09:25 11/23/17 12:50 Glucose (Fingerstick) 192 mg/dL (70-99) 224 mg/dL (70-99) O2 Saturation 98 % (92-99) Arterial Blood pH 7.40 (7.35-7.45) Arterial Blood pCO2 at Patient Temp 39 mmHg (35-46) Arterial Blood pO2 at Patient Temp 103 mmHg (65-108) Arterial Blood HCO3 24 mmol/L (21-28) Arterial Blood Base Excess -1 mmol/L (-3-3) FiO2 30 Vancomycin Level Trough 7.7 mcg/mL (10.0-20.0) Vancomycin Last Dose Date 11/22/17 Vancomycin Last Dose Time 2199 Test 11/23/17 17:30 11/23/17 23:28 11/24/17 04:55 11/24/17 05:32 Glucose (Fingerstick) 212 mg/dL (70-99) 247 mg/dL (70-99) 189 mg/dL (70-99) White Blood Count 9.2 x10^3/uL (4.0-11.0) Red Blood Count 3.91 x10^6/uL (4.30-5.70) Hemoglobin 11.6 g/dL (13.0-17.5) Hematocrit 34.3 % (39.0-53.0) Mean Corpuscular Volume 88 fL (79-100) Mean Corpuscular Hemoglobin 30 pg (25-35) Mean Corpuscular Hemoglobin Concent 34 g/dL (31-37) Red Cell Distribution Width 13.4 % (11.5-14.5) Platelet Count 404 x10^3/uL (140-400) Neutrophils (%) (Auto) 70 % (31-73) Lymphocytes (%) (Auto) 18 % (24-48) Monocytes (%) (Auto) 9 % (0-9) Eosinophils (%) (Auto) 2 % (0-3) Basophils (%) (Auto) 0 % (0-3) Neutrophils # (Auto) 6.4 x10^3uL (1.8-7.7) Lymphocytes # (Auto) 1.7 x10^3/uL (1.0-4.8) Monocytes # (Auto) 0.8 x10^3/uL (0.0-1.1) Eosinophils # (Auto) 0.2 x10^3/uL (0.0-0.7) Basophils # (Auto) 0.0 x10^3/uL (0.0-0.2) Sodium Level 142 mmol/L (136-145) Potassium Level 3.4 mmol/L (3.5-5.1) Chloride Level 107 mmol/L (98-107) Carbon Dioxide Level 25 mmol/L (21-32) Anion Gap 10 (6-14) Blood Urea Nitrogen 5 mg/dL (8-26) Creatinine 0.7 mg/dL (0.7-1.3) Estimated GFR (Cockcroft-Gault) 115.0 Glucose Level 216 mg/dL (70-99) Calcium Level 7.8 mg/dL (8.5-10.1) Test 11/24/17 08:21 Glucose (Fingerstick) 172 mg/dL (70-99) Laboratory Tests Test 11/23/17 12:50 11/23/17 17:30 11/23/17 23:28 11/24/17 04:55 Glucose (Fingerstick) 224 mg/dL (70-99) 212 mg/dL (70-99) 247 mg/dL (70-99) White Blood Count 9.2 x10^3/uL (4.0-11.0) Red Blood Count 3.91 x10^6/uL (4.30-5.70) Hemoglobin 11.6 g/dL (13.0-17.5) Hematocrit 34.3 % (39.0-53.0) Mean Corpuscular Volume 88 fL (79-100) Mean Corpuscular Hemoglobin 30 pg (25-35) Mean Corpuscular Hemoglobin Concent 34 g/dL (31-37) Red Cell Distribution Width 13.4 % (11.5-14.5) Platelet Count 404 x10^3/uL (140-400) Neutrophils (%) (Auto) 70 % (31-73) Lymphocytes (%) (Auto) 18 % (24-48) Monocytes (%) (Auto) 9 % (0-9) Eosinophils (%) (Auto) 2 % (0-3) Basophils (%) (Auto) 0 % (0-3) Neutrophils # (Auto) 6.4 x10^3uL (1.8-7.7) Lymphocytes # (Auto) 1.7 x10^3/uL (1.0-4.8) Monocytes # (Auto) 0.8 x10^3/uL (0.0-1.1) Eosinophils # (Auto) 0.2 x10^3/uL (0.0-0.7) Basophils # (Auto) 0.0 x10^3/uL (0.0-0.2) Sodium Level 142 mmol/L (136-145) Potassium Level 3.4 mmol/L (3.5-5.1) Chloride Level 107 mmol/L (98-107) Carbon Dioxide Level 25 mmol/L (21-32) Anion Gap 10 (6-14) Blood Urea Nitrogen 5 mg/dL (8-26) Creatinine 0.7 mg/dL (0.7-1.3) Estimated GFR (Cockcroft-Gault) 115.0 Glucose Level 216 mg/dL (70-99) Calcium Level 7.8 mg/dL (8.5-10.1) Test 11/24/17 05:32 11/24/17 08:21 Glucose (Fingerstick) 189 mg/dL (70-99) 172 mg/dL (70-99) Impression . 1. Acute respiratory failure, multifactorial secondary to seizures and possible sepsis. 2. Extensive right diabetic foot infection, possible osteomyelitis. 3. Seizures. 4. Leukocytosis. 5. Diabetes. Plan . OFF VENT WILL CONTINUE THE SAME FOLLOW NEURO INPUT D/W FAMILY YESTERDAY RESP STATUS IS COMPENSATED PT EXTUBATED 9/12 ORAL INTAKE ANTIBX PER DENNYS LIND MD Nov 24, 2017 09:27
[2017-11-24] MEDS: LABETALOL 20 MG/4 ML DISP.SYRIN. IVP PRN (09:46)
[2017-11-24 10:33] LABS: VANC TR 11.7 mcg/mL (10.0-20.0)
[2017-11-24] MEDS ORDERED: VANCOMYCIN 2 GM in IV NORMAL SALINE 500ML BAG 500 ML IV SCH (11:00)
[2017-11-24] MEDS: VANCOMYCIN 1.75 GM in IV NORMAL SALINE 500ML BAG 500 ML IV SCH ×2 (11:10→20:49)
--- NOTE | 2017-11-24 11:26 | PDOC ---
PROGRESS NOTES Chief Complaint Chief Complaint Sepsis Osteomyelitis Seizure DM 2 Peripheral vascular disease Foot wound Acom aneurysm History of Present Illness History of Present Illness Pt seen and examined in ICU Dw RN Pt off ventilator and sedation today Pt reports no prior hx of seizure Vitals Vitals Vital Signs Date Time Temp Pulse Resp B/P (MAP) Pulse Ox O2 Delivery O2 Flow Rate FiO2 11/24/17 11:09 96 Room Air 2.0 11/24/17 10:02 18 11/24/17 09:46 85 169/86 11/24/17 04:00 99.1 99.1 Physical Exam Physical Exam GENERAL: awake, not in distress. VITAL SIGNS: Stable, HEENT: NAD. NECK: Supple, no JVP, no lymphadenopathy. LUNGS: Clear. HEART: S1, S2 regular. ABDOMEN: Benign. EXTREMITIES: Some pitting edema present. The patient does have extensive infection of the right foot at the first metatarsophalangeal joint area with lopez pus coming and appears to have a destroyed bone. The patient does have a similar area on the left foot ulcer, which appears to be not as bad as the right one. The patient had been moving all the extremities before his intubation. NEUROLOGIC: A and O x 3, no focal deficit General: Alert, Cooperative, No acute distress Heart: Regular rate, Normal S1, Normal S2 Lungs: Clear Abdomen: Normal bowel sounds, Soft Extremities: No clubbing, Other (CDI bilateral legs) Skin: No rashes, Other (CDI dressings bilateral legs) Labs LABS Laboratory Tests Test 11/23/17 12:50 11/23/17 17:30 11/23/17 23:28 11/24/17 04:55 Glucose (Fingerstick) 224 mg/dL (70-99) 212 mg/dL (70-99) 247 mg/dL (70-99) White Blood Count 9.2 x10^3/uL (4.0-11.0) Red Blood Count 3.91 x10^6/uL (4.30-5.70) Hemoglobin 11.6 g/dL (13.0-17.5) Hematocrit 34.3 % (39.0-53.0) Mean Corpuscular Volume 88 fL (79-100) Mean Corpuscular Hemoglobin 30 pg (25-35) Mean Corpuscular Hemoglobin Concent 34 g/dL (31-37) Red Cell Distribution Width 13.4 % (11.5-14.5) Platelet Count 404 x10^3/uL (140-400) Neutrophils (%) (Auto) 70 % (31-73) Lymphocytes (%) (Auto) 18 % (24-48) Monocytes (%) (Auto) 9 % (0-9) Eosinophils (%) (Auto) 2 % (0-3) Basophils (%) (Auto) 0 % (0-3) Neutrophils # (Auto) 6.4 x10^3uL (1.8-7.7) Lymphocytes # (Auto) 1.7 x10^3/uL (1.0-4.8) Monocytes # (Auto) 0.8 x10^3/uL (0.0-1.1) Eosinophils # (Auto) 0.2 x10^3/uL (0.0-0.7) Basophils # (Auto) 0.0 x10^3/uL (0.0-0.2) Sodium Level 142 mmol/L (136-145) Potassium Level 3.4 mmol/L (3.5-5.1) Chloride Level 107 mmol/L (98-107) Carbon Dioxide Level 25 mmol/L (21-32) Anion Gap 10 (6-14) Blood Urea Nitrogen 5 mg/dL (8-26) Creatinine 0.7 mg/dL (0.7-1.3) Estimated GFR (Cockcroft-Gault) 115.0 Glucose Level 216 mg/dL (70-99) Calcium Level 7.8 mg/dL (8.5-10.1) Test 11/24/17 05:32 11/24/17 08:21 11/24/17 10:00 Glucose (Fingerstick) 189 mg/dL (70-99) 172 mg/dL (70-99) Vancomycin Level Trough 11.7 mcg/mL (10.0-20.0) Vancomycin Last Dose Date 11/24/17 Vancomycin Last Dose Time 0230 Review of Systems Review of Systems CO fatigue CO pain Assessment and Plan Assessmemt and Plan Problems Medical Problems: (1) Seizure Status: Acute Sepsis Osteomyelitis Seizure DM 2 Peripheral vascular disease Foot wound Acom aneurysm Plan: ICU monitoring Wound care Abx Keppra Home meds Labs PT/OT Comment Review of Relevant I have reviewed the following items alta (where applicable) has been applied. Labs Laboratory Tests Test 11/22/17 12:23 11/22/17 18:09 11/22/17 23:53 11/23/17 04:30 Glucose (Fingerstick) 233 mg/dL (70-99) 242 mg/dL (70-99) 213 mg/dL (70-99) White Blood Count 9.1 x10^3/uL (4.0-11.0) Red Blood Count 4.09 x10^6/uL (4.30-5.70) Hemoglobin 12.3 g/dL (13.0-17.5) Hematocrit 36.0 % (39.0-53.0) Mean Corpuscular Volume 88 fL (79-100) Mean Corpuscular Hemoglobin 30 pg (25-35) Mean Corpuscular Hemoglobin Concent 34 g/dL (31-37) Red Cell Distribution Width 13.5 % (11.5-14.5) Platelet Count 431 x10^3/uL (140-400) Neutrophils (%) (Auto) 74 % (31-73) Lymphocytes (%) (Auto) 15 % (24-48) Monocytes (%) (Auto) 8 % (0-9) Eosinophils (%) (Auto) 3 % (0-3) Basophils (%) (Auto) 0 % (0-3) Neutrophils # (Auto) 6.7 x10^3uL (1.8-7.7) Lymphocytes # (Auto) 1.3 x10^3/uL (1.0-4.8) Monocytes # (Auto) 0.7 x10^3/uL (0.0-1.1) Eosinophils # (Auto) 0.3 x10^3/uL (0.0-0.7) Basophils # (Auto) 0.0 x10^3/uL (0.0-0.2) Sodium Level 138 mmol/L (136-145) Potassium Level 3.4 mmol/L (3.5-5.1) Chloride Level 105 mmol/L (98-107) Carbon Dioxide Level 24 mmol/L (21-32) Anion Gap 9 (6-14) Blood Urea Nitrogen 8 mg/dL (8-26) Creatinine 0.7 mg/dL (0.7-1.3) Estimated GFR (Cockcroft-Gault) 115.0 Glucose Level 226 mg/dL (70-99) Calcium Level 7.5 mg/dL (8.5-10.1) Test 11/23/17 06:06 11/23/17 08:30 11/23/17 09:25 11/23/17 12:50 Glucose (Fingerstick) 192 mg/dL (70-99) 224 mg/dL (70-99) O2 Saturation 98 % (92-99) Arterial Blood pH 7.40 (7.35-7.45) Arterial Blood pCO2 at Patient Temp 39 mmHg (35-46) Arterial Blood pO2 at Patient Temp 103 mmHg (65-108) Arterial Blood HCO3 24 mmol/L (21-28) Arterial Blood Base Excess -1 mmol/L (-3-3) FiO2 30 Vancomycin Level Trough 7.7 mcg/mL (10.0-20.0) Vancomycin Last Dose Date 11/22/17 Vancomycin Last Dose Time 2200 Test 11/23/17 17:30 11/23/17 23:28 11/24/17 04:55 11/24/17 05:32 Glucose (Fingerstick) 212 mg/dL (70-99) 247 mg/dL (70-99) 189 mg/dL (70-99) White Blood Count 9.2 x10^3/uL (4.0-11.0) Red Blood Count 3.91 x10^6/uL (4.30-5.70) Hemoglobin 11.6 g/dL (13.0-17.5) Hematocrit 34.3 % (39.0-53.0) Mean Corpuscular Volume 88 fL (79-100) Mean Corpuscular Hemoglobin 30 pg (25-35) Mean Corpuscular Hemoglobin Concent 34 g/dL (31-37) Red Cell Distribution Width 13.4 % (11.5-14.5) Platelet Count 404 x10^3/uL (140-400) Neutrophils (%) (Auto) 70 % (31-73) Lymphocytes (%) (Auto) 18 % (24-48) Monocytes (%) (Auto) 9 % (0-9) Eosinophils (%) (Auto) 2 % (0-3) Basophils (%) (Auto) 0 % (0-3) Neutrophils # (Auto) 6.4 x10^3uL (1.8-7.7) Lymphocytes # (Auto) 1.7 x10^3/uL (1.0-4.8) Monocytes # (Auto) 0.8 x10^3/uL (0.0-1.1) Eosinophils # (Auto) 0.2 x10^3/uL (0.0-0.7) Basophils # (Auto) 0.0 x10^3/uL (0.0-0.2) Sodium Level 142 mmol/L (136-145) Potassium Level 3.4 mmol/L (3.5-5.1) Chloride Level 107 mmol/L (98-107) Carbon Dioxide Level 25 mmol/L (21-32) Anion Gap 10 (6-14) Blood Urea Nitrogen 5 mg/dL (8-26) Creatinine 0.7 mg/dL (0.7-1.3) Estimated GFR (Cockcroft-Gault) 115.0 Glucose Level 216 mg/dL (70-99) Calcium Level 7.8 mg/dL (8.5-10.1) Test 11/24/17 08:21 11/24/17 10:00 Glucose (Fingerstick) 172 mg/dL (70-99) Vancomycin Level Trough 11.7 mcg/mL (10.0-20.0) Vancomycin Last Dose Date 11/24/17 Vancomycin Last Dose Time 0230 Laboratory Tests Test 11/23/17 12:50 11/23/17 17:30 11/23/17 23:28 11/24/17 04:55 Glucose (Fingerstick) 224 mg/dL (70-99) 212 mg/dL (70-99) 247 mg/dL (70-99) White Blood Count 9.2 x10^3/uL (4.0-11.0) Red Blood Count 3.91 x10^6/uL (4.30-5.70) Hemoglobin 11.6 g/dL (13.0-17.5) Hematocrit 34.3 % (39.0-53.0) Mean Corpuscular Volume 88 fL (79-100) Mean Corpuscular Hemoglobin 30 pg (25-35) Mean Corpuscular Hemoglobin Concent 34 g/dL (31-37) Red Cell Distribution Width 13.4 % (11.5-14.5) Platelet Count 404 x10^3/uL (140-400) Neutrophils (%) (Auto) 70 % (31-73) Lymphocytes (%) (Auto) 18 % (24-48) Monocytes (%) (Auto) 9 % (0-9) Eosinophils (%) (Auto) 2 % (0-3) Basophils (%) (Auto) 0 % (0-3) Neutrophils # (Auto) 6.4 x10^3uL (1.8-7.7) Lymphocytes # (Auto) 1.7 x10^3/uL (1.0-4.8) Monocytes # (Auto) 0.8 x10^3/uL (0.0-1.1) Eosinophils # (Auto) 0.2 x10^3/uL (0.0-0.7) Basophils # (Auto) 0.0 x10^3/uL (0.0-0.2) Sodium Level 142 mmol/L (136-145) Potassium Level 3.4 mmol/L (3.5-5.1) Chloride Level 107 mmol/L (98-107) Carbon Dioxide Level 25 mmol/L (21-32) Anion Gap 10 (6-14) Blood Urea Nitrogen 5 mg/dL (8-26) Creatinine 0.7 mg/dL (0.7-1.3) Estimated GFR (Cockcroft-Gault) 115.0 Glucose Level 216 mg/dL (70-99) Calcium Level 7.8 mg/dL (8.5-10.1) Test 11/24/17 05:32 11/24/17 08:21 11/24/17 10:00 Glucose (Fingerstick) 189 mg/dL (70-99) 172 mg/dL (70-99) Vancomycin Level Trough 11.7 mcg/mL (10.0-20.0) Vancomycin Last Dose Date 11/24/17 Vancomycin Last Dose Time 0230 Microbiology 11/21/17 Blood Culture - Preliminary, Resulted NO GROWTH AFTER 2 DAYS 11/21/17 Urine Culture - Final, Complete 11/21/17 Urine Culture Result 1 (GIUSEPPE) - Final, Complete 11/21/17 Anaerobic/Aerobic Culture, Resulted Pending 11/21/17 Anaerobic Culture Result 1 (GIUSEPPE), Resulted Pending 11/21/17 Aerobic Culture, Resulted Pending 11/21/17 Aerobic Culture Result 1 (GIUSEPPE), Resulted Pending 11/21/17 Gram Stain - Final, Resulted 11/21/17 Gram Stain Result 1 (GIUSEPPE) - Final, Resulted 11/21/17 Gram Stain Result 2 (GIUSEPPE) - Final, Resulted 11/21/17 Gram Stain Result 3 (GIUSEPPE) - Final, Resulted Medications Current Medications Propofol 50 ml @ As Directed STK-MED ONCE IV ; Start 11/21/17 at 17:07; Stop 12/29 at 17:08; Status DC Midazolam HCl (Versed) 5 mg 1X ONCE NS Last administered on 11/21/17at 17:05; Start 11/21/17 at 17:15; Stop 11/21/17 at 17:16; Status DC Fentanyl Citrate (Fentanyl 2ml Vial) 100 mcg 1X ONCE IV Last administered on at 17:09; Start 11/21/17 at 17:15; Stop 11/21/17 at 17:16; Status DC Levetiracetam 1000 mg/Dextrose 110 ml @ 440 mls/hr 1X ONCE IV Last administered on 11/21/17at 17:25; Start 11/21/17 at 17:15; Stop 11/21/17 at 17:29 ; Status DC Sodium Chloride 1,000 ml @ 1,000 mls/hr 1X ONCE IV Last administered on at 19:39; Start 11/21/17 at 17:15; Stop 11/21/17 at 18:14; Status DC Propofol (Diprivan) 200 mg 1X ONCE IV Last administered on 11/21/17at 17:14; Start 11/21/17 at 17:15; Stop 11/21/17 at 17:16; Status DC Midazolam HCl (Versed) 5 mg 1X ONCE IV Last administered on 11/21/17at 19:20; Start 11/21/17 at 17:45; Stop 11/21/17 at 17:50; Status DC Sodium Chloride 1,000 ml @ 150 mls/hr Q6H40M IV Last administered on at 12:12; Start 11/21/17 at 18:15; Stop 11/22/17 at 18:14; Status DC Vancomycin HCl (Vanco Per Pharmacy) 1 each PRN DAILY PRN MC SEE COMMENTS Last administered on 11/23/17at 10:05; Start 11/21/17 at 18:00 Piperacillin Sod/ Tazobactam Sod 3.375 gm/Sodium Chloride 50 ml @ 100 mls/hr 1X ONCE IV Last administered on 11/21/17at 19:04; Start 11/21/17 at 18:15; Stop 11/21/17 at 18:44; Status DC Insulin Human Regular (HumuLIN R VIAL) 10 unit 1X ONCE IV Last administered on 11/21/17at 20:55; Start 11/21/17 at 18:15; Stop 11/21/17 at 18:16; Status DC Potassium Chloride (KCl Oral Soln) 40 meq 1X ONCE NG Last administered on 11/21at 22:08; Start 11/21/17 at 18:15; Stop 11/21/17 at 18:16; Status DC Levetiracetam 500 mg/Dextrose 105 ml @ 420 mls/hr Q12HR IV Last administered on 11/24/17at 08:47; Start 11/21/17 at 21:00 Lorazepam (Ativan) 2 mg PRN Q4HRS PRN IV ANXIETY / AGITATION Last administered on 11/22/17at 12:12; Start 11/21/17 at 18:15 Thiamine HCl 100 mg/Dextrose 51 ml @ 102 mls/hr 1X STAT IV Last administered on 11/21/17at 18:33; Start 11/21/17 at 18:11; Stop 11/21/17 at 18:40; Status DC Vancomycin HCl 2 gm/Sodium Chloride 500 ml @ 250 mls/hr 1X ONCE IV Last administered on 11/21/17at 20:52; Start 11/21/17 at 19:00; Stop 11/21/17 at 20:59 ; Status DC Etomidate (Amidate) 20 mg STK-MED ONCE IV ; Start 11/21/17 at 19:04; Stop at 19:05; Status DC Succinylcholine Chloride (Anectine) 200 mg STK-MED ONCE .ROUTE ; Start 11/21/17 at 19:05; Stop 11/21/17 at 19:06; Status DC Propofol 50 ml @ As Directed STK-MED ONCE IV ; Start 11/21/17 at 19:38; Stop 12/29 at 19:39; Status DC Etomidate (Amidate) 20 mg 1X ONCE IV Last administered on 11/21/17at 17:01; Start 11/21/17 at 20:00; Stop 11/21/17 at 20:01; Status DC Succinylcholine Chloride (Anectine) 100 mg 1X ONCE IV Last administered on 12/29at 17:01; Start 11/21/17 at 20:00; Stop 11/21/17 at 20:01; Status DC Midazolam HCl (Versed) 5 mg 1X ONCE IV Last administered on 11/21/17at 17:39; Start 11/21/17 at 20:00; Stop 11/21/17 at 20:01; Status DC Vancomycin HCl 1.5 gm/Sodium Chloride 500 ml @ 250 mls/hr Q12H IV Last administered on 11/22/17at 09:56; Start 11/22/17 at 09:00; Stop 11/22/17 at 11:03 ; Status DC Fentanyl Citrate 30 ml @ 0 mls/hr CONT PRN IV PER PROTOCOL; Start 11/21/17 at 22:00 Propofol 100 ml @ 0 mls/hr CONT PRN IV PER PROTOCOL Last administered on at 06:42; Start 11/21/17 at 22:00 Chlorhexidine Gluconate (Peridex) 15 ml BID MM Last administered on 11/23/17at 08:33; Start 11/22/17 at 09:00; Stop 11/23/17 at 20:47; Status DC Famotidine (Pepcid Vial) 20 mg BID IVP Last administered on 11/24/17at 08:37; Start 11/22/17 at 09:00 Enoxaparin Sodium (Lovenox Per Pharmacy Prophylaxis Dosing) 1 each PRN DAILY PRN MC SEE COMMENTS; Start 11/22/17 at 09:30 Enoxaparin Sodium (Lovenox 40mg Syringe) 40 mg Q24H SQ Last administered on 01/29at 10:00; Start 11/22/17 at 10:00 Iohexol (Omnipaque 300 Mg/ml) 75 ml 1X ONCE IV Last administered on 11/22/17at 10:45; Start 11/22/17 at 10:45; Stop 11/22/17 at 10:46; Status DC Info (CONTRAST GIVEN -- Rx MONITORING) 1 each PRN DAILY PRN MC SEE COMMENTS; Start 11/22/17 at 11:00; Stop 11/24/17 at 10:59; Status DC Iohexol (Omnipaque 300 Mg/ml) 100 ml STK-MED ONCE .ROUTE ; Start 11/22/17 at 10: 45; Stop 11/22/17 at 10:46; Status DC Vancomycin HCl 1.5 gm/Sodium Chloride 500 ml @ 250 mls/hr Q12H IV Last administered on 11/22/17at 22:24; Start 11/22/17 at 22:00; Stop 11/23/17 at 10:01 ; Status DC Vancomycin HCl (Vancomycin Trough Level) 1 each 1X ONCE MC Last administered on 11/23/17at 09:30; Start 11/23/17 at 09:30; Stop 11/23/17 at 09:31; Status DC Piperacillin Sod/ Tazobactam Sod 3.375 gm/Sodium Chloride 50 ml @ 100 mls/hr Q6HRS IV Last administered on 11/24/17at 05:33; Start 11/22/17 at 12:00 Insulin Human Lispro (HumaLOG) 0-5 UNITS Q6HRS SQ Last administered on at 05:34; Start 11/22/17 at 18:00; Stop 11/24/17 at 08:58; Status DC Dextrose (Dextrose 50%-Water Syringe) 12.5 gm PRN Q15MIN PRN IV SEE COMMENTS; Start 11/22/17 at 12:45 Fentanyl Citrate (Fentanyl 2ml Vial) 25 mcg PRN Q5MIN PRN IV MILD PAIN; Start 11/23/17 at 07:00; Stop 11/24/17 at 06:59; Status DC Fentanyl Citrate (Fentanyl 2ml Vial) 50 mcg PRN Q5MIN PRN IV MODERATE TO SEVERE PAIN; Start 11/23/17 at 07:00; Stop 11/24/17 at 06:59; Status DC Morphine Sulfate (Morphine Sulfate) 1 mg PRN Q10MIN PRN IV SEVERE PAIN; Start 11/23/17 at 07:00; Stop 11/24/17 at 06:59; Status DC Ringer's Solution 1,000 ml @ 30 mls/hr Q24H IV ; Start 11/23/17 at 07:00; Stop 11/23/17 at 18:59; Status DC Lidocaine HCl (Xylocaine-Mpf 1% 2ml Vial) 2 ml PRN 1X PRN ID IV START; Start at 07:00; Stop 11/24/17 at 06:59; Status DC Hydromorphone HCl (Dilaudid) 0.5 mg PRN Q10MIN PRN IV SEV PAIN, Second choice; Start 11/23/17 at 07:00; Stop 11/24/17 at 06:59; Status DC Prochlorperazine Edisylate (Compazine) 5 mg PACU PRN PRN IV NAUSEA, MRX1; Start 11/23/17 at 07:00; Stop 11/24/17 at 06:59; Status DC Bacitracin 10373 unit/Sodium Chloride 500 ml @ 500 mls/hr 1X ONCE IRR Last administered on 11/23/17at 13:32; Start 11/23/17 at 06:00; Stop 11/23/17 at 06:59 ; Status DC Potassium Chloride/Water 50 ml @ 50 mls/hr 1X ONCE IV Last administered on 02/28at 07:58; Start 11/23/17 at 08:00; Stop 11/23/17 at 08:59; Status DC Vancomycin HCl 1.5 gm/Sodium Chloride 500 ml @ 250 mls/hr Q8H IV Last administered on 11/24/17at 02:00; Start 11/23/17 at 10:30; Stop 11/24/17 at 10:40 ; Status DC Vancomycin HCl (Vancomycin Trough Level) 1 each 1X ONCE MC Last administered on 11/24/17at 10:00; Start 11/24/17 at 10:00; Stop 11/24/17 at 10:01; Status DC Rocuronium [place] (Zemuron) 50 mg STK-MED ONCE .ROUTE ; Start 11/23/17 at 13:30 ; Stop 11/23/17 at 13:31; Status DC Sevoflurane (Ultane) 30 ml STK-MED ONCE IH ; Start 11/23/17 at 14:00; Stop 11/23 at 14:01; Status DC Labetalol HCl (Normodyne Iv Push) 20 mg PRN Q6HRS PRN IVP HYPERTENSION, SEE COMMENTS Last administered on 11/24/17at 09:46; Start 11/23/17 at 18:00 Acetaminophen/ Hydrocodone Bitart (Lortab 5/325) 1 tab PRN Q4HRS PRN PO MODERATE PAIN Last administered on 11/24/17at 10:02; Start 11/23/17 at 21:45 Acetaminophen/ Hydrocodone Bitart (Lortab 10/325) 1 tab PRN Q4HRS PRN PO SEVERE PAIN; Start 11/23/17 at 21:45 Insulin Human Lispro (HumaLOG) 0-5 UNITS TIDAC SQ Last administered on at 09:30; Start 11/24/17 at 09:00; Stop 11/24/17 at 10:40; Status DC Insulin Human Lispro (HumaLOG) 10 units BIDWMEALS SQ ; Start 11/24/17 at 17:00 Vancomycin HCl 2 gm/Sodium Chloride 500 ml @ 250 mls/hr Q8H IV ; Start at 11:00; Status Cancel Vancomycin HCl 1.75 gm/Sodium Chloride 500 ml @ 250 mls/hr Q8H IV Last administered on 11/24/17at 11:10; Start 11/24/17 at 11:00 Vitals/I & O Vital Sign - Last 24 Hours 11/23/17 11/23/17 11/23/17 11/23/17 12:00 12:00 13:00 14:00 Temp 99.0 99.0 Pulse 77 70 76 Resp 16 14 14 B/P (MAP) 154/68 (96) 107/49 (68) 121/58 (79) Pulse Ox 100 100 100 O2 Delivery Mechanical Ventilator Ventilator Ventilator Ventilator 11/23/17 11/23/17 11/23/17 11/23/17 15:00 16:00 16:00 16:09 Temp 98.9 98.9 Pulse 76 86 Resp 14 18 B/P (MAP) 121/58 (79) 174/82 (112) Pulse Ox 100 100 100 O2 Delivery Ventilator Ventilator Mechanical Ventilator Ventilator 11/23/17 11/23/17 11/23/17 11/23/17 17:00 18:01 18:07 18:26 Pulse 90 91 91 87 Resp 19 15 17 B/P (MAP) 187/85 (119) 177/97 (123) 187/85 161/68 (99) Pulse Ox 100 100 100 O2 Delivery Nasal Cannula Nasal Cannula Nasal Cannula O2 Flow Rate 2.0 2.0 2.0 11/23/17 11/23/17 11/23/17 11/23/17 19:00 20:00 20:00 21:00 Temp 98.6 98.6 Pulse 93 93 95 Resp 24 21 26 B/P (MAP) 169/70 (103) 168/74 (105) 179/78 (111) Pulse Ox 100 100 100 O2 Delivery Nasal Cannula Nasal Cannula Nasal Cannula Nasal Cannula O2 Flow Rate 2.0 2.0 2.0 2.0 11/23/17 11/23/17 11/23/17 11/23/17 21:43 22:00 23:00 23:49 Pulse 96 93 Resp 16 24 26 B/P (MAP) 161/70 (100) 103/48 (66) Pulse Ox 99 100 97 O2 Delivery Room Air Room Air Room Air Room Air 11/24/17 11/24/17 11/24/17 11/24/17 00:00 01:00 02:00 02:01 Temp 99.1 99.1 Pulse 89 86 87 Resp 17 24 22 B/P (MAP) 137/72 (93) 102/48 (66) 139/65 (89) Pulse Ox 96 96 96 99 O2 Delivery Room Air Room Air Room Air Room Air 11/24/17 11/24/17 11/24/17 11/24/17 03:00 03:30 04:00 05:00 Temp 99.1 99.1 Pulse 83 80 80 Resp 17 20 15 B/P (MAP) 135/70 (91) 115/54 (74) 147/73 (97) Pulse Ox 97 95 94 O2 Delivery Room Air Room Air Room Air Room Air 11/24/17 11/24/17 11/24/17 11/24/17 05:34 06:00 06:34 07:00 Pulse 78 77 Resp 12 18 19 15 B/P (MAP) 130/63 (85) 140/58 (85) Pulse Ox 97 100 100 O2 Delivery Room Air Room Air Room Air 11/24/17 11/24/17 11/24/17 11/24/17 08:00 09:46 10:02 11:09 Pulse 85 Resp 18 B/P (MAP) 169/86 Pulse Ox 96 96 O2 Delivery Room Air Room Air Room Air O2 Flow Rate 2.0 Intake and Output 11/23/17 11/23/17 11/24/17 15:00 23:00 07:00 Intake Total 755 ml 600 ml Output Total 1185 ml 1650 ml 1150 ml Balance -1185 ml -895 ml -550 ml CEASAR SALAS III DO Nov 24, 2017 11:26
[2017-11-24] MEDS ORDERED: INSULIN LISPRO 300 UNITS/3 ML INSULN.PEN. SQ ONE (12:15)
[2017-11-24] MEDS: ENOXAPARIN 40 MG/0.4 ML SYRINGE. SQ SCH (12:41)
--- NOTE | 2017-11-24 13:12 | PDOC ---
PROGRESS NOTES Subjective Subjective "I feel better than I did yesterday." Objective Objective Vascular Surgery - POD#1 Right 1st toe open amputation; left foot ulcer debridement O: Patient easily awakened from sleep. Oriented. Denies complaint of pain at this time. States pain medication works well. Right foot dressing: Removed. Old bloody drainage noted on dressing. No active bleeding from tissues. Tissue fairly pink with areas of cautery burning with bleeding to wound in OR yesterday. No purulent drainage present in base of amputation. Left foot dressing: Removed. Core of wound debridement pink tissue. No drainage present. Assessment/Plan: 1. Severely infected right 1st toe with purulent drainage. 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 2. POD#1 Left foot debridement removing necrotic skin, subcutaneous tissue and bone from the wound overlying the first metatarsal head. 3. OK to have wound care staff apply wound vac dressings today. Wounds have been redressed with wet-to-dry dressings until vac dressing applied. 4. IV antibiotic therapy per ID for exposed bone. 5. surgical services tech will need to work on getting charitable wound vac upon discharge. 6. PT/OT consult. Patient will need to be heel touch only with off-loading to forefoot bilaterally. Surgical shoes will be needed. 7. Ok to transfer out of ICU from a vascular surgery perspective. 8. Ok to restart Lovenox Vital Signs Date Time Temp Pulse Resp B/P (MAP) Pulse Ox O2 Delivery O2 Flow Rate FiO2 11/24/17 12:00 Room Air 11/24/17 11:09 96 2.0 11/24/17 10:02 18 11/24/17 09:46 85 169/86 11/24/17 08:00 98.6 98.6 Intake and Output 11/24/17 07:00 Intake Total 1355 ml Output Total 3985 ml Balance -2630 ml Intake Oral 150 ml IV Total 1205 ml Output Urine Total 3985 ml Assessment Assessment Problems Medical Problems: (1) Seizure Status: Acute Comment Review of Relevant I have reviewed the following items alta (where applicable) has been applied. Labs Laboratory Tests Test 11/22/17 18:09 11/22/17 23:53 11/23/17 04:30 11/23/17 06:06 Glucose (Fingerstick) 242 mg/dL (70-99) 213 mg/dL (70-99) 192 mg/dL (70-99) White Blood Count 9.1 x10^3/uL (4.0-11.0) Red Blood Count 4.09 x10^6/uL (4.30-5.70) Hemoglobin 12.3 g/dL (13.0-17.5) Hematocrit 36.0 % (39.0-53.0) Mean Corpuscular Volume 88 fL (79-100) Mean Corpuscular Hemoglobin 30 pg (25-35) Mean Corpuscular Hemoglobin Concent 34 g/dL (31-37) Red Cell Distribution Width 13.5 % (11.5-14.5) Platelet Count 431 x10^3/uL (140-400) Neutrophils (%) (Auto) 74 % (31-73) Lymphocytes (%) (Auto) 15 % (24-48) Monocytes (%) (Auto) 8 % (0-9) Eosinophils (%) (Auto) 3 % (0-3) Basophils (%) (Auto) 0 % (0-3) Neutrophils # (Auto) 6.7 x10^3uL (1.8-7.7) Lymphocytes # (Auto) 1.3 x10^3/uL (1.0-4.8) Monocytes # (Auto) 0.7 x10^3/uL (0.0-1.1) Eosinophils # (Auto) 0.3 x10^3/uL (0.0-0.7) Basophils # (Auto) 0.0 x10^3/uL (0.0-0.2) Sodium Level 138 mmol/L (136-145) Potassium Level 3.4 mmol/L (3.5-5.1) Chloride Level 105 mmol/L (98-107) Carbon Dioxide Level 24 mmol/L (21-32) Anion Gap 9 (6-14) Blood Urea Nitrogen 8 mg/dL (8-26) Creatinine 0.7 mg/dL (0.7-1.3) Estimated GFR (Cockcroft-Gault) 115.0 Glucose Level 226 mg/dL (70-99) Calcium Level 7.5 mg/dL (8.5-10.1) Test 11/23/17 08:30 11/23/17 09:25 11/23/17 12:50 11/23/17 17:30 O2 Saturation 98 % (92-99) Arterial Blood pH 7.40 (7.35-7.45) Arterial Blood pCO2 at Patient Temp 39 mmHg (35-46) Arterial Blood pO2 at Patient Temp 103 mmHg (65-108) Arterial Blood HCO3 24 mmol/L (21-28) Arterial Blood Base Excess -1 mmol/L (-3-3) FiO2 30 Vancomycin Level Trough 7.7 mcg/mL (10.0-20.0) Vancomycin Last Dose Date 11/22/17 Vancomycin Last Dose Time 2200 Glucose (Fingerstick) 224 mg/dL (70-99) 212 mg/dL (70-99) Test 11/23/17 23:28 11/24/17 04:55 11/24/17 05:32 11/24/17 08:21 Glucose (Fingerstick) 247 mg/dL (70-99) 189 mg/dL (70-99) 172 mg/dL (70-99) White Blood Count 9.2 x10^3/uL (4.0-11.0) Red Blood Count 3.91 x10^6/uL (4.30-5.70) Hemoglobin 11.6 g/dL (13.0-17.5) Hematocrit 34.3 % (39.0-53.0) Mean Corpuscular Volume 88 fL (79-100) Mean Corpuscular Hemoglobin 30 pg (25-35) Mean Corpuscular Hemoglobin Concent 34 g/dL (31-37) Red Cell Distribution Width 13.4 % (11.5-14.5) Platelet Count 404 x10^3/uL (140-400) Neutrophils (%) (Auto) 70 % (31-73) Lymphocytes (%) (Auto) 18 % (24-48) Monocytes (%) (Auto) 9 % (0-9) Eosinophils (%) (Auto) 2 % (0-3) Basophils (%) (Auto) 0 % (0-3) Neutrophils # (Auto) 6.4 x10^3uL (1.8-7.7) Lymphocytes # (Auto) 1.7 x10^3/uL (1.0-4.8) Monocytes # (Auto) 0.8 x10^3/uL (0.0-1.1) Eosinophils # (Auto) 0.2 x10^3/uL (0.0-0.7) Basophils # (Auto) 0.0 x10^3/uL (0.0-0.2) Sodium Level 142 mmol/L (136-145) Potassium Level 3.4 mmol/L (3.5-5.1) Chloride Level 107 mmol/L (98-107) Carbon Dioxide Level 25 mmol/L (21-32) Anion Gap 10 (6-14) Blood Urea Nitrogen 5 mg/dL (8-26) Creatinine 0.7 mg/dL (0.7-1.3) Estimated GFR (Cockcroft-Gault) 115.0 Glucose Level 216 mg/dL (70-99) Calcium Level 7.8 mg/dL (8.5-10.1) Test 11/24/17 10:00 11/24/17 11:58 Vancomycin Level Trough 11.7 mcg/mL (10.0-20.0) Vancomycin Last Dose Date 11/24/17 Vancomycin Last Dose Time 0230 Glucose (Fingerstick) 250 mg/dL (70-99) Laboratory Tests Test 11/23/17 17:30 11/23/17 23:28 11/24/17 04:55 11/24/17 05:32 Glucose (Fingerstick) 212 mg/dL (70-99) 247 mg/dL (70-99) 189 mg/dL (70-99) White Blood Count 9.2 x10^3/uL (4.0-11.0) Red Blood Count 3.91 x10^6/uL (4.30-5.70) Hemoglobin 11.6 g/dL (13.0-17.5) Hematocrit 34.3 % (39.0-53.0) Mean Corpuscular Volume 88 fL (79-100) Mean Corpuscular Hemoglobin 30 pg (25-35) Mean Corpuscular Hemoglobin Concent 34 g/dL (31-37) Red Cell Distribution Width 13.4 % (11.5-14.5) Platelet Count 404 x10^3/uL (140-400) Neutrophils (%) (Auto) 70 % (31-73) Lymphocytes (%) (Auto) 18 % (24-48) Monocytes (%) (Auto) 9 % (0-9) Eosinophils (%) (Auto) 2 % (0-3) Basophils (%) (Auto) 0 % (0-3) Neutrophils # (Auto) 6.4 x10^3uL (1.8-7.7) Lymphocytes # (Auto) 1.7 x10^3/uL (1.0-4.8) Monocytes # (Auto) 0.8 x10^3/uL (0.0-1.1) Eosinophils # (Auto) 0.2 x10^3/uL (0.0-0.7) Basophils # (Auto) 0.0 x10^3/uL (0.0-0.2) Sodium Level 142 mmol/L (136-145) Potassium Level 3.4 mmol/L (3.5-5.1) Chloride Level 107 mmol/L (98-107) Carbon Dioxide Level 25 mmol/L (21-32) Anion Gap 10 (6-14) Blood Urea Nitrogen 5 mg/dL (8-26) Creatinine 0.7 mg/dL (0.7-1.3) Estimated GFR (Cockcroft-Gault) 115.0 Glucose Level 216 mg/dL (70-99) Calcium Level 7.8 mg/dL (8.5-10.1) Test 11/24/17 08:21 11/24/17 10:00 11/24/17 11:58 Glucose (Fingerstick) 172 mg/dL (70-99) 250 mg/dL (70-99) Vancomycin Level Trough 11.7 mcg/mL (10.0-20.0) Vancomycin Last Dose Date 11/24/17 Vancomycin Last Dose Time 0230 Microbiology 11/21/17 Blood Culture - Preliminary, Resulted NO GROWTH AFTER 2 DAYS 11/21/17 Urine Culture - Final, Complete 11/21/17 Urine Culture Result 1 (GIUSEPPE) - Final, Complete 11/21/17 Anaerobic/Aerobic Culture, Resulted Pending 11/21/17 Anaerobic Culture Result 1 (GIUSEPPE), Resulted Pending 11/21/17 Aerobic Culture, Resulted Pending 11/21/17 Aerobic Culture Result 1 (GIUSEPPE), Resulted Pending 11/21/17 Gram Stain - Final, Resulted 11/21/17 Gram Stain Result 1 (GIUSEPPE) - Final, Resulted 11/21/17 Gram Stain Result 2 (GIUSEPPE) - Final, Resulted 11/21/17 Gram Stain Result 3 (GIUSEPPE) - Final, Resulted Medications Current Medications Propofol 50 ml @ As Directed STK-MED ONCE IV ; Start 11/21/17 at 17:07; Stop 12/29 at 17:08; Status DC Midazolam HCl (Versed) 5 mg 1X ONCE NS Last administered on 11/21/17at 17:05; Start 11/21/17 at 17:15; Stop 11/21/17 at 17:16; Status DC Fentanyl Citrate (Fentanyl 2ml Vial) 100 mcg 1X ONCE IV Last administered on at 17:09; Start 11/21/17 at 17:15; Stop 11/21/17 at 17:16; Status DC Levetiracetam 1000 mg/Dextrose 110 ml @ 440 mls/hr 1X ONCE IV Last administered on 11/21/17at 17:25; Start 11/21/17 at 17:15; Stop 11/21/17 at 17:29 ; Status DC Sodium Chloride 1,000 ml @ 1,000 mls/hr 1X ONCE IV Last administered on at 19:39; Start 11/21/17 at 17:15; Stop 11/21/17 at 18:14; Status DC Propofol (Diprivan) 200 mg 1X ONCE IV Last administered on 11/21/17at 17:14; Start 11/21/17 at 17:15; Stop 11/21/17 at 17:16; Status DC Midazolam HCl (Versed) 5 mg 1X ONCE IV Last administered on 11/21/17at 19:20; Start 11/21/17 at 17:45; Stop 11/21/17 at 17:50; Status DC Sodium Chloride 1,000 ml @ 150 mls/hr Q6H40M IV Last administered on at 12:12; Start 11/21/17 at 18:15; Stop 11/22/17 at 18:14; Status DC Vancomycin HCl (Vanco Per Pharmacy) 1 each PRN DAILY PRN MC SEE COMMENTS Last administered on 11/23/17at 10:05; Start 11/21/17 at 18:00 Piperacillin Sod/ Tazobactam Sod 3.375 gm/Sodium Chloride 50 ml @ 100 mls/hr 1X ONCE IV Last administered on 11/21/17at 19:04; Start 11/21/17 at 18:15; Stop 11/21/17 at 18:44; Status DC Insulin Human Regular (HumuLIN R VIAL) 10 unit 1X ONCE IV Last administered on 11/21/17at 20:55; Start 11/21/17 at 18:15; Stop 11/21/17 at 18:16; Status DC Potassium Chloride (KCl Oral Soln) 40 meq 1X ONCE NG Last administered on 11/21at 22:08; Start 11/21/17 at 18:15; Stop 11/21/17 at 18:16; Status DC Levetiracetam 500 mg/Dextrose 105 ml @ 420 mls/hr Q12HR IV Last administered on 11/24/17at 08:47; Start 11/21/17 at 21:00 Lorazepam (Ativan) 2 mg PRN Q4HRS PRN IV ANXIETY / AGITATION Last administered on 11/22/17at 12:12; Start 11/21/17 at 18:15 Thiamine HCl 100 mg/Dextrose 51 ml @ 102 mls/hr 1X STAT IV Last administered on 11/21/17at 18:33; Start 11/21/17 at 18:11; Stop 11/21/17 at 18:40; Status DC Vancomycin HCl 2 gm/Sodium Chloride 500 ml @ 250 mls/hr 1X ONCE IV Last administered on 11/21/17at 20:52; Start 11/21/17 at 19:00; Stop 11/21/17 at 20:59 ; Status DC Etomidate (Amidate) 20 mg STK-MED ONCE IV ; Start 11/21/17 at 19:04; Stop at 19:05; Status DC Succinylcholine Chloride (Anectine) 200 mg STK-MED ONCE .ROUTE ; Start 11/21/17 at 19:05; Stop 11/21/17 at 19:06; Status DC Propofol 50 ml @ As Directed STK-MED ONCE IV ; Start 11/21/17 at 19:38; Stop 12/29 at 19:39; Status DC Etomidate (Amidate) 20 mg 1X ONCE IV Last administered on 11/21/17at 17:01; Start 11/21/17 at 20:00; Stop 11/21/17 at 20:01; Status DC Succinylcholine Chloride (Anectine) 100 mg 1X ONCE IV Last administered on 12/29at 17:01; Start 11/21/17 at 20:00; Stop 11/21/17 at 20:01; Status DC Midazolam HCl (Versed) 5 mg 1X ONCE IV Last administered on 11/21/17at 17:39; Start 11/21/17 at 20:00; Stop 11/21/17 at 20:01; Status DC Vancomycin HCl 1.5 gm/Sodium Chloride 500 ml @ 250 mls/hr Q12H IV Last administered on 11/22/17at 09:56; Start 11/22/17 at 09:00; Stop 11/22/17 at 11:03 ; Status DC Fentanyl Citrate 30 ml @ 0 mls/hr CONT PRN IV PER PROTOCOL; Start 11/21/17 at 22:00 Propofol 100 ml @ 0 mls/hr CONT PRN IV PER PROTOCOL Last administered on at 06:42; Start 11/21/17 at 22:00 Chlorhexidine Gluconate (Peridex) 15 ml BID MM Last administered on 11/23/17at 08:33; Start 11/22/17 at 09:00; Stop 11/23/17 at 20:47; Status DC Famotidine (Pepcid Vial) 20 mg BID IVP Last administered on 11/24/17at 08:37; Start 11/22/17 at 09:00 Enoxaparin Sodium (Lovenox Per Pharmacy Prophylaxis Dosing) 1 each PRN DAILY PRN MC SEE COMMENTS; Start 11/22/17 at 09:30 Enoxaparin Sodium (Lovenox 40mg Syringe) 40 mg Q24H SQ Last administered on at 12:41; Start 11/22/17 at 10:00 Iohexol (Omnipaque 300 Mg/ml) 75 ml 1X ONCE IV Last administered on 11/22/17at 10:45; Start 11/22/17 at 10:45; Stop 11/22/17 at 10:46; Status DC Info (CONTRAST GIVEN -- Rx MONITORING) 1 each PRN DAILY PRN MC SEE COMMENTS; Start 11/22/17 at 11:00; Stop 11/24/17 at 10:59; Status DC Iohexol (Omnipaque 300 Mg/ml) 100 ml STK-MED ONCE .ROUTE ; Start 11/22/17 at 10: 45; Stop 11/22/17 at 10:46; Status DC Vancomycin HCl 1.5 gm/Sodium Chloride 500 ml @ 250 mls/hr Q12H IV Last administered on 11/22/17at 22:24; Start 11/22/17 at 22:00; Stop 11/23/17 at 10:01 ; Status DC Vancomycin HCl (Vancomycin Trough Level) 1 each 1X ONCE MC Last administered on 11/23/17at 09:30; Start 11/23/17 at 09:30; Stop 11/23/17 at 09:31; Status DC Piperacillin Sod/ Tazobactam Sod 3.375 gm/Sodium Chloride 50 ml @ 100 mls/hr Q6HRS IV Last administered on 11/24/17at 05:33; Start 11/22/17 at 12:00 Insulin Human Lispro (HumaLOG) 0-5 UNITS Q6HRS SQ Last administered on at 05:34; Start 11/22/17 at 18:00; Stop 11/24/17 at 08:58; Status DC Dextrose (Dextrose 50%-Water Syringe) 12.5 gm PRN Q15MIN PRN IV SEE COMMENTS; Start 11/22/17 at 12:45 Fentanyl Citrate (Fentanyl 2ml Vial) 25 mcg PRN Q5MIN PRN IV MILD PAIN; Start 11/23/17 at 07:00; Stop 11/24/17 at 06:59; Status DC Fentanyl Citrate (Fentanyl 2ml Vial) 50 mcg PRN Q5MIN PRN IV MODERATE TO SEVERE PAIN; Start 11/23/17 at 07:00; Stop 11/24/17 at 06:59; Status DC Morphine Sulfate (Morphine Sulfate) 1 mg PRN Q10MIN PRN IV SEVERE PAIN; Start 11/23/17 at 07:00; Stop 11/24/17 at 06:59; Status DC Ringer's Solution 1,000 ml @ 30 mls/hr Q24H IV ; Start 11/23/17 at 07:00; Stop 11/23/17 at 18:59; Status DC Lidocaine HCl (Xylocaine-Mpf 1% 2ml Vial) 2 ml PRN 1X PRN ID IV START; Start at 07:00; Stop 11/24/17 at 06:59; Status DC Hydromorphone HCl (Dilaudid) 0.5 mg PRN Q10MIN PRN IV SEV PAIN, Second choice; Start 11/23/17 at 07:00; Stop 11/24/17 at 06:59; Status DC Prochlorperazine Edisylate (Compazine) 5 mg PACU PRN PRN IV NAUSEA, MRX1; Start 11/23/17 at 07:00; Stop 11/24/17 at 06:59; Status DC Bacitracin 89455 unit/Sodium Chloride 500 ml @ 500 mls/hr 1X ONCE IRR Last administered on 11/23/17at 13:32; Start 11/23/17 at 06:00; Stop 11/23/17 at 06:59 ; Status DC Potassium Chloride/Water 50 ml @ 50 mls/hr 1X ONCE IV Last administered on 02/28at 07:58; Start 11/23/17 at 08:00; Stop 11/23/17 at 08:59; Status DC Vancomycin HCl 1.5 gm/Sodium Chloride 500 ml @ 250 mls/hr Q8H IV Last administered on 11/24/17at 02:00; Start 11/23/17 at 10:30; Stop 11/24/17 at 10:40 ; Status DC Vancomycin HCl (Vancomycin Trough Level) 1 each 1X ONCE MC Last administered on 11/24/17at 10:00; Start 11/24/17 at 10:00; Stop 11/24/17 at 10:01; Status DC Rocuronium [place] (Zemuron) 50 mg STK-MED ONCE .ROUTE ; Start 11/23/17 at 13:30 ; Stop 11/23/17 at 13:31; Status DC Sevoflurane (Ultane) 30 ml STK-MED ONCE IH ; Start 11/23/17 at 14:00; Stop 11/23 at 14:01; Status DC Labetalol HCl (Normodyne Iv Push) 20 mg PRN Q6HRS PRN IVP HYPERTENSION, SEE COMMENTS Last administered on 11/24/17at 09:46; Start 11/23/17 at 18:00 Acetaminophen/ Hydrocodone Bitart (Lortab 5/325) 1 tab PRN Q4HRS PRN PO MODERATE PAIN Last administered on 11/24/17at 10:02; Start 11/23/17 at 21:45 Acetaminophen/ Hydrocodone Bitart (Lortab 10/325) 1 tab PRN Q4HRS PRN PO SEVERE PAIN; Start 11/23/17 at 21:45 Insulin Human Lispro (HumaLOG) 0-5 UNITS TIDAC SQ Last administered on at 09:30; Start 11/24/17 at 09:00; Stop 11/24/17 at 10:40; Status DC Insulin Human Lispro (HumaLOG) 10 units BIDWMEALS SQ ; Start 11/24/17 at 17:00 Vancomycin HCl 2 gm/Sodium Chloride 500 ml @ 250 mls/hr Q8H IV ; Start at 11:00; Status Cancel Vancomycin HCl 1.75 gm/Sodium Chloride 500 ml @ 250 mls/hr Q8H IV Last administered on 11/24/17at 11:10; Start 11/24/17 at 11:00 Insulin Human Lispro (HumaLOG) 8 units 1X ONCE SQ Last administered on at 12:44; Start 11/24/17 at 12:15; Stop 11/24/17 at 12:16; Status DC Vitals/I & O Vital Sign - Last 24 Hours 11/23/17 11/23/17 11/23/17 11/23/17 14:00 15:00 16:00 16:00 Temp 98.9 98.9 Pulse 76 76 86 Resp 14 14 18 B/P (MAP) 121/58 (79) 121/58 (79) 174/82 (112) Pulse Ox 100 100 100 O2 Delivery Ventilator Ventilator Ventilator Mechanical Ventilator 11/23/17 11/23/17 11/23/17 11/23/17 16:09 17:00 18:01 18:07 Pulse 90 91 91 Resp 19 15 B/P (MAP) 187/85 (119) 177/97 (123) 187/85 Pulse Ox 100 100 100 O2 Delivery Ventilator Nasal Cannula Nasal Cannula O2 Flow Rate 2.0 2.0 11/23/17 11/23/17 11/23/17 11/23/17 18:26 19:00 20:00 20:00 Temp 98.6 98.6 Pulse 87 93 93 Resp 17 24 21 B/P (MAP) 161/68 (99) 169/70 (103) 168/74 (105) Pulse Ox 100 100 100 O2 Delivery Nasal Cannula Nasal Cannula Nasal Cannula Nasal Cannula O2 Flow Rate 2.0 2.0 2.0 2.0 11/23/17 11/23/17 11/23/17 11/23/17 21:00 21:43 22:00 23:00 Pulse 95 96 93 Resp 26 16 24 26 B/P (MAP) 179/78 (111) 161/70 (100) 103/48 (66) Pulse Ox 100 99 100 97 O2 Delivery Nasal Cannula Room Air Room Air Room Air O2 Flow Rate 2.0 11/23/17 11/24/17 11/24/17 11/24/17 23:49 00:00 01:00 02:00 Temp 99.1 99.1 Pulse 89 86 87 Resp 17 22 24 B/P (MAP) 137/72 (93) 102/48 (66) 139/65 (89) Pulse Ox 96 96 96 O2 Delivery Room Air Room Air Room Air Room Air 11/24/17 11/24/17 11/24/17 11/24/17 02:01 03:00 03:30 04:00 Temp 99.1 99.1 Pulse 83 80 Resp 22 17 20 B/P (MAP) 135/70 (91) 115/54 (74) Pulse Ox 99 97 95 O2 Delivery Room Air Room Air Room Air Room Air 11/24/17 11/24/17 11/24/17 11/24/17 05:00 05:34 06:00 06:34 Pulse 80 78 Resp 15 18 19 B/P (MAP) 147/73 (97) 130/63 (85) Pulse Ox 94 97 100 O2 Delivery Room Air Room Air Room Air 11/24/17 11/24/17 11/24/17 11/24/17 07:00 08:00 08:00 09:46 Temp 98.6 98.6 Pulse 77 78 85 Resp 15 18 B/P (MAP) 140/58 (85) 152/73 (99) 169/86 Pulse Ox 100 97 O2 Delivery Room Air Room Air Room Air 11/24/17 11/24/17 11/24/17 10:02 11:09 12:00 Resp 18 Pulse Ox 96 96 O2 Delivery Room Air Room Air Room Air O2 Flow Rate 2.0 Intake and Output 11/23/17 11/23/17 11/24/17 15:00 23:00 07:00 Intake Total 755 ml 600 ml Output Total 1185 ml 1650 ml 1150 ml Balance -1185 ml -895 ml -550 ml OLIVIER BOLANOS APRN Nov 24, 2017 13:12
[2017-11-24] MEDS: HYDROcodone/APAP 10/325 1 TAB TABLET PO PRN ×2 (14:38→20:47)
[2017-11-24] MEDS: VANCOMYCIN PER PHARMACY MC PRN (15:02)
--- NOTE | 2017-11-24 16:56 | PDOC ---
PROGRESS NOTES Subjective Subjective up in chair no complaints Objective Objective Vital Signs Date Time Temp Pulse Resp B/P (MAP) Pulse Ox O2 Delivery O2 Flow Rate FiO2 11/24/17 16:00 Room Air 11/24/17 16:00 98.4 77 15 143/72 (95) 96 98.4 11/24/17 11:09 2.0 Intake and Output 11/24/17 07:00 Intake Total 1355 ml Output Total 3985 ml Balance -2630 ml Intake Oral 150 ml IV Total 1205 ml Output Urine Total 3985 ml Physical Exam General: Alert, Oriented X3, Cooperative, No acute distress MUSCULOSKELETAL: Other (JARRETT) Neuro: Normal speech Assessment Assessment Problems Medical Problems: (1) Seizure Status: Acute Plan Plan of Care Large, partially thrombosed anterior communicating artery aneurysm. Films have been reviewed by Dr. London at [facility] who will help coordinate treatment. We will make arrangements for him to be seen as an OP after DC. D/W patient risk of hemorrhage and importance of treating this lesion. He understands. Comment Review of Relevant I have reviewed the following items alta (where applicable) has been applied. Labs Laboratory Tests Test 11/22/17 18:09 11/22/17 23:53 11/23/17 04:30 11/23/17 06:06 Glucose (Fingerstick) 242 mg/dL (70-99) 213 mg/dL (70-99) 192 mg/dL (70-99) White Blood Count 9.1 x10^3/uL (4.0-11.0) Red Blood Count 4.09 x10^6/uL (4.30-5.70) Hemoglobin 12.3 g/dL (13.0-17.5) Hematocrit 36.0 % (39.0-53.0) Mean Corpuscular Volume 88 fL (79-100) Mean Corpuscular Hemoglobin 30 pg (25-35) Mean Corpuscular Hemoglobin Concent 34 g/dL (31-37) Red Cell Distribution Width 13.5 % (11.5-14.5) Platelet Count 431 x10^3/uL (140-400) Neutrophils (%) (Auto) 74 % (31-73) Lymphocytes (%) (Auto) 15 % (24-48) Monocytes (%) (Auto) 8 % (0-9) Eosinophils (%) (Auto) 3 % (0-3) Basophils (%) (Auto) 0 % (0-3) Neutrophils # (Auto) 6.7 x10^3uL (1.8-7.7) Lymphocytes # (Auto) 1.3 x10^3/uL (1.0-4.8) Monocytes # (Auto) 0.7 x10^3/uL (0.0-1.1) Eosinophils # (Auto) 0.3 x10^3/uL (0.0-0.7) Basophils # (Auto) 0.0 x10^3/uL (0.0-0.2) Sodium Level 138 mmol/L (136-145) Potassium Level 3.4 mmol/L (3.5-5.1) Chloride Level 105 mmol/L (98-107) Carbon Dioxide Level 24 mmol/L (21-32) Anion Gap 9 (6-14) Blood Urea Nitrogen 8 mg/dL (8-26) Creatinine 0.7 mg/dL (0.7-1.3) Estimated GFR (Cockcroft-Gault) 115.0 Glucose Level 226 mg/dL (70-99) Calcium Level 7.5 mg/dL (8.5-10.1) Test 11/23/17 08:30 11/23/17 09:25 11/23/17 12:50 11/23/17 17:30 O2 Saturation 98 % (92-99) Arterial Blood pH 7.40 (7.35-7.45) Arterial Blood pCO2 at Patient Temp 39 mmHg (35-46) Arterial Blood pO2 at Patient Temp 103 mmHg (65-108) Arterial Blood HCO3 24 mmol/L (21-28) Arterial Blood Base Excess -1 mmol/L (-3-3) FiO2 30 Vancomycin Level Trough 7.7 mcg/mL (10.0-20.0) Vancomycin Last Dose Date 11/22/17 Vancomycin Last Dose Time 2200 Glucose (Fingerstick) 224 mg/dL (70-99) 212 mg/dL (70-99) Test 11/23/17 23:28 11/24/17 04:55 11/24/17 05:32 11/24/17 08:21 Glucose (Fingerstick) 247 mg/dL (70-99) 189 mg/dL (70-99) 172 mg/dL (70-99) White Blood Count 9.2 x10^3/uL (4.0-11.0) Red Blood Count 3.91 x10^6/uL (4.30-5.70) Hemoglobin 11.6 g/dL (13.0-17.5) Hematocrit 34.3 % (39.0-53.0) Mean Corpuscular Volume 88 fL (79-100) Mean Corpuscular Hemoglobin 30 pg (25-35) Mean Corpuscular Hemoglobin Concent 34 g/dL (31-37) Red Cell Distribution Width 13.4 % (11.5-14.5) Platelet Count 404 x10^3/uL (140-400) Neutrophils (%) (Auto) 70 % (31-73) Lymphocytes (%) (Auto) 18 % (24-48) Monocytes (%) (Auto) 9 % (0-9) Eosinophils (%) (Auto) 2 % (0-3) Basophils (%) (Auto) 0 % (0-3) Neutrophils # (Auto) 6.4 x10^3uL (1.8-7.7) Lymphocytes # (Auto) 1.7 x10^3/uL (1.0-4.8) Monocytes # (Auto) 0.8 x10^3/uL (0.0-1.1) Eosinophils # (Auto) 0.2 x10^3/uL (0.0-0.7) Basophils # (Auto) 0.0 x10^3/uL (0.0-0.2) Sodium Level 142 mmol/L (136-145) Potassium Level 3.4 mmol/L (3.5-5.1) Chloride Level 107 mmol/L (98-107) Carbon Dioxide Level 25 mmol/L (21-32) Anion Gap 10 (6-14) Blood Urea Nitrogen 5 mg/dL (8-26) Creatinine 0.7 mg/dL (0.7-1.3) Estimated GFR (Cockcroft-Gault) 115.0 Glucose Level 216 mg/dL (70-99) Calcium Level 7.8 mg/dL (8.5-10.1) Test 11/24/17 10:00 11/24/17 11:58 Vancomycin Level Trough 11.7 mcg/mL (10.0-20.0) Vancomycin Last Dose Date 11/24/17 Vancomycin Last Dose Time 0230 Glucose (Fingerstick) 250 mg/dL (70-99) Laboratory Tests Test 11/23/17 17:30 11/23/17 23:28 11/24/17 04:55 11/24/17 05:32 Glucose (Fingerstick) 212 mg/dL (70-99) 247 mg/dL (70-99) 189 mg/dL (70-99) White Blood Count 9.2 x10^3/uL (4.0-11.0) Red Blood Count 3.91 x10^6/uL (4.30-5.70) Hemoglobin 11.6 g/dL (13.0-17.5) Hematocrit 34.3 % (39.0-53.0) Mean Corpuscular Volume 88 fL (79-100) Mean Corpuscular Hemoglobin 30 pg (25-35) Mean Corpuscular Hemoglobin Concent 34 g/dL (31-37) Red Cell Distribution Width 13.4 % (11.5-14.5) Platelet Count 404 x10^3/uL (140-400) Neutrophils (%) (Auto) 70 % (31-73) Lymphocytes (%) (Auto) 18 % (24-48) Monocytes (%) (Auto) 9 % (0-9) Eosinophils (%) (Auto) 2 % (0-3) Basophils (%) (Auto) 0 % (0-3) Neutrophils # (Auto) 6.4 x10^3uL (1.8-7.7) Lymphocytes # (Auto) 1.7 x10^3/uL (1.0-4.8) Monocytes # (Auto) 0.8 x10^3/uL (0.0-1.1) Eosinophils # (Auto) 0.2 x10^3/uL (0.0-0.7) Basophils # (Auto) 0.0 x10^3/uL (0.0-0.2) Sodium Level 142 mmol/L (136-145) Potassium Level 3.4 mmol/L (3.5-5.1) Chloride Level 107 mmol/L (98-107) Carbon Dioxide Level 25 mmol/L (21-32) Anion Gap 10 (6-14) Blood Urea Nitrogen 5 mg/dL (8-26) Creatinine 0.7 mg/dL (0.7-1.3) Estimated GFR (Cockcroft-Gault) 115.0 Glucose Level 216 mg/dL (70-99) Calcium Level 7.8 mg/dL (8.5-10.1) Test 11/24/17 08:21 11/24/17 10:00 11/24/17 11:58 Glucose (Fingerstick) 172 mg/dL (70-99) 250 mg/dL (70-99) Vancomycin Level Trough 11.7 mcg/mL (10.0-20.0) Vancomycin Last Dose Date 11/24/17 Vancomycin Last Dose Time 023 Microbiology 11/21/17 Blood Culture - Preliminary, Resulted NO GROWTH AFTER 2 DAYS 11/21/17 Urine Culture - Final, Complete 11/21/17 Urine Culture Result 1 (GIUSEPPE) - Final, Complete 11/21/17 Anaerobic/Aerobic Culture, Resulted Pending 11/21/17 Anaerobic Culture Result 1 (GIUSEPPE), Resulted Pending 11/21/17 Aerobic Culture, Resulted Pending 11/21/17 Aerobic Culture Result 1 (GIUSEPPE), Resulted Pending 11/21/17 Gram Stain - Final, Resulted 11/21/17 Gram Stain Result 1 (GIUSEPPE) - Final, Resulted 11/21/17 Gram Stain Result 2 (GIUSEPPE) - Final, Resulted 11/21/17 Gram Stain Result 3 (GIUSEPPE) - Final, Resulted Medications Current Medications Propofol 50 ml @ As Directed STK-MED ONCE IV ; Start 11/21/17 at 17:07; Stop 12/29 at 17:08; Status DC Midazolam HCl (Versed) 5 mg 1X ONCE NS Last administered on 11/21/17at 17:05; Start 11/21/17 at 17:15; Stop 11/21/17 at 17:16; Status DC Fentanyl Citrate (Fentanyl 2ml Vial) 100 mcg 1X ONCE IV Last administered on at 17:09; Start 11/21/17 at 17:15; Stop 11/21/17 at 17:16; Status DC Levetiracetam 1000 mg/Dextrose 110 ml @ 440 mls/hr 1X ONCE IV Last administered on 11/21/17at 17:25; Start 11/21/17 at 17:15; Stop 11/21/17 at 17:29 ; Status DC Sodium Chloride 1,000 ml @ 1,000 mls/hr 1X ONCE IV Last administered on at 19:39; Start 11/21/17 at 17:15; Stop 11/21/17 at 18:14; Status DC Propofol (Diprivan) 200 mg 1X ONCE IV Last administered on 11/21/17at 17:14; Start 11/21/17 at 17:15; Stop 11/21/17 at 17:16; Status DC Midazolam HCl (Versed) 5 mg 1X ONCE IV Last administered on 11/21/17 19:20; Start 11/21/17 at 17:45; Stop 11/21/17 at 17:50; Status DC Sodium Chloride 1,000 ml @ 150 mls/hr Q6H40M IV Last administered on at 12:12; Start 11/21/17 at 18:15; Stop 11/22/17 at 18:14; Status DC Vancomycin HCl (Vanco Per Pharmacy) 1 each PRN DAILY PRN MC SEE COMMENTS Last administered on 11/24/17at 15:02; Start 11/21/17 at 18:00 Piperacillin Sod/ Tazobactam Sod 3.375 gm/Sodium Chloride 50 ml @ 100 mls/hr 1X ONCE IV Last administered on 11/21/17 19:04; Start 11/21/17 at 18:15; Stop 11/21/17 at 18:44; Status DC Insulin Human Regular (HumuLIN R VIAL) 10 unit 1X ONCE IV Last administered on 11/21/17at 20:55; Start 11/21/17 at 18:15; Stop 11/21/17 at 18:16; Status DC Potassium Chloride (KCl Oral Soln) 40 meq 1X ONCE NG Last administered on 11/21at 22:08; Start 11/21/17 at 18:15; Stop 11/21/17 at 18:16; Status DC Levetiracetam 500 mg/Dextrose 105 ml @ 420 mls/hr Q12HR IV Last administered on 11/24/17at 08:47; Start 11/21/17 at 21:00 Lorazepam (Ativan) 2 mg PRN Q4HRS PRN IV ANXIETY / AGITATION Last administered on 11/22/17at 12:12; Start 11/21/17 at 18:15 Thiamine HCl 100 mg/Dextrose 51 ml @ 102 mls/hr 1X STAT IV Last administered on 11/21/17at 18:33; Start 11/21/17 at 18:11; Stop 11/21/17 at 18:40; Status DC Vancomycin HCl 2 gm/Sodium Chloride 500 ml @ 250 mls/hr 1X ONCE IV Last administered on 11/21/17at 20:52; Start 11/21/17 at 19:00; Stop 11/21/17 at 20:59 ; Status DC Etomidate (Amidate) 20 mg STK-MED ONCE IV ; Start 11/21/17 at 19:04; Stop at 19:05; Status DC Succinylcholine Chloride (Anectine) 200 mg STK-MED ONCE .ROUTE ; Start 11/21/17 at 19:05; Stop 11/21/17 at 19:06; Status DC Propofol 50 ml @ As Directed STK-MED ONCE IV ; Start 11/21/17 at 19:38; Stop 12/29 at 19:39; Status DC Etomidate (Amidate) 20 mg 1X ONCE IV Last administered on 11/21/17at 17:01; Start 11/21/17 at 20:00; Stop 11/21/17 at 20:01; Status DC Succinylcholine Chloride (Anectine) 100 mg 1X ONCE IV Last administered on 12/29at 17:01; Start 11/21/17 at 20:00; Stop 11/21/17 at 20:01; Status DC Midazolam HCl (Versed) 5 mg 1X ONCE IV Last administered on 11/21/17at 17:39; Start 11/21/17 at 20:00; Stop 11/21/17 at 20:01; Status DC Vancomycin HCl 1.5 gm/Sodium Chloride 500 ml @ 250 mls/hr Q12H IV Last administered on 11/22/17at 09:56; Start 11/22/17 at 09:00; Stop 11/22/17 at 11:03 ; Status DC Fentanyl Citrate 30 ml @ 0 mls/hr CONT PRN IV PER PROTOCOL; Start 11/21/17 at 22:00 Propofol 100 ml @ 0 mls/hr CONT PRN IV PER PROTOCOL Last administered on at 06:42; Start 11/21/17 at 22:00 Chlorhexidine Gluconate (Peridex) 15 ml BID MM Last administered on 11/23/17at 08:33; Start 11/22/17 at 09:00; Stop 11/23/17 at 20:47; Status DC Famotidine (Pepcid Vial) 20 mg BID IVP Last administered on 11/24/17at 08:37; Start 11/22/17 at 09:00 Enoxaparin Sodium (Lovenox Per Pharmacy Prophylaxis Dosing) 1 each PRN DAILY PRN MC SEE COMMENTS; Start 11/22/17 at 09:30 Enoxaparin Sodium (Lovenox 40mg Syringe) 40 mg Q24H SQ Last administered on at 12:41; Start 11/22/17 at 10:00 Iohexol (Omnipaque 300 Mg/ml) 75 ml 1X ONCE IV Last administered on 11/22/17at 10:45; Start 11/22/17 at 10:45; Stop 11/22/17 at 10:46; Status DC Info (CONTRAST GIVEN -- Rx MONITORING) 1 each PRN DAILY PRN MC SEE COMMENTS; Start 11/22/17 at 11:00; Stop 11/24/17 at 10:59; Status DC Iohexol (Omnipaque 300 Mg/ml) 100 ml STK-MED ONCE .ROUTE ; Start 11/22/17 at 10: 45; Stop 11/22/17 at 10:46; Status DC Vancomycin HCl 1.5 gm/Sodium Chloride 500 ml @ 250 mls/hr Q12H IV Last administered on 11/22/17at 22:24; Start 11/22/17 at 22:00; Stop 11/23/17 at 10:01 ; Status DC Vancomycin HCl (Vancomycin Trough Level) 1 each 1X ONCE MC Last administered on 11/23/17at 09:30; Start 11/23/17 at 09:30; Stop 11/23/17 at 09:31; Status DC Piperacillin Sod/ Tazobactam Sod 3.375 gm/Sodium Chloride 50 ml @ 100 mls/hr Q6HRS IV Last administered on 11/24/17at 14:10; Start 11/22/17 at 12:00 Insulin Human Lispro (HumaLOG) 0-5 UNITS Q6HRS SQ Last administered on at 05:34; Start 11/22/17 at 18:00; Stop 11/24/17 at 08:58; Status DC Dextrose (Dextrose 50%-Water Syringe) 12.5 gm PRN Q15MIN PRN IV SEE COMMENTS; Start 11/22/17 at 12:45 Fentanyl Citrate (Fentanyl 2ml Vial) 25 mcg PRN Q5MIN PRN IV MILD PAIN; Start 11/23/17 at 07:00; Stop 11/24/17 at 06:59; Status DC Fentanyl Citrate (Fentanyl 2ml Vial) 50 mcg PRN Q5MIN PRN IV MODERATE TO SEVERE PAIN; Start 11/23/17 at 07:00; Stop 11/24/17 at 06:59; Status DC Morphine Sulfate (Morphine Sulfate) 1 mg PRN Q10MIN PRN IV SEVERE PAIN; Start 11/23/17 at 07:00; Stop 11/24/17 at 06:59; Status DC Ringer's Solution 1,000 ml @ 30 mls/hr Q24H IV ; Start 11/23/17 at 07:00; Stop 11/23/17 at 18:59; Status DC Lidocaine HCl (Xylocaine-Mpf 1% 2ml Vial) 2 ml PRN 1X PRN ID IV START; Start at 07:00; Stop 11/24/17 at 06:59; Status DC Hydromorphone HCl (Dilaudid) 0.5 mg PRN Q10MIN PRN IV SEV PAIN, Second choice; Start 11/23/17 at 07:00; Stop 11/24/17 at 06:59; Status DC Prochlorperazine Edisylate (Compazine) 5 mg PACU PRN PRN IV NAUSEA, MRX1; Start 11/23/17 at 07:00; Stop 11/24/17 at 06:59; Status DC Bacitracin 29192 unit/Sodium Chloride 500 ml @ 500 mls/hr 1X ONCE IRR Last administered on 11/23/17at 13:32; Start 11/23/17 at 06:00; Stop 11/23/17 at 06:59 ; Status DC Potassium Chloride/Water 50 ml @ 50 mls/hr 1X ONCE IV Last administered on 02/28at 07:58; Start 11/23/17 at 08:00; Stop 11/23/17 at 08:59; Status DC Vancomycin HCl 1.5 gm/Sodium Chloride 500 ml @ 250 mls/hr Q8H IV Last administered on 11/24/17at 02:00; Start 11/23/17 at 10:30; Stop 11/24/17 at 10:40 ; Status DC Vancomycin HCl (Vancomycin Trough Level) 1 each 1X ONCE MC Last administered on 11/24/17at 10:00; Start 11/24/17 at 10:00; Stop 11/24/17 at 10:01; Status DC Rocuronium [place] (Zemuron) 50 mg STK-MED ONCE .ROUTE ; Start 11/23/17 at 13:30 ; Stop 11/23/17 at 13:31; Status DC Sevoflurane (Ultane) 30 ml STK-MED ONCE IH ; Start 11/23/17 at 14:00; Stop 11/23 at 14:01; Status DC Labetalol HCl (Normodyne Iv Push) 20 mg PRN Q6HRS PRN IVP HYPERTENSION, SEE COMMENTS Last administered on 11/24/17at 09:46; Start 11/23/17 at 18:00 Acetaminophen/ Hydrocodone Bitart (Lortab 5/325) 1 tab PRN Q4HRS PRN PO MODERATE PAIN Last administered on 11/24/17at 10:02; Start 11/23/17 at 21:45 Acetaminophen/ Hydrocodone Bitart (Lortab 10/325) 1 tab PRN Q4HRS PRN PO SEVERE PAIN Last administered on 11/24/17at 14:38; Start 11/23/17 at 21:45 Insulin Human Lispro (HumaLOG) 0-5 UNITS TIDAC SQ Last administered on at 09:30; Start 11/24/17 at 09:00; Stop 11/24/17 at 10:40; Status DC Insulin Human Lispro (HumaLOG) 10 units BIDWMEALS SQ ; Start 11/24/17 at 17:00; Stop 11/24/17 at 17:00; Status DC Vancomycin HCl 2 gm/Sodium Chloride 500 ml @ 250 mls/hr Q8H IV ; Start at 11:00; Status Cancel Vancomycin HCl 1.75 gm/Sodium Chloride 500 ml @ 250 mls/hr Q8H IV Last administered on 11/24/17at 11:10; Start 11/24/17 at 11:00 Insulin Human Lispro (HumaLOG) 8 units 1X ONCE SQ Last administered on at 12:44; Start 11/24/17 at 12:15; Stop 11/24/17 at 12:16; Status DC Insulin Human Lispro (HumaLOG) 0-5 UNITS TIDAC SQ ; Start 11/24/17 at 16:30 Insulin Human Lispro (HumaLOG) 10 units BIDWMEALS SQ ; Start 11/24/17 at 17:00 Vancomycin HCl (Vancomycin Trough Level) 1 each 1X ONCE MC ; Start 11/26/17 at 10:30; Stop 11/26/17 at 10:31 Lactobacillus Rhamnosus (Culturelle) 1 cap BID PO ; Start 11/24/17 at 21:00 Vitals/I & O Vital Sign - Last 24 Hours 11/23/17 11/23/17 11/23/17 11/23/17 17:00 18:01 18:07 18:26 Pulse 90 91 91 87 Resp 19 15 17 B/P (MAP) 187/85 (119) 177/97 (123) 187/85 161/68 (99) Pulse Ox 100 100 100 O2 Delivery Nasal Cannula Nasal Cannula Nasal Cannula O2 Flow Rate 2.0 2.0 2.0 11/23/17 11/23/17 11/23/17 11/23/17 19:00 20:00 20:00 21:00 Temp 98.6 98.6 Pulse 93 93 95 Resp 24 21 26 B/P (MAP) 169/70 (103) 168/74 (105) 179/78 (111) Pulse Ox 100 100 100 O2 Delivery Nasal Cannula Nasal Cannula Nasal Cannula Nasal Cannula O2 Flow Rate 2.0 2.0 2.0 2.0 11/23/17 11/23/17 11/23/17 11/23/17 21:43 22:00 23:00 23:49 Pulse 96 93 Resp 16 24 26 B/P (MAP) 161/70 (100) 103/48 (66) Pulse Ox 99 100 97 O2 Delivery Room Air Room Air Room Air Room Air 11/24/17 11/24/17 11/24/17 11/24/17 00:00 01:00 02:00 02:01 Temp 99.1 99.1 Pulse 89 86 87 Resp 17 22 24 22 B/P (MAP) 137/72 (93) 102/48 (66) 139/65 (89) Pulse Ox 96 96 96 99 O2 Delivery Room Air Room Air Room Air Room Air 11/24/17 11/24/17 11/24/17 11/24/17 03:00 03:30 04:00 05:00 Temp 99.1 99.1 Pulse 83 80 80 Resp 17 20 15 B/P (MAP) 135/70 (91) 115/54 (74) 147/73 (97) Pulse Ox 97 95 94 O2 Delivery Room Air Room Air Room Air Room Air 11/24/17 11/24/17 11/24/17 11/24/17 05:34 06:00 06:34 07:00 Pulse 78 77 Resp 12 18 19 15 B/P (MAP) 130/63 (85) 140/58 (85) Pulse Ox 97 100 100 O2 Delivery Room Air Room Air Room Air 11/24/17 11/24/17 11/24/17 11/24/17 08:00 08:00 09:00 09:46 Temp 98.6 98.6 Pulse 78 82 85 Resp 18 20 B/P (MAP) 152/73 (99) 169/86 (113) 169/86 Pulse Ox 97 97 O2 Delivery Room Air Room Air Room Air 11/24/17 11/24/17 11/24/17 11/24/17 10:00 10:02 11:00 11:09 Pulse 86 80 Resp 16 18 18 B/P (MAP) 140/62 (88) 116/56 (76) Pulse Ox 98 96 92 96 O2 Delivery Room Air Room Air Room Air Room Air O2 Flow Rate 2.0 11/24/17 11/24/17 11/24/17 11/24/17 12:00 12:00 13:00 14:00 Pulse 78 88 80 Resp 16 16 15 B/P (MAP) 153/57 (89) 208/94 (132) 151/71 (97) Pulse Ox 95 96 92 O2 Delivery Room Air Room Air Room Air Room Air 11/24/17 11/24/17 11/24/17 11/24/17 14:38 15:00 15:52 16:00 Temp 98.4 98.4 Pulse 80 77 Resp 16 16 16 15 B/P (MAP) 154/75 (101) 143/72 (95) Pulse Ox 95 96 95 96 O2 Delivery Room Air Room Air Room Air Room Air 11/24/17 16:00 O2 Delivery Room Air Intake and Output 11/23/17 11/23/17 11/24/17 15:00 23:00 07:00 Intake Total 755 ml 600 ml Output Total 1185 ml 1650 ml 1150 ml Balance -1185 ml -895 ml -550 ml LEX NICHOLS MD Nov 24, 2017 16:56
[2017-11-24] MEDS ORDERED: NPH,100V5 SQ (17:04)
--- NOTE | 2017-11-24 17:20 | PDOC ---
PROGRESS NOTES Assessment Assessment Seizure, provoked by metabolic disturbances. Metabolic encephalopathy. Respiratory failure, acute. Hyperglycemia, glucose level 490 mg/dlL on 11/21. UTI. DM, not well controlled. HTN. 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 Chronic cellulitis, LE. Ulcers in toes. Obesity. RECOMMENDATIONS/PLAN: Keppra 500 mg q12h x 1 week, then 250 mg bid x 1 week, then stop. Ativan 2 mg IV q 4-6 h PRN for seizures. Control hyperglycemia. Treat medical diseases. Consulted Neurosurgery for aneurysm. Surgical treatment for toe ulcers. Prevent DVT. No anticoagulant at the present time due to risk of aneurysm hemorrhage. HISTORY OF THE PRESENT ILLNESS: This 62-y-old male patient with Hx of DM on Insulin per history of the patient suddenly LOC and had a seizure as convulsion during work. EMS was called and he was brought to the ER of [facility] and was found hyperglycemia and his glucose level was 490 mg/dl. No history of seizure in the past. PAST MEDICAL HISTORY: DM. PAST SURGERY HISTORY: No major surgery recently. ALLERGY: Unknown MEDICATIONS: Refer to [facility] HISTORY: Non contributory. SOCIAL HISTORY: He works at [employer]. Unknown his history of substance or drugs. REVIEW OF SYSTEMS: Constitutional: Obese. Head: No traumatic brain or head injury. Skin: No edema, or rash. Ear: No infection. Eyes: No vision loss or color blindness. Nose: No bleeding or purulent discharges. Hearing: No hearing decrease. Neck: No injury. Cardiac: HTN. Pulmonary: No COPD. GI: No GI ulcer, GI bleeding. Urinary/genital: UTI. Endocrinologic: Diabetes Mellitus, obesity. Skeletomuscular: No muscular atrophy, deformity. Neurological: see HP. Psychiatric: Unknown drug use/abuse. Otherwise, not [id number] review of systems. PHYSICAL EXAMINATION: General appearance is in subacute distress. HEENT: Normocephalic and nontraumatic. Eyes, nose, ears, and throat are unremarkable. Neck is supple. No lymphadenopathy. No bruits are heard over the carotid artery. No crepitus. Cardiovascular: S1, S2, regular rate and rhythm. Pulmonary: On event. Abdomen: Bowel sounds are positive. Extremities: Wounds in LE. No restriction of range of motion NEUROLOGICAL EXAMINATION: Awake. Oriented to time, place and person. PERRL. EOMI. CN: no focal findings. Muscle tone: within normal. Muscle strength: 4+ DTR: 1-2 Plantar reflex: Neutral response bilaterally Gait: Not examined. Sensory exam: no abnormal findings. No cerebellar signs elicited. F-T-N test fine. Objective Objective Vital Signs Date Time Temp Pulse Resp B/P (MAP) Pulse Ox O2 Delivery O2 Flow Rate FiO2 11/24/17 16:00 Room Air 11/24/17 16:00 98.4 77 15 143/72 (95) 96 98.4 11/24/17 11:09 2.0 Intake and Output 11/24/17 07:00 Intake Total 1355 ml Output Total 3985 ml Balance -2630 ml Intake Oral 150 ml IV Total 1205 ml Output Urine Total 3985 ml Vitals Signs Vitals VS - Last 72 Hours, by Label Date Time Temp Pulse Resp B/P (MAP) Pulse Ox O2 Delivery O2 Flow Rate FiO2 11/24/17 16:00 Room Air 11/24/17 16:00 98.4 77 15 143/72 (95) 96 Room Air 98.4 11/24/17 15:52 16 95 Room Air 11/24/17 15:00 80 16 154/75 (101) 96 Room Air 11/24/17 14:38 16 95 Room Air 11/24/17 14:00 80 15 151/71 (97) 92 Room Air 11/24/17 13:00 88 16 208/94 (132) 96 Room Air 11/24/17 12:00 Room Air 11/24/17 12:00 78 16 153/57 (89) 95 Room Air 11/24/17 11:09 96 Room Air 2.0 11/24/17 11:00 80 18 116/56 (76) 92 Room Air 11/24/17 10:02 18 96 Room Air 11/24/17 10:00 86 16 140/62 (88) 98 Room Air 11/24/17 09:46 85 169/86 11/24/17 09:00 82 20 169/86 (113) 97 Room Air 11/24/17 08:00 Room Air 11/24/17 08:00 98.6 78 18 152/73 (99) 97 Room Air 98.6 11/24/17 07:00 77 15 140/58 (85) 100 Room Air 11/24/17 06:34 19 11/24/17 06:00 78 18 130/63 (85) 100 Room Air 11/24/17 05:34 12 97 Room Air 11/24/17 05:00 80 15 147/73 (97) 94 Room Air 11/24/17 04:00 99.1 80 20 115/54 (74) 95 Room Air 99.1 11/24/17 03:30 Room Air 11/24/17 03:00 83 17 135/70 (91) 97 Room Air 11/24/17 02:01 22 99 Room Air 11/24/17 02:00 87 24 139/65 (89) 96 Room Air 11/24/17 01:00 86 22 102/48 (66) 96 Room Air 11/24/17 00:00 99.1 89 17 137/72 (93) 96 Room Air 99.1 11/23/17 23:49 Room Air 11/23/17 23:00 93 26 103/48 (66) 97 Room Air 11/23/17 22:00 96 24 161/70 (100) 100 Room Air 11/23/17 21:43 16 99 Room Air 11/23/17 21:00 95 26 179/78 (111) 100 Nasal Cannula 2.0 11/23/17 20:00 Nasal Cannula 2.0 11/23/17 20:00 98.6 93 21 168/74 (105) 100 Nasal Cannula 2.0 98.6 11/23/17 19:00 93 24 169/70 (103) 100 Nasal Cannula 2.0 11/23/17 18:26 87 17 161/68 (99) 100 Nasal Cannula 2.0 11/23/17 18:07 91 187/85 11/23/17 18:01 91 15 177/97 (123) 100 Nasal Cannula 2.0 11/23/17 17:00 90 19 187/85 (119) 100 Nasal Cannula 2.0 11/23/17 16:09 100 Ventilator 11/23/17 16:00 Mechanical Ventilator 11/23/17 16:00 98.9 86 18 174/82 (112) 100 Ventilator 98.9 11/23/17 15:00 76 14 121/58 (79) 100 Ventilator 11/23/17 14:00 76 14 121/58 (79) 100 Ventilator 11/23/17 13:00 70 14 107/49 (68) 100 Ventilator 11/23/17 12:00 99.0 77 16 154/68 (96) 100 Ventilator 99.0 11/23/17 12:00 Mechanical Ventilator 11/23/17 11:00 76 15 153/66 (95) 100 Ventilator 11/23/17 10:00 79 15 149/69 (95) 100 Ventilator 11/23/17 09:51 100 Ventilator 11/23/17 09:00 77 14 147/75 (99) 100 Ventilator 11/23/17 08:00 Mechanical Ventilator 11/23/17 08:00 98.4 80 14 163/79 (107) 100 Ventilator 98.4 11/23/17 07:50 100 Ventilator 11/23/17 07:00 77 15 121/63 (82) 100 Ventilator Laboratory Laboratory Laboratory Tests Test 11/23/17 17:30 11/23/17 23:28 11/24/17 04:55 11/24/17 05:32 Glucose (Fingerstick) 212 mg/dL (70-99) 247 mg/dL (70-99) 189 mg/dL (70-99) White Blood Count 9.2 x10^3/uL (4.0-11.0) Red Blood Count 3.91 x10^6/uL (4.30-5.70) Hemoglobin 11.6 g/dL (13.0-17.5) Hematocrit 34.3 % (39.0-53.0) Mean Corpuscular Volume 88 fL (79-100) Mean Corpuscular Hemoglobin 30 pg (25-35) Mean Corpuscular Hemoglobin Concent 34 g/dL (31-37) Red Cell Distribution Width 13.4 % (11.5-14.5) Platelet Count 404 x10^3/uL (140-400) Neutrophils (%) (Auto) 70 % (31-73) Lymphocytes (%) (Auto) 18 % (24-48) Monocytes (%) (Auto) 9 % (0-9) Eosinophils (%) (Auto) 2 % (0-3) Basophils (%) (Auto) 0 % (0-3) Neutrophils # (Auto) 6.4 x10^3uL (1.8-7.7) Lymphocytes # (Auto) 1.7 x10^3/uL (1.0-4.8) Monocytes # (Auto) 0.8 x10^3/uL (0.0-1.1) Eosinophils # (Auto) 0.2 x10^3/uL (0.0-0.7) Basophils # (Auto) 0.0 x10^3/uL (0.0-0.2) Sodium Level 142 mmol/L (136-145) Potassium Level 3.4 mmol/L (3.5-5.1) Chloride Level 107 mmol/L (98-107) Carbon Dioxide Level 25 mmol/L (21-32) Anion Gap 10 (6-14) Blood Urea Nitrogen 5 mg/dL (8-26) Creatinine 0.7 mg/dL (0.7-1.3) Estimated GFR (Cockcroft-Gault) 115.0 Glucose Level 216 mg/dL (70-99) Calcium Level 7.8 mg/dL (8.5-10.1) Test 11/24/17 08:21 11/24/17 10:00 11/24/17 11:58 11/24/17 16:52 Glucose (Fingerstick) 172 mg/dL (70-99) 250 mg/dL (70-99) 207 mg/dL (70-99) Vancomycin Level Trough 11.7 mcg/mL (10.0-20.0) Vancomycin Last Dose Date 11/24/17 Vancomycin Last Dose Time 0230 Microbiology 11/21/17 Blood Culture - Preliminary, Resulted NO GROWTH AFTER 2 DAYS 11/21/17 Urine Culture - Final, Complete 11/21/17 Urine Culture Result 1 (GIUSEPPE) - Final, Complete 11/21/17 Anaerobic/Aerobic Culture, Resulted Pending 11/21/17 Anaerobic Culture Result 1 (GIUSEPPE), Resulted Pending 11/21/17 Aerobic Culture, Resulted Pending 11/21/17 Aerobic Culture Result 1 (GIUSEPPE), Resulted Pending 11/21/17 Gram Stain - Final, Resulted 11/21/17 Gram Stain Result 1 (GIUSEPPE) - Final, Resulted 11/21/17 Gram Stain Result 2 (GIUSEPPE) - Final, Resulted 11/21/17 Gram Stain Result 3 (GIUSEPPE) - Final, Resulted Medication Medications Current Medications Acetaminophen/ Hydrocodone Bitart (Lortab 10/325) 1 tab PRN Q4HRS PRN PO SEVERE PAIN Last administered on 11/24/17at 14:38; Start 11/23/17 at 21:45 Acetaminophen/ Hydrocodone Bitart (Lortab 5/325) 1 tab PRN Q4HRS PRN PO MODERATE PAIN Last administered on 11/24/17at 10:02; Start 11/23/17 at 21:45 Insulin Human Lispro (HumaLOG) 0-5 UNITS TIDAC SQ Last administered on at 09:30; Start 11/24/17 at 09:00; Stop 11/24/17 at 10:40; Status DC Insulin Human Lispro (HumaLOG) 0-5 UNITS TIDAC SQ ; Start 11/24/17 at 16:30 Insulin Human Lispro (HumaLOG) 8 units 1X ONCE SQ Last administered on at 12:44; Start 11/24/17 at 12:15; Stop 11/24/17 at 12:16; Status DC Insulin Human Lispro (HumaLOG) 10 units BIDWMEALS SQ ; Start 11/24/17 at 17:00; Stop 11/24/17 at 17:00; Status DC Insulin Human Lispro (HumaLOG) 10 units BIDWMEALS SQ ; Start 11/24/17 at 17:00 Labetalol HCl (Normodyne Iv Push) 20 mg PRN Q6HRS PRN IVP HYPERTENSION, SEE COMMENTS Last administered on 11/24/17at 09:46; Start 11/23/17 at 18:00 Lactobacillus Rhamnosus (Culturelle) 1 cap BID PO ; Start 11/24/17 at 21:00 Vancomycin HCl (Vancomycin Trough Level) 1 each 1X ONCE MC Last administered on 11/24/17at 10:00; Start 11/24/17 at 10:00; Stop 11/24/17 at 10:01; Status DC Vancomycin HCl (Vancomycin Trough Level) 1 each 1X ONCE MC ; Start 11/26/17 at 10:30; Stop 11/26/17 at 10:31 Vancomycin HCl 1.75 gm/Sodium Chloride 500 ml @ 250 mls/hr Q8H IV Last administered on 11/24/17at 11:10; Start 11/24/17 at 11:00 Vancomycin HCl 2 gm/Sodium Chloride 500 ml @ 250 mls/hr Q8H IV ; Start at 11:00; Status Cancel Comment Review of Relevant I have reviewed the following items alta (where applicable) has been applied. POLLO ABDULLAHI MD Nov 24, 2017 17:20
[2017-11-24] MEDS: LACTOBACILLUS RHAMNOSUS GG 1 CAPSULE. PO SCH (20:47)
[2017-11-25] VITALS (7 sets, daily range): BP systolic 127–166; BP diastolic 53–80
[2017-11-25] MEDS: PIPERACILLIN/TAZOBACTAM 3.375 GM in IV NORMAL SALINE 50ML 50 ML IV SCH ×4 (00:34→17:36)
[2017-11-25] MEDS: VANCOMYCIN 1.75 GM in IV NORMAL SALINE 500ML BAG 500 ML IV SCH ×3 (03:23→18:24)
[2017-11-25 05:19] LABS: BASO % 1 % (0-3); EOS # 0.3 x10^3/uL (0.0-0.7); EOS % 4 % (0-3); HEMATOCRIT 34.5 % (39.0-53.0); HEMOGLOBIN 11.7 g/dL (13.0-17.5); LYMPH # 1.6 x10^3/uL (1.0-4.8); LYMPH % 21 % (24-48); MEAN CORPUSCULAR HEMOGLOBIN 30 pg (25-35); MEAN CORPUSCULAR HGB CONC 34 g/dL (31-37); MEAN CORPUSCULAR VOLUME 87 fL (79-100); MONO # 0.7 x10^3/uL (0.0-1.1); MONO % 9 % (0-9); NEUT # 5.2 x10^3uL (1.8-7.7); NEUT % 66 % (31-73); PLATELET COUNT 399 x10^3/uL (140-400); RED BLOOD COUNT 3.95 x10^6/uL (4.30-5.70); RED CELL DISTRIBUTION WIDTH 13.2 % (11.5-14.5); WHITE BLOOD COUNT 7.9 x10^3/uL (4.0-11.0)
[2017-11-25 05:44] LABS: CREATININE 0.7 mg/dL (0.7-1.3); POTASSIUM 3.5 mmol/L (3.5-5.1)
--- NOTE | 2017-11-25 08:47 | PDOC ---
PULMONARY PROGRESS NOTES Subjective PT OFF 02 DID WELL EXTUBATED 11/23 Vitals Vital Signs Date Time Temp Pulse Resp B/P (MAP) Pulse Ox O2 Delivery O2 Flow Rate FiO2 11/25/17 07:42 98.3 82 20 153/80 (104) 95 Room Air 98.3 11/24/17 20:00 2.0 ROS: No Nausea, No Chest Pain, No Abdominal Pain, No Increase Cough Lungs: Clear Cardiovascular: S1, S2 Abdomen: Soft Neuro Exam: Alert Extremities: No Edema Skin: Warm Labs Laboratory Tests Test 11/23/17 09:25 11/23/17 12:50 11/23/17 17:30 11/23/17 23:28 Vancomycin Level Trough 7.7 mcg/mL (10.0-20.0) Vancomycin Last Dose Date 11/22/17 Vancomycin Last Dose Time 2200 Glucose (Fingerstick) 224 mg/dL (70-99) 212 mg/dL (70-99) 247 mg/dL (70-99) Test 11/24/17 04:55 11/24/17 05:32 11/24/17 08:21 11/24/17 10:00 White Blood Count 9.2 x10^3/uL (4.0-11.0) Red Blood Count 3.91 x10^6/uL (4.30-5.70) Hemoglobin 11.6 g/dL (13.0-17.5) Hematocrit 34.3 % (39.0-53.0) Mean Corpuscular Volume 88 fL (79-100) Mean Corpuscular Hemoglobin 30 pg (25-35) Mean Corpuscular Hemoglobin Concent 34 g/dL (31-37) Red Cell Distribution Width 13.4 % (11.5-14.5) Platelet Count 404 x10^3/uL (140-400) Neutrophils (%) (Auto) 70 % (31-73) Lymphocytes (%) (Auto) 18 % (24-48) Monocytes (%) (Auto) 9 % (0-9) Eosinophils (%) (Auto) 2 % (0-3) Basophils (%) (Auto) 0 % (0-3) Neutrophils # (Auto) 6.4 x10^3uL (1.8-7.7) Lymphocytes # (Auto) 1.7 x10^3/uL (1.0-4.8) Monocytes # (Auto) 0.8 x10^3/uL (0.0-1.1) Eosinophils # (Auto) 0.2 x10^3/uL (0.0-0.7) Basophils # (Auto) 0.0 x10^3/uL (0.0-0.2) Sodium Level 142 mmol/L (136-145) Potassium Level 3.4 mmol/L (3.5-5.1) Chloride Level 107 mmol/L (98-107) Carbon Dioxide Level 25 mmol/L (21-32) Anion Gap 10 (6-14) Blood Urea Nitrogen 5 mg/dL (8-26) Creatinine 0.7 mg/dL (0.7-1.3) Estimated GFR (Cockcroft-Gault) 115.0 Glucose Level 216 mg/dL (70-99) Calcium Level 7.8 mg/dL (8.5-10.1) Glucose (Fingerstick) 189 mg/dL (70-99) 172 mg/dL (70-99) Vancomycin Level Trough 11.7 mcg/mL (10.0-20.0) Vancomycin Last Dose Date 11/24/17 Vancomycin Last Dose Time 0230 Test 11/24/17 11:58 11/24/17 16:52 11/25/17 04:00 11/25/17 04:10 Glucose (Fingerstick) 250 mg/dL (70-99) 207 mg/dL (70-99) Sodium Level 140 mmol/L (136-145) Potassium Level 3.5 mmol/L (3.5-5.1) Chloride Level 104 mmol/L (98-107) Carbon Dioxide Level 27 mmol/L (21-32) Anion Gap 9 (6-14) Blood Urea Nitrogen 7 mg/dL (8-26) Creatinine 0.7 mg/dL (0.7-1.3) Estimated GFR (Cockcroft-Gault) 115.0 Glucose Level 254 mg/dL (70-99) Calcium Level 8.0 mg/dL (8.5-10.1) White Blood Count 7.9 x10^3/uL (4.0-11.0) Red Blood Count 3.95 x10^6/uL (4.30-5.70) Hemoglobin 11.7 g/dL (13.0-17.5) Hematocrit 34.5 % (39.0-53.0) Mean Corpuscular Volume 87 fL (79-100) Mean Corpuscular Hemoglobin 30 pg (25-35) Mean Corpuscular Hemoglobin Concent 34 g/dL (31-37) Red Cell Distribution Width 13.2 % (11.5-14.5) Platelet Count 399 x10^3/uL (140-400) Neutrophils (%) (Auto) 66 % (31-73) Lymphocytes (%) (Auto) 21 % (24-48) Monocytes (%) (Auto) 9 % (0-9) Eosinophils (%) (Auto) 4 % (0-3) Basophils (%) (Auto) 1 % (0-3) Neutrophils # (Auto) 5.2 x10^3uL (1.8-7.7) Lymphocytes # (Auto) 1.6 x10^3/uL (1.0-4.8) Monocytes # (Auto) 0.7 x10^3/uL (0.0-1.1) Eosinophils # (Auto) 0.3 x10^3/uL (0.0-0.7) Basophils # (Auto) 0.0 x10^3/uL (0.0-0.2) Test 11/25/17 07:27 Glucose (Fingerstick) 243 mg/dL (70-99) Laboratory Tests Test 11/24/17 10:00 11/24/17 11:58 11/24/17 16:52 11/25/17 04:00 Vancomycin Level Trough 11.7 mcg/mL (10.0-20.0) Vancomycin Last Dose Date 11/24/17 Vancomycin Last Dose Time 0230 Glucose (Fingerstick) 250 mg/dL (70-99) 207 mg/dL (70-99) Sodium Level 140 mmol/L (136-145) Potassium Level 3.5 mmol/L (3.5-5.1) Chloride Level 104 mmol/L (98-107) Carbon Dioxide Level 27 mmol/L (21-32) Anion Gap 9 (6-14) Blood Urea Nitrogen 7 mg/dL (8-26) Creatinine 0.7 mg/dL (0.7-1.3) Estimated GFR (Cockcroft-Gault) 115.0 Glucose Level 254 mg/dL (70-99) Calcium Level 8.0 mg/dL (8.5-10.1) Test 11/25/17 04:10 11/25/17 07:27 White Blood Count 7.9 x10^3/uL (4.0-11.0) Red Blood Count 3.95 x10^6/uL (4.30-5.70) Hemoglobin 11.7 g/dL (13.0-17.5) Hematocrit 34.5 % (39.0-53.0) Mean Corpuscular Volume 87 fL (79-100) Mean Corpuscular Hemoglobin 30 pg (25-35) Mean Corpuscular Hemoglobin Concent 34 g/dL (31-37) Red Cell Distribution Width 13.2 % (11.5-14.5) Platelet Count 399 x10^3/uL (140-400) Neutrophils (%) (Auto) 66 % (31-73) Lymphocytes (%) (Auto) 21 % (24-48) Monocytes (%) (Auto) 9 % (0-9) Eosinophils (%) (Auto) 4 % (0-3) Basophils (%) (Auto) 1 % (0-3) Neutrophils # (Auto) 5.2 x10^3uL (1.8-7.7) Lymphocytes # (Auto) 1.6 x10^3/uL (1.0-4.8) Monocytes # (Auto) 0.7 x10^3/uL (0.0-1.1) Eosinophils # (Auto) 0.3 x10^3/uL (0.0-0.7) Basophils # (Auto) 0.0 x10^3/uL (0.0-0.2) Glucose (Fingerstick) 243 mg/dL (70-99) Medications Active Scripts Medications Dose Route/Sig Max Daily Dose Days Date Category Novolin N (Nph, Human Insulin Isophane) 100 Unit/1 Ml Vial 12 Unit SQ BIDWMEALS 11/24/17 Reported Impression . 1. Acute respiratory failure, multifactorial secondary to seizures and possible sepsis. 2. Extensive right diabetic foot infection, possible osteomyelitis. 3. Seizures. 4. Leukocytosis. 5. Diabetes. Plan . FOLLOW NEURO INPUT OFF RESP STATUS IS COMPENSATED PT EXTUBATED 11/23 ANTIBX PER ID PER ID WILL S/O CALL IF NEEDED DENNYS SHARMA MD Nov 25, 2017 08:47
[2017-11-25] MEDS: LACTOBACILLUS RHAMNOSUS GG 1 CAPSULE. PO SCH ×2 (08:50→20:31)
[2017-11-25] MEDS: FAMOTIDINE 20 MG/2 ML VIAL IVP SCH (08:51)
[2017-11-25] MEDS: levETIRAcetam 500 MG in IV DEXTROSE 5% 100ML 100 ML IV SCH (08:51)
[2017-11-25] MEDS: INSULIN LISPRO 300 UNITS/3 ML INSULN.PEN. SQ SCH ×5 (08:56→17:43)
--- NOTE | 2017-11-25 08:56 | PDOC ---
Provider Note Provider Note Vascular S: Patient without complaints of pain. O: Awake and Alert x3. Wound vac in place bilateral feet, skin edges intact, minimal foot swelling, no erythema. Assessment/Plan: 1. Severely infected right 1st toe with purulent drainage. 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 2. POD#2 Left foot debridement removing necrotic skin, subcutaneous tissue and bone from the wound overlying the first metatarsal head. 3. Continue Wound Vac Therapy, will need follow up in [facility]. 4. IV antibiotic therapy per ID for exposed bone. 5. counseling services manager will need to work on getting charitable wound vac upon discharge. 6. PT/OT consult. Patient will need to be heel touch only with off-loading to forefoot bilaterally. 1/2 shoes ordered. EMMANUEL RAMÍREZ APRN Nov 25, 2017 08:56
[2017-11-25] MEDS ORDERED: DEXTROSE 50% 25 GM / 50ML DISP.SYRIN. IV PRN (09:30)
[2017-11-25] MEDS ORDERED: ALPRAZolam 0.25 MG TABLET PO PRN (09:30)
--- NOTE | 2017-11-25 10:42 | PDOC ---
PROGRESS NOTES Chief Complaint Chief Complaint Sepsis Osteomyelitis Seizure DM 2 Peripheral vascular disease Foot wound with indwelling wound vac s.p toe amputation Acom aneurysm SP History of Present Illness History of Present Illness TRansferred out of ICU 11/24/17 He has no complaints No weight-bear on fore foot bilateral legs as per vasc sx note He has a bilateral wound VAC. He is self-pay Vascular surgery recommends social work for charitable wound VAC Sounds like he needs to be a wound VAC even on discharge He is sleeping fine and eating okay [place] also with ID on IV vancomycin Was on IV Keppra IV PPI-tolerating by mouth diet fine Neurosurgery has also arranged for outpatient neuro IR and he knows about this plan: Shift Keppra to by mouth twice a day Shift IV PPI to by mouth Social work for charitable wound VAC Dr. Gabriel has very so kindly arrange for outpatient appointment Will be here over the weekend most likely because of wound VAC needs, antibiotics, etc. Vitals Vitals Vital Signs Date Time Temp Pulse Resp B/P (MAP) Pulse Ox O2 Delivery O2 Flow Rate FiO2 11/25/17 07:42 98.3 82 20 153/80 (104) 95 Room Air 98.3 11/24/17 20:00 2.0 Physical Exam Physical Exam GENERAL: awake, not in distress. VITAL SIGNS: Stable, HEENT: NAD. NECK: Supple, no JVP, no lymphadenopathy. LUNGS: Clear. HEART: S1, S2 regular. ABDOMEN: Benign. EXTREMITIES: Some pitting edema present. The patient does have extensive infection of the right foot at the first metatarsophalangeal joint area with lopez pus coming and appears to have a destroyed bone. The patient does have a similar area on the left foot ulcer, which appears to be not as bad as the right one. The patient had been moving all the extremities before his intubation. NEUROLOGIC: A and O x 3, no focal deficit General: Alert, Oriented X3, Cooperative, No acute distress Heart: Regular rate, Normal S1, Normal S2 Lungs: Clear Abdomen: Normal bowel sounds, Soft Extremities: No clubbing, Other (CDI bilateral legs) Skin: No rashes, Other (CDI dressings bilateral legs) Labs LABS Laboratory Tests Test 11/24/17 11:58 11/24/17 16:52 11/25/17 04:00 11/25/17 04:10 Glucose (Fingerstick) 250 mg/dL (70-99) 207 mg/dL (70-99) Sodium Level 140 mmol/L (136-145) Potassium Level 3.5 mmol/L (3.5-5.1) Chloride Level 104 mmol/L (98-107) Carbon Dioxide Level 27 mmol/L (21-32) Anion Gap 9 (6-14) Blood Urea Nitrogen 7 mg/dL (8-26) Creatinine 0.7 mg/dL (0.7-1.3) Estimated GFR (Cockcroft-Gault) 115.0 Glucose Level 254 mg/dL (70-99) Calcium Level 8.0 mg/dL (8.5-10.1) White Blood Count 7.9 x10^3/uL (4.0-11.0) Red Blood Count 3.95 x10^6/uL (4.30-5.70) Hemoglobin 11.7 g/dL (13.0-17.5) Hematocrit 34.5 % (39.0-53.0) Mean Corpuscular Volume 87 fL (79-100) Mean Corpuscular Hemoglobin 30 pg (25-35) Mean Corpuscular Hemoglobin Concent 34 g/dL (31-37) Red Cell Distribution Width 13.2 % (11.5-14.5) Platelet Count 399 x10^3/uL (140-400) Neutrophils (%) (Auto) 66 % (31-73) Lymphocytes (%) (Auto) 21 % (24-48) Monocytes (%) (Auto) 9 % (0-9) Eosinophils (%) (Auto) 4 % (0-3) Basophils (%) (Auto) 1 % (0-3) Neutrophils # (Auto) 5.2 x10^3uL (1.8-7.7) Lymphocytes # (Auto) 1.6 x10^3/uL (1.0-4.8) Monocytes # (Auto) 0.7 x10^3/uL (0.0-1.1) Eosinophils # (Auto) 0.3 x10^3/uL (0.0-0.7) Basophils # (Auto) 0.0 x10^3/uL (0.0-0.2) Test 11/25/17 07:27 Glucose (Fingerstick) 243 mg/dL (70-99) Review of Systems Review of Systems A 14 point ROS was completed with the following noted as positive: Other systems reviewed and negative. \CONSTITUTIONAL: No fever or chills EYES: No recent changes SKIN: No rash or itching CARDIOVASCULAR: No chest pain, syncope, palpitations, or edema RESPIRATORY: No SOB or cough GASTROINTESTINAL: No nausea, vomiting or abdominal pain NEUROLOGICAL: No headaches or weakness ENDOCRINE: No cold or heat intolerance GENITOURINARY: No urgency or frequency of urination MUSCULOSKELETAL: No back pain or joint pain LYMPHATICS: No enlarged lymph nodes PSYCHIATRIC: No anxiety or depression Assessment and Plan Assessmemt and Plan Problems Medical Problems: (1) Seizure Status: Acute Comment Review of Relevant I have reviewed the following items alta (where applicable) has been applied. Labs Laboratory Tests Test 11/23/17 12:50 11/23/17 17:30 11/23/17 23:28 11/24/17 04:55 Glucose (Fingerstick) 224 mg/dL (70-99) 212 mg/dL (70-99) 247 mg/dL (70-99) White Blood Count 9.2 x10^3/uL (4.0-11.0) Red Blood Count 3.91 x10^6/uL (4.30-5.70) Hemoglobin 11.6 g/dL (13.0-17.5) Hematocrit 34.3 % (39.0-53.0) Mean Corpuscular Volume 88 fL (79-100) Mean Corpuscular Hemoglobin 30 pg (25-35) Mean Corpuscular Hemoglobin Concent 34 g/dL (31-37) Red Cell Distribution Width 13.4 % (11.5-14.5) Platelet Count 404 x10^3/uL (140-400) Neutrophils (%) (Auto) 70 % (31-73) Lymphocytes (%) (Auto) 18 % (24-48) Monocytes (%) (Auto) 9 % (0-9) Eosinophils (%) (Auto) 2 % (0-3) Basophils (%) (Auto) 0 % (0-3) Neutrophils # (Auto) 6.4 x10^3uL (1.8-7.7) Lymphocytes # (Auto) 1.7 x10^3/uL (1.0-4.8) Monocytes # (Auto) 0.8 x10^3/uL (0.0-1.1) Eosinophils # (Auto) 0.2 x10^3/uL (0.0-0.7) Basophils # (Auto) 0.0 x10^3/uL (0.0-0.2) Sodium Level 142 mmol/L (136-145) Potassium Level 3.4 mmol/L (3.5-5.1) Chloride Level 107 mmol/L (98-107) Carbon Dioxide Level 25 mmol/L (21-32) Anion Gap 10 (6-14) Blood Urea Nitrogen 5 mg/dL (8-26) Creatinine 0.7 mg/dL (0.7-1.3) Estimated GFR (Cockcroft-Gault) 115.0 Glucose Level 216 mg/dL (70-99) Calcium Level 7.8 mg/dL (8.5-10.1) Test 11/24/17 05:32 11/24/17 08:21 11/24/17 10:00 11/24/17 11:58 Glucose (Fingerstick) 189 mg/dL (70-99) 172 mg/dL (70-99) 250 mg/dL (70-99) Vancomycin Level Trough 11.7 mcg/mL (10.0-20.0) Vancomycin Last Dose Date 11/24/17 Vancomycin Last Dose Time 0230 Test 11/24/17 16:52 11/25/17 04:00 11/25/17 04:10 11/25/17 07:27 Glucose (Fingerstick) 207 mg/dL (70-99) 243 mg/dL (70-99) Sodium Level 140 mmol/L (136-145) Potassium Level 3.5 mmol/L (3.5-5.1) Chloride Level 104 mmol/L (98-107) Carbon Dioxide Level 27 mmol/L (21-32) Anion Gap 9 (6-14) Blood Urea Nitrogen 7 mg/dL (8-26) Creatinine 0.7 mg/dL (0.7-1.3) Estimated GFR (Cockcroft-Gault) 115.0 Glucose Level 254 mg/dL (70-99) Calcium Level 8.0 mg/dL (8.5-10.1) White Blood Count 7.9 x10^3/uL (4.0-11.0) Red Blood Count 3.95 x10^6/uL (4.30-5.70) Hemoglobin 11.7 g/dL (13.0-17.5) Hematocrit 34.5 % (39.0-53.0) Mean Corpuscular Volume 87 fL (79-100) Mean Corpuscular Hemoglobin 30 pg (25-35) Mean Corpuscular Hemoglobin Concent 34 g/dL (31-37) Red Cell Distribution Width 13.2 % (11.5-14.5) Platelet Count 399 x10^3/uL (140-400) Neutrophils (%) (Auto) 66 % (31-73) Lymphocytes (%) (Auto) 21 % (24-48) Monocytes (%) (Auto) 9 % (0-9) Eosinophils (%) (Auto) 4 % (0-3) Basophils (%) (Auto) 1 % (0-3) Neutrophils # (Auto) 5.2 x10^3uL (1.8-7.7) Lymphocytes # (Auto) 1.6 x10^3/uL (1.0-4.8) Monocytes # (Auto) 0.7 x10^3/uL (0.0-1.1) Eosinophils # (Auto) 0.3 x10^3/uL (0.0-0.7) Basophils # (Auto) 0.0 x10^3/uL (0.0-0.2) Laboratory Tests Test 11/24/17 11:58 11/24/17 16:52 11/25/17 04:00 11/25/17 04:10 Glucose (Fingerstick) 250 mg/dL (70-99) 207 mg/dL (70-99) Sodium Level 140 mmol/L (136-145) Potassium Level 3.5 mmol/L (3.5-5.1) Chloride Level 104 mmol/L (98-107) Carbon Dioxide Level 27 mmol/L (21-32) Anion Gap 9 (6-14) Blood Urea Nitrogen 7 mg/dL (8-26) Creatinine 0.7 mg/dL (0.7-1.3) Estimated GFR (Cockcroft-Gault) 115.0 Glucose Level 254 mg/dL (70-99) Calcium Level 8.0 mg/dL (8.5-10.1) White Blood Count 7.9 x10^3/uL (4.0-11.0) Red Blood Count 3.95 x10^6/uL (4.30-5.70) Hemoglobin 11.7 g/dL (13.0-17.5) Hematocrit 34.5 % (39.0-53.0) Mean Corpuscular Volume 87 fL (79-100) Mean Corpuscular Hemoglobin 30 pg (25-35) Mean Corpuscular Hemoglobin Concent 34 g/dL (31-37) Red Cell Distribution Width 13.2 % (11.5-14.5) Platelet Count 399 x10^3/uL (140-400) Neutrophils (%) (Auto) 66 % (31-73) Lymphocytes (%) (Auto) 21 % (24-48) Monocytes (%) (Auto) 9 % (0-9) Eosinophils (%) (Auto) 4 % (0-3) Basophils (%) (Auto) 1 % (0-3) Neutrophils # (Auto) 5.2 x10^3uL (1.8-7.7) Lymphocytes # (Auto) 1.6 x10^3/uL (1.0-4.8) Monocytes # (Auto) 0.7 x10^3/uL (0.0-1.1) Eosinophils # (Auto) 0.3 x10^3/uL (0.0-0.7) Basophils # (Auto) 0.0 x10^3/uL (0.0-0.2) Test 11/25/17 07:27 Glucose (Fingerstick) 243 mg/dL (70-99) Microbiology 11/21/17 Blood Culture - Preliminary, Resulted NO GROWTH AFTER 3 DAYS 11/21/17 Urine Culture - Final, Complete 11/21/17 Urine Culture Result 1 (GIUSEPPE) - Final, Complete 11/21/17 Anaerobic/Aerobic Culture - Preliminary, Resulted 11/21/17 Anaerobic Culture Result 1 (GIUSEPPE) - Preliminary, Resulted 11/21/17 Aerobic Culture - Preliminary, Resulted 11/21/17 Aerobic Culture Result 1 (GIUSEPPE) - Preliminary, Resulted 11/21/17 Gram Stain - Final, Resulted 11/21/17 Gram Stain Result 1 (GIUSEPPE) - Final, Resulted 11/21/17 Gram Stain Result 2 (GIUSEPPE) - Final, Resulted 11/21/17 Gram Stain Result 3 (GIUSEPPE) - Final, Resulted Medications Current Medications Propofol 50 ml @ As Directed STK-MED ONCE IV ; Start 11/21/17 at 17:07; Stop 12/29 at 17:08; Status DC Midazolam HCl (Versed) 5 mg 1X ONCE NS Last administered on 11/21/17at 17:05; Start 11/21/17 at 17:15; Stop 11/21/17 at 17:16; Status DC Fentanyl Citrate (Fentanyl 2ml Vial) 100 mcg 1X ONCE IV Last administered on at 17:09; Start 11/21/17 at 17:15; Stop 11/21/17 at 17:16; Status DC Levetiracetam 1000 mg/Dextrose 110 ml @ 440 mls/hr 1X ONCE IV Last administered on 11/21/17at 17:25; Start 11/21/17 at 17:15; Stop 11/21/17 at 17:29 ; Status DC Sodium Chloride 1,000 ml @ 1,000 mls/hr 1X ONCE IV Last administered on at 19:39; Start 11/21/17 at 17:15; Stop 11/21/17 at 18:14; Status DC Propofol (Diprivan) 200 mg 1X ONCE IV Last administered on 11/21/17at 17:14; Start 11/21/17 at 17:15; Stop 11/21/17 at 17:16; Status DC Midazolam HCl (Versed) 5 mg 1X ONCE IV Last administered on 11/21/17at 19:20; Start 11/21/17 at 17:45; Stop 11/21/17 at 17:50; Status DC Sodium Chloride 1,000 ml @ 150 mls/hr Q6H40M IV Last administered on at 12:12; Start 11/21/17 at 18:15; Stop 11/22/17 at 18:14; Status DC Vancomycin HCl (Vanco Per Pharmacy) 1 each PRN DAILY PRN MC SEE COMMENTS Last administered on 11/24/17at 15:02; Start 11/21/17 at 18:00 Piperacillin Sod/ Tazobactam Sod 3.375 gm/Sodium Chloride 50 ml @ 100 mls/hr 1X ONCE IV Last administered on 11/21/17at 19:04; Start 11/21/17 at 18:15; Stop 11/21/17 at 18:44; Status DC Insulin Human Regular (HumuLIN R VIAL) 10 unit 1X ONCE IV Last administered on 11/21/17at 20:55; Start 11/21/17 at 18:15; Stop 11/21/17 at 18:16; Status DC Potassium Chloride (KCl Oral Soln) 40 meq 1X ONCE NG Last administered on 11/21at 22:08; Start 11/21/17 at 18:15; Stop 11/21/17 at 18:16; Status DC Levetiracetam 500 mg/Dextrose 105 ml @ 420 mls/hr Q12HR IV Last administered on 11/25/17at 08:51; Start 11/21/17 at 21:00; Stop 11/25/17 at 09:26; Status DC Lorazepam (Ativan) 2 mg PRN Q4HRS PRN IV ANXIETY / AGITATION Last administered on 11/22/17at 12:12; Start 11/21/17 at 18:15 Thiamine HCl 100 mg/Dextrose 51 ml @ 102 mls/hr 1X STAT IV Last administered on 11/21/17at 18:33; Start 11/21/17 at 18:11; Stop 11/21/17 at 18:40; Status DC Vancomycin HCl 2 gm/Sodium Chloride 500 ml @ 250 mls/hr 1X ONCE IV Last administered on 11/21/17at 20:52; Start 11/21/17 at 19:00; Stop 11/21/17 at 20:59 ; Status DC Etomidate (Amidate) 20 mg STK-MED ONCE IV ; Start 11/21/17 at 19:04; Stop at 19:05; Status DC Succinylcholine Chloride (Anectine) 200 mg STK-MED ONCE .ROUTE ; Start 11/21/17 at 19:05; Stop 11/21/17 at 19:06; Status DC Propofol 50 ml @ As Directed STK-MED ONCE IV ; Start 11/21/17 at 19:38; Stop 12/29 at 19:39; Status DC Etomidate (Amidate) 20 mg 1X ONCE IV Last administered on 11/21/17at 17:01; Start 11/21/17 at 20:00; Stop 11/21/17 at 20:01; Status DC Succinylcholine Chloride (Anectine) 100 mg 1X ONCE IV Last administered on 12/29at 17:01; Start 11/21/17 at 20:00; Stop 11/21/17 at 20:01; Status DC Midazolam HCl (Versed) 5 mg 1X ONCE IV Last administered on 11/21/17at 17:39; Start 11/21/17 at 20:00; Stop 11/21/17 at 20:01; Status DC Vancomycin HCl 1.5 gm/Sodium Chloride 500 ml @ 250 mls/hr Q12H IV Last administered on 11/22/17at 09:56; Start 11/22/17 at 09:00; Stop 11/22/17 at 11:03 ; Status DC Fentanyl Citrate 30 ml @ 0 mls/hr CONT PRN IV PER PROTOCOL; Start 11/21/17 at 22:00; Stop 11/25/17 at 09:23; Status DC Propofol 100 ml @ 0 mls/hr CONT PRN IV PER PROTOCOL Last administered on at 06:42; Start 11/21/17 at 22:00; Stop 11/25/17 at 09:23; Status DC Chlorhexidine Gluconate (Peridex) 15 ml BID MM Last administered on 11/23/17at 08:33; Start 11/22/17 at 09:00; Stop 11/23/17 at 20:47; Status DC Famotidine (Pepcid Vial) 20 mg BID IVP Last administered on 11/25/17at 08:51; Start 11/22/17 at 09:00; Stop 11/25/17 at 09:23; Status DC Enoxaparin Sodium (Lovenox Per Pharmacy Prophylaxis Dosing) 1 each PRN DAILY PRN MC SEE COMMENTS; Start 11/22/17 at 09:30; Stop 11/25/17 at 09:25; Status DC Enoxaparin Sodium (Lovenox 40mg Syringe) 40 mg Q24H SQ Last administered on at 12:41; Start 11/22/17 at 10:00; Stop 11/25/17 at 09:23; Status DC Iohexol (Omnipaque 300 Mg/ml) 75 ml 1X ONCE IV Last administered on 11/22/17at 10:45; Start 11/22/17 at 10:45; Stop 11/22/17 at 10:46; Status DC Info (CONTRAST GIVEN -- Rx MONITORING) 1 each PRN DAILY PRN MC SEE COMMENTS; Start 11/22/17 at 11:00; Stop 11/24/17 at 10:59; Status DC Iohexol (Omnipaque 300 Mg/ml) 100 ml STK-MED ONCE .ROUTE ; Start 11/22/17 at 10: 45; Stop 11/22/17 at 10:46; Status DC Vancomycin HCl 1.5 gm/Sodium Chloride 500 ml @ 250 mls/hr Q12H IV Last administered on 11/22/17at 22:24; Start 11/22/17 at 22:00; Stop 11/23/17 at 10:01 ; Status DC Vancomycin HCl (Vancomycin Trough Level) 1 each 1X ONCE MC Last administered on 11/23/17at 09:30; Start 11/23/17 at 09:30; Stop 11/23/17 at 09:31; Status DC Piperacillin Sod/ Tazobactam Sod 3.375 gm/Sodium Chloride 50 ml @ 100 mls/hr Q6HRS IV Last administered on 11/25/17at 05:42; Start 11/22/17 at 12:00 Insulin Human Lispro (HumaLOG) 0-5 UNITS Q6HRS SQ Last administered on at 05:34; Start 11/22/17 at 18:00; Stop 11/24/17 at 08:58; Status DC Dextrose (Dextrose 50%-Water Syringe) 12.5 gm PRN Q15MIN PRN IV SEE COMMENTS; Start 11/22/17 at 12:45 Fentanyl Citrate (Fentanyl 2ml Vial) 25 mcg PRN Q5MIN PRN IV MILD PAIN; Start 11/23/17 at 07:00; Stop 11/24/17 at 06:59; Status DC Fentanyl Citrate (Fentanyl 2ml Vial) 50 mcg PRN Q5MIN PRN IV MODERATE TO SEVERE PAIN; Start 11/23/17 at 07:00; Stop 11/24/17 at 06:59; Status DC Morphine Sulfate (Morphine Sulfate) 1 mg PRN Q10MIN PRN IV SEVERE PAIN; Start 11/23/17 at 07:00; Stop 11/24/17 at 06:59; Status DC Ringer's Solution 1,000 ml @ 30 mls/hr Q24H IV ; Start 11/23/17 at 07:00; Stop 11/23/17 at 18:59; Status DC Lidocaine HCl (Xylocaine-Mpf 1% 2ml Vial) 2 ml PRN 1X PRN ID IV START; Start at 07:00; Stop 11/24/17 at 06:59; Status DC Hydromorphone HCl (Dilaudid) 0.5 mg PRN Q10MIN PRN IV SEV PAIN, Second choice; Start 11/23/17 at 07:00; Stop 11/24/17 at 06:59; Status DC Prochlorperazine Edisylate (Compazine) 5 mg PACU PRN PRN IV NAUSEA, MRX1; Start 11/23/17 at 07:00; Stop 11/24/17 at 06:59; Status DC Bacitracin 62014 unit/Sodium Chloride 500 ml @ 500 mls/hr 1X ONCE IRR Last administered on 11/23/17at 13:32; Start 11/23/17 at 06:00; Stop 11/23/17 at 06:59 ; Status DC Potassium Chloride/Water 50 ml @ 50 mls/hr 1X ONCE IV Last administered on 02/28at 07:58; Start 11/23/17 at 08:00; Stop 11/23/17 at 08:59; Status DC Vancomycin HCl 1.5 gm/Sodium Chloride 500 ml @ 250 mls/hr Q8H IV Last administered on 11/24/17at 02:00; Start 11/23/17 at 10:30; Stop 11/24/17 at 10:40 ; Status DC Vancomycin HCl (Vancomycin Trough Level) 1 each 1X ONCE MC Last administered on 11/24/17at 10:00; Start 11/24/17 at 10:00; Stop 11/24/17 at 10:01; Status DC Rocuronium [place] (Zemuron) 50 mg STK-MED ONCE .ROUTE ; Start 11/23/17 at 13:30 ; Stop 11/23/17 at 13:31; Status DC Sevoflurane (Ultane) 30 ml STK-MED ONCE IH ; Start 11/23/17 at 14:00; Stop 11/23 at 14:01; Status DC Labetalol HCl (Normodyne Iv Push) 20 mg PRN Q6HRS PRN IVP HYPERTENSION, SEE COMMENTS Last administered on 11/24/17at 09:46; Start 11/23/17 at 18:00 Acetaminophen/ Hydrocodone Bitart (Lortab 5/325) 1 tab PRN Q4HRS PRN PO MODERATE PAIN Last administered on 11/24/17at 10:02; Start 11/23/17 at 21:45 Acetaminophen/ Hydrocodone Bitart (Lortab 10/325) 1 tab PRN Q4HRS PRN PO SEVERE PAIN Last administered on 11/24/17at 20:47; Start 11/23/17 at 21:45 Insulin Human Lispro (HumaLOG) 0-5 UNITS TIDAC SQ Last administered on at 09:30; Start 11/24/17 at 09:00; Stop 11/24/17 at 10:40; Status DC Insulin Human Lispro (HumaLOG) 10 units BIDWMEALS SQ ; Start 11/24/17 at 17:00; Stop 11/24/17 at 17:00; Status DC Vancomycin HCl 2 gm/Sodium Chloride 500 ml @ 250 mls/hr Q8H IV ; Start at 11:00; Status Cancel Vancomycin HCl 1.75 gm/Sodium Chloride 500 ml @ 250 mls/hr Q8H IV Last administered on 11/25/17at 03:23; Start 11/24/17 at 11:00 Insulin Human Lispro (HumaLOG) 8 units 1X ONCE SQ Last administered on at 12:44; Start 11/24/17 at 12:15; Stop 11/24/17 at 12:16; Status DC Insulin Human Lispro (HumaLOG) 0-5 UNITS TIDAC SQ Last administered on at 08:57; Start 11/24/17 at 16:30; Stop 11/25/17 at 09:22; Status DC Insulin Human Lispro (HumaLOG) 10 units BIDWMEALS SQ Last administered on at 08:56; Start 11/24/17 at 17:00 Vancomycin HCl (Vancomycin Trough Level) 1 each 1X ONCE MC ; Start 11/26/17 at 10:30; Stop 11/26/17 at 10:31 Lactobacillus Rhamnosus (Culturelle) 1 cap BID PO Last administered on at 08:50; Start 11/24/17 at 21:00 Insulin Human Lispro (HumaLOG) 0-9 UNITS TIDWMEALS SQ ; Start 11/25/17 at 12:00 Dextrose (Dextrose 50%-Water Syringe) 12.5 gm PRN Q15MIN PRN IV SEE COMMENTS; Start 11/25/17 at 09:30; Stop 11/25/17 at 09:30; Status DC Famotidine (Pepcid) 20 mg BID PO ; Start 11/25/17 at 21:00 Levetiracetam (Keppra) 500 mg BID PO ; Start 11/25/17 at 21:00 Alprazolam (Xanax) 0.25 mg PRN Q8HRS PRN PO ANXIETY / AGITATION; Start at 09:30 Active Scripts Active Reported Novolin N (Nph, Human Insulin Isophane) 100 Unit/1 Ml Vial 12 Unit SQ BIDWMEALS Vitals/I & O Vital Sign - Last 24 Hours 11/24/17 11/24/17 11/24/17 11/24/17 11:00 11:09 12:00 12:00 Pulse 80 78 Resp 18 16 B/P (MAP) 116/56 (76) 153/57 (89) Pulse Ox 92 96 95 O2 Delivery Room Air Room Air Room Air Room Air O2 Flow Rate 2.0 11/24/17 11/24/17 11/24/17 11/24/17 13:00 14:00 14:38 15:00 Pulse 88 80 80 Resp 16 15 16 16 B/P (MAP) 208/94 (132) 151/71 (97) 154/75 (101) Pulse Ox 96 92 95 96 O2 Delivery Room Air Room Air Room Air Room Air 11/24/17 11/24/17 11/24/17 11/24/17 15:52 16:00 16:00 18:08 Temp 98.4 98.4 Pulse 77 80 Resp 16 15 15 B/P (MAP) 143/72 (95) 144/84 (104) Pulse Ox 95 96 96 O2 Delivery Room Air Room Air Room Air 11/24/17 11/24/17 11/24/17 11/24/17 20:00 20:01 20:47 21:47 Temp 97.5 97.5 Pulse 81 Resp 16 B/P (MAP) 145/68 (93) Pulse Ox 97 O2 Delivery Room Air Room Air Room Air Room Air O2 Flow Rate 2.0 11/25/17 11/25/17 11/25/17 00:33 04:04 07:42 Temp 97.6 98.3 98.3 97.6 98.3 98.3 Pulse 71 80 82 Resp 16 16 20 B/P (MAP) 135/68 (90) 166/73 (104) 153/80 (104) Pulse Ox 90 95 95 O2 Delivery Room Air Room Air Room Air Intake and Output 11/24/17 11/24/17 11/25/17 15:00 23:00 07:00 Output Total 455 ml 300 ml 400 ml Balance -455 ml -300 ml -400 ml JOSHUA MOSES MD Nov 25, 2017 10:41
--- NOTE | 2017-11-25 11:17 | PDOC ---
Infectious Disease Note Subjective Subjective extubated , awake , says feeling good ROS ROS no n/v/d/sob Vital Sign Vital Signs Vital Signs Date Time Temp Pulse Resp B/P (MAP) Pulse Ox O2 Delivery O2 Flow Rate FiO2 11/25/17 11:12 98.7 87 20 157/74 (101) 95 Room Air 98.7 11/24/17 20:00 2.0 Physical Exam PHYSICAL EXAM GENERAL: awake, not in distress. VITAL SIGNS: Stable, HEENT: NAD. NECK: Supple, no JVP, no lymphadenopathy. LUNGS: Clear. HEART: S1, S2 regular. ABDOMEN: Benign. EXTREMITIES: Some pitting edema present. The patient does have extensive infection of the right foot at the first metatarsophalangeal joint area with lopez pus coming and appears to have a destroyed bone. The patient does have a similar area on the left foot ulcer, which appears to be not as bad as the right one. The patient had been moving all the extremities before his intubation. NEUROLOGIC: A and O x 3, no focal deficit Labs Lab Laboratory Tests Test 11/24/17 11:58 11/24/17 16:52 11/25/17 04:00 11/25/17 04:10 Glucose (Fingerstick) 250 mg/dL (70-99) 207 mg/dL (70-99) Sodium Level 140 mmol/L (136-145) Potassium Level 3.5 mmol/L (3.5-5.1) Chloride Level 104 mmol/L (98-107) Carbon Dioxide Level 27 mmol/L (21-32) Anion Gap 9 (6-14) Blood Urea Nitrogen 7 mg/dL (8-26) Creatinine 0.7 mg/dL (0.7-1.3) Estimated GFR (Cockcroft-Gault) 115.0 Glucose Level 254 mg/dL (70-99) Calcium Level 8.0 mg/dL (8.5-10.1) White Blood Count 7.9 x10^3/uL (4.0-11.0) Red Blood Count 3.95 x10^6/uL (4.30-5.70) Hemoglobin 11.7 g/dL (13.0-17.5) Hematocrit 34.5 % (39.0-53.0) Mean Corpuscular Volume 87 fL (79-100) Mean Corpuscular Hemoglobin 30 pg (25-35) Mean Corpuscular Hemoglobin Concent 34 g/dL (31-37) Red Cell Distribution Width 13.2 % (11.5-14.5) Platelet Count 399 x10^3/uL (140-400) Neutrophils (%) (Auto) 66 % (31-73) Lymphocytes (%) (Auto) 21 % (24-48) Monocytes (%) (Auto) 9 % (0-9) Eosinophils (%) (Auto) 4 % (0-3) Basophils (%) (Auto) 1 % (0-3) Neutrophils # (Auto) 5.2 x10^3uL (1.8-7.7) Lymphocytes # (Auto) 1.6 x10^3/uL (1.0-4.8) Monocytes # (Auto) 0.7 x10^3/uL (0.0-1.1) Eosinophils # (Auto) 0.3 x10^3/uL (0.0-0.7) Basophils # (Auto) 0.0 x10^3/uL (0.0-0.2) Test 11/25/17 07:27 Glucose (Fingerstick) 243 mg/dL (70-99) Micro ANAEROBIC-AEROBIC CULTURE Preliminary Preliminary report ANAEROBIC RES 1 Preliminary Comment No anaerobes recovered in 24 hours. AEROBIC CULT Preliminary Preliminary report AEROBIC RES 1 Preliminary Staphylococcus aureus 3+ GRAM STAIN Final Final report GRAM STAIN RES 1 Final Comment Few gram positive cocci in pairs, chains, and clusters GRAM STAIN RES 2 Final Comment Rare gram negative rods. GRAM STAIN RES 3 Final Comment No white blood cells seen. Performed at: - [facility], [place], [place] [id number] [facility]: MALGORZATA Keith MD, Phone: [phone] Objective Assessment 1. Extensive right diabetic foot infection with osteomyelitis s/p left foot debridement, rt [address] st ray amputation 2. Left foot also there is an ulcer with arthropathy. 3. Seizure. 4. Leukocytosis. 5 Respiratory failure. 6. Diabetes with poor control. Plan Plan of Care vanc and zosyn supportive care check cultures EMILIANO OLIVEIRA MD Nov 25, 2017 11:17
[2017-11-25] MEDS: VANCOMYCIN PER PHARMACY MC PRN (12:04)
--- NOTE | 2017-11-25 15:52 | PDOC ---
PROGRESS NOTES Assessment Assessment Seizure, provoked by metabolic disturbances. Metabolic encephalopathy. Respiratory failure, acute. Hyperglycemia, glucose level 490 mg/dlL on 11/21. UTI. DM, not well controlled. HTN. 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 Chronic cellulitis, LE. Ulcers in toes s/p right toe amputation in this hospitalization. Obesity. RECOMMENDATIONS/PLAN: Decrease Keppra to 250 mg bid x 1 week, then stop. Control hyperglycemia. Treat medical diseases. FU with PCP for toe ulcers s/p surgery. Prevent DVT. No anticoagulant at the present time due to risk of aneurysm hemorrhage. See Neurosurgery at [facility] per instructions. HISTORY OF THE PRESENT ILLNESS: This 62-y-old male patient with Hx of DM on Insulin per history of the patient suddenly LOC and had a seizure as convulsion during work. EMS was called and he was brought to the ER of [facility] and was found hyperglycemia and his glucose level was 490 mg/dl. No history of seizure in the past. PAST MEDICAL HISTORY: DM. PAST SURGERY HISTORY: No major surgery recently. ALLERGY: Unknown MEDICATIONS: Refer to [facility] HISTORY: Non contributory. SOCIAL HISTORY: He works at [employer]. Unknown his history of substance or drugs. REVIEW OF SYSTEMS: Constitutional: Obese. Head: No traumatic brain or head injury. Skin: No edema, or rash. Ear: No infection. Eyes: No vision loss or color blindness. Nose: No bleeding or purulent discharges. Hearing: No hearing decrease. Neck: No injury. Cardiac: HTN. Pulmonary: No COPD. GI: No GI ulcer, GI bleeding. Urinary/genital: UTI. Endocrinologic: Diabetes Mellitus, obesity. Skeletomuscular: No muscular atrophy, deformity. Neurological: see HP. Psychiatric: Unknown drug use/abuse. Otherwise, not [id number] review of systems. PHYSICAL EXAMINATION: General appearance is in subacute distress. HEENT: Normocephalic and nontraumatic. Eyes, nose, ears, and throat are unremarkable. Neck is supple. No lymphadenopathy. No bruits are heard over the carotid artery. No crepitus. Cardiovascular: S1, S2, regular rate and rhythm. Pulmonary: On event. Abdomen: Bowel sounds are positive. Extremities: Wounds in LE. No restriction of range of motion NEUROLOGICAL EXAMINATION: Awake. Oriented to time, place and person. PERRL. EOMI. CN: no focal findings. Muscle tone: within normal. Muscle strength: 4+ DTR: 1-2 Plantar reflex: Neutral response bilaterally Gait: Not examined. Sensory exam: no abnormal findings. No cerebellar signs elicited. F-T-N test fine. Objective Objective Vital Signs Date Time Temp Pulse Resp B/P (MAP) Pulse Ox O2 Delivery O2 Flow Rate FiO2 11/25/17 15:10 98.2 83 20 166/77 (106) 96 Room Air 98.2 11/24/17 20:00 2.0 Intake and Output 11/25/17 07:00 Output Total 1155 ml Balance -1155 ml Output Urine Total 1155 ml Vitals Signs Vitals VS - Last 72 Hours, by Label Date Time Temp Pulse Resp B/P (MAP) Pulse Ox O2 Delivery O2 Flow Rate FiO2 11/25/17 15:10 98.2 83 20 166/77 (106) 96 Room Air 98.2 11/25/17 11:12 98.7 87 20 157/74 (101) 95 Room Air 98.7 11/25/17 08:00 Room Air 11/25/17 07:42 98.3 82 20 153/80 (104) 95 Room Air 98.3 11/25/17 04:04 98.3 80 16 166/73 (104) 95 Room Air 98.3 11/25/17 00:33 97.6 71 16 135/68 (90) 90 Room Air 97.6 11/24/17 21:47 Room Air 11/24/17 20:47 Room Air 11/24/17 20:01 97.5 81 16 145/68 (93) 97 Room Air 97.5 11/24/17 20:00 Room Air 2.0 11/24/17 18:08 80 15 144/84 (104) 96 Room Air 11/24/17 16:00 Room Air 11/24/17 16:00 98.4 77 15 143/72 (95) 96 Room Air 98.4 11/24/17 15:52 16 95 11/24/17 15:00 80 16 154/75 (101) 96 Room Air 11/24/17 14:38 16 95 Room Air 11/24/17 14:00 80 15 151/71 (97) 92 Room Air 11/24/17 13:00 88 16 208/94 (132) 96 Room Air 11/24/17 12:00 Room Air 11/24/17 12:00 78 16 153/57 (89) 95 Room Air 11/24/17 11:09 96 Room Air 2.0 11/24/17 11:00 80 18 116/56 (76) 92 Room Air 11/24/17 10:02 18 96 Room Air 11/24/17 10:00 86 16 140/62 (88) 98 Room Air 11/24/17 09:46 85 169/86 11/24/17 09:00 82 20 169/86 (113) 97 Room Air 11/24/17 08:00 Room Air 11/24/17 08:00 98.6 78 18 152/73 (99) 97 Room Air 98.6 11/24/17 07:00 77 15 140/58 (85) 100 Room Air Laboratory Laboratory Laboratory Tests Test 11/24/17 16:52 11/25/17 04:00 11/25/17 04:10 11/25/17 07:27 Glucose (Fingerstick) 207 mg/dL (70-99) 243 mg/dL (70-99) Sodium Level 140 mmol/L (136-145) Potassium Level 3.5 mmol/L (3.5-5.1) Chloride Level 104 mmol/L (98-107) Carbon Dioxide Level 27 mmol/L (21-32) Anion Gap 9 (6-14) Blood Urea Nitrogen 7 mg/dL (8-26) Creatinine 0.7 mg/dL (0.7-1.3) Estimated GFR (Cockcroft-Gault) 115.0 Glucose Level 254 mg/dL (70-99) Calcium Level 8.0 mg/dL (8.5-10.1) White Blood Count 7.9 x10^3/uL (4.0-11.0) Red Blood Count 3.95 x10^6/uL (4.30-5.70) Hemoglobin 11.7 g/dL (13.0-17.5) Hematocrit 34.5 % (39.0-53.0) Mean Corpuscular Volume 87 fL (79-100) Mean Corpuscular Hemoglobin 30 pg (25-35) Mean Corpuscular Hemoglobin Concent 34 g/dL (31-37) Red Cell Distribution Width 13.2 % (11.5-14.5) Platelet Count 399 x10^3/uL (140-400) Neutrophils (%) (Auto) 66 % (31-73) Lymphocytes (%) (Auto) 21 % (24-48) Monocytes (%) (Auto) 9 % (0-9) Eosinophils (%) (Auto) 4 % (0-3) Basophils (%) (Auto) 1 % (0-3) Neutrophils # (Auto) 5.2 x10^3uL (1.8-7.7) Lymphocytes # (Auto) 1.6 x10^3/uL (1.0-4.8) Monocytes # (Auto) 0.7 x10^3/uL (0.0-1.1) Eosinophils # (Auto) 0.3 x10^3/uL (0.0-0.7) Basophils # (Auto) 0.0 x10^3/uL (0.0-0.2) Test 11/25/17 11:42 Glucose (Fingerstick) 217 mg/dL (70-99) Microbiology 11/21/17 Blood Culture - Preliminary, Resulted NO GROWTH AFTER 3 DAYS 11/21/17 Urine Culture - Final, Complete 11/21/17 Urine Culture Result 1 (GIUSEPPE) - Final, Complete 11/21/17 Anaerobic/Aerobic Culture - Preliminary, Resulted 11/21/17 Anaerobic Culture Result 1 (GIUSEPPE) - Preliminary, Resulted 11/21/17 Aerobic Culture - Preliminary, Resulted 11/21/17 Aerobic Culture Result 1 (GIUSEPPE) - Preliminary, Resulted 11/21/17 Gram Stain - Final, Resulted 11/21/17 Gram Stain Result 1 (GIUSEPPE) - Final, Resulted 11/21/17 Gram Stain Result 2 (GIUSEPPE) - Final, Resulted 11/21/17 Gram Stain Result 3 (GIUSEPPE) - Final, Resulted Medication Medications Current Medications Alprazolam (Xanax) 0.25 mg PRN Q8HRS PRN PO ANXIETY / AGITATION; Start at 09:30 Dextrose (Dextrose 50%-Water Syringe) 12.5 gm PRN Q15MIN PRN IV SEE COMMENTS; Start 11/25/17 at 09:30; Stop 11/25/17 at 09:30; Status DC Famotidine (Pepcid) 20 mg BID PO ; Start 11/25/17 at 21:00 Insulin Human Lispro (HumaLOG) 0-5 UNITS TIDAC SQ Last administered on at 08:57; Start 11/24/17 at 16:30; Stop 11/25/17 at 09:22; Status DC Insulin Human Lispro (HumaLOG) 0-9 UNITS TIDWMEALS SQ Last administered on 11/25at 12:27; Start 11/25/17 at 12:00 Insulin Human Lispro (HumaLOG) 10 units BIDWMEALS SQ ; Start 11/24/17 at 17:00; Stop 11/24/17 at 17:00; Status DC Insulin Human Lispro (HumaLOG) 10 units BIDWMEALS SQ Last administered on at 08:56; Start 11/24/17 at 17:00 Lactobacillus Rhamnosus (Culturelle) 1 cap BID PO Last administered on at 08:50; Start 11/24/17 at 21:00 Levetiracetam (Keppra) 500 mg BID PO ; Start 11/25/17 at 21:00 Vancomycin HCl (Vancomycin Trough Level) 1 each 1X ONCE MC ; Start 11/26/17 at 10:30; Stop 11/26/17 at 10:31 Comment Review of Relevant I have reviewed the following items alta (where applicable) has been applied. POLLO ABDULLAHI MD Nov 25, 2017 15:52
[2017-11-25] MEDS: levETIRAcetam 500 MG TABLET PO SCH (20:31)
[2017-11-25] MEDS: FAMOTIDINE 20 MG TABLET. PO SCH (20:32)
[2017-11-25] MEDS ORDERED: levETIRAcetam 500 MG TABLET PO SCH (21:00)
[2017-11-25] MEDS ORDERED: levETIRAcetam 250 MG TABLET PO SCH (21:00)
[2017-11-26] MEDS: PIPERACILLIN/TAZOBACTAM 3.375 GM in IV NORMAL SALINE 50ML 50 ML IV SCH ×5 (01:06→23:41)
[2017-11-26 04:26] VITALS: BP 152/79
[2017-11-26] MEDS: VANCOMYCIN 1.75 GM in IV NORMAL SALINE 500ML BAG 500 ML IV SCH ×2 (04:26→11:10)
[2017-11-26 08:26] VITALS: BP 169/76
[2017-11-26] MEDS: LACTOBACILLUS RHAMNOSUS GG 1 CAPSULE. PO SCH ×2 (08:28→20:42)
[2017-11-26] MEDS: levETIRAcetam 500 MG TABLET PO SCH ×2 (08:28→20:42)
[2017-11-26] MEDS: FAMOTIDINE 20 MG TABLET. PO SCH ×2 (08:28→20:42)
[2017-11-26] MEDS: INSULIN LISPRO 300 UNITS/3 ML INSULN.PEN. SQ SCH ×5 (08:33→17:28)
[2017-11-26] MEDS ORDERED: LISINOPRIL 10 MG TABLET PO ONE (10:00)
[2017-11-26] MEDS: hydroCHLOROthiazide 25 MG TABLET PO SCH (10:11)
--- NOTE | 2017-11-26 10:14 | PDOC ---
Infectious Disease Note Subjective Subjective Feeling alright Says occasionally some mild pain right ankle Denies F/C/N/V/D ROS ROS per HPI otherwise negative Vital Sign Vital Signs Vital Signs Date Time Temp Pulse Resp B/P (MAP) Pulse Ox O2 Delivery O2 Flow Rate FiO2 11/26/17 08:26 99.0 107 18 169/76 (107) 94 Room Air 99.0 11/26/17 08:00 2.0 Physical Exam PHYSICAL EXAM GENERAL: Sitting on the side of the bed, NAD LUNGS: Clear. HEART: S1, S2 regular. ABDOMEN: Soft, NT EXTREMITIES: Wound vac in place bilat feet NEUROLOGIC: A and O x 3 SKIN: warm without rash PIVs ok Labs Lab Laboratory Tests Test 11/25/17 11:42 11/25/17 17:22 11/26/17 07:32 Glucose (Fingerstick) 217 mg/dL (70-99) 260 mg/dL (70-99) 316 mg/dL (70-99) Micro BLOOD CULTURE Preliminary NO GROWTH AFTER 4 DAYS AEROBIC RES 1 Preliminary Staphylococcus aureus 3+ Based on susceptibility to oxacillin this isolate would be susceptible to: *Penicillinase-stable penicillins, such as: Cloxacillin, Dicloxacillin, Nafcillin *Beta-lactam combination agents, such as: Amoxicillin-clavulanic acid, Ampicillin-sulbactam, Piperacillin-tazobactam *Oral cephems, such as: Cefaclor, Cefdinir, Cefpodoxime, Cefprozil, Cefuroxime, Cephalexin, Loracarbef *Parenteral cephems, such as: Cefazolin, Cefepime, Cefotaxime, Cefotetan, Ceftaroline, Ceftizoxime, Ceftriaxone, Cefuroxime *Carbapenems, such as: Doripenem, Ertapenem, Imipenem, Meropenem GRAM STAIN RES 1 Final (continued) Few gram positive cocci in pairs, chains, and clusters GRAM STAIN RES 2 Final Comment Rare gram negative rods. 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 Laws. MSSA and rare GNR that didn't grow Left foot ulcer with arthropathy - s/p debridement of necrotic skin, subcutaneous tissue and bone on 11/23 Seizure. Leukocytosis. Respiratory failure. Diabetes with poor control. Plan Plan of Care Anand Amado Monitor renal function closely Trough 11.7 Supportive care Attending Co-Sign The patient was seen and interviewed as well as examined at the bedside. The chart was reviewed. The case was discussed. Agree with the plan of care. LUKE TYLER APRN Nov 26, 2017 10:14 EMILIANO OLIVEIRA MD Nov 26, 2017 13:03
[2017-11-26 10:25] LABS: BASO # 0.1 x10^3/uL (0.0-0.2); BASO % 1 % (0-3); EOS # 0.2 x10^3/uL (0.0-0.7); EOS % 3 % (0-3); HEMATOCRIT 37.3 % (39.0-53.0); HEMOGLOBIN 12.8 g/dL (13.0-17.5); LYMPH % 13 % (24-48); MEAN CORPUSCULAR HEMOGLOBIN 30 pg (25-35); MEAN CORPUSCULAR HGB CONC 34 g/dL (31-37); MEAN CORPUSCULAR VOLUME 88 fL (79-100); MONO # 0.6 x10^3/uL (0.0-1.1); MONO % 7 % (0-9); NEUT # 5.9 x10^3uL (1.8-7.7); NEUT % 76 % (31-73); PLATELET COUNT 433 x10^3/uL (140-400); RED BLOOD COUNT 4.26 x10^6/uL (4.30-5.70); RED CELL DISTRIBUTION WIDTH 13.3 % (11.5-14.5); WHITE BLOOD COUNT 7.8 x10^3/uL (4.0-11.0)
[2017-11-26 10:42] LABS: CALCIUM 8.1 mg/dL (8.5-10.1); CREATININE 0.8 mg/dL (0.7-1.3); GFR 98.6; POTASSIUM 3.7 mmol/L (3.5-5.1)
[2017-11-26] MEDS: VANCOMYCIN PER PHARMACY MC PRN ×2 (11:03→11:11)
--- NOTE | 2017-11-26 12:24 | PDOC ---
PROGRESS NOTES Chief Complaint Chief Complaint Sepsis Osteomyelitis Seizure DM 2 Peripheral vascular disease Foot wound with indwelling wound vac s.p toe amputation Acom aneurysm SP History of Present Illness History of Present Illness TRansferred out of ICU 11/24/17 He has no complaints No weight-bear on fore foot bilateral legs as per vasc sx note He has a bilateral wound VAC. He is self-pay Vascular surgery recommends social work for charitable wound VAC Sounds like he needs to be a wound VAC even on discharge They are getting his special boot from the [facility] Neurosurgically [place], Neurosurgery has also arranged for outpatient neuro IR and he knows about this 2 issues today: blood pressure and blood sugar high He claims to me is not any blood pressure medications prior to admission He claims to me he's on 12 units about twice a day fast acting, no long-acting insulin UNknown [id number] PLAN: Continue by mouth Keppra Continue PPI Continue wound care wound VAC, pediatric social worker consulted for charitable wound VAC [facility] special boot Increase short-acting to 10 units 3 times a day from twice a day Start long-acting insulin 15 daily at bedtime Hemoglobin A1c still pending STart HCTZ lisinopril combo for BP in this DM VIt C if not yet on for wound healing Discussed with RN Will be here over the weekend until get charitable wound vac and special boot Vitals Vitals Vital Signs Date Time Temp Pulse Resp B/P (MAP) Pulse Ox O2 Delivery O2 Flow Rate FiO2 11/26/17 10:12 107 169/76 11/26/17 08:26 99.0 18 94 Room Air 99.0 11/26/17 08:00 2.0 Physical Exam Physical Exam GENERAL: Sitting on the side of the bed, NAD LUNGS: Clear. HEART: S1, S2 regular. ABDOMEN: Soft, NT EXTREMITIES: Wound vac in place bilat feet NEUROLOGIC: A and O x 3 SKIN: warm without rash PIVs ok General: Alert, Oriented X3, Cooperative, No acute distress Heart: Regular rate, Normal S1, Normal S2 Lungs: Clear Abdomen: Normal bowel sounds, Soft Extremities: No clubbing, Other (CDI bilateral legs) Skin: No rashes, Other (CDI dressings bilateral legs) Labs LABS Laboratory Tests Test 11/25/17 17:22 11/26/17 07:32 11/26/17 10:15 11/26/17 11:39 Glucose (Fingerstick) 260 mg/dL (70-99) 316 mg/dL (70-99) 225 mg/dL (70-99) White Blood Count 7.8 x10^3/uL (4.0-11.0) Red Blood Count 4.26 x10^6/uL (4.30-5.70) Hemoglobin 12.8 g/dL (13.0-17.5) Hematocrit 37.3 % (39.0-53.0) Mean Corpuscular Volume 88 fL (79-100) Mean Corpuscular Hemoglobin 30 pg (25-35) Mean Corpuscular Hemoglobin Concent 34 g/dL (31-37) Red Cell Distribution Width 13.3 % (11.5-14.5) Platelet Count 433 x10^3/uL (140-400) Neutrophils (%) (Auto) 76 % (31-73) Lymphocytes (%) (Auto) 13 % (24-48) Monocytes (%) (Auto) 7 % (0-9) Eosinophils (%) (Auto) 3 % (0-3) Basophils (%) (Auto) 1 % (0-3) Neutrophils # (Auto) 5.9 x10^3uL (1.8-7.7) Lymphocytes # (Auto) 1.0 x10^3/uL (1.0-4.8) Monocytes # (Auto) 0.6 x10^3/uL (0.0-1.1) Eosinophils # (Auto) 0.2 x10^3/uL (0.0-0.7) Basophils # (Auto) 0.1 x10^3/uL (0.0-0.2) Sodium Level 141 mmol/L (136-145) Potassium Level 3.7 mmol/L (3.5-5.1) Chloride Level 104 mmol/L (98-107) Carbon Dioxide Level 31 mmol/L (21-32) Anion Gap 6 (6-14) Blood Urea Nitrogen 8 mg/dL (8-26) Creatinine 0.8 mg/dL (0.7-1.3) Estimated GFR (Cockcroft-Gault) 98.6 Glucose Level 306 mg/dL (70-99) Calcium Level 8.1 mg/dL (8.5-10.1) Vancomycin Level Trough 16.0 mcg/mL (10.0-20.0) Vancomycin Last Dose Date 11/25/17 Vancomycin Last Dose Time 0300 Review of Systems Review of Systems A 14 point ROS was completed with the following noted as positive: Other systems reviewed and negative. \CONSTITUTIONAL: No fever or chills EYES: No recent changes SKIN: No rash or itching CARDIOVASCULAR: No chest pain, syncope, palpitations, or edema RESPIRATORY: No SOB or cough GASTROINTESTINAL: No nausea, vomiting or abdominal pain NEUROLOGICAL: No headaches or weakness ENDOCRINE: No cold or heat intolerance GENITOURINARY: No urgency or frequency of urination MUSCULOSKELETAL: No back pain or joint pain LYMPHATICS: No enlarged lymph nodes PSYCHIATRIC: No anxiety or depression Assessment and Plan Assessmemt and Plan Problems Medical Problems: (1) Seizure Status: Acute Comment Review of Relevant I have reviewed the following items alta (where applicable) has been applied. Labs Laboratory Tests Test 11/24/17 16:52 11/25/17 04:00 11/25/17 04:10 11/25/17 07:27 Glucose (Fingerstick) 207 mg/dL (70-99) 243 mg/dL (70-99) Sodium Level 140 mmol/L (136-145) Potassium Level 3.5 mmol/L (3.5-5.1) Chloride Level 104 mmol/L (98-107) Carbon Dioxide Level 27 mmol/L (21-32) Anion Gap 9 (6-14) Blood Urea Nitrogen 7 mg/dL (8-26) Creatinine 0.7 mg/dL (0.7-1.3) Estimated GFR (Cockcroft-Gault) 115.0 Glucose Level 254 mg/dL (70-99) Calcium Level 8.0 mg/dL (8.5-10.1) White Blood Count 7.9 x10^3/uL (4.0-11.0) Red Blood Count 3.95 x10^6/uL (4.30-5.70) Hemoglobin 11.7 g/dL (13.0-17.5) Hematocrit 34.5 % (39.0-53.0) Mean Corpuscular Volume 87 fL (79-100) Mean Corpuscular Hemoglobin 30 pg (25-35) Mean Corpuscular Hemoglobin Concent 34 g/dL (31-37) Red Cell Distribution Width 13.2 % (11.5-14.5) Platelet Count 399 x10^3/uL (140-400) Neutrophils (%) (Auto) 66 % (31-73) Lymphocytes (%) (Auto) 21 % (24-48) Monocytes (%) (Auto) 9 % (0-9) Eosinophils (%) (Auto) 4 % (0-3) Basophils (%) (Auto) 1 % (0-3) Neutrophils # (Auto) 5.2 x10^3uL (1.8-7.7) Lymphocytes # (Auto) 1.6 x10^3/uL (1.0-4.8) Monocytes # (Auto) 0.7 x10^3/uL (0.0-1.1) Eosinophils # (Auto) 0.3 x10^3/uL (0.0-0.7) Basophils # (Auto) 0.0 x10^3/uL (0.0-0.2) Test 11/25/17 11:42 11/25/17 17:22 11/26/17 07:32 11/26/17 10:15 Glucose (Fingerstick) 217 mg/dL (70-99) 260 mg/dL (70-99) 316 mg/dL (70-99) White Blood Count 7.8 x10^3/uL (4.0-11.0) Red Blood Count 4.26 x10^6/uL (4.30-5.70) Hemoglobin 12.8 g/dL (13.0-17.5) Hematocrit 37.3 % (39.0-53.0) Mean Corpuscular Volume 88 fL (79-100) Mean Corpuscular Hemoglobin 30 pg (25-35) Mean Corpuscular Hemoglobin Concent 34 g/dL (31-37) Red Cell Distribution Width 13.3 % (11.5-14.5) Platelet Count 433 x10^3/uL (140-400) Neutrophils (%) (Auto) 76 % (31-73) Lymphocytes (%) (Auto) 13 % (24-48) Monocytes (%) (Auto) 7 % (0-9) Eosinophils (%) (Auto) 3 % (0-3) Basophils (%) (Auto) 1 % (0-3) Neutrophils # (Auto) 5.9 x10^3uL (1.8-7.7) Lymphocytes # (Auto) 1.0 x10^3/uL (1.0-4.8) Monocytes # (Auto) 0.6 x10^3/uL (0.0-1.1) Eosinophils # (Auto) 0.2 x10^3/uL (0.0-0.7) Basophils # (Auto) 0.1 x10^3/uL (0.0-0.2) Sodium Level 141 mmol/L (136-145) Potassium Level 3.7 mmol/L (3.5-5.1) Chloride Level 104 mmol/L (98-107) Carbon Dioxide Level 31 mmol/L (21-32) Anion Gap 6 (6-14) Blood Urea Nitrogen 8 mg/dL (8-26) Creatinine 0.8 mg/dL (0.7-1.3) Estimated GFR (Cockcroft-Gault) 98.6 Glucose Level 306 mg/dL (70-99) Calcium Level 8.1 mg/dL (8.5-10.1) Vancomycin Level Trough 16.0 mcg/mL (10.0-20.0) Vancomycin Last Dose Date 11/25/17 Vancomycin Last Dose Time 0300 Test 11/26/17 11:39 Glucose (Fingerstick) 225 mg/dL (70-99) Laboratory Tests Test 11/25/17 17:22 11/26/17 07:32 11/26/17 10:15 11/26/17 11:39 Glucose (Fingerstick) 260 mg/dL (70-99) 316 mg/dL (70-99) 225 mg/dL (70-99) White Blood Count 7.8 x10^3/uL (4.0-11.0) Red Blood Count 4.26 x10^6/uL (4.30-5.70) Hemoglobin 12.8 g/dL (13.0-17.5) Hematocrit 37.3 % (39.0-53.0) Mean Corpuscular Volume 88 fL (79-100) Mean Corpuscular Hemoglobin 30 pg (25-35) Mean Corpuscular Hemoglobin Concent 34 g/dL (31-37) Red Cell Distribution Width 13.3 % (11.5-14.5) Platelet Count 433 x10^3/uL (140-400) Neutrophils (%) (Auto) 76 % (31-73) Lymphocytes (%) (Auto) 13 % (24-48) Monocytes (%) (Auto) 7 % (0-9) Eosinophils (%) (Auto) 3 % (0-3) Basophils (%) (Auto) 1 % (0-3) Neutrophils # (Auto) 5.9 x10^3uL (1.8-7.7) Lymphocytes # (Auto) 1.0 x10^3/uL (1.0-4.8) Monocytes # (Auto) 0.6 x10^3/uL (0.0-1.1) Eosinophils # (Auto) 0.2 x10^3/uL (0.0-0.7) Basophils # (Auto) 0.1 x10^3/uL (0.0-0.2) Sodium Level 141 mmol/L (136-145) Potassium Level 3.7 mmol/L (3.5-5.1) Chloride Level 104 mmol/L (98-107) Carbon Dioxide Level 31 mmol/L (21-32) Anion Gap 6 (6-14) Blood Urea Nitrogen 8 mg/dL (8-26) Creatinine 0.8 mg/dL (0.7-1.3) Estimated GFR (Cockcroft-Gault) 98.6 Glucose Level 306 mg/dL (70-99) Calcium Level 8.1 mg/dL (8.5-10.1) Vancomycin Level Trough 16.0 mcg/mL (10.0-20.0) Vancomycin Last Dose Date 11/25/17 Vancomycin Last Dose Time 0300 Microbiology 11/21/17 Blood Culture - Preliminary, Resulted NO GROWTH AFTER 4 DAYS 11/21/17 Urine Culture - Final, Complete 11/21/17 Urine Culture Result 1 (GIUSEPPE) - Final, Complete 11/21/17 Anaerobic/Aerobic Culture - Final, Resulted 11/21/17 Anaerobic Culture Result 1 (GIUSEPPE) - Final, Resulted 11/21/17 Aerobic Culture - Preliminary, Resulted 11/21/17 Aerobic Culture Result 1 (GIUSEPPE) - Preliminary, Resulted 11/21/17 Gram Stain - Final, Resulted 11/21/17 Gram Stain Result 1 (GIUSEPPE) - Final, Resulted 11/21/17 Gram Stain Result 2 (GIUSEPPE) - Final, Resulted 11/21/17 Gram Stain Result 3 (GIUSEPPE) - Final, Resulted Medications Current Medications Propofol 50 ml @ As Directed STK-MED ONCE IV ; Start 11/21/17 at 17:07; Stop 12/29 at 17:08; Status DC Midazolam HCl (Versed) 5 mg 1X ONCE NS Last administered on 11/21/17at 17:05; Start 11/21/17 at 17:15; Stop 11/21/17 at 17:16; Status DC Fentanyl Citrate (Fentanyl 2ml Vial) 100 mcg 1X ONCE IV Last administered on at 17:09; Start 11/21/17 at 17:15; Stop 11/21/17 at 17:16; Status DC Levetiracetam 1000 mg/Dextrose 110 ml @ 440 mls/hr 1X ONCE IV Last administered on 11/21/17at 17:25; Start 11/21/17 at 17:15; Stop 11/21/17 at 17:29 ; Status DC Sodium Chloride 1,000 ml @ 1,000 mls/hr 1X ONCE IV Last administered on at 19:39; Start 11/21/17 at 17:15; Stop 11/21/17 at 18:14; Status DC Propofol (Diprivan) 200 mg 1X ONCE IV Last administered on 11/21/17at 17:14; Start 11/21/17 at 17:15; Stop 11/21/17 at 17:16; Status DC Midazolam HCl (Versed) 5 mg 1X ONCE IV Last administered on 11/21/17at 19:20; Start 11/21/17 at 17:45; Stop 11/21/17 at 17:50; Status DC Sodium Chloride 1,000 ml @ 150 mls/hr Q6H40M IV Last administered on at 12:12; Start 11/21/17 at 18:15; Stop 11/22/17 at 18:14; Status DC Vancomycin HCl (Vanco Per Pharmacy) 1 each PRN DAILY PRN MC SEE COMMENTS Last administered on 11/26/17at 11:11; Start 11/21/17 at 18:00 Piperacillin Sod/ Tazobactam Sod 3.375 gm/Sodium Chloride 50 ml @ 100 mls/hr 1X ONCE IV Last administered on 11/21/17at 19:04; Start 11/21/17 at 18:15; Stop 11/21/17 at 18:44; Status DC Insulin Human Regular (HumuLIN R VIAL) 10 unit 1X ONCE IV Last administered on 11/21/17at 20:55; Start 11/21/17 at 18:15; Stop 11/21/17 at 18:16; Status DC Potassium Chloride (KCl Oral Soln) 40 meq 1X ONCE NG Last administered on 11/21at 22:08; Start 11/21/17 at 18:15; Stop 11/21/17 at 18:16; Status DC Levetiracetam 500 mg/Dextrose 105 ml @ 420 mls/hr Q12HR IV Last administered on 11/25/17at 08:51; Start 11/21/17 at 21:00; Stop 11/25/17 at 09:26; Status DC Lorazepam (Ativan) 2 mg PRN Q4HRS PRN IV ANXIETY / AGITATION Last administered on 11/22/17at 12:12; Start 11/21/17 at 18:15 Thiamine HCl 100 mg/Dextrose 51 ml @ 102 mls/hr 1X STAT IV Last administered on 11/21/17at 18:33; Start 11/21/17 at 18:11; Stop 11/21/17 at 18:40; Status DC Vancomycin HCl 2 gm/Sodium Chloride 500 ml @ 250 mls/hr 1X ONCE IV Last administered on 11/21/17at 20:52; Start 11/21/17 at 19:00; Stop 11/21/17 at 20:59 ; Status DC Etomidate (Amidate) 20 mg STK-MED ONCE IV ; Start 11/21/17 at 19:04; Stop at 19:05; Status DC Succinylcholine Chloride (Anectine) 200 mg STK-MED ONCE .ROUTE ; Start 11/21/17 at 19:05; Stop 11/21/17 at 19:06; Status DC Propofol 50 ml @ As Directed STK-MED ONCE IV ; Start 11/21/17 at 19:38; Stop 12/29 at 19:39; Status DC Etomidate (Amidate) 20 mg 1X ONCE IV Last administered on 11/21/17at 17:01; Start 11/21/17 at 20:00; Stop 11/21/17 at 20:01; Status DC Succinylcholine Chloride (Anectine) 100 mg 1X ONCE IV Last administered on 12/29at 17:01; Start 11/21/17 at 20:00; Stop 11/21/17 at 20:01; Status DC Midazolam HCl (Versed) 5 mg 1X ONCE IV Last administered on 11/21/17at 17:39; Start 11/21/17 at 20:00; Stop 11/21/17 at 20:01; Status DC Vancomycin HCl 1.5 gm/Sodium Chloride 500 ml @ 250 mls/hr Q12H IV Last administered on 11/22/17at 09:56; Start 11/22/17 at 09:00; Stop 11/22/17 at 11:03 ; Status DC Fentanyl Citrate 30 ml @ 0 mls/hr CONT PRN IV PER PROTOCOL; Start 11/21/17 at 22:00; Stop 11/25/17 at 09:23; Status DC Propofol 100 ml @ 0 mls/hr CONT PRN IV PER PROTOCOL Last administered on at 06:42; Start 11/21/17 at 22:00; Stop 11/25/17 at 09:23; Status DC Chlorhexidine Gluconate (Peridex) 15 ml BID MM Last administered on 11/23/17at 08:33; Start 11/22/17 at 09:00; Stop 11/23/17 at 20:47; Status DC Famotidine (Pepcid Vial) 20 mg BID IVP Last administered on 11/25/17at 08:51; Start 11/22/17 at 09:00; Stop 11/25/17 at 09:23; Status DC Enoxaparin Sodium (Lovenox Per Pharmacy Prophylaxis Dosing) 1 each PRN DAILY PRN MC SEE COMMENTS; Start 11/22/17 at 09:30; Stop 11/25/17 at 09:25; Status DC Enoxaparin Sodium (Lovenox 40mg Syringe) 40 mg Q24H SQ Last administered on at 12:41; Start 11/22/17 at 10:00; Stop 11/25/17 at 09:23; Status DC Iohexol (Omnipaque 300 Mg/ml) 75 ml 1X ONCE IV Last administered on 11/22/17at 10:45; Start 11/22/17 at 10:45; Stop 11/22/17 at 10:46; Status DC Info (CONTRAST GIVEN -- Rx MONITORING) 1 each PRN DAILY PRN MC SEE COMMENTS; Start 11/22/17 at 11:00; Stop 11/24/17 at 10:59; Status DC Iohexol (Omnipaque 300 Mg/ml) 100 ml STK-MED ONCE .ROUTE ; Start 11/22/17 at 10: 45; Stop 11/22/17 at 10:46; Status DC Vancomycin HCl 1.5 gm/Sodium Chloride 500 ml @ 250 mls/hr Q12H IV Last administered on 11/22/17at 22:24; Start 11/22/17 at 22:00; Stop 11/23/17 at 10:01 ; Status DC Vancomycin HCl (Vancomycin Trough Level) 1 each 1X ONCE MC Last administered on 11/23/17at 09:30; Start 11/23/17 at 09:30; Stop 11/23/17 at 09:31; Status DC Piperacillin Sod/ Tazobactam Sod 3.375 gm/Sodium Chloride 50 ml @ 100 mls/hr Q6HRS IV Last administered on 11/26/17at 06:46; Start 11/22/17 at 12:00 Insulin Human Lispro (HumaLOG) 0-5 UNITS Q6HRS SQ Last administered on at 05:34; Start 11/22/17 at 18:00; Stop 11/24/17 at 08:58; Status DC Dextrose (Dextrose 50%-Water Syringe) 12.5 gm PRN Q15MIN PRN IV SEE COMMENTS; Start 11/22/17 at 12:45 Fentanyl Citrate (Fentanyl 2ml Vial) 25 mcg PRN Q5MIN PRN IV MILD PAIN; Start 11/23/17 at 07:00; Stop 11/24/17 at 06:59; Status DC Fentanyl Citrate (Fentanyl 2ml Vial) 50 mcg PRN Q5MIN PRN IV MODERATE TO SEVERE PAIN; Start 11/23/17 at 07:00; Stop 11/24/17 at 06:59; Status DC Morphine Sulfate (Morphine Sulfate) 1 mg PRN Q10MIN PRN IV SEVERE PAIN; Start 11/23/17 at 07:00; Stop 11/24/17 at 06:59; Status DC Ringer's Solution 1,000 ml @ 30 mls/hr Q24H IV ; Start 11/23/17 at 07:00; Stop 11/23/17 at 18:59; Status DC Lidocaine HCl (Xylocaine-Mpf 1% 2ml Vial) 2 ml PRN 1X PRN ID IV START; Start at 07:00; Stop 11/24/17 at 06:59; Status DC Hydromorphone HCl (Dilaudid) 0.5 mg PRN Q10MIN PRN IV SEV PAIN, Second choice; Start 11/23/17 at 07:00; Stop 11/24/17 at 06:59; Status DC Prochlorperazine Edisylate (Compazine) 5 mg PACU PRN PRN IV NAUSEA, MRX1; Start 11/23/17 at 07:00; Stop 11/24/17 at 06:59; Status DC Bacitracin 76372 unit/Sodium Chloride 500 ml @ 500 mls/hr 1X ONCE IRR Last administered on 11/23/17at 13:32; Start 11/23/17 at 06:00; Stop 11/23/17 at 06:59 ; Status DC Potassium Chloride/Water 50 ml @ 50 mls/hr 1X ONCE IV Last administered on 02/28at 07:58; Start 11/23/17 at 08:00; Stop 11/23/17 at 08:59; Status DC Vancomycin HCl 1.5 gm/Sodium Chloride 500 ml @ 250 mls/hr Q8H IV Last administered on 11/24/17at 02:00; Start 11/23/17 at 10:30; Stop 11/24/17 at 10:40 ; Status DC Vancomycin HCl (Vancomycin Trough Level) 1 each 1X ONCE MC Last administered on 11/24/17at 10:00; Start 11/24/17 at 10:00; Stop 11/24/17 at 10:01; Status DC Rocuronium [place] (Zemuron) 50 mg STK-MED ONCE .ROUTE ; Start 11/23/17 at 13:30 ; Stop 11/23/17 at 13:31; Status DC Sevoflurane (Ultane) 30 ml STK-MED ONCE IH ; Start 11/23/17 at 14:00; Stop 11/23 at 14:01; Status DC Labetalol HCl (Normodyne Iv Push) 20 mg PRN Q6HRS PRN IVP HYPERTENSION, SEE COMMENTS Last administered on 11/24/17at 09:46; Start 11/23/17 at 18:00 Acetaminophen/ Hydrocodone Bitart (Lortab 5/325) 1 tab PRN Q4HRS PRN PO MODERATE PAIN Last administered on 11/24/17at 10:02; Start 11/23/17 at 21:45 Acetaminophen/ Hydrocodone Bitart (Lortab 10/325) 1 tab PRN Q4HRS PRN PO SEVERE PAIN Last administered on 11/24/17at 20:47; Start 11/23/17 at 21:45 Insulin Human Lispro (HumaLOG) 0-5 UNITS TIDAC SQ Last administered on at 09:30; Start 11/24/17 at 09:00; Stop 11/24/17 at 10:40; Status DC Insulin Human Lispro (HumaLOG) 10 units BIDWMEALS SQ ; Start 11/24/17 at 17:00; Stop 11/24/17 at 17:00; Status DC Vancomycin HCl 2 gm/Sodium Chloride 500 ml @ 250 mls/hr Q8H IV ; Start at 11:00; Status Cancel Vancomycin HCl 1.75 gm/Sodium Chloride 500 ml @ 250 mls/hr Q8H IV Last administered on 11/26/17at 11:10; Start 11/24/17 at 11:00 Insulin Human Lispro (HumaLOG) 8 units 1X ONCE SQ Last administered on at 12:44; Start 11/24/17 at 12:15; Stop 11/24/17 at 12:16; Status DC Insulin Human Lispro (HumaLOG) 0-5 UNITS TIDAC SQ Last administered on at 08:57; Start 11/24/17 at 16:30; Stop 11/25/17 at 09:22; Status DC Insulin Human Lispro (HumaLOG) 10 units BIDWMEALS SQ Last administered on at 08:33; Start 11/24/17 at 17:00; Stop 11/26/17 at 09:38; Status DC Vancomycin HCl (Vancomycin Trough Level) 1 each 1X ONCE MC Last administered on 11/26/17at 10:30; Start 11/26/17 at 10:30; Stop 11/26/17 at 10:31; Status DC Lactobacillus Rhamnosus (Culturelle) 1 cap BID PO Last administered on at 08:28; Start 11/24/17 at 21:00 Insulin Human Lispro (HumaLOG) 0-9 UNITS TIDWMEALS SQ Last administered on 11/26at 08:34; Start 11/25/17 at 12:00 Dextrose (Dextrose 50%-Water Syringe) 12.5 gm PRN Q15MIN PRN IV SEE COMMENTS; Start 11/25/17 at 09:30; Stop 11/25/17 at 09:30; Status DC Famotidine (Pepcid) 20 mg BID PO Last administered on 11/26/17at 08:28; Start at 21:00 Levetiracetam (Keppra) 500 mg BID PO ; Start 11/25/17 at 21:00; Stop 11/25/17 at 21:00; Status DC Alprazolam (Xanax) 0.25 mg PRN Q8HRS PRN PO ANXIETY / AGITATION; Start at 09:30 Levetiracetam (Keppra) 250 mg BID PO ; Start 11/25/17 at 21:00; Stop 11/25/17 at 21:00; Status DC Levetiracetam (Keppra) 500 mg BID PO Last administered on 11/26/17at 08:28; Start 11/25/17 at 21:00 Insulin Human Lispro (HumaLOG) 10 units TID SQ ; Start 11/26/17 at 14:00 Insulin Glargine (Lantus) 20 units QHS SQ ; Start 11/26/17 at 21:00 Hydrochlorothiazide (Hydrodiuril) 25 mg DAILY PO Last administered on at 10:11; Start 11/26/17 at 10:00 Lisinopril (Prinivil) 10 mg 1X ONCE PO Last administered on 11/26/17at 10:12; Start 11/26/17 at 10:00; Stop 11/26/17 at 10:01; Status DC Lisinopril (Prinivil) 10 mg DAILY PO ; Start 11/27/17 at 09:00 Active Scripts Active Reported Novolin N (Nph, Human Insulin Isophane) 100 Unit/1 Ml Vial 12 Unit SQ BIDWMEALS Vitals/I & O Vital Sign - Last 24 Hours 11/25/17 11/25/17 11/25/17 11/25/17 15:10 20:00 20:00 23:40 Temp 98.2 98.2 98.0 98.2 98.2 98.0 Pulse 83 87 83 Resp 20 20 18 B/P (MAP) 166/77 (106) 152/73 (99) 127/53 (77) Pulse Ox 96 98 96 O2 Delivery Room Air Room Air Room Air Room Air O2 Flow Rate 2.0 11/26/17 11/26/17 11/26/17 11/26/17 04:26 08:00 08:26 10:12 Temp 98.0 99.0 98.0 99.0 Pulse 77 107 107 Resp 18 18 B/P (MAP) 152/79 (103) 169/76 (107) 169/76 Pulse Ox 91 94 O2 Delivery Room Air Room Air Room Air O2 Flow Rate 2.0 Intake and Output 11/25/17 11/25/17 11/26/17 15:00 23:00 07:00 Intake Total 100 ml Output Total 100 ml 750 ml 925 ml Balance -100 ml -650 ml -925 ml JOSHUA MOSES MD Nov 26, 2017 12:24
[2017-11-26 12:26] VITALS: BP 141/76
[2017-11-26] MEDS: ASCORBIC ACID 500 MG TABLET PO SCH (13:34)
[2017-11-26] MEDS ORDERED: INSULIN LISPRO 300 UNITS/3 ML INSULN.PEN. SQ SCH (14:00)
[2017-11-26 19:05] VITALS: BP 132/66
[2017-11-26] MEDS ORDERED: INSULIN GLARGINE 300 UNITS/3 ML INSULN.PEN. SQ SCH ×2 (21:00)
[2017-11-26 23:39] VITALS: BP 131/65
[2017-11-27 00:13] LABS: HEMOGLOBIN A1C 12.5 % (4.8-5.6)
[2017-11-27 03:50] VITALS: BP 139/66
[2017-11-27] MEDS: PIPERACILLIN/TAZOBACTAM 3.375 GM in IV NORMAL SALINE 50ML 50 ML IV SCH ×3 (06:07→17:53)
[2017-11-27 07:00] VITALS: BP 152/80
[2017-11-27] MEDS: hydroCHLOROthiazide 25 MG TABLET PO SCH (08:35)
[2017-11-27] MEDS: LACTOBACILLUS RHAMNOSUS GG 1 CAPSULE. PO SCH ×2 (08:35→20:59)
[2017-11-27] MEDS: levETIRAcetam 500 MG TABLET PO SCH ×2 (08:36→20:59)
[2017-11-27] MEDS: FAMOTIDINE 20 MG TABLET. PO SCH ×2 (08:36→20:59)
[2017-11-27] MEDS: ASCORBIC ACID 500 MG TABLET PO SCH (08:36)
[2017-11-27] MEDS: INSULIN LISPRO 300 UNITS/3 ML INSULN.PEN. SQ SCH ×6 (08:38→18:00)
[2017-11-27] MEDS ORDERED: LISINOPRIL 10 MG TABLET PO SCH (09:00)
[2017-11-27] MEDS ORDERED: LISINOPRIL 10 MG TABLET PO ONE (09:30)
--- NOTE | 2017-11-27 09:41 | PDOC ---
Infectious Disease Note Subjective Subjective Comfortable, denies pain/N/V/D/F/C/S/SOA ROS ROS per HPI otherwise negative Vital Sign Vital Signs Vital Signs Date Time Temp Pulse Resp B/P (MAP) Pulse Ox O2 Delivery O2 Flow Rate FiO2 11/27/17 08:36 81 152/80 11/27/17 07:00 98.4 16 98 Room Air 98.4 11/26/17 08:00 2.0 Physical Exam PHYSICAL EXAM GENERAL: Propped up in bed, alert, relaxed appearance LUNGS: Clear. HEART: S1, S2 regular. ABDOMEN: Soft, NT EXTREMITIES: Wound vac in place bilat feet. No area redness NEUROLOGIC: Alert and oriented x 3. SKIN: warm without rash PIVs ok Labs Lab Laboratory Tests Test 11/26/17 10:15 11/26/17 11:39 11/26/17 17:10 11/26/17 21:03 White Blood Count 7.8 x10^3/uL (4.0-11.0) Red Blood Count 4.26 x10^6/uL (4.30-5.70) Hemoglobin 12.8 g/dL (13.0-17.5) Hematocrit 37.3 % (39.0-53.0) Mean Corpuscular Volume 88 fL (79-100) Mean Corpuscular Hemoglobin 30 pg (25-35) Mean Corpuscular Hemoglobin Concent 34 g/dL (31-37) Red Cell Distribution Width 13.3 % (11.5-14.5) Platelet Count 433 x10^3/uL (140-400) Neutrophils (%) (Auto) 76 % (31-73) Lymphocytes (%) (Auto) 13 % (24-48) Monocytes (%) (Auto) 7 % (0-9) Eosinophils (%) (Auto) 3 % (0-3) Basophils (%) (Auto) 1 % (0-3) Neutrophils # (Auto) 5.9 x10^3uL (1.8-7.7) Lymphocytes # (Auto) 1.0 x10^3/uL (1.0-4.8) Monocytes # (Auto) 0.6 x10^3/uL (0.0-1.1) Eosinophils # (Auto) 0.2 x10^3/uL (0.0-0.7) Basophils # (Auto) 0.1 x10^3/uL (0.0-0.2) Sodium Level 141 mmol/L (136-145) Potassium Level 3.7 mmol/L (3.5-5.1) Chloride Level 104 mmol/L (98-107) Carbon Dioxide Level 31 mmol/L (21-32) Anion Gap 6 (6-14) Blood Urea Nitrogen 8 mg/dL (8-26) Creatinine 0.8 mg/dL (0.7-1.3) Estimated GFR (Cockcroft-Gault) 98.6 Glucose Level 306 mg/dL (70-99) Hemoglobin A1c 12.5 % (4.8-5.6) Calcium Level 8.1 mg/dL (8.5-10.1) Vancomycin Level Trough 16.0 mcg/mL (10.0-20.0) Vancomycin Last Dose Date 11/25/17 Vancomycin Last Dose Time 0300 Glucose (Fingerstick) 225 mg/dL (70-99) 329 mg/dL (70-99) 281 mg/dL (70-99) Test 11/27/17 08:08 Glucose (Fingerstick) 293 mg/dL (70-99) Micro BLOOD CULTURE Preliminary NO GROWTH AFTER 5 DAYS AEROBIC RES 1 Preliminary Staphylococcus aureus AEROBIC RES 2 Preliminary Myroides (Flavobacterium) species MICS are expressed in micrograms per mL Antibiotic RSLT#1 RSLT#2 Ciprofloxacin R>=8 Clindamycin R =R Erythromycin R>=8 Gentamicin S<=0.5 Levofloxacin I =4 Linezolid S =2 Moxifloxacin R =2 Oxacillin S =0.5 Penicillin R>=0.5 Quinupristin/Dalfopristin S<=0.25 Rifampin S<=0.5 Tetracycline R>=16 Trimethoprim/Sulfa S<=10 Vancomycin S =1 GRAM STAIN RES 1 Final (continued) Few gram positive cocci in pairs, chains, and clusters GRAM STAIN RES 2 Final Comment Rare gram negative rods. 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 Laws. MSSA and Myroides spp Left foot ulcer with arthropathy - s/p debridement of necrotic skin, subcutaneous tissue and bone on 11/23 Seizure. Leukocytosis - resolved Respiratory failure. Diabetes with poor control. Plan Plan of Care Continue Zosyn Will need six weeks of abx therapy Patient hasn't any insurance, will consult rn social work for assistance Will need PICC placement Monitor labs Supportive care D/w RN Attending Co-Sign The patient was seen and interviewed as well as examined at the bedside. The chart was reviewed. The case was discussed. Agree with the plan of care. LUKE TYLER APRN Nov 27, 2017 09:41 EMILIANO OLIVEIRA MD Nov 27, 2017 11:53
--- NOTE | 2017-11-27 10:04 | PDOC ---
PROGRESS NOTES Chief Complaint Chief Complaint Sepsis Osteomyelitis Seizure DM 2 Peripheral vascular disease Foot wound with indwelling wound vac s.p toe amputation Acom aneurysm SP History of Present Illness History of Present Illness TRansferred out of ICU 11/24/17 He has no complaints In the potty No weight-bear on fore foot bilateral legs as per vasc sx note He has a bilateral wound VAC. He is self-pay Vascular surgery recommends social work for charitable wound VAC Sounds like he needs to be a wound VAC even on discharge They are getting his special boot from the [facility] Neurosurgically [place], Neurosurgery has also arranged for outpatient neuro IR and he knows about this The pressure and blood sugars still high despite me adjusting meds Tuesday Hemoglobin A1c is 12.5 Plan: Increase long-acting insulin to 30 daily at bedtime Keep 10 units 3 times a day-was taking 10 units twice a day Increase lisinopril to 20 from 10 on a by mouth daily Follow-up [facility] special boot Follow-up social work case manager, charitable wound VAC Appreciate neurosurgery and vascular surgery Home on the above arrangements has been made possibly Tuesday Vitals Vitals Vital Signs Date Time Temp Pulse Resp B/P (MAP) Pulse Ox O2 Delivery O2 Flow Rate FiO2 11/27/17 08:36 81 152/80 11/27/17 07:00 98.4 16 98 Room Air 98.4 11/26/17 08:00 2.0 Physical Exam Physical Exam GENERAL: Propped up in bed, alert, relaxed appearance LUNGS: Clear. HEART: S1, S2 regular. ABDOMEN: Soft, NT EXTREMITIES: Wound vac in place bilat feet. No area redness NEUROLOGIC: Alert and oriented x 3. SKIN: warm without rash PIVs ok General: Alert, Oriented X3, Cooperative, No acute distress Heart: Regular rate, Normal S1, Normal S2 Lungs: Clear Abdomen: Normal bowel sounds, Soft Extremities: No clubbing, Other (CDI bilateral legs) Skin: No rashes, Other (CDI dressings bilateral legs) Labs LABS Laboratory Tests Test 11/26/17 10:15 11/26/17 11:39 11/26/17 17:10 11/26/17 21:03 White Blood Count 7.8 x10^3/uL (4.0-11.0) Red Blood Count 4.26 x10^6/uL (4.30-5.70) Hemoglobin 12.8 g/dL (13.0-17.5) Hematocrit 37.3 % (39.0-53.0) Mean Corpuscular Volume 88 fL (79-100) Mean Corpuscular Hemoglobin 30 pg (25-35) Mean Corpuscular Hemoglobin Concent 34 g/dL (31-37) Red Cell Distribution Width 13.3 % (11.5-14.5) Platelet Count 433 x10^3/uL (140-400) Neutrophils (%) (Auto) 76 % (31-73) Lymphocytes (%) (Auto) 13 % (24-48) Monocytes (%) (Auto) 7 % (0-9) Eosinophils (%) (Auto) 3 % (0-3) Basophils (%) (Auto) 1 % (0-3) Neutrophils # (Auto) 5.9 x10^3uL (1.8-7.7) Lymphocytes # (Auto) 1.0 x10^3/uL (1.0-4.8) Monocytes # (Auto) 0.6 x10^3/uL (0.0-1.1) Eosinophils # (Auto) 0.2 x10^3/uL (0.0-0.7) Basophils # (Auto) 0.1 x10^3/uL (0.0-0.2) Sodium Level 141 mmol/L (136-145) Potassium Level 3.7 mmol/L (3.5-5.1) Chloride Level 104 mmol/L (98-107) Carbon Dioxide Level 31 mmol/L (21-32) Anion Gap 6 (6-14) Blood Urea Nitrogen 8 mg/dL (8-26) Creatinine 0.8 mg/dL (0.7-1.3) Estimated GFR (Cockcroft-Gault) 98.6 Glucose Level 306 mg/dL (70-99) Hemoglobin A1c 12.5 % (4.8-5.6) Calcium Level 8.1 mg/dL (8.5-10.1) Vancomycin Level Trough 16.0 mcg/mL (10.0-20.0) Vancomycin Last Dose Date 11/25/17 Vancomycin Last Dose Time 0300 Glucose (Fingerstick) 225 mg/dL (70-99) 329 mg/dL (70-99) 281 mg/dL (70-99) Test 11/27/17 08:08 Glucose (Fingerstick) 293 mg/dL (70-99) Review of Systems Review of Systems A 14 point ROS was completed with the following noted as positive: Other systems reviewed and negative. \CONSTITUTIONAL: No fever or chills EYES: No recent changes SKIN: No rash or itching CARDIOVASCULAR: No chest pain, syncope, palpitations, or edema RESPIRATORY: No SOB or cough GASTROINTESTINAL: No nausea, vomiting or abdominal pain NEUROLOGICAL: No headaches or weakness ENDOCRINE: No cold or heat intolerance GENITOURINARY: No urgency or frequency of urination MUSCULOSKELETAL: No back pain or joint pain LYMPHATICS: No enlarged lymph nodes PSYCHIATRIC: No anxiety or depression Assessment and Plan Assessmemt and Plan Problems Medical Problems: (1) Seizure Status: Acute Comment Review of Relevant I have reviewed the following items alta (where applicable) has been applied. Labs Laboratory Tests Test 11/25/17 11:42 11/25/17 17:22 11/26/17 07:32 11/26/17 10:15 Glucose (Fingerstick) 217 mg/dL (70-99) 260 mg/dL (70-99) 316 mg/dL (70-99) White Blood Count 7.8 x10^3/uL (4.0-11.0) Red Blood Count 4.26 x10^6/uL (4.30-5.70) Hemoglobin 12.8 g/dL (13.0-17.5) Hematocrit 37.3 % (39.0-53.0) Mean Corpuscular Volume 88 fL (79-100) Mean Corpuscular Hemoglobin 30 pg (25-35) Mean Corpuscular Hemoglobin Concent 34 g/dL (31-37) Red Cell Distribution Width 13.3 % (11.5-14.5) Platelet Count 433 x10^3/uL (140-400) Neutrophils (%) (Auto) 76 % (31-73) Lymphocytes (%) (Auto) 13 % (24-48) Monocytes (%) (Auto) 7 % (0-9) Eosinophils (%) (Auto) 3 % (0-3) Basophils (%) (Auto) 1 % (0-3) Neutrophils # (Auto) 5.9 x10^3uL (1.8-7.7) Lymphocytes # (Auto) 1.0 x10^3/uL (1.0-4.8) Monocytes # (Auto) 0.6 x10^3/uL (0.0-1.1) Eosinophils # (Auto) 0.2 x10^3/uL (0.0-0.7) Basophils # (Auto) 0.1 x10^3/uL (0.0-0.2) Sodium Level 141 mmol/L (136-145) Potassium Level 3.7 mmol/L (3.5-5.1) Chloride Level 104 mmol/L (98-107) Carbon Dioxide Level 31 mmol/L (21-32) Anion Gap 6 (6-14) Blood Urea Nitrogen 8 mg/dL (8-26) Creatinine 0.8 mg/dL (0.7-1.3) Estimated GFR (Cockcroft-Gault) 98.6 Glucose Level 306 mg/dL (70-99) Hemoglobin A1c 12.5 % (4.8-5.6) Calcium Level 8.1 mg/dL (8.5-10.1) Vancomycin Level Trough 16.0 mcg/mL (10.0-20.0) Vancomycin Last Dose Date 11/25/17 Vancomycin Last Dose Time 0300 Test 11/26/17 11:39 11/26/17 17:10 11/26/17 21:03 11/27/17 08:08 Glucose (Fingerstick) 225 mg/dL (70-99) 329 mg/dL (70-99) 281 mg/dL (70-99) 293 mg/dL (70-99) Laboratory Tests Test 11/26/17 10:15 11/26/17 11:39 11/26/17 17:10 11/26/17 21:03 White Blood Count 7.8 x10^3/uL (4.0-11.0) Red Blood Count 4.26 x10^6/uL (4.30-5.70) Hemoglobin 12.8 g/dL (13.0-17.5) Hematocrit 37.3 % (39.0-53.0) Mean Corpuscular Volume 88 fL (79-100) Mean Corpuscular Hemoglobin 30 pg (25-35) Mean Corpuscular Hemoglobin Concent 34 g/dL (31-37) Red Cell Distribution Width 13.3 % (11.5-14.5) Platelet Count 433 x10^3/uL (140-400) Neutrophils (%) (Auto) 76 % (31-73) Lymphocytes (%) (Auto) 13 % (24-48) Monocytes (%) (Auto) 7 % (0-9) Eosinophils (%) (Auto) 3 % (0-3) Basophils (%) (Auto) 1 % (0-3) Neutrophils # (Auto) 5.9 x10^3uL (1.8-7.7) Lymphocytes # (Auto) 1.0 x10^3/uL (1.0-4.8) Monocytes # (Auto) 0.6 x10^3/uL (0.0-1.1) Eosinophils # (Auto) 0.2 x10^3/uL (0.0-0.7) Basophils # (Auto) 0.1 x10^3/uL (0.0-0.2) Sodium Level 141 mmol/L (136-145) Potassium Level 3.7 mmol/L (3.5-5.1) Chloride Level 104 mmol/L (98-107) Carbon Dioxide Level 31 mmol/L (21-32) Anion Gap 6 (6-14) Blood Urea Nitrogen 8 mg/dL (8-26) Creatinine 0.8 mg/dL (0.7-1.3) Estimated GFR (Cockcroft-Gault) 98.6 Glucose Level 306 mg/dL (70-99) Hemoglobin A1c 12.5 % (4.8-5.6) Calcium Level 8.1 mg/dL (8.5-10.1) Vancomycin Level Trough 16.0 mcg/mL (10.0-20.0) Vancomycin Last Dose Date 11/25/17 Vancomycin Last Dose Time 0300 Glucose (Fingerstick) 225 mg/dL (70-99) 329 mg/dL (70-99) 281 mg/dL (70-99) Test 11/27/17 08:08 Glucose (Fingerstick) 293 mg/dL (70-99) Microbiology 11/21/17 Blood Culture - Final, Complete NO GROWTH AFTER 5 DAYS 11/21/17 Urine Culture - Final, Complete 11/21/17 Urine Culture Result 1 (GIUSEPPE) - Final, Complete 11/21/17 Anaerobic/Aerobic Culture - Final, Resulted 11/21/17 Anaerobic Culture Result 1 (GIUSEPPE) - Final, Resulted 11/21/17 Aerobic Culture - Preliminary, Resulted 11/21/17 Aerobic Culture Result 1 (GIUSEPPE) - Preliminary, Resulted 11/21/17 Aerobic Culture Result 2 (GIUSEPPE) - Preliminary, Resulted 11/21/17 Antimicrobic Susceptibility - Preliminary, Resulted 11/21/17 Gram Stain - Final, Resulted 11/21/17 Gram Stain Result 1 (GIUSEPPE) - Final, Resulted 11/21/17 Gram Stain Result 2 (GIUSEPPE) - Final, Resulted 11/21/17 Gram Stain Result 3 (GIUSEPPE) - Final, Resulted Medications Current Medications Propofol 50 ml @ As Directed STK-MED ONCE IV ; Start 11/21/17 at 17:07; Stop 12/29 at 17:08; Status DC Midazolam HCl (Versed) 5 mg 1X ONCE NS Last administered on 11/21/17at 17:05; Start 11/21/17 at 17:15; Stop 11/21/17 at 17:16; Status DC Fentanyl Citrate (Fentanyl 2ml Vial) 100 mcg 1X ONCE IV Last administered on at 17:09; Start 11/21/17 at 17:15; Stop 11/21/17 at 17:16; Status DC Levetiracetam 1000 mg/Dextrose 110 ml @ 440 mls/hr 1X ONCE IV Last administered on 11/21/17at 17:25; Start 11/21/17 at 17:15; Stop 11/21/17 at 17:29 ; Status DC Sodium Chloride 1,000 ml @ 1,000 mls/hr 1X ONCE IV Last administered on at 19:39; Start 11/21/17 at 17:15; Stop 11/21/17 at 18:14; Status DC Propofol (Diprivan) 200 mg 1X ONCE IV Last administered on 11/21/17at 17:14; Start 11/21/17 at 17:15; Stop 11/21/17 at 17:16; Status DC Midazolam HCl (Versed) 5 mg 1X ONCE IV Last administered on 11/21/17at 19:20; Start 11/21/17 at 17:45; Stop 11/21/17 at 17:50; Status DC Sodium Chloride 1,000 ml @ 150 mls/hr Q6H40M IV Last administered on at 12:12; Start 11/21/17 at 18:15; Stop 11/22/17 at 18:14; Status DC Vancomycin HCl (Vanco Per Pharmacy) 1 each PRN DAILY PRN MC SEE COMMENTS Last administered on 11/26/17at 11:11; Start 11/21/17 at 18:00; Stop 11/26/17 at 14:50 ; Status DC Piperacillin Sod/ Tazobactam Sod 3.375 gm/Sodium Chloride 50 ml @ 100 mls/hr 1X ONCE IV Last administered on 11/21/17at 19:04; Start 11/21/17 at 18:15; Stop 11/21/17 at 18:44; Status DC Insulin Human Regular (HumuLIN R VIAL) 10 unit 1X ONCE IV Last administered on 11/21/17at 20:55; Start 11/21/17 at 18:15; Stop 11/21/17 at 18:16; Status DC Potassium Chloride (KCl Oral Soln) 40 meq 1X ONCE NG Last administered on 11/21at 22:08; Start 11/21/17 at 18:15; Stop 11/21/17 at 18:16; Status DC Levetiracetam 500 mg/Dextrose 105 ml @ 420 mls/hr Q12HR IV Last administered on 11/25/17at 08:51; Start 11/21/17 at 21:00; Stop 11/25/17 at 09:26; Status DC Lorazepam (Ativan) 2 mg PRN Q4HRS PRN IV ANXIETY / AGITATION Last administered on 11/22/17at 12:12; Start 11/21/17 at 18:15 Thiamine HCl 100 mg/Dextrose 51 ml @ 102 mls/hr 1X STAT IV Last administered on 11/21/17at 18:33; Start 11/21/17 at 18:11; Stop 11/21/17 at 18:40; Status DC Vancomycin HCl 2 gm/Sodium Chloride 500 ml @ 250 mls/hr 1X ONCE IV Last administered on 11/21/17at 20:52; Start 11/21/17 at 19:00; Stop 11/21/17 at 20:59 ; Status DC Etomidate (Amidate) 20 mg STK-MED ONCE IV ; Start 11/21/17 at 19:04; Stop at 19:05; Status DC Succinylcholine Chloride (Anectine) 200 mg STK-MED ONCE .ROUTE ; Start 11/21/17 at 19:05; Stop 11/21/17 at 19:06; Status DC Propofol 50 ml @ As Directed STK-MED ONCE IV ; Start 11/21/17 at 19:38; Stop 12/29 at 19:39; Status DC Etomidate (Amidate) 20 mg 1X ONCE IV Last administered on 11/21/17at 17:01; Start 11/21/17 at 20:00; Stop 11/21/17 at 20:01; Status DC Succinylcholine Chloride (Anectine) 100 mg 1X ONCE IV Last administered on 12/29at 17:01; Start 11/21/17 at 20:00; Stop 11/21/17 at 20:01; Status DC Midazolam HCl (Versed) 5 mg 1X ONCE IV Last administered on 11/21/17at 17:39; Start 11/21/17 at 20:00; Stop 11/21/17 at 20:01; Status DC Vancomycin HCl 1.5 gm/Sodium Chloride 500 ml @ 250 mls/hr Q12H IV Last administered on 11/22/17at 09:56; Start 11/22/17 at 09:00; Stop 11/22/17 at 11:03 ; Status DC Fentanyl Citrate 30 ml @ 0 mls/hr CONT PRN IV PER PROTOCOL; Start 11/21/17 at 22:00; Stop 11/25/17 at 09:23; Status DC Propofol 100 ml @ 0 mls/hr CONT PRN IV PER PROTOCOL Last administered on at 06:42; Start 11/21/17 at 22:00; Stop 11/25/17 at 09:23; Status DC Chlorhexidine Gluconate (Peridex) 15 ml BID MM Last administered on 11/23/17at 08:33; Start 11/22/17 at 09:00; Stop 11/23/17 at 20:47; Status DC Famotidine (Pepcid Vial) 20 mg BID IVP Last administered on 11/25/17at 08:51; Start 11/22/17 at 09:00; Stop 11/25/17 at 09:23; Status DC Enoxaparin Sodium (Lovenox Per Pharmacy Prophylaxis Dosing) 1 each PRN DAILY PRN MC SEE COMMENTS; Start 11/22/17 at 09:30; Stop 11/25/17 at 09:25; Status DC Enoxaparin Sodium (Lovenox 40mg Syringe) 40 mg Q24H SQ Last administered on at 12:41; Start 11/22/17 at 10:00; Stop 11/25/17 at 09:23; Status DC Iohexol (Omnipaque 300 Mg/ml) 75 ml 1X ONCE IV Last administered on 11/22/17at 10:45; Start 11/22/17 at 10:45; Stop 11/22/17 at 10:46; Status DC Info (CONTRAST GIVEN -- Rx MONITORING) 1 each PRN DAILY PRN MC SEE COMMENTS; Start 11/22/17 at 11:00; Stop 11/24/17 at 10:59; Status DC Iohexol (Omnipaque 300 Mg/ml) 100 ml STK-MED ONCE .ROUTE ; Start 11/22/17 at 10: 45; Stop 11/22/17 at 10:46; Status DC Vancomycin HCl 1.5 gm/Sodium Chloride 500 ml @ 250 mls/hr Q12H IV Last administered on 11/22/17at 22:24; Start 11/22/17 at 22:00; Stop 11/23/17 at 10:01 ; Status DC Vancomycin HCl (Vancomycin Trough Level) 1 each 1X ONCE MC Last administered on 11/23/17at 09:30; Start 11/23/17 at 09:30; Stop 11/23/17 at 09:31; Status DC Piperacillin Sod/ Tazobactam Sod 3.375 gm/Sodium Chloride 50 ml @ 100 mls/hr Q6HRS IV Last administered on 11/27/17at 06:07; Start 11/22/17 at 12:00 Insulin Human Lispro (HumaLOG) 0-5 UNITS Q6HRS SQ Last administered on at 05:34; Start 11/22/17 at 18:00; Stop 11/24/17 at 08:58; Status DC Dextrose (Dextrose 50%-Water Syringe) 12.5 gm PRN Q15MIN PRN IV SEE COMMENTS; Start 11/22/17 at 12:45 Fentanyl Citrate (Fentanyl 2ml Vial) 25 mcg PRN Q5MIN PRN IV MILD PAIN; Start 11/23/17 at 07:00; Stop 11/24/17 at 06:59; Status DC Fentanyl Citrate (Fentanyl 2ml Vial) 50 mcg PRN Q5MIN PRN IV MODERATE TO SEVERE PAIN; Start 11/23/17 at 07:00; Stop 11/24/17 at 06:59; Status DC Morphine Sulfate (Morphine Sulfate) 1 mg PRN Q10MIN PRN IV SEVERE PAIN; Start 11/23/17 at 07:00; Stop 11/24/17 at 06:59; Status DC Ringer's Solution 1,000 ml @ 30 mls/hr Q24H IV ; Start 11/23/17 at 07:00; Stop 11/23/17 at 18:59; Status DC Lidocaine HCl (Xylocaine-Mpf 1% 2ml Vial) 2 ml PRN 1X PRN ID IV START; Start at 07:00; Stop 11/24/17 at 06:59; Status DC Hydromorphone HCl (Dilaudid) 0.5 mg PRN Q10MIN PRN IV SEV PAIN, Second choice; Start 11/23/17 at 07:00; Stop 11/24/17 at 06:59; Status DC Prochlorperazine Edisylate (Compazine) 5 mg PACU PRN PRN IV NAUSEA, MRX1; Start 11/23/17 at 07:00; Stop 11/24/17 at 06:59; Status DC Bacitracin 32718 unit/Sodium Chloride 500 ml @ 500 mls/hr 1X ONCE IRR Last administered on 11/23/17at 13:32; Start 11/23/17 at 06:00; Stop 11/23/17 at 06:59 ; Status DC Potassium Chloride/Water 50 ml @ 50 mls/hr 1X ONCE IV Last administered on 02/28at 07:58; Start 11/23/17 at 08:00; Stop 11/23/17 at 08:59; Status DC Vancomycin HCl 1.5 gm/Sodium Chloride 500 ml @ 250 mls/hr Q8H IV Last administered on 11/24/17at 02:00; Start 11/23/17 at 10:30; Stop 11/24/17 at 10:40 ; Status DC Vancomycin HCl (Vancomycin Trough Level) 1 each 1X ONCE MC Last administered on 11/24/17at 10:00; Start 11/24/17 at 10:00; Stop 11/24/17 at 10:01; Status DC Rocuronium [place] (Zemuron) 50 mg STK-MED ONCE .ROUTE ; Start 11/23/17 at 13:30 ; Stop 11/23/17 at 13:31; Status DC Sevoflurane (Ultane) 30 ml STK-MED ONCE IH ; Start 11/23/17 at 14:00; Stop 11/23 at 14:01; Status DC Labetalol HCl (Normodyne Iv Push) 20 mg PRN Q6HRS PRN IVP HYPERTENSION, SEE COMMENTS Last administered on 11/24/17at 09:46; Start 11/23/17 at 18:00 Acetaminophen/ Hydrocodone Bitart (Lortab 5/325) 1 tab PRN Q4HRS PRN PO MODERATE PAIN Last administered on 11/24/17at 10:02; Start 11/23/17 at 21:45 Acetaminophen/ Hydrocodone Bitart (Lortab 10/325) 1 tab PRN Q4HRS PRN PO SEVERE PAIN Last administered on 11/24/17at 20:47; Start 11/23/17 at 21:45 Insulin Human Lispro (HumaLOG) 0-5 UNITS TIDAC SQ Last administered on at 09:30; Start 11/24/17 at 09:00; Stop 11/24/17 at 10:40; Status DC Insulin Human Lispro (HumaLOG) 10 units BIDWMEALS SQ ; Start 11/24/17 at 17:00; Stop 11/24/17 at 17:00; Status DC Vancomycin HCl 2 gm/Sodium Chloride 500 ml @ 250 mls/hr Q8H IV ; Start at 11:00; Status Cancel Vancomycin HCl 1.75 gm/Sodium Chloride 500 ml @ 250 mls/hr Q8H IV Last administered on 11/26/17at 11:10; Start 11/24/17 at 11:00; Stop 11/26/17 at 14:50 ; Status DC Insulin Human Lispro (HumaLOG) 8 units 1X ONCE SQ Last administered on at 12:44; Start 11/24/17 at 12:15; Stop 11/24/17 at 12:16; Status DC Insulin Human Lispro (HumaLOG) 0-5 UNITS TIDAC SQ Last administered on at 08:57; Start 11/24/17 at 16:30; Stop 11/25/17 at 09:22; Status DC Insulin Human Lispro (HumaLOG) 10 units BIDWMEALS SQ Last administered on at 08:33; Start 11/24/17 at 17:00; Stop 11/26/17 at 09:38; Status DC Vancomycin HCl (Vancomycin Trough Level) 1 each 1X ONCE MC Last administered on 11/26/17at 10:30; Start 11/26/17 at 10:30; Stop 11/26/17 at 10:31; Status DC Lactobacillus Rhamnosus (Culturelle) 1 cap BID PO Last administered on at 08:35; Start 11/24/17 at 21:00 Insulin Human Lispro (HumaLOG) 0-9 UNITS TIDWMEALS SQ Last administered on 11/27at 08:38; Start 11/25/17 at 12:00 Dextrose (Dextrose 50%-Water Syringe) 12.5 gm PRN Q15MIN PRN IV SEE COMMENTS; Start 11/25/17 at 09:30; Stop 11/25/17 at 09:30; Status DC Famotidine (Pepcid) 20 mg BID PO Last administered on 11/27/17at 08:36; Start at 21:00 Levetiracetam (Keppra) 500 mg BID PO ; Start 11/25/17 at 21:00; Stop 11/25/17 at 21:00; Status DC Alprazolam (Xanax) 0.25 mg PRN Q8HRS PRN PO ANXIETY / AGITATION; Start at 09:30 Levetiracetam (Keppra) 250 mg BID PO ; Start 11/25/17 at 21:00; Stop 11/25/17 at 21:00; Status DC Levetiracetam (Keppra) 500 mg BID PO Last administered on 11/27/17at 08:36; Start 11/25/17 at 21:00 Insulin Human Lispro (HumaLOG) 10 units TID SQ Last administered on 11/26/17at 12:25; Start 11/26/17 at 14:00; Stop 11/26/17 at 14:00; Status DC Insulin Glargine (Lantus) 20 units QHS SQ ; Start 11/26/17 at 21:00; Stop at 21:00; Status DC Hydrochlorothiazide (Hydrodiuril) 25 mg DAILY PO Last administered on at 08:35; Start 11/26/17 at 10:00 Lisinopril (Prinivil) 10 mg 1X ONCE PO Last administered on 11/26/17at 10:12; Start 11/26/17 at 10:00; Stop 11/26/17 at 10:01; Status DC Lisinopril (Prinivil) 10 mg DAILY PO Last administered on 11/27/17at 08:36; Start 11/27/17 at 09:00; Stop 11/27/17 at 09:16; Status DC Insulin Glargine (Lantus) 15 units QHS SQ Last administered on 11/26/17at 21:48 ; Start 11/26/17 at 21:00; Stop 11/27/17 at 09:16; Status DC Ascorbic Acid (Vitamin C) 500 mg DAILY PO Last administered on 11/27/17at 08:36 ; Start 11/26/17 at 13:00 Insulin Human Lispro (HumaLOG) 10 units TIDWMEALS SQ Last administered on at 08:39; Start 11/26/17 at 17:00 Insulin Glargine (Lantus) 30 units QHS SQ ; Start 11/27/17 at 21:00 Lisinopril (Prinivil) 20 mg DAILY PO ; Start 11/28/17 at 09:00 Lisinopril (Prinivil) 10 mg ONCE ONCE PO ; Start 11/27/17 at 09:30; Stop at 09:31; Status DC Active Scripts Active Reported Novolin N (Nph, Human Insulin Isophane) 100 Unit/1 Ml Vial 12 Unit SQ BIDWMEALS Vitals/I & O Vital Sign - Last 24 Hours 11/26/17 11/26/17 11/26/17 11/26/17 10:12 12:26 19:05 20:12 Temp 97.9 97.9 97.9 97.9 Pulse 107 88 79 Resp 20 17 B/P (MAP) 169/76 141/76 (97) 132/66 (88) Pulse Ox 96 97 O2 Delivery Room Air Room Air Room Air 11/26/17 11/27/17 11/27/17 11/27/17 23:39 03:50 07:00 08:36 Temp 97.9 97.7 98.4 97.9 97.7 98.4 Pulse 77 77 81 81 Resp 18 18 16 B/P (MAP) 131/65 (87) 139/66 (90) 152/80 (104) 152/80 Pulse Ox 94 97 98 O2 Delivery Room Air Room Air Room Air Intake and Output 11/26/17 11/26/17 11/27/17 15:00 23:00 07:00 Intake Total 600 ml 1660 ml 150 ml Output Total 2100 ml 1250 ml Balance 600 ml -440 ml -1100 ml JOSHUA MOSES MD Nov 27, 2017 10:04
[2017-11-27 10:56] VITALS: BP 133/71
--- NOTE | 2017-11-27 13:14 | PDOC ---
SURGICAL PROGRESS NOTE Subjective He is sitting up without complaints. Right foot pain resolved. Vital Signs Vital Signs Date Time Temp Pulse Resp B/P (MAP) Pulse Ox O2 Delivery O2 Flow Rate FiO2 11/27/17 10:56 97.9 79 16 133/71 (91) 94 Room Air 97.9 11/26/17 08:00 2.0 I&O Intake and Output 11/27/17 07:00 Intake Total 2410 ml Output Total 3350 ml Balance -940 ml Intake Oral 1810 ml IV Total 600 ml Output Urine Total 3350 ml General: Alert, No acute distress Extremities: Other (Wound vacs on bilateral feet ulcers) Problem List Problems Medical Problems: (1) Seizure Status: Acute Assessment/Plan Bilateral feet ulcers s/p debridement Continue local wound care with Wound Vac Abx per ID Limit pressure on both feet. BELGICA RECINOS MD Nov 27, 2017 13:14
[2017-11-27 15:00] VITALS: BP 114/55
[2017-11-27 19:40] VITALS: BP 108/46
[2017-11-27] MEDS: INSULIN GLARGINE 300 UNITS/3 ML INSULN.PEN. SQ SCH (21:07)
[2017-11-27 23:15] VITALS: BP 128/68
[2017-11-28] MEDS: PIPERACILLIN/TAZOBACTAM 3.375 GM in IV NORMAL SALINE 50ML 50 ML IV SCH ×2 (01:18→06:01)
[2017-11-28 03:36] VITALS: BP 126/71
[2017-11-28 07:00] VITALS: BP 121/71
[2017-11-28] MEDS ORDERED: ALPR0.254 PO (08:11)
[2017-11-28] MEDS ORDERED: INSU100I13 SQ (08:11)
[2017-11-28] MEDS ORDERED: LISI10TA2 PO (08:11)
[2017-11-28] MEDS ORDERED: HYDR25TA9 PO (08:11)
[2017-11-28] MEDS ORDERED: ASCO500T2 PO (08:11)
[2017-11-28] MEDS ORDERED: LEVE500T56 PO (08:11)
[2017-11-28] MEDS ORDERED: HYDR-2766 PO (08:11)
[2017-11-28] MEDS ORDERED: FAMO20TA5 PO (08:11)
[2017-11-28] MEDS ORDERED: INSU100I11 SQ (08:11)
--- NOTE | 2017-11-28 08:12 | DISCH ---
DISCHARGE WITH HOME HEALTH DISCHARGE INFORMATION: Final Diagnosis: Problems Medical Problems: (1) Seizure Status: Acute Condition on Discharge: Stable CODE STATUS: Code Status: Full HOME HEALTH: Face to Face: I certify this patient is under my care and that I, or a nurse practitioner or physician's after school program assistant working with me, had a face to face encounter that meets the physician face to face encounter requirements with this patient on []. Physical Therapy For: Evalulation/Treatment Occupational Therapy For: Evaluation/Treatment Home Health Aide For: Self-care POST DISCHARGE ORDERS: Activity Instructions for Disc: Other, see below (no weight bear fore foot) DIET AFTER DISCHARGE: ADA CHECKS AFTER DISCHARGE: Checks after discharge: Check blood press - daily TREATMENT/EQUIPMENT ORDERS: Infusion Equipment, home use: PICC Line CERTIFICATION STATEMENT: Certification Statement: Certification Statement: Based on the above finding, I certify that this patient is confined to the home and needs intermittent shelter care, physical therapy and/or speech therapy, or continues to need occupational therapy.~ This patient is under my care, and I have initiated the establishment of the plan of care.~ This patient will be followed by myself or a community physician who will periodically review the plan of care. Home Meds Active Scripts Insulin Lispro (HUMALOG) 100 Unit/1 Ml Insuln.pen, 10 UNITS SQ TIDWMEALS for 30 Days, EACH Prov:JOSHUA MOSES MD 11/28/17 Ascorbic Acid (VITAMIN C) 500 Mg Tablet, 500 MG PO DAILY for 30 Days, #30 TAB Prov:JOSHUA MOSES MD 11/28/17 Insulin Glargine,Hum.rec.anlog (LANTUS SOLOSTAR) 100 Unit/1 Ml Insuln.pen, 30 UNITS SQ QHS for 30 Days, EACH Prov:JOSHUA MOSES MD 11/28/17 Famotidine (FAMOTIDINE) 20 Mg Tablet, 20 MG PO BID for 30 Days, #60 TAB Prov:JOSHUA MOSES MD 11/28/17 Hydrochlorothiazide (HYDROCHLOROTHIAZIDE TABLET ) 25 Mg Tablet, 25 MG PO DAILY for 30 Days, #30 TAB Prov:JOSHUA MOSES MD 11/28/17 Alprazolam (ALPRAZOLAM) 0.25 Mg Tablet, 0.25 MG PO PRN Q8HRS PRN for ANXIETY / AGITATION, #30 TAB Prov:JOSHUA MOSES MD 11/28/17 Levetiracetam (KEPPRA) 500 Mg Tablet, 500 MG PO BID for 30 Days, #60 TAB Prov:JOSHUA MOSES MD 11/28/17 Hydrocodone Bit/Acetaminophen (HYDROCODONE-APAP 10325 ) 1 Each Tablet, 1 TAB PO PRN Q4HRS PRN for SEVERE PAIN, #30 TAB Prov:JOSHUA MOSES MD 11/28/17 Lisinopril (LISINOPRIL) 10 Mg Tablet, 20 MG PO DAILY for 30 Days, #60 TAB Prov:JOSHUA MOSES MD 11/28/17 Reported Medications Nph, Human Insulin Isophane (NOVOLIN N) 100 Unit/1 Ml Vial, 12 UNIT SQ BIDWMEALS , VIAL 11/24/17 JOSHUA MOSES MD Nov 28, 2017 08:12
[2017-11-28] MEDS: ASCORBIC ACID 500 MG TABLET PO SCH (08:34)
[2017-11-28] MEDS: LACTOBACILLUS RHAMNOSUS GG 1 CAPSULE. PO SCH ×2 (08:34→21:19)
[2017-11-28] MEDS: hydroCHLOROthiazide 25 MG TABLET PO SCH (08:34)
[2017-11-28] MEDS: LISINOPRIL 10 MG TABLET PO SCH (08:34)
[2017-11-28] MEDS: levETIRAcetam 500 MG TABLET PO SCH ×2 (08:35→21:20)
[2017-11-28] MEDS: FAMOTIDINE 20 MG TABLET. PO SCH ×2 (08:35→21:20)
--- NOTE | 2017-11-28 08:37 | PDOC ---
Infectious Disease Note Subjective: Subjective Pt denies pain/N/V/D/F/C/S/SOA awaiting picc line placement and wound vac change today ROS: ROS Negative except for above. Vital Signs: Vital Signs Vital Signs Date Time Temp Pulse Resp B/P (MAP) Pulse Ox O2 Delivery O2 Flow Rate FiO2 11/28/17 07:00 97.9 86 20 121/71 (88) 97 Room Air 97.9 Physical Exam: PHYSICAL EXAM GENERAL: AXOX3 male LUNGS: Clear. HEART: S1, S2 regular. ABDOMEN: Soft, NT EXTREMITIES: Wound vac in place bilat feet. No area redness NEUROLOGIC: Alert and oriented x 3. SKIN: warm without rash PIVs ok Medications: Inpatient Meds: Current Medications Medications (Trade) Dose Ordered Sig/Ximena Start Time Stop Time Status Last Admin Dose Admin Acetaminophen/ Hydrocodone Bitart (Lortab 10/325) 1 tab PRN Q4HRS PRN 11/23/17 21:45 11/24/17 20:47 1 TAB Acetaminophen/ Hydrocodone Bitart (Lortab 5/325) 1 tab PRN Q4HRS PRN 11/23/17 21:45 11/24/17 10:02 1 TAB Alprazolam (Xanax) 0.25 mg PRN Q8HRS PRN 11/25/17 09:30 Ascorbic Acid (Vitamin C) 500 mg DAILY 11/26/17 13:00 11/27/17 08:36 500 MG Bacitracin 98098 unit/Sodium Chloride 500 ml @ 500 mls/hr 1X ONCE 11/23/17 06:00 11/23/17 06:59 DC 11/23/17 13:32 Chlorhexidine Gluconate (Peridex) 15 ml BID 11/22/17 09:00 11/23/17 20:47 DC 11/23/17 08:33 15 ML Dextrose (Dextrose 50%-Water Syringe) 12.5 gm PRN Q15MIN PRN 11/25/17 09:30 11/25/17 09:30 DC Enoxaparin Sodium (Lovenox 40mg Syringe) 40 mg Q24H 11/22/17 10:00 11/25/17 09:23 DC 11/24/17 12:41 40 MG Enoxaparin Sodium (Lovenox Per Pharmacy Prophylaxis Dosing) 1 each PRN DAILY PRN 11/22/17 09:30 11/25/17 09:25 DC Etomidate (Amidate) 20 mg 1X ONCE 11/21/17 20:00 11/21/17 20:01 DC 11/21/17 17:01 20 MG Famotidine (Pepcid Vial) 20 mg BID 11/22/17 09:00 11/25/17 09:23 DC 11/25/17 08:51 20 MG Famotidine (Pepcid) 20 mg BID 11/25/17 21:00 11/27/17 20:59 20 MG Fentanyl Citrate (Fentanyl 2ml Vial) 50 mcg PRN Q5MIN PRN 11/23/17 07:00 11/24/17 06:59 DC Hydrochlorothiazide (Hydrodiuril) 25 mg DAILY 11/26/17 10:00 11/27/17 08:35 25 MG Hydromorphone HCl (Dilaudid) 0.5 mg PRN Q10MIN PRN 11/23/17 07:00 11/24/17 06:59 DC Info (CONTRAST GIVEN -- Rx MONITORING) 1 each PRN DAILY PRN 11/22/17 11:00 11/24/17 10:59 DC Insulin Glargine (Lantus) 30 units QHS 11/27/17 21:00 11/27/17 21:07 30 UNITS Insulin Human Lispro (HumaLOG) 10 units TIDWMEALS 11/26/17 17:00 11/27/17 17:59 10 UNITS Insulin Human Regular (HumuLIN R VIAL) 10 unit 1X ONCE 11/21/17 18:15 11/21/17 18:16 DC 11/21/17 20:55 10 UNIT Iohexol (Omnipaque 300 Mg/ml) 100 ml STK-MED ONCE 11/22/17 10:45 11/22/17 10:46 DC Labetalol HCl (Normodyne Iv Push) 20 mg PRN Q6HRS PRN 11/23/17 18:00 11/24/17 09:46 20 MG Lactobacillus Rhamnosus (Culturelle) 1 cap BID 11/24/17 21:00 11/27/17 20:59 1 CAP Levetiracetam (Keppra) 500 mg BID 11/25/17 21:00 11/27/17 20:59 500 MG Levetiracetam 1000 mg/Dextrose 110 ml @ 440 mls/hr 1X ONCE 11/21/17 17:15 11/21/17 17:29 DC 11/21/17 17:25 440 MLS/HR Levetiracetam 500 mg/Dextrose 105 ml @ 420 mls/hr Q12HR 11/21/17 21:00 11/25/17 09:26 DC 11/25/17 08:51 420 MLS/HR Lidocaine HCl (Xylocaine-Mpf 1% 2ml Vial) 2 ml PRN 1X PRN 11/23/17 07:00 11/24/17 06:59 DC Lisinopril (Prinivil) 10 mg ONCE ONCE 11/27/17 09:30 11/27/17 09:31 DC 11/27/17 12:47 10 MG Lorazepam (Ativan) 2 mg PRN Q4HRS PRN 11/21/17 18:15 11/22/17 12:12 2 MG Midazolam HCl (Versed) 5 mg 1X ONCE 11/21/17 20:00 11/21/17 20:01 DC 11/21/17 17:39 5 MG Morphine Sulfate (Morphine Sulfate) 1 mg PRN Q10MIN PRN 11/23/17 07:00 11/24/17 06:59 DC Piperacillin Sod/ Tazobactam Sod 3.375 gm/Sodium Chloride 50 ml @ 100 mls/hr Q6HRS 11/22/17 12:00 11/28/17 06:01 100 MLS/HR Potassium Chloride/Water 50 ml @ 50 mls/hr 1X ONCE 11/23/17 08:00 11/23/17 08:59 DC 11/23/17 07:58 50 MLS/HR Potassium Chloride (KCl Oral Soln) 40 meq 1X ONCE 11/21/17 18:15 11/21/17 18:16 DC 11/21/17 22:08 40 MEQ Prochlorperazine Edisylate (Compazine) 5 mg PACU PRN PRN 11/23/17 07:00 11/24/17 06:59 DC Propofol 100 ml @ 0 mls/hr CONT PRN 11/21/17 22:00 11/25/17 09:23 DC 11/23/17 06:42 0 MLS/HR Propofol (Diprivan) 200 mg 1X ONCE 11/21/17 17:15 11/21/17 17:16 DC 11/21/17 17:14 200 MG Ringer's Solution 1,000 ml @ 30 mls/hr Q24H 11/23/17 07:00 11/23/17 18:59 DC Rocuronium [place] (Zemuron) 50 mg STK-MED ONCE 11/23/17 13:30 11/23/17 13:31 DC Sevoflurane (Ultane) 30 ml STK-MED ONCE 11/23/17 14:00 11/23/17 14:01 DC Sodium Chloride 1,000 ml @ 150 mls/hr Q6H40M 11/21/17 18:15 11/22/17 18:14 DC 11/22/17 12:12 150 MLS/HR Succinylcholine Chloride (Anectine) 100 mg 1X ONCE 11/21/17 20:00 11/21/17 20:01 DC 11/21/17 17:01 100 MG Thiamine HCl 100 mg/Dextrose 51 ml @ 102 mls/hr 1X STAT 11/21/17 18:11 11/21/17 18:40 DC 11/21/17 18:33 102 MLS/HR Vancomycin HCl (Vanco Per Pharmacy) 1 each PRN DAILY PRN 11/21/17 18:00 11/26/17 14:50 DC 11/26/17 11:11 1 EACH Vancomycin HCl (Vancomycin Trough Level) 1 each 1X ONCE 11/26/17 10:30 11/26/17 10:31 DC 11/26/17 10:30 1 EACH Vancomycin HCl 1.5 gm/Sodium Chloride 500 ml @ 250 mls/hr Q8H 11/23/17 10:30 11/24/17 10:40 DC 11/24/17 02:00 250 MLS/HR Vancomycin HCl 1.75 gm/Sodium Chloride 500 ml @ 250 mls/hr Q8H 11/24/17 11:00 11/26/17 14:50 DC 11/26/17 11:10 250 MLS/HR Vancomycin HCl 2 gm/Sodium Chloride 500 ml @ 250 mls/hr Q8H 11/24/17 11:00 Cancel Labs: Lab Laboratory Tests Test 11/27/17 11:57 11/27/17 17:15 11/27/17 20:37 11/28/17 07:27 Glucose (Fingerstick) 256 mg/dL (70-99) 231 mg/dL (70-99) 290 mg/dL (70-99) 285 mg/dL (70-99) Micro RUN DATE: 11/27/17 PAGE 1 RUN TIME: 1410 [facility] [address] [place] [address] Denny Romo M.D., Mammographer PATIENT: ROLY ALY ACCT: [id number] LOC: [address] [place] [address] U : [id number] AGE/SX: 62/M ROOM: [facility] REG : 11/21/[address]: CEASAR SALAS III DO : 1955 BED: 1 DIS : STATUS: ADM IN TLOC: SPEC #: [id number] BLANCA: 11/21/17 STATUS: COMP REQ #: [id number] RECD: 11/21/[address]: STEPHIE RAE MD SOURCE: FOOT ENTR: 11/21/[address]: SILVANA DUMONT [facility] UN[facility] PCP NAME ORDERED: DARINEL/AERMIKAYLA/GS Procedure Result ANAEROBIC-AEROBIC CULTURE Final Final report ANAEROBIC RES 1 Final Comment No anaerobic growth in 72 hours. AEROBIC CULT Final Final report AEROBIC RES 1 Final Staphylococcus aureus 3+ Based on susceptibility to oxacillin this isolate would be susceptible to: *Penicillinase-stable penicillins, such as: Cloxacillin, Dicloxacillin, Nafcillin *Beta-lactam combination agents, such as: Amoxicillin-clavulanic acid, Ampicillin-sulbactam, Piperacillin-tazobactam *Oral cephems, such as: Cefaclor, Cefdinir, Cefpodoxime, Cefprozil, Cefuroxime, Cephalexin, Loracarbef *Parenteral cephems, such as: Cefazolin, Cefepime, Cefotaxime, Cefotetan, Ceftaroline, Ceftizoxime, Ceftriaxone, Cefuroxime *Carbapenems, such as: Doripenem, Ertapenem, Imipenem, Meropenem This isolate is presumed to be resistant to clindamycin based on detection of inducible clindamycin resistance in vitro by D test. Clindamycin may still be effective in some patients. CONTINUED ON NEXT PAGE RUN DATE: 11/27/17 PAGE 2 RUN TIME: 1410 [facility] [address] [place] [address] Denny Romo M.D., Mammographer SPEC: [id number] PATIENT: ROLY ALY [id number] ( Continued) Procedure Result AEROBIC RES 2 Final Comment Myroides (Flavobacterium) species 2+ ANTIMICROBIAL SUSCEPTIBILITY Final Comment S = Susceptible; I = Intermediate; R = Resistant P = Positive; N = Negative MICS are expressed in micrograms per mL Antibiotic RSLT#1 RSLT#2 RSLT#3 RSLT#4 Amikacin R> 32 Cefepime I =16 Cefotaxime I =32 Ceftazidime R> 16 Ceftriaxone I =16 Ciprofloxacin R> 2 Ciprofloxacin R>=8 Clindamycin R =R Erythromycin R>=8 Gentamicin R> 8 Gentamicin S<=0.5 Imipenem S =4 Levofloxacin S =2 Levofloxacin I =4 Linezolid S =2 Meropenem S =2 Moxifloxacin R =2 Oxacillin S =0.5 Penicillin R>=0.5 Piperacillin/Tazobactam I =32 Quinupristin/Dalfopristin S<=0.25 Rifampin S<=0.5 Tetracycline R>=16 Ticarcillin/Clavulanate R> 64 Tobramycin R> 8 Trimethoprim/Sulfa S<=10 Trimethoprim/Sulfa S<=2/38 Vancomycin S =1 GRAM STAIN Final Final report CONTINUED ON NEXT PAGE RUN DATE: 11/27/17 PAGE 3 RUN TIME: 1410 [facility] [address] [place] [address] Denny Romo M.D., Mammographer SPEC: [id number] PATIENT: ROLY ALY [id number] ( Continued) Procedure Result GRAM STAIN RES 1 Final Comment Few gram positive cocci in pairs, chains, and clusters GRAM STAIN RES 2 Final Comment Rare gram negative rods. GRAM STAIN RES 3 Final Comment No white blood cells seen. 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 Laws. 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 Leukocytosis - resolved Respiratory failure. Diabetes with poor control. Plan: Plan of Care DC Zosyn start merrem upon discharge can change to invanz when ready for discharge Will need total six weeks of abx therapy Patient hasn't any insurance, social worker psychiatric consulted Needs PICC line cont local wound care Monitor labs Supportive care D/W JONATHAN THURSTON MD Nov 28, 2017 08:36
[2017-11-28] MEDS: INSULIN LISPRO 300 UNITS/3 ML INSULN.PEN. SQ SCH ×6 (08:42→17:43)
--- NOTE | 2017-11-28 10:34 | PDOC ---
PROGRESS NOTES Chief Complaint Chief Complaint Sepsis Osteomyelitis Seizure DM 2 Peripheral vascular disease Foot wound with indwelling wound vac s.p toe amputation Acom aneurysm SP History of Present Illness History of Present Illness TRansferred out of ICU 11/24/17 He has no complaints BLood Pressure and blood sugar much better since I made adjustments on both regimens on Tuesday No weight-bear on fore foot bilateral legs as per vasc sx note He has a bilateral wound VAC. He is self-pay Vascular surgery recommends social work for charitable wound VAC Sounds like he needs to be a wound VAC even on discharge They are getting his special boot from [facility] Neurosurgically [place], Neurosurgery has also arranged for outpatient neuro IR and he knows about this The pressure and blood sugars still high despite me adjusting meds Tuesday Hemoglobin A1c is 12.5 Plan: sister at bedside requests discharge to be tomorrow, they are readying the house Also waiting for special boot and PT OT to work with that special boot Also waiting for approval for the charitable wound VAC He is to come here outpatient for free antibiotics Sister telling me there is nobody to transport him not unless we allow him to drive-I do not think it is kaur or safe for him to drive given bilateral wound amputation and wound VAC Rx are all already on chart Vitals Vitals Vital Signs Date Time Temp Pulse Resp B/P (MAP) Pulse Ox O2 Delivery O2 Flow Rate FiO2 11/28/17 08:34 86 121/71 11/28/17 07:00 97.9 20 97 Room Air 97.9 Physical Exam Physical Exam GENERAL: AXOX3 male LUNGS: Clear. HEART: S1, S2 regular. ABDOMEN: Soft, NT EXTREMITIES: Wound vac in place bilat feet. No area redness NEUROLOGIC: Alert and oriented x 3. SKIN: warm without rash PIVs ok General: Alert, No acute distress Heart: Regular rate, Normal S1, Normal S2 Lungs: Clear Abdomen: Normal bowel sounds, Soft Extremities: Other (Wound vacs on bilateral feet ulcers) Skin: No rashes, Other (CDI dressings bilateral legs) Labs LABS Laboratory Tests Test 11/27/17 11:57 11/27/17 17:15 11/27/17 20:37 11/28/17 07:27 Glucose (Fingerstick) 256 mg/dL (70-99) 231 mg/dL (70-99) 290 mg/dL (70-99) 285 mg/dL (70-99) Review of Systems Review of Systems A 14 point ROS was completed with the following noted as positive: Other systems reviewed and negative. \CONSTITUTIONAL: No fever or chills EYES: No recent changes SKIN: No rash or itching CARDIOVASCULAR: No chest pain, syncope, palpitations, or edema RESPIRATORY: No SOB or cough GASTROINTESTINAL: No nausea, vomiting or abdominal pain NEUROLOGICAL: No headaches or weakness ENDOCRINE: No cold or heat intolerance GENITOURINARY: No urgency or frequency of urination MUSCULOSKELETAL: No back pain or joint pain LYMPHATICS: No enlarged lymph nodes PSYCHIATRIC: No anxiety or depression Assessment and Plan Assessmemt and Plan Problems Medical Problems: (1) Seizure Status: Acute Comment Review of Relevant I have reviewed the following items alta (where applicable) has been applied. Labs Laboratory Tests Test 11/26/17 11:39 11/26/17 17:10 11/26/17 21:03 11/27/17 08:08 Glucose (Fingerstick) 225 mg/dL (70-99) 329 mg/dL (70-99) 281 mg/dL (70-99) 293 mg/dL (70-99) Test 11/27/17 11:57 11/27/17 17:15 11/27/17 20:37 11/28/17 07:27 Glucose (Fingerstick) 256 mg/dL (70-99) 231 mg/dL (70-99) 290 mg/dL (70-99) 285 mg/dL (70-99) Laboratory Tests Test 11/27/17 11:57 11/27/17 17:15 11/27/17 20:37 11/28/17 07:27 Glucose (Fingerstick) 256 mg/dL (70-99) 231 mg/dL (70-99) 290 mg/dL (70-99) 285 mg/dL (70-99) Microbiology 11/21/17 Blood Culture - Final, Complete NO GROWTH AFTER 5 DAYS 11/21/17 Urine Culture - Final, Complete 11/21/17 Urine Culture Result 1 (GIUSEPPE) - Final, Complete 11/21/17 Anaerobic/Aerobic Culture - Final, Complete 11/21/17 Anaerobic Culture Result 1 (GIUSEPPE) - Final, Complete 11/21/17 Aerobic Culture - Final, Complete 11/21/17 Aerobic Culture Result 1 (GIUSEPPE) - Final, Complete 11/21/17 Aerobic Culture Result 2 (GIUSEPPE) - Final, Complete 11/21/17 Antimicrobic Susceptibility - Final, Complete 11/21/17 Gram Stain - Final, Complete 11/21/17 Gram Stain Result 1 (GIUSEPPE) - Final, Complete 11/21/17 Gram Stain Result 2 (GIUSEPPE) - Final, Complete 11/21/17 Gram Stain Result 3 (GIUSEPPE) - Final, Complete Medications Current Medications Propofol 50 ml @ As Directed STK-MED ONCE IV ; Start 11/21/17 at 17:07; Stop 12/29 at 17:08; Status DC Midazolam HCl (Versed) 5 mg 1X ONCE NS Last administered on 11/21/17at 17:05; Start 11/21/17 at 17:15; Stop 11/21/17 at 17:16; Status DC Fentanyl Citrate (Fentanyl 2ml Vial) 100 mcg 1X ONCE IV Last administered on at 17:09; Start 11/21/17 at 17:15; Stop 11/21/17 at 17:16; Status DC Levetiracetam 1000 mg/Dextrose 110 ml @ 440 mls/hr 1X ONCE IV Last administered on 11/21/17at 17:25; Start 11/21/17 at 17:15; Stop 11/21/17 at 17:29 ; Status DC Sodium Chloride 1,000 ml @ 1,000 mls/hr 1X ONCE IV Last administered on at 19:39; Start 11/21/17 at 17:15; Stop 11/21/17 at 18:14; Status DC Propofol (Diprivan) 200 mg 1X ONCE IV Last administered on 11/21/17at 17:14; Start 11/21/17 at 17:15; Stop 11/21/17 at 17:16; Status DC Midazolam HCl (Versed) 5 mg 1X ONCE IV Last administered on 11/21/17at 19:20; Start 11/21/17 at 17:45; Stop 11/21/17 at 17:50; Status DC Sodium Chloride 1,000 ml @ 150 mls/hr Q6H40M IV Last administered on at 12:12; Start 11/21/17 at 18:15; Stop 11/22/17 at 18:14; Status DC Vancomycin HCl (Vanco Per Pharmacy) 1 each PRN DAILY PRN MC SEE COMMENTS Last administered on 11/26/17at 11:11; Start 11/21/17 at 18:00; Stop 11/26/17 at 14:50 ; Status DC Piperacillin Sod/ Tazobactam Sod 3.375 gm/Sodium Chloride 50 ml @ 100 mls/hr 1X ONCE IV Last administered on 11/21/17at 19:04; Start 11/21/17 at 18:15; Stop 11/21/17 at 18:44; Status DC Insulin Human Regular (HumuLIN R VIAL) 10 unit 1X ONCE IV Last administered on 11/21/17at 20:55; Start 11/21/17 at 18:15; Stop 11/21/17 at 18:16; Status DC Potassium Chloride (KCl Oral Soln) 40 meq 1X ONCE NG Last administered on 11/21at 22:08; Start 11/21/17 at 18:15; Stop 11/21/17 at 18:16; Status DC Levetiracetam 500 mg/Dextrose 105 ml @ 420 mls/hr Q12HR IV Last administered on 11/25/17at 08:51; Start 11/21/17 at 21:00; Stop 11/25/17 at 09:26; Status DC Lorazepam (Ativan) 2 mg PRN Q4HRS PRN IV ANXIETY / AGITATION Last administered on 11/22/17at 12:12; Start 11/21/17 at 18:15 Thiamine HCl 100 mg/Dextrose 51 ml @ 102 mls/hr 1X STAT IV Last administered on 11/21/17at 18:33; Start 11/21/17 at 18:11; Stop 11/21/17 at 18:40; Status DC Vancomycin HCl 2 gm/Sodium Chloride 500 ml @ 250 mls/hr 1X ONCE IV Last administered on 11/21/17at 20:52; Start 11/21/17 at 19:00; Stop 11/21/17 at 20:59 ; Status DC Etomidate (Amidate) 20 mg STK-MED ONCE IV ; Start 11/21/17 at 19:04; Stop at 19:05; Status DC Succinylcholine Chloride (Anectine) 200 mg STK-MED ONCE .ROUTE ; Start 11/21/17 at 19:05; Stop 11/21/17 at 19:06; Status DC Propofol 50 ml @ As Directed STK-MED ONCE IV ; Start 11/21/17 at 19:38; Stop 12/29 at 19:39; Status DC Etomidate (Amidate) 20 mg 1X ONCE IV Last administered on 11/21/17at 17:01; Start 11/21/17 at 20:00; Stop 11/21/17 at 20:01; Status DC Succinylcholine Chloride (Anectine) 100 mg 1X ONCE IV Last administered on 12/29at 17:01; Start 11/21/17 at 20:00; Stop 11/21/17 at 20:01; Status DC Midazolam HCl (Versed) 5 mg 1X ONCE IV Last administered on 11/21/17at 17:39; Start 11/21/17 at 20:00; Stop 11/21/17 at 20:01; Status DC Vancomycin HCl 1.5 gm/Sodium Chloride 500 ml @ 250 mls/hr Q12H IV Last administered on 11/22/17at 09:56; Start 11/22/17 at 09:00; Stop 11/22/17 at 11:03 ; Status DC Fentanyl Citrate 30 ml @ 0 mls/hr CONT PRN IV PER PROTOCOL; Start 11/21/17 at 22:00; Stop 11/25/17 at 09:23; Status DC Propofol 100 ml @ 0 mls/hr CONT PRN IV PER PROTOCOL Last administered on at 06:42; Start 11/21/17 at 22:00; Stop 11/25/17 at 09:23; Status DC Chlorhexidine Gluconate (Peridex) 15 ml BID MM Last administered on 11/23/17at 08:33; Start 11/22/17 at 09:00; Stop 11/23/17 at 20:47; Status DC Famotidine (Pepcid Vial) 20 mg BID IVP Last administered on 11/25/17at 08:51; Start 11/22/17 at 09:00; Stop 11/25/17 at 09:23; Status DC Enoxaparin Sodium (Lovenox Per Pharmacy Prophylaxis Dosing) 1 each PRN DAILY PRN MC SEE COMMENTS; Start 11/22/17 at 09:30; Stop 11/25/17 at 09:25; Status DC Enoxaparin Sodium (Lovenox 40mg Syringe) 40 mg Q24H SQ Last administered on at 12:41; Start 11/22/17 at 10:00; Stop 11/25/17 at 09:23; Status DC Iohexol (Omnipaque 300 Mg/ml) 75 ml 1X ONCE IV Last administered on 11/22/17at 10:45; Start 11/22/17 at 10:45; Stop 11/22/17 at 10:46; Status DC Info (CONTRAST GIVEN -- Rx MONITORING) 1 each PRN DAILY PRN MC SEE COMMENTS; Start 11/22/17 at 11:00; Stop 11/24/17 at 10:59; Status DC Iohexol (Omnipaque 300 Mg/ml) 100 ml STK-MED ONCE .ROUTE ; Start 11/22/17 at 10: 45; Stop 11/22/17 at 10:46; Status DC Vancomycin HCl 1.5 gm/Sodium Chloride 500 ml @ 250 mls/hr Q12H IV Last administered on 11/22/17at 22:24; Start 11/22/17 at 22:00; Stop 11/23/17 at 10:01 ; Status DC Vancomycin HCl (Vancomycin Trough Level) 1 each 1X ONCE MC Last administered on 11/23/17at 09:30; Start 11/23/17 at 09:30; Stop 11/23/17 at 09:31; Status DC Piperacillin Sod/ Tazobactam Sod 3.375 gm/Sodium Chloride 50 ml @ 100 mls/hr Q6HRS IV Last administered on 11/28/17at 06:01; Start 11/22/17 at 12:00; Stop at 08:40; Status DC Insulin Human Lispro (HumaLOG) 0-5 UNITS Q6HRS SQ Last administered on at 05:34; Start 11/22/17 at 18:00; Stop 11/24/17 at 08:58; Status DC Dextrose (Dextrose 50%-Water Syringe) 12.5 gm PRN Q15MIN PRN IV SEE COMMENTS; Start 11/22/17 at 12:45 Fentanyl Citrate (Fentanyl 2ml Vial) 25 mcg PRN Q5MIN PRN IV MILD PAIN; Start 11/23/17 at 07:00; Stop 11/24/17 at 06:59; Status DC Fentanyl Citrate (Fentanyl 2ml Vial) 50 mcg PRN Q5MIN PRN IV MODERATE TO SEVERE PAIN; Start 11/23/17 at 07:00; Stop 11/24/17 at 06:59; Status DC Morphine Sulfate (Morphine Sulfate) 1 mg PRN Q10MIN PRN IV SEVERE PAIN; Start 11/23/17 at 07:00; Stop 11/24/17 at 06:59; Status DC Ringer's Solution 1,000 ml @ 30 mls/hr Q24H IV ; Start 11/23/17 at 07:00; Stop 11/23/17 at 18:59; Status DC Lidocaine HCl (Xylocaine-Mpf 1% 2ml Vial) 2 ml PRN 1X PRN ID IV START; Start at 07:00; Stop 11/24/17 at 06:59; Status DC Hydromorphone HCl (Dilaudid) 0.5 mg PRN Q10MIN PRN IV SEV PAIN, Second choice; Start 11/23/17 at 07:00; Stop 11/24/17 at 06:59; Status DC Prochlorperazine Edisylate (Compazine) 5 mg PACU PRN PRN IV NAUSEA, MRX1; Start 11/23/17 at 07:00; Stop 11/24/17 at 06:59; Status DC Bacitracin 27135 unit/Sodium Chloride 500 ml @ 500 mls/hr 1X ONCE IRR Last administered on 11/23/17at 13:32; Start 11/23/17 at 06:00; Stop 11/23/17 at 06:59 ; Status DC Potassium Chloride/Water 50 ml @ 50 mls/hr 1X ONCE IV Last administered on 02/28at 07:58; Start 11/23/17 at 08:00; Stop 11/23/17 at 08:59; Status DC Vancomycin HCl 1.5 gm/Sodium Chloride 500 ml @ 250 mls/hr Q8H IV Last administered on 11/24/17at 02:00; Start 11/23/17 at 10:30; Stop 11/24/17 at 10:40 ; Status DC Vancomycin HCl (Vancomycin Trough Level) 1 each 1X ONCE MC Last administered on 11/24/17at 10:00; Start 11/24/17 at 10:00; Stop 11/24/17 at 10:01; Status DC Rocuronium Beaman (Zemuron) 50 mg STK-MED ONCE .ROUTE ; Start 11/23/17 at 13:30 ; Stop 11/23/17 at 13:31; Status DC Sevoflurane (Ultane) 30 ml STK-MED ONCE IH ; Start 11/23/17 at 14:00; Stop 11/23 at 14:01; Status DC Labetalol HCl (Normodyne Iv Push) 20 mg PRN Q6HRS PRN IVP HYPERTENSION, SEE COMMENTS Last administered on 11/24/17at 09:46; Start 11/23/17 at 18:00 Acetaminophen/ Hydrocodone Bitart (Lortab 5/325) 1 tab PRN Q4HRS PRN PO MODERATE PAIN Last administered on 11/24/17at 10:02; Start 11/23/17 at 21:45 Acetaminophen/ Hydrocodone Bitart (Lortab 10/325) 1 tab PRN Q4HRS PRN PO SEVERE PAIN Last administered on 11/24/17at 20:47; Start 11/23/17 at 21:45 Insulin Human Lispro (HumaLOG) 0-5 UNITS TIDAC SQ Last administered on at 09:30; Start 11/24/17 at 09:00; Stop 11/24/17 at 10:40; Status DC Insulin Human Lispro (HumaLOG) 10 units BIDWMEALS SQ ; Start 11/24/17 at 17:00; Stop 11/24/17 at 17:00; Status DC Vancomycin HCl 2 gm/Sodium Chloride 500 ml @ 250 mls/hr Q8H IV ; Start at 11:00; Status Cancel Vancomycin HCl 1.75 gm/Sodium Chloride 500 ml @ 250 mls/hr Q8H IV Last administered on 11/26/17at 11:10; Start 11/24/17 at 11:00; Stop 11/26/17 at 14:50 ; Status DC Insulin Human Lispro (HumaLOG) 8 units 1X ONCE SQ Last administered on at 12:44; Start 11/24/17 at 12:15; Stop 11/24/17 at 12:16; Status DC Insulin Human Lispro (HumaLOG) 0-5 UNITS TIDAC SQ Last administered on at 08:57; Start 11/24/17 at 16:30; Stop 11/25/17 at 09:22; Status DC Insulin Human Lispro (HumaLOG) 10 units BIDWMEALS SQ Last administered on at 08:33; Start 11/24/17 at 17:00; Stop 11/26/17 at 09:38; Status DC Vancomycin HCl (Vancomycin Trough Level) 1 each 1X ONCE MC Last administered on 11/26/17at 10:30; Start 11/26/17 at 10:30; Stop 11/26/17 at 10:31; Status DC Lactobacillus Rhamnosus (Culturelle) 1 cap BID PO Last administered on at 08:34; Start 11/24/17 at 21:00 Insulin Human Lispro (HumaLOG) 0-9 UNITS TIDWMEALS SQ Last administered on 11/28at 08:42; Start 11/25/17 at 12:00 Dextrose (Dextrose 50%-Water Syringe) 12.5 gm PRN Q15MIN PRN IV SEE COMMENTS; Start 11/25/17 at 09:30; Stop 11/25/17 at 09:30; Status DC Famotidine (Pepcid) 20 mg BID PO Last administered on 11/28/17at 08:35; Start at 21:00 Levetiracetam (Keppra) 500 mg BID PO ; Start 11/25/17 at 21:00; Stop 11/25/17 at 21:00; Status DC Alprazolam (Xanax) 0.25 mg PRN Q8HRS PRN PO ANXIETY / AGITATION; Start at 09:30 Levetiracetam (Keppra) 250 mg BID PO ; Start 11/25/17 at 21:00; Stop 11/25/17 at 21:00; Status DC Levetiracetam (Keppra) 500 mg BID PO Last administered on 11/28/17at 08:35; Start 11/25/17 at 21:00 Insulin Human Lispro (HumaLOG) 10 units TID SQ Last administered on 11/26/17at 12:25; Start 11/26/17 at 14:00; Stop 11/26/17 at 14:00; Status DC Insulin Glargine (Lantus) 20 units QHS SQ ; Start 11/26/17 at 21:00; Stop at 21:00; Status DC Hydrochlorothiazide (Hydrodiuril) 25 mg DAILY PO Last administered on at 08:34; Start 11/26/17 at 10:00 Lisinopril (Prinivil) 10 mg 1X ONCE PO Last administered on 11/26/17at 10:12; Start 11/26/17 at 10:00; Stop 11/26/17 at 10:01; Status DC Lisinopril (Prinivil) 10 mg DAILY PO Last administered on 11/27/17at 08:36; Start 11/27/17 at 09:00; Stop 11/27/17 at 09:16; Status DC Insulin Glargine (Lantus) 15 units QHS SQ Last administered on 11/26/17at 21:48 ; Start 11/26/17 at 21:00; Stop 11/27/17 at 09:16; Status DC Ascorbic Acid (Vitamin C) 500 mg DAILY PO Last administered on 11/28/17at 08:34 ; Start 11/26/17 at 13:00 Insulin Human Lispro (HumaLOG) 10 units TIDWMEALS SQ Last administered on at 08:42; Start 11/26/17 at 17:00 Insulin Glargine (Lantus) 30 units QHS SQ Last administered on 11/27/17at 21:07 ; Start 11/27/17 at 21:00 Lisinopril (Prinivil) 20 mg DAILY PO Last administered on 11/28/17at 08:34; Start 11/28/17 at 09:00 Lisinopril (Prinivil) 10 mg ONCE ONCE PO Last administered on 11/27/17at 12:47 ; Start 11/27/17 at 09:30; Stop 11/27/17 at 09:31; Status DC Meropenem 500 mg/ Sodium Chloride 50 ml @ 100 mls/hr Q6HRS IV ; Start 11/28/17 at 12:00 Active Scripts Active Humalog (Insulin Lispro) 100 Unit/1 Ml Insuln.pen 10 Units SQ TIDWMEALS 30 Days Vitamin C (Ascorbic Acid) 500 Mg Tablet 500 Mg PO DAILY 30 Days Lantus Solostar (Insulin Glargine,Hum.rec.anlog) 100 Unit/1 Ml Insuln.pen 30 Units SQ QHS 30 Days Famotidine 20 Mg Tablet 20 Mg PO BID 30 Days Hydrochlorothiazide Tablet (Hydrochlorothiazide) 25 Mg Tablet 25 Mg PO DAILY 30 Days Alprazolam 0.25 Mg Tablet 0.25 Mg PO PRN Q8HRS PRN Keppra (Levetiracetam) 500 Mg Tablet 500 Mg PO BID 30 Days Hydrocodone-Apap 10-325 (Hydrocodone Bit/Acetaminophen) 1 Each Tablet 1 Tab PO PRN Q4HRS PRN Lisinopril 10 Mg Tablet 20 Mg PO DAILY 30 Days Reported Novolin N (Nph, Human Insulin Isophane) 100 Unit/1 Ml Vial 12 Unit SQ BIDWMEALS Vitals/I & O Vital Sign - Last 24 Hours 11/27/17 11/27/17 11/27/17 11/27/17 10:56 12:47 15:00 19:40 Temp 97.9 98.8 98.1 97.9 98.8 98.1 Pulse 79 79 79 78 Resp 18 B/P (MAP) 133/71 (91) 133/71 114/55 (74) 108/46 (66) Pulse Ox 94 94 92 O2 Delivery Room Air Room Air Room Air 11/27/17 11/27/17 11/28/17 11/28/17 20:00 23:15 03:36 07:00 Temp 97.9 98.0 97.9 97.9 98.0 97.9 Pulse 78 76 86 Resp 18 18 20 B/P (MAP) 128/68 (88) 126/71 (89) 121/71 (88) Pulse Ox 91 95 97 O2 Delivery Room Air Room Air Room Air Room Air 11/28/17 08:34 Pulse 86 B/P (MAP) 121/71 Intake and Output 11/27/17 11/27/17 11/28/17 15:00 23:00 07:00 Intake Total 417 ml 475 ml 300 ml Output Total 175 ml Balance 242 ml 475 ml 300 ml JOSHUA MOSES MD Nov 28, 2017 10:34
[2017-11-28 11:00] VITALS: BP 101/61
[2017-11-28] MEDS: MEROPENEM 500 MG in IV NORMAL SALINE 50ML 50 ML IV SCH ×2 (12:25→17:32)
--- NOTE | 2017-11-28 13:54 | PDOC ---
PROGRESS NOTES Assessment Assessment Seizure, provoked by metabolic disturbances. Metabolic encephalopathy. Respiratory failure, acute. Hyperglycemia, glucose level 490 mg/dlL on 11/21. UTI. DM, not well controlled. HTN. 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 Ulcers in toes s/p right toe amputation in this hospitalization. Obesity. RECOMMENDATIONS/PLAN: Still continue Keppra to 500 mg bid until he sees Neurosurgery at [facility].. Control hyperglycemia. Treat medical diseases. FU with PCP for toe ulcers s/p surgery. Prevent DVT. No anticoagulant at the present time due to risk of aneurysm hemorrhage. See Neurosurgery at [facility] per instructions. HISTORY OF THE PRESENT ILLNESS: This 62-y-old male patient with Hx of DM on Insulin per history of the patient suddenly LOC and had a seizure as convulsion during work. EMS was called and he was brought to the ER of [facility] and was found hyperglycemia and his glucose level was 490 mg/dl. No history of seizure in the past. Generally doing much better now on 11/28/17. PAST MEDICAL HISTORY: DM. PAST SURGERY HISTORY: No major surgery recently. ALLERGY: Unknown MEDICATIONS: Refer to [facility] FAMILY HISTORY: Non contributory. SOCIAL HISTORY: He works at [employer]. Unknown his history of substance or drugs. REVIEW OF SYSTEMS: Constitutional: Obese. Head: No traumatic brain or head injury. Skin: No edema, or rash. Ear: No infection. Eyes: No vision loss or color blindness. Nose: No bleeding or purulent discharges. Hearing: No hearing decrease. Neck: No injury. Cardiac: HTN. Pulmonary: No COPD. GI: No GI ulcer, GI bleeding. Urinary/genital: UTI. Endocrinologic: Diabetes Mellitus, obesity. Skeletomuscular: No muscular atrophy, deformity. Neurological: see HP. Psychiatric: Unknown drug use/abuse. Otherwise, not [id number] review of systems. PHYSICAL EXAMINATION: General appearance is in subacute distress. HEENT: Normocephalic and nontraumatic. Eyes, nose, ears, and throat are unremarkable. Neck is supple. No lymphadenopathy. No bruits are heard over the carotid artery. No crepitus. Cardiovascular: S1, S2, regular rate and rhythm. Pulmonary: On event. Abdomen: Bowel sounds are positive. Extremities: Wounds in LE. No restriction of range of motion NEUROLOGICAL EXAMINATION: Awake. Sitting in chair. Oriented to time, place and person. PERRL. EOMI. CN: no focal findings. Muscle tone: within normal. Muscle strength: 4+ DTR: 1-2 Plantar reflex: Neutral response bilaterally Gait: Not examined. Sensory exam: no abnormal findings. No cerebellar signs elicited. F-T-N test fine. Objective Objective Vital Signs Date Time Temp Pulse Resp B/P (MAP) Pulse Ox O2 Delivery O2 Flow Rate FiO2 11/28/17 11:00 98.2 85 20 101/61 (74) 97 Room Air 98.2 Intake and Output 11/28/17 07:00 Intake Total 1192 ml Output Total 175 ml Balance 1017 ml Intake Oral 1192 ml Output Urine Total 175 ml # Voids 4 # Bowel Movements 2 Vitals Signs Vitals VS - Last 72 Hours, by Label Date Time Temp Pulse Resp B/P (MAP) Pulse Ox O2 Delivery O2 Flow Rate FiO2 11/28/17 11:00 98.2 85 20 101/61 (74) 97 Room Air 98.2 11/28/17 08:34 86 121/71 11/28/17 07:00 97.9 86 20 121/71 (88) 97 Room Air 97.9 11/28/17 03:36 98.0 76 18 126/71 (89) 95 Room Air 98.0 11/27/17 23:15 97.9 78 18 128/68 (88) 91 Room Air 97.9 11/27/17 20:00 Room Air 11/27/17 19:40 98.1 78 18 108/46 (66) 92 Room Air 98.1 11/27/17 15:00 98.8 79 16 114/55 (74) 94 Room Air 98.8 11/27/17 12:47 79 133/71 11/27/17 10:56 97.9 79 16 133/71 (91) 94 Room Air 97.9 11/27/17 08:36 81 152/80 11/27/17 08:00 Room Air 11/27/17 07:00 98.4 81 16 152/80 (104) 98 Room Air 98.4 Laboratory Laboratory Laboratory Tests Test 11/27/17 17:15 11/27/17 20:37 11/28/17 07:27 11/28/17 11:47 Glucose (Fingerstick) 231 mg/dL (70-99) 290 mg/dL (70-99) 285 mg/dL (70-99) 295 mg/dL (70-99) Microbiology 11/21/17 Blood Culture - Final, Complete NO GROWTH AFTER 5 DAYS 11/21/17 Urine Culture - Final, Complete 11/21/17 Urine Culture Result 1 (GIUSEPPE) - Final, Complete 11/21/17 Anaerobic/Aerobic Culture - Final, Complete 11/21/17 Anaerobic Culture Result 1 (GIUSEPPE) - Final, Complete 11/21/17 Aerobic Culture - Final, Complete 11/21/17 Aerobic Culture Result 1 (GIUSEPPE) - Final, Complete 11/21/17 Aerobic Culture Result 2 (GIUSEPPE) - Final, Complete 11/21/17 Antimicrobic Susceptibility - Final, Complete 11/21/17 Gram Stain - Final, Complete 11/21/17 Gram Stain Result 1 (GIUSEPPE) - Final, Complete 11/21/17 Gram Stain Result 2 (GIUSEPPE) - Final, Complete 11/21/17 Gram Stain Result 3 (GIUSEPPE) - Final, Complete Medication Medications Current Medications Insulin Glargine (Lantus) 30 units QHS SQ Last administered on 11/27/17at 21:07 ; Start 11/27/17 at 21:00 Lisinopril (Prinivil) 20 mg DAILY PO Last administered on 11/28/17at 08:34; Start 11/28/17 at 09:00 Meropenem 500 mg/ Sodium Chloride 50 ml @ 100 mls/hr Q6HRS IV Last administered on 11/28/17at 12:25; Start 11/28/17 at 12:00 Comment Review of Relevant I have reviewed the following items alta (where applicable) has been applied. POLLO ABDULLAHI MD Nov 28, 2017 13:54
[2017-11-28] MEDS ORDERED: LIDOCAINE WITH 8.4% SOD BICARB 3 ML DISP.SYRIN. ONE (14:38)
[2017-11-28 15:00] VITALS: BP 136/75
[2017-11-28] MEDS ORDERED: LIDOCAINE WITH 8.4% SOD BICARB 3 ML DISP.SYRIN. IJ ONE (15:30)
--- NOTE | 2017-11-28 16:06 | PDOC ---
Provider Note Provider Note Vascular Patient out of room, getting PICC line Will see patient tomorrow Continue current treatment plan EMMANUEL RAMÍREZ APRN Nov 28, 2017 16:06
--- NOTE | 2017-11-28 16:08 | RAD ---
Procedure: Upper extremity PICC line placement Clinical Indication: 62-year-old male requiring central venous access Sedation: Local anesthesia only was provided Antibiotics: None Fluoro Time: 0.2 minutes. Images: 1 Contrast: No immediate Sterility: All elements of maximal sterile barrier technique including the use of a cap, mask, sterile gown, sterile gloves, large sterile sheet, appropriate hand hygiene, and 2% chlorhexidine for cutaneous antisepsis (or acceptable alternative antiseptic per current guidelines) were followed for this procedure. Consent: The procedure was explained in its entirety to the patient or the patients designated front office representative by a member of the treatment team, including a discussion of the risks, benefits and commonly accepted alternatives to the procedure, as well as the expected consequences of no therapy whatsoever. Discussion of the risks included, but was not limited to, those that are most frequent and those that are rare but possibly severe or life-threatening, as well as the possibility of unforeseen complications. Technique and Findings: Following informed consent, the patient was prepped and draped in the usual sterile fashion. Ultrasound interrogation of the right arm revealed patency and compressibility of right basilic vein. There is slow flowing echogenic blood throughout the vein, with compressibility fully maintained.. A hard copy ultrasound image was recorded. 1% Lidocaine was used to achieve local anesthesia and a 21-gauge micropuncture needle was used to gain access to the targeted vein. The needle was exchanged over wire for a 5 Greenlandic peel-away sheath which was used to deploy a PICC line under fluoroscopic guidance such that the distal tip resided at the cavoatrial junction. The catheter flushed and aspirated with ease and was sutured to the skin. Complications: No immediate Impression: 1. Ultrasound guided PICC line placement as described.
--- NOTE | 2017-11-28 17:10 | PATHOLOGY ---
[facility] Accession Number: [id number] . 01 Material submitted: . RIGHT 1ST TOE . 01 Clinical history: . None provided . 02 Diagnosis: Toe, right first, amputation: - Skin of toe with areas of ulceration with underlying necrosis. - Underlying bone with areas of acute osteomyelitis. - Viable skin, bone, and subcutaneous tissue at margin of specimen. (SKM:jonatan;11/25/2017) QMS/11/25/2017 . 02 Electronically signed: . Eriberto Crews MD, Pathologist NPI- [id number] . 01 Gross description: . Received in formalin labeled "Km Alvarez, R 1st toe," is a digit amputation specimen measuring 11.9 x 5.8 x 4.5 cm in greatest dimensions. The proximal bone margin is smooth in appearance, consistent with transection. The nail is absent, and the nailbed is partially granular and pale wray to yellow-wray in appearance. The medial aspect epidermal surface displays an ulcerative lesion measuring 1.5 x 1.3 cm that extends to within 3.9 cm of the nearest soft tissue margin. The lateral aspect epidermal surface displays an ulcerative lesion measuring 0.7 x 0.3 cm that extends to within 0.9 cm of the nearest soft tissue margin. The plantar aspect epidermal surface displays an ulcerative lesion measuring 3.2 x 2.5 cm that extends to within 0.4 cm of the nearest soft tissue margin, and extends deep to the metatarsophalangeal joint. Gross photographs are taken. The bone and soft tissue margins are inked black. Pipe Fitter Apprentice sections are submitted as follows: . A1: Proximal bone margin, following decalcification A2: Plantar aspect soft tissue margin A3-A10: Full-thickness cross-section of remaining toe submitted proximal-distal, with cross sections divided between dorsal and plantar aspect and submitted in adjacent cassettes, following decalcification (dorsal soft tissue margin in A3) A11: Plantar aspect ulcerative lesion and relation to proximal soft tissue margin A12: Plantar aspect ulcerative lesion and relation to lateral soft tissue margin A13: Lateral aspect ulcerative lesion and relation to nearest soft tissue margin A14: Medial aspect ulcerative lesion (DAC; 11/24/2017) XDC/XDC . 02 Pathologist provided ICD-10: M86.171, I96, L98.499 . 02 CPT . 983320, [id number] Specimen Comment: A courtesy copy of this report has been sent to Specimen Comment: [phone], , . Specimen Comment: Report sent to , and Performed at: 01 [facility] [address] [place] [id number] MD Ricardo Dawson MD Phone: [phone] Performed at: [address] [id number] MD Nick Olivia MD Phone: [phone]
[2017-11-28 19:15] VITALS: BP 90/51
[2017-11-28] MEDS: INSULIN GLARGINE 300 UNITS/3 ML INSULN.PEN. SQ SCH (21:26)
[2017-11-28 23:20] VITALS: BP 105/60
[2017-11-29] MEDS: MEROPENEM 500 MG in IV NORMAL SALINE 50ML 50 ML IV SCH ×4 (00:50→18:25)
[2017-11-29 03:25] VITALS: BP 122/76
[2017-11-29 07:00] VITALS: BP 115/69
[2017-11-29] MEDS: LACTOBACILLUS RHAMNOSUS GG 1 CAPSULE. PO SCH ×2 (08:29→20:36)
[2017-11-29] MEDS: ASCORBIC ACID 500 MG TABLET PO SCH (08:29)
[2017-11-29] MEDS: levETIRAcetam 500 MG TABLET PO SCH ×2 (08:29→20:36)
[2017-11-29] MEDS: hydroCHLOROthiazide 25 MG TABLET PO SCH (08:30)
[2017-11-29] MEDS: FAMOTIDINE 20 MG TABLET. PO SCH ×2 (08:30→20:36)
[2017-11-29] MEDS: LISINOPRIL 10 MG TABLET PO SCH (08:30)
[2017-11-29] MEDS: INSULIN LISPRO 300 UNITS/3 ML INSULN.PEN. SQ SCH ×7 (08:39→18:30)
--- NOTE | 2017-11-29 09:01 | PDOC ---
Infectious Disease Note Subjective: Subjective Pt denies pain/N/V/D/F/C/S/SOA picc line placed ROS: ROS Negative except for above. Vital Signs: Vital Signs Vital Signs Date Time Temp Pulse Resp B/P (MAP) Pulse Ox O2 Delivery O2 Flow Rate FiO2 11/29/17 08:30 83 115/69 11/29/17 07:00 98.0 18 96 Room Air 98.0 Physical Exam: PHYSICAL EXAM GENERAL: AXOX3 male LUNGS: Clear. HEART: S1, S2 regular. ABDOMEN: Soft, NT EXTREMITIES: Wound vac in place bilat feet. No area redness , hammer toes NEUROLOGIC: Alert and oriented x 3. SKIN: warm without rash PICC line looks clean Medications: Inpatient Meds: Current Medications Medications (Trade) Dose Ordered Sig/Ximena Start Time Stop Time Status Last Admin Dose Admin Acetaminophen/ Hydrocodone Bitart (Lortab 10/325) 1 tab PRN Q4HRS PRN 11/23/17 21:45 11/24/17 20:47 1 TAB Acetaminophen/ Hydrocodone Bitart (Lortab 5/325) 1 tab PRN Q4HRS PRN 11/23/17 21:45 11/24/17 10:02 1 TAB Alprazolam (Xanax) 0.25 mg PRN Q8HRS PRN 11/25/17 09:30 Ascorbic Acid (Vitamin C) 500 mg DAILY 11/26/17 13:00 11/29/17 08:29 500 MG Bacitracin 11504 unit/Sodium Chloride 500 ml @ 500 mls/hr 1X ONCE 11/23/17 06:00 11/23/17 06:59 DC 11/23/17 13:32 Chlorhexidine Gluconate (Peridex) 15 ml BID 11/22/17 09:00 11/23/17 20:47 DC 11/23/17 08:33 15 ML Dextrose (Dextrose 50%-Water Syringe) 12.5 gm PRN Q15MIN PRN 11/25/17 09:30 11/25/17 09:30 DC Enoxaparin Sodium (Lovenox 40mg Syringe) 40 mg Q24H 11/22/17 10:00 11/25/17 09:23 DC 11/24/17 12:41 40 MG Enoxaparin Sodium (Lovenox Per Pharmacy Prophylaxis Dosing) 1 each PRN DAILY PRN 11/22/17 09:30 11/25/17 09:25 DC Etomidate (Amidate) 20 mg 1X ONCE 11/21/17 20:00 11/21/17 20:01 DC 11/21/17 17:01 20 MG Famotidine (Pepcid Vial) 20 mg BID 11/22/17 09:00 11/25/17 09:23 DC 11/25/17 08:51 20 MG Famotidine (Pepcid) 20 mg BID 11/25/17 21:00 11/29/17 08:30 20 MG Fentanyl Citrate (Fentanyl 2ml Vial) 50 mcg PRN Q5MIN PRN 11/23/17 07:00 11/24/17 06:59 DC Hydrochlorothiazide (Hydrodiuril) 25 mg DAILY 11/26/17 10:00 11/29/17 08:30 25 MG Hydromorphone HCl (Dilaudid) 0.5 mg PRN Q10MIN PRN 11/23/17 07:00 11/24/17 06:59 DC Info (CONTRAST GIVEN -- Rx MONITORING) 1 each PRN DAILY PRN 11/22/17 11:00 11/24/17 10:59 DC Insulin Glargine (Lantus) 30 units QHS 11/27/17 21:00 11/28/17 21:26 30 UNITS Insulin Human Lispro (HumaLOG) 10 units TIDWMEALS 11/26/17 17:00 11/29/17 08:39 10 UNITS Insulin Human Regular (HumuLIN R VIAL) 10 unit 1X ONCE 11/21/17 18:15 11/21/17 18:16 DC 11/21/17 20:55 10 UNIT Iohexol (Omnipaque 300 Mg/ml) 100 ml STK-MED ONCE 11/22/17 10:45 11/22/17 10:46 DC Labetalol HCl (Normodyne Iv Push) 20 mg PRN Q6HRS PRN 11/23/17 18:00 11/24/17 09:46 20 MG Lactobacillus Rhamnosus (Culturelle) 1 cap BID 11/24/17 21:00 11/29/17 08:29 1 CAP Levetiracetam (Keppra) 500 mg BID 11/25/17 21:00 11/29/17 08:29 500 MG Levetiracetam 1000 mg/Dextrose 110 ml @ 440 mls/hr 1X ONCE 11/21/17 17:15 11/21/17 17:29 DC 11/21/17 17:25 440 MLS/HR Levetiracetam 500 mg/Dextrose 105 ml @ 420 mls/hr Q12HR 11/21/17 21:00 11/25/17 09:26 DC 11/25/17 08:51 420 MLS/HR Lidocaine HCl (Xylocaine-Mpf 1% 2ml Vial) 2 ml PRN 1X PRN 11/23/17 07:00 11/24/17 06:59 DC Lidocaine/Sodium Bicarbonate (Buffered Lidocaine 1%) 3 ml 1X ONCE 11/28/17 15:30 11/28/17 15:34 DC 11/28/17 15:31 3 ML Lisinopril (Prinivil) 10 mg ONCE ONCE 11/27/17 09:30 11/27/17 09:31 DC 11/27/17 12:47 10 MG Lorazepam (Ativan) 2 mg PRN Q4HRS PRN 11/21/17 18:15 11/22/17 12:12 2 MG Meropenem 500 mg/ Sodium Chloride 50 ml @ 100 mls/hr Q6HRS 11/28/17 12:00 11/29/17 06:19 100 MLS/HR Midazolam HCl (Versed) 5 mg 1X ONCE 11/21/17 20:00 11/21/17 20:01 DC 11/21/17 17:39 5 MG Morphine Sulfate (Morphine Sulfate) 1 mg PRN Q10MIN PRN 11/23/17 07:00 11/24/17 06:59 DC Piperacillin Sod/ Tazobactam Sod 3.375 gm/Sodium Chloride 50 ml @ 100 mls/hr Q6HRS 11/22/17 12:00 11/28/17 08:40 DC 11/28/17 06:01 100 MLS/HR Potassium Chloride/Water 50 ml @ 50 mls/hr 1X ONCE 11/23/17 08:00 11/23/17 08:59 DC 11/23/17 07:58 50 MLS/HR Potassium Chloride (KCl Oral Soln) 40 meq 1X ONCE 11/21/17 18:15 9/10/18 18:16 DC 11/21/17 22:08 40 MEQ Prochlorperazine Edisylate (Compazine) 5 mg PACU PRN PRN 11/23/17 07:00 11/24/17 06:59 DC Propofol 100 ml @ 0 mls/hr CONT PRN 11/21/17 22:00 11/25/17 09:23 DC 11/23/17 06:42 0 MLS/HR Propofol (Diprivan) 200 mg 1X ONCE 11/21/17 17:15 11/21/17 17:16 DC 11/21/17 17:14 200 MG Ringer's Solution 1,000 ml @ 30 mls/hr Q24H 11/23/17 07:00 11/23/17 18:59 DC Rocuronium [place] (Zemuron) 50 mg STK-MED ONCE 11/23/17 13:30 11/23/17 13:31 DC Sevoflurane (Ultane) 30 ml STK-MED ONCE 11/23/17 14:00 11/23/17 14:01 DC Sodium Chloride 1,000 ml @ 150 mls/hr Q6H40M 11/21/17 18:15 11/22/17 18:14 DC 11/22/17 12:12 150 MLS/HR Succinylcholine Chloride (Anectine) 100 mg 1X ONCE 11/21/17 20:00 11/21/17 20:01 DC 11/21/17 17:01 100 MG Thiamine HCl 100 mg/Dextrose 51 ml @ 102 mls/hr 1X STAT 11/21/17 18:11 11/21/17 18:40 DC 11/21/17 18:33 102 MLS/HR Vancomycin HCl (Vanco Per Pharmacy) 1 each PRN DAILY PRN 11/21/17 18:00 11/26/17 14:50 DC 11/26/17 11:11 1 EACH Vancomycin HCl (Vancomycin Trough Level) 1 each 1X ONCE 11/26/17 10:30 11/26/17 10:31 DC 11/26/17 10:30 1 EACH Vancomycin HCl 1.5 gm/Sodium Chloride 500 ml @ 250 mls/hr Q8H 11/23/17 10:30 11/24/17 10:40 DC 11/24/17 02:00 250 MLS/HR Vancomycin HCl 1.75 gm/Sodium Chloride 500 ml @ 250 mls/hr Q8H 11/24/17 11:00 11/26/17 14:50 DC 11/26/17 11:10 250 MLS/HR Vancomycin HCl 2 gm/Sodium Chloride 500 ml @ 250 mls/hr Q8H 11/24/17 11:00 Cancel Labs: Lab Laboratory Tests Test 11/28/17 11:47 11/28/17 20:30 11/29/17 07:21 Glucose (Fingerstick) 295 mg/dL (70-99) 275 mg/dL (70-99) 281 mg/dL (70-99) Micro RUN DATE: 11/27/17 PAGE 1 RUN TIME: 1410 [facility] [address] [place] [address] Denny Romo M.D., Digital Printer Operator PATIENT: ROLY ALY ACCT: [id number] LOC: [address] [place] [address] U : [id number] AGE/SX: 62/M ROOM: [facility] REG : 11/21/[address]: CEASAR SALAS III, DO : 1955 BED: 1 DIS : STATUS: ADM IN TLOC: SPEC #: [id number] BLANCA: 11/21/17 STATUS: COMP REQ #: [id number] RECD: 11/21/[address]: STEPHIE RAE MD SOURCE: FOOT ENTR: 11/21/[address]: SILVANA DUMONT MD [facility]: ULCER UNKNOWN PCP NAME ORDERED: ANAER/AEROB/GS Procedure Result ANAEROBIC-AEROBIC CULTURE Final Final report ANAEROBIC RES 1 Final Comment No anaerobic growth in 72 hours. AEROBIC CULT Final Final report AEROBIC RES 1 Final Staphylococcus aureus 3+ Based on susceptibility to oxacillin this isolate would be susceptible to: *Penicillinase-stable penicillins, such as: Cloxacillin, Dicloxacillin, Nafcillin *Beta-lactam combination agents, such as: Amoxicillin-clavulanic acid, Ampicillin-sulbactam, Piperacillin-tazobactam *Oral cephems, such as: Cefaclor, Cefdinir, Cefpodoxime, Cefprozil, Cefuroxime, Cephalexin, Loracarbef *Parenteral cephems, such as: Cefazolin, Cefepime, Cefotaxime, Cefotetan, Ceftaroline, Ceftizoxime, Ceftriaxone, Cefuroxime *Carbapenems, such as: Doripenem, Ertapenem, Imipenem, Meropenem This isolate is presumed to be resistant to clindamycin based on detection of inducible clindamycin resistance in vitro by D test. Clindamycin may still be effective in some patients. CONTINUED ON NEXT PAGE RUN DATE: 11/27/17 PAGE 2 RUN TIME: 1410 [facility] [address] [place] [address] Denny Romo M.D., Digital Printer Operator SPEC: [id number] PATIENT: ROLY ALY [id number] ( Continued) Procedure Result AEROBIC RES 2 Final Comment Myroides (Flavobacterium) species 2+ ANTIMICROBIAL SUSCEPTIBILITY Final Comment S = Susceptible; I = Intermediate; R = Resistant P = Positive; N = Negative MICS are expressed in micrograms per mL Antibiotic RSLT#1 RSLT#2 RSLT#3 RSLT#4 Amikacin R> 32 Cefepime I =16 Cefotaxime I =32 Ceftazidime R> 16 Ceftriaxone I =16 Ciprofloxacin R> 2 Ciprofloxacin R>=8 Clindamycin R =R Erythromycin R>=8 Gentamicin R> 8 Gentamicin S<=0.5 Imipenem S =4 Levofloxacin S =2 Levofloxacin I =4 Linezolid S =2 Meropenem S =2 Moxifloxacin R =2 Oxacillin S =0.5 Penicillin R>=0.5 Piperacillin/Tazobactam I =32 Quinupristin/Dalfopristin S<=0.25 Rifampin S<=0.5 Tetracycline R>=16 Ticarcillin/Clavulanate R> 64 Tobramycin R> 8 Trimethoprim/Sulfa S<=10 Trimethoprim/Sulfa S<=2/38 Vancomycin S =1 GRAM STAIN Final Final report CONTINUED ON NEXT PAGE RUN DATE: 11/27/17 PAGE 3 RUN TIME: 1410 [facility] [address] [place] [address] Denny Romo M.D., Digital Printer Operator SPEC: [id number] PATIENT: ROLY ALY [id number] ( Continued) Procedure Result GRAM STAIN RES 1 Final Comment Few gram positive cocci in pairs, chains, and clusters GRAM STAIN RES 2 Final Comment Rare gram negative rods. GRAM STAIN RES 3 Final Comment No white blood cells seen. Performed at: - [facility] [address], [place], [place] [id number] Six Sigma Black Belt Engineer: MALGORZATA Keith MD, Phone: [phone] Objective: Assessment: Extensive right diabetic foot infection with osteomyelitis s/p right 1 st ray amputation on 11/[address] Laws. MSSA and Myroides spp -Myroides spp resistant to zosyn, Left foot ulcer with arthropathy - s/p debridement of necrotic skin, subcutaneous tissue and bone on 11/23 Bilateral Lower ext wound vac in place Hammer toes Seizure. Leukocytosis - resolved Respiratory failure. Diabetes with poor control. Plan: Plan of Care Limited choices for MSSA and myroides as latter is resistant Imipenem suscept will change merrem to Invanz Will need total six weeks of abx therapy SW assisting with DC antibiotics PICC line helper activity and wound care per surgery, weekly labs cbc,bun, creat, lft, esr,crp on invanz page us in 2-3 weeks for f/u here in infusion clinic Supportive care JONATHAN OLIVEIRA MD Nov 29, 2017 09:01
--- NOTE | 2017-11-29 09:41 | PDOC ---
SURGICAL PROGRESS NOTE Subjective Doing well today with no new complaints. PICC line was placed in the right arm yesterday. Disposition plans are in place for discharge today. Vital Signs Vital Signs Date Time Temp Pulse Resp B/P (MAP) Pulse Ox O2 Delivery O2 Flow Rate FiO2 11/29/17 08:30 83 115/69 11/29/17 07:00 98.0 18 96 Room Air 98.0 I&O Intake and Output 11/29/17 07:00 Intake Total 940 ml Output Total 700 ml Balance 240 ml Intake Oral 940 ml Output Urine Total 700 ml # Voids 3 # Bowel Movements 1 General: Alert, Oriented X3, Cooperative Lungs: Clear to auscultation, Normal air movement Extremities: Other (VAC dressings intact to both sites at first metatarsal) Labs Laboratory Tests Test 11/27/17 11:57 11/27/17 17:15 11/27/17 20:37 11/28/17 07:27 Glucose (Fingerstick) 256 mg/dL (70-99) 231 mg/dL (70-99) 290 mg/dL (70-99) 285 mg/dL (70-99) Test 11/28/17 11:47 11/28/17 17:10 11/28/17 20:30 11/29/17 07:21 Glucose (Fingerstick) 295 mg/dL (70-99) 216 mg/dL (70-99) 275 mg/dL (70-99) 281 mg/dL (70-99) Laboratory Tests Test 11/28/17 11:47 11/28/17 17:10 11/28/17 20:30 11/29/17 07:21 Glucose (Fingerstick) 295 mg/dL (70-99) 216 mg/dL (70-99) 275 mg/dL (70-99) 281 mg/dL (70-99) Problem List Problems Medical Problems: (1) Seizure Status: Acute Assessment/Plan Status post right first toe amputation and left first metatarsal debridement-- patient can be discharged home with IV antibiotic therapy. Sustainable Communities Designer orthopedics must fit the patient for bilateral lower extremity boots. Minimal ambulation and weightbearing should be performed. Weightbearing should primarily be placed in the heel and avoided in the forefoot bilaterally. Patient in follow-up in the [place] wound care clinic for wound management. Vascular surgery will sign off at this time. CORNEL GUILLEN DO Nov 29, 2017 09:41
[2017-11-29 11:00] VITALS: BP 112/64
--- NOTE | 2017-11-29 12:12 | PDOC3 ---
Discharge Summary Visit Information Date of Admission: Nov 21, 2017 Date of Discharge: Nov 29, 2017 Admitting Diagnosis Comment: Sepsis Osteomyelitis Seizure DM 2 Peripheral vascular disease Foot wound with indwelling wound vac s.p toe amputation Acom aneurysm SP Final Diagnosis Problems Medical Problems: (1) Seizure Status: Acute Brief Hospital Course Allergies Allergies Coded Allergies Type Severity Reaction Last Updated Verified No Known Drug Allergies 11/24/17 No Vital Signs Vital Signs Date Time Temp Pulse Resp B/P (MAP) Pulse Ox O2 Delivery O2 Flow Rate FiO2 11/29/17 11:00 98.1 91 16 112/64 (80) 98 Room Air 98.1 Lab Results Laboratory Tests Test 11/27/17 17:15 11/27/17 20:37 11/28/17 07:27 11/28/17 11:47 Glucose (Fingerstick) 231 mg/dL (70-99) 290 mg/dL (70-99) 285 mg/dL (70-99) 295 mg/dL (70-99) Test 11/28/17 17:10 11/28/17 20:30 11/29/17 07:21 11/29/17 12:03 Glucose (Fingerstick) 216 mg/dL (70-99) 275 mg/dL (70-99) 281 mg/dL (70-99) 273 mg/dL (70-99) Laboratory Tests Test 11/28/17 17:10 11/28/17 20:30 11/29/17 07:21 11/29/17 12:03 Glucose (Fingerstick) 216 mg/dL (70-99) 275 mg/dL (70-99) 281 mg/dL (70-99) 273 mg/dL (70-99) Brief Hospital Course Mr. Alvarez is a 62 old white male who was admitted in the ICU, stayed 10 days with us because of sepsis from osteomyelitis. Needed some toes amputated of his bilateral lower extremity by vasc surgery and indwelling wound VAC to go home with. Patient is a self-pay. Some sepsis and bacteremia comanage with ID and needs outpatient IV antibiotics via PICC line. He will come here every day for the IV antibiotics. We are waiting for special boot from [facility]. Once those have been arranged, he will go home today with my prescription on chart. I had some managing to do with diabetes and hypertension. Both were uncontrolled. Hemoglobin A1c was elevated. Now we have him on the proper regimen. Compliance emphasized. Needs a PCP to manage his diabetes and hypertension. All Rx on file , multiple meds Discharge time 32 minutes greater than 50% DC education counseling" \\ Procedures performed I and D and wound VAC on bilateral lower extremity Consults performed ID, vascular surgery, social work Discharge Information Condition at Discharge: Improved, Stable Disposition/Orders: D/C to Home Scheduled Ascorbic Acid (Vitamin C) 500 Mg Tablet, 500 MG PO DAILY for 30 Days, #30 Prescribed by: JOSHUA MOSES on 11/28/17 0811 Famotidine (Famotidine) 20 Mg Tablet, 20 MG PO BID for 30 Days, #60 Prescribed by: JOSHUA MOSES on 11/28/17 0811 Hydrochlorothiazide (Hydrochlorothiazide Tablet ) 25 Mg Tablet, 25 MG PO DAILY for 30 Days, #30 Prescribed by: JOSHUA MOSES on 11/28/17 0811 Insulin Glargine,Hum.rec.anlog (Lantus Solostar) 100 Unit/1 Ml Insuln.pen, 30 UNITS SQ QHS for 30 Days Prescribed by: JOSHUA MOSES on 11/28/17 0811 Insulin Lispro (Humalog) 100 Unit/1 Ml Insuln.pen, 10 UNITS SQ TIDWMEALS for 30 Days Prescribed by: JOSHUA MOSES on 11/28/17 0811 Levetiracetam (Keppra) 500 Mg Tablet, 500 MG PO BID for 30 Days, #60 Prescribed by: JOSHUA MOSES on 11/28/17 0811 Lisinopril (Lisinopril) 10 Mg Tablet, 20 MG PO DAILY for 30 Days, #60 Prescribed by: JOSHUA MOSES on 11/28/17 0811 Nph, Human Insulin Isophane (Novolin N) 100 Unit/1 Ml Vial, 12 UNIT SQ BIDWMEALS , (Reported) Entered as Reported by: QIAN CARSON on 11/24/171703 Last Taken: UNKNOWN on Unknown Date & Time Last Action: New Order on 11/24 by QIAN CARSON Scheduled PRN Alprazolam (Alprazolam) 0.25 Mg Tablet, 0.25 MG PO PRN Q8HRS PRN for ANXIETY / AGITATION, #30 Prescribed by: JOSHUA MOSES on 11/28/17 0811 Hydrocodone Bit/Acetaminophen (Hydrocodone-Apap 10-325 ) 1 Each Tablet, 1 TAB PO PRN Q4HRS PRN for SEVERE PAIN, #30 Prescribed by: JOSHUA MOSES on 11/28/17 0811 JOSHUA MOSES MD Nov 29, 2017 12:12
[2017-11-29 15:00] VITALS: BP 92/56
[2017-11-29] MEDS ORDERED: ERTAPENEM 1GM IVPB (GENERIC) 50 ML IV ONE ×2 (16:45)
--- NOTE | 2017-11-29 17:55 | PDOC ---
PROGRESS NOTES Assessment Assessment Seizure, provoked by metabolic disturbances. Metabolic encephalopathy. Respiratory failure, acute. Hyperglycemia, glucose level 490 mg/dL on 11/21. UTI. DM, not well controlled. HTN. 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 Ulcers in toes s/p right toe amputation in this hospitalization. Obesity. RECOMMENDATIONS/PLAN: Continue Keppra to 500 mg bid until he sees Neurosurgery at [facility]. Control hyperglycemia. Treat medical diseases. FU with PCP for toe ulcers s/p surgery. Prevent DVT. No anticoagulant at the present time due to risk of aneurysm hemorrhage. See Neurosurgery at [facility] per instructions. HISTORY OF THE PRESENT ILLNESS: This 62-y-old male patient with Hx of DM on Insulin per history of the patient suddenly LOC and had a seizure as convulsion during work. EMS was called and he was brought to the ER of [facility] and was found hyperglycemia and his glucose level was 490 mg/dl. No history of seizure in the past. Generally doing much better now since 11/28/17. PAST MEDICAL HISTORY: DM. PAST SURGERY HISTORY: No major surgery recently. ALLERGY: Unknown MEDICATIONS: Refer to [facility] FAMILY HISTORY: Non contributory. SOCIAL HISTORY: He works at [employer]. Unknown his history of substance or drugs. REVIEW OF SYSTEMS: Constitutional: Obese. Head: No traumatic brain or head injury. Skin: No edema, or rash. Ear: No infection. Eyes: No vision loss or color blindness. Nose: No bleeding or purulent discharges. Hearing: No hearing decrease. Neck: No injury. Cardiac: HTN. Pulmonary: No COPD. GI: No GI ulcer, GI bleeding. Urinary/genital: UTI. Endocrinologic: Diabetes Mellitus, obesity. Skeletomuscular: No muscular atrophy, deformity. Neurological: see HP. Psychiatric: Unknown drug use/abuse. Otherwise, not [id number] review of systems. PHYSICAL EXAMINATION: General appearance is in subacute distress. HEENT: Normocephalic and nontraumatic. Eyes, nose, ears, and throat are unremarkable. Neck is supple. No lymphadenopathy. No bruits are heard over the carotid artery. No crepitus. Cardiovascular: S1, S2, regular rate and rhythm. Pulmonary: On event. Abdomen: Bowel sounds are positive. Extremities: Wounds in LE. No restriction of range of motion NEUROLOGICAL EXAMINATION: Awake. Sitting in chair. Oriented to time, place and person. PERRL. EOMI. CN: no focal findings. Muscle tone: within normal. Muscle strength: 4+ DTR: 2 UE, 1- at knee. Plantar reflex: Neutral response bilaterally Gait: Not examined. Sensory exam: no abnormal findings. No cerebellar signs elicited. F-T-N test fine. Objective Objective Vital Signs Date Time Temp Pulse Resp B/P (MAP) Pulse Ox O2 Delivery O2 Flow Rate FiO2 11/29/17 15:00 97.5 86 16 92/56 (68) 98 Room Air 97.5 Intake and Output 11/29/17 07:00 Intake Total 940 ml Output Total 700 ml Balance 240 ml Intake Oral 940 ml Output Urine Total 700 ml # Voids 3 # Bowel Movements 1 Vitals Signs Vitals VS - Last 72 Hours, by Label Date Time Temp Pulse Resp B/P (MAP) Pulse Ox O2 Delivery O2 Flow Rate FiO2 11/29/17 15:00 97.5 86 16 92/56 (68) 98 Room Air 97.5 11/29/17 11:00 98.1 91 16 112/64 (80) 98 Room Air 98.1 11/29/17 08:30 83 115/69 11/29/17 08:00 Room Air 11/29/17 07:00 98.0 83 18 115/69 (84) 96 Room Air 98.0 11/29/17 03:25 97.8 81 16 122/76 (91) 97 Room Air 97.8 11/28/17 23:20 98.3 85 16 105/60 (75) 95 Room Air 98.3 11/28/17 20:00 Room Air 11/28/17 19:15 98.1 85 16 90/51 (64) 96 Room Air 98.1 11/28/17 15:00 98.2 80 16 136/75 (95) 96 Room Air 98.2 11/28/17 11:00 98.2 85 20 101/61 (74) 97 Room Air 98.2 11/28/17 08:34 86 121/71 11/28/17 08:00 Room Air 11/28/17 07:00 97.9 86 20 121/71 (88) 97 Room Air 97.9 Laboratory Laboratory Laboratory Tests Test 11/28/17 20:30 11/29/17 07:21 11/29/17 12:03 11/29/17 17:45 Glucose (Fingerstick) 275 mg/dL (70-99) 281 mg/dL (70-99) 273 mg/dL (70-99) 413 mg/dL (70-99) Microbiology 11/21/17 Blood Culture - Final, Complete NO GROWTH AFTER 5 DAYS 11/21/17 Urine Culture - Final, Complete 11/21/17 Urine Culture Result 1 (GIUSEPPE) - Final, Complete 11/21/17 Anaerobic/Aerobic Culture - Final, Complete 11/21/17 Anaerobic Culture Result 1 (GIUSEPPE) - Final, Complete 11/21/17 Aerobic Culture - Final, Complete 11/21/17 Aerobic Culture Result 1 (GIUSEPPE) - Final, Complete 11/21/17 Aerobic Culture Result 2 (GIUSEPPE) - Final, Complete 11/21/17 Antimicrobic Susceptibility - Final, Complete 11/21/17 Gram Stain - Final, Complete 11/21/17 Gram Stain Result 1 (GIUSEPPE) - Final, Complete 11/21/17 Gram Stain Result 2 (GIUSEPPE) - Final, Complete 11/21/17 Gram Stain Result 3 (GIUSEPPE) - Final, Complete Medication Medications Current Medications Ertapenem 50 ml @ 100 mls/hr 1X ONCE IV Last administered on 11/29/17at 17:39 ; Start 11/29/17 at 16:45; Stop 11/29/17 at 17:14; Status DC Ertapenem 50 ml @ 100 mls/hr 1X ONCE IV ; Start 11/29/17 at 16:45; Stop at 17:14; Status UNV Comment Review of Relevant I have reviewed the following items alta (where applicable) has been applied. POLLO ABDULLAHI MD Nov 29, 2017 17:54
[2017-11-29] MEDS ORDERED: INSULIN LISPRO 300 UNITS/3 ML INSULN.PEN. SQ ONE (18:00)
[2017-11-29 19:25] VITALS: BP 88/52
[2017-11-29] MEDS: INSULIN GLARGINE 300 UNITS/3 ML INSULN.PEN. SQ SCH (20:43)
[2017-11-29 23:25] VITALS: BP 90/50
[2017-11-30] MEDS: MEROPENEM 500 MG in IV NORMAL SALINE 50ML 50 ML IV SCH ×2 (00:51→05:28)
[2017-11-30 03:30] VITALS: BP 130/73
[2017-11-30 07:00] VITALS: BP 111/66
[2017-11-30] MEDS: levETIRAcetam 500 MG TABLET PO SCH (08:07)
[2017-11-30] MEDS: LACTOBACILLUS RHAMNOSUS GG 1 CAPSULE. PO SCH (08:08)
[2017-11-30] MEDS: hydroCHLOROthiazide 25 MG TABLET PO SCH (08:08)
[2017-11-30 08:09] VITALS: BP 111/66
[2017-11-30] MEDS: LISINOPRIL 10 MG TABLET PO SCH (08:09)
[2017-11-30] MEDS: FAMOTIDINE 20 MG TABLET. PO SCH (08:09)
[2017-11-30] MEDS: ASCORBIC ACID 500 MG TABLET PO SCH (08:09)
[2017-11-30] MEDS: INSULIN LISPRO 300 UNITS/3 ML INSULN.PEN. SQ SCH ×6 (08:49→18:11)
--- NOTE | 2017-11-30 09:08 | PDOC ---
Infectious Disease Note Subjective: Subjective Pt awaiting discharge home denies pain/N/V/D/F/C/S/SOA ROS: ROS Negative except for above. Vital Signs: Vital Signs Vital Signs Date Time Temp Pulse Resp B/P (MAP) Pulse Ox O2 Delivery O2 Flow Rate FiO2 11/30/17 08:09 85 111/66 11/30/17 07:00 98.0 16 97 Room Air 98.0 Physical Exam: PHYSICAL EXAM GENERAL: AXOX3 male LUNGS: Clear. HEART: S1, S2 regular. ABDOMEN: Soft, NT EXTREMITIES: Wound vac in place bilat feet. No area redness , hammer toes NEUROLOGIC: Alert and oriented x 3. SKIN: warm without rash PICC line looks clean Medications: Inpatient Meds: Current Medications Medications (Trade) Dose Ordered Sig/Ximena Start Time Stop Time Status Last Admin Dose Admin Acetaminophen/ Hydrocodone Bitart (Lortab 10/325) 1 tab PRN Q4HRS PRN 11/23/17 21:45 11/24/17 20:47 1 TAB Acetaminophen/ Hydrocodone Bitart (Lortab 5/325) 1 tab PRN Q4HRS PRN 11/23/17 21:45 11/24/17 10:02 1 TAB Alprazolam (Xanax) 0.25 mg PRN Q8HRS PRN 11/25/17 09:30 Ascorbic Acid (Vitamin C) 500 mg DAILY 11/26/17 13:00 11/30/17 08:09 500 MG Bacitracin 51390 unit/Sodium Chloride 500 ml @ 500 mls/hr 1X ONCE 11/23/17 06:00 11/23/17 06:59 DC 11/23/17 13:32 Chlorhexidine Gluconate (Peridex) 15 ml BID 11/22/17 09:00 11/23/17 20:47 DC 11/23/17 08:33 15 ML Dextrose (Dextrose 50%-Water Syringe) 12.5 gm PRN Q15MIN PRN 11/25/17 09:30 11/25/17 09:30 DC Enoxaparin Sodium (Lovenox 40mg Syringe) 40 mg Q24H 11/22/17 10:00 11/25/17 09:23 DC 11/24/17 12:41 40 MG Enoxaparin Sodium (Lovenox Per Pharmacy Prophylaxis Dosing) 1 each PRN DAILY PRN 11/22/17 09:30 11/25/17 09:25 DC Ertapenem 50 ml @ 100 mls/hr 1X ONCE 11/29/17 16:45 11/29/17 17:14 DC 11/29/17 17:39 100 MLS/HR Etomidate (Amidate) 20 mg 1X ONCE 11/21/17 20:00 11/21/17 20:01 DC 11/21/17 17:01 20 MG Famotidine (Pepcid Vial) 20 mg BID 11/22/17 09:00 11/25/17 09:23 DC 11/25/17 08:51 20 MG Famotidine (Pepcid) 20 mg BID 11/25/17 21:00 11/30/17 08:09 20 MG Fentanyl Citrate (Fentanyl 2ml Vial) 50 mcg PRN Q5MIN PRN 11/23/17 07:00 11/24/17 06:59 DC Hydrochlorothiazide (Hydrodiuril) 25 mg DAILY 11/26/17 10:00 11/30/17 08:08 25 MG Hydromorphone HCl (Dilaudid) 0.5 mg PRN Q10MIN PRN 11/23/17 07:00 11/24/17 06:59 DC Info (CONTRAST GIVEN -- Rx MONITORING) 1 each PRN DAILY PRN 11/22/17 11:00 11/24/17 10:59 DC Insulin Glargine (Lantus) 30 units QHS 11/27/17 21:00 11/29/17 20:43 30 UNITS Insulin Human Lispro (HumaLOG) 13 units 1X ONCE 11/29/17 18:00 11/29/17 18:03 DC 11/29/17 18:30 13 UNITS Insulin Human Regular (HumuLIN R VIAL) 10 unit 1X ONCE 11/21/17 18:15 11/21/17 18:16 DC 11/21/17 20:55 10 UNIT Iohexol (Omnipaque 300 Mg/ml) 100 ml STK-MED ONCE 11/22/17 10:45 11/22/17 10:46 DC Labetalol HCl (Normodyne Iv Push) 20 mg PRN Q6HRS PRN 11/23/17 18:00 11/24/17 09:46 20 MG Lactobacillus Rhamnosus (Culturelle) 1 cap BID 9/13/18 21:00 11/30/17 08:08 1 CAP Levetiracetam (Keppra) 500 mg BID 11/25/17 21:00 11/30/17 08:07 500 MG Levetiracetam 1000 mg/Dextrose 110 ml @ 440 mls/hr 1X ONCE 11/21/17 17:15 11/21/17 17:29 DC 11/21/17 17:25 440 MLS/HR Levetiracetam 500 mg/Dextrose 105 ml @ 420 mls/hr Q12HR 11/21/17 21:00 11/25/17 09:26 DC 11/25/17 08:51 420 MLS/HR Lidocaine HCl (Xylocaine-Mpf 1% 2ml Vial) 2 ml PRN 1X PRN 11/23/17 07:00 11/24/17 06:59 DC Lidocaine/Sodium Bicarbonate (Buffered Lidocaine 1%) 3 ml 1X ONCE 11/28/17 15:30 11/28/17 15:34 DC 11/28/17 15:31 3 ML Lisinopril (Prinivil) 10 mg ONCE ONCE 11/27/17 09:30 11/27/17 09:31 DC 11/27/17 12:47 10 MG Lorazepam (Ativan) 2 mg PRN Q4HRS PRN 11/21/17 18:15 11/22/17 12:12 2 MG Meropenem 500 mg/ Sodium Chloride 50 ml @ 100 mls/hr Q6HRS 11/28/17 12:00 11/30/17 05:28 100 MLS/HR Midazolam HCl (Versed) 5 mg 1X ONCE 11/21/17 20:00 11/21/17 20:01 DC 11/21/17 17:39 5 MG Morphine Sulfate (Morphine Sulfate) 1 mg PRN Q10MIN PRN 11/23/17 07:00 11/24/17 06:59 DC Piperacillin Sod/ Tazobactam Sod 3.375 gm/Sodium Chloride 50 ml @ 100 mls/hr Q6HRS 11/22/17 12:00 11/28/17 08:40 DC 11/28/17 06:01 100 MLS/HR Potassium Chloride/Water 50 ml @ 50 mls/hr 1X ONCE 11/23/17 08:00 11/23/17 08:59 DC 11/23/17 07:58 50 MLS/HR Potassium Chloride (KCl Oral Soln) 40 meq 1X ONCE 11/21/17 18:15 11/21/17 18:16 DC 11/21/17 22:08 40 MEQ Prochlorperazine Edisylate (Compazine) 5 mg PACU PRN PRN 11/23/17 07:00 11/24/17 06:59 DC Propofol 100 ml @ 0 mls/hr CONT PRN 11/21/17 22:00 11/25/17 09:23 DC 11/23/17 06:42 0 MLS/HR Propofol (Diprivan) 200 mg 1X ONCE 11/21/17 17:15 11/21/17 17:16 DC 11/21/17 17:14 200 MG Ringer's Solution 1,000 ml @ 30 mls/hr Q24H 11/23/17 07:00 11/23/17 18:59 DC Rocuronium [place] (Zemuron) 50 mg STK-MED ONCE 11/23/17 13:30 11/23/17 13:31 DC Sevoflurane (Ultane) 30 ml STK-MED ONCE 11/23/17 14:00 11/23/17 14:01 DC Sodium Chloride 1,000 ml @ 150 mls/hr Q6H40M 11/21/17 18:15 11/22/17 18:14 DC 11/22/17 12:12 150 MLS/HR Succinylcholine Chloride (Anectine) 100 mg 1X ONCE 11/21/17 20:00 11/21/17 20:01 DC 11/21/17 17:01 100 MG Thiamine HCl 100 mg/Dextrose 51 ml @ 102 mls/hr 1X STAT 11/21/17 18:11 11/21/17 18:40 DC 11/21/17 18:33 102 MLS/HR Vancomycin HCl (Vanco Per Pharmacy) 1 each PRN DAILY PRN 11/21/17 18:00 11/26/17 14:50 DC 11/26/17 11:11 1 EACH Vancomycin HCl (Vancomycin Trough Level) 1 each 1X ONCE 11/26/17 10:30 11/26/17 10:31 DC 11/26/17 10:30 1 EACH Vancomycin HCl 1.5 gm/Sodium Chloride 500 ml @ 250 mls/hr Q8H 11/23/17 10:30 11/24/17 10:40 DC 11/24/17 02:00 250 MLS/HR Vancomycin HCl 1.75 gm/Sodium Chloride 500 ml @ 250 mls/hr Q8H 11/24/17 11:00 11/26/17 14:50 DC 11/26/17 11:10 250 MLS/HR Vancomycin HCl 2 gm/Sodium Chloride 500 ml @ 250 mls/hr Q8H 11/24/17 11:00 Cancel Labs: Lab Laboratory Tests Test 11/29/17 12:03 11/29/17 17:45 11/29/17 20:39 11/29/17 23:05 Glucose (Fingerstick) 273 mg/dL (70-99) 413 mg/dL (70-99) 356 mg/dL (70-99) 261 mg/dL (70-99) Test 11/30/17 07:12 Glucose (Fingerstick) 214 mg/dL (70-99) Micro RUN DATE: 11/27/17 PAGE 1 RUN TIME: 1410 [facility] [address] [place] [address] Denny Romo M.D., De Alcoholizer PATIENT: JERMAINKOFFI LEONGCory Peña ACCT: [id number] LOC: [address] [place] [address] U : [id number] AGE/SX: 62/M ROOM: 2 REG : 11/21/[address]: CEASAR SALAS III, DO : 1955 BED: 1 DIS : STATUS: ADM IN TLOC: SPEC #: [id number] BLANCA: 11/21/17 STATUS: JACLYN RELeah #: [id number] RECD: 11/21/[address]: STEPHIE RAE MD SOURCE: FOOT ENTR: 11/21/[address]: SILVANA DUMONT MD [facility]: ULCER UNKNOWN PCP NAME ORDERED: ANAER/AEROB/GS Procedure Result ANAEROBIC-AEROBIC CULTURE Final Final report ANAEROBIC RES 1 Final Comment No anaerobic growth in 72 hours. AEROBIC CULT Final Final report AEROBIC RES 1 Final Staphylococcus aureus 3+ Based on susceptibility to oxacillin this isolate would be susceptible to: *Penicillinase-stable penicillins, such as: Cloxacillin, Dicloxacillin, Nafcillin *Beta-lactam combination agents, such as: Amoxicillin-clavulanic acid, Ampicillin-sulbactam, Piperacillin-tazobactam *Oral cephems, such as: Cefaclor, Cefdinir, Cefpodoxime, Cefprozil, Cefuroxime, Cephalexin, Loracarbef *Parenteral cephems, such as: Cefazolin, Cefepime, Cefotaxime, Cefotetan, Ceftaroline, Ceftizoxime, Ceftriaxone, Cefuroxime *Carbapenems, such as: Doripenem, Ertapenem, Imipenem, Meropenem This isolate is presumed to be resistant to clindamycin based on detection of inducible clindamycin resistance in vitro by D test. Clindamycin may still be effective in some patients. CONTINUED ON NEXT PAGE RUN DATE: 11/27/17 PAGE 2 RUN TIME: 1410 [facility] [address] [place] [address] Denny Romo M.D., De Alcoholizer SPEC: [id number] PATIENT: ROLY ALY [id number] ( Continued) Procedure Result AEROBIC RES 2 Final Comment Myroides (Flavobacterium) species 2+ ANTIMICROBIAL SUSCEPTIBILITY Final Comment S = Susceptible; I = Intermediate; R = Resistant P = Positive; N = Negative MICS are expressed in micrograms per mL Antibiotic RSLT#1 RSLT#2 RSLT#3 RSLT#4 Amikacin R> 32 Cefepime I =16 Cefotaxime I =32 Ceftazidime R> 16 Ceftriaxone I =16 Ciprofloxacin R> 2 Ciprofloxacin R>=8 Clindamycin R =R Erythromycin R>=8 Gentamicin R> 8 Gentamicin S<=0.5 Imipenem S =4 Levofloxacin S =2 Levofloxacin I =4 Linezolid S =2 Meropenem S =2 Moxifloxacin R =2 Oxacillin S =0.5 Penicillin R>=0.5 Piperacillin/Tazobactam I =32 Quinupristin/Dalfopristin S<=0.25 Rifampin S<=0.5 Tetracycline R>=16 Ticarcillin/Clavulanate R> 64 Tobramycin R> 8 Trimethoprim/Sulfa S<=10 Trimethoprim/Sulfa S<=2/38 Vancomycin S =1 GRAM STAIN Final Final report CONTINUED ON NEXT PAGE RUN DATE: 11/27/17 PAGE 3 RUN TIME: 1410 [facility] [address] [place] [address] Denny Romo M.D., De Alcoholizer SPEC: [id number] PATIENT: ROLY ALY [id number] ( Continued) Procedure Result GRAM STAIN RES 1 Final Comment Few gram positive cocci in pairs, chains, and clusters GRAM STAIN RES 2 Final Comment Rare gram negative rods. GRAM STAIN RES 3 Final Comment No white blood cells seen. Performed at: - [facility] [address], [place], [place] [id number] Shell Machine Operator: MALGORZATA Keith MD, Phone: [phone] Objective: Assessment: Extensive right diabetic foot infection with osteomyelitis s/p right [address] st ray amputation on 11/[address] Laws. MSSA and Myroides spp -Myroides spp resistant to zosyn, Left foot ulcer with arthropathy - s/p debridement of necrotic skin, subcutaneous tissue and bone on 11/23 Bilateral Lower ext wound vac in place Hammer toes Seizure. Leukocytosis - resolved Respiratory failure. Diabetes with poor control. Plan: Plan of Care Limited choices for MSSA and myroides ;latter is a resistant pathogen Imipenem suscept will change merrem to Invanz Will need total six weeks of abx therapy SW assisting with DC antibiotics,form signed for pharmaceutical assistance PICC pipelines manager and complications discussed activity and wound care per surgery, weekly labs cbc,bun, creat, lft, esr,crp on invanz page us in 2-3 weeks for f/u here in infusion clinic Supportive care JONATHAN OLIVEIRA MD Nov 30, 2017 09:07
--- NOTE | 2017-11-30 12:35 | PDOC3 ---
Discharge Summary Visit Information Date of Admission: Nov 21, 2017 Date of Discharge: Nov 30, 2017 Admitting Diagnosis: toe wound Final Diagnosis Sepsis Osteomyelitis Seizure DM 2 Peripheral vascular disease Foot wound with indwelling wound vac s.p toe amputation Acom aneurysm SP Problems Medical Problems: (1) Seizure Status: Acute Brief Hospital Course Allergies Allergies Coded Allergies Type Severity Reaction Last Updated Verified No Known Drug Allergies 11/24/17 No Vital Signs Vital Signs Date Time Temp Pulse Resp B/P (MAP) Pulse Ox O2 Delivery O2 Flow Rate FiO2 11/30/17 08:09 85 111/66 11/30/17 08:00 Room Air 11/30/17 07:00 98.0 16 97 98.0 Lab Results Laboratory Tests Test 11/28/17 17:10 11/28/17 20:30 11/29/17 07:21 11/29/17 12:03 Glucose (Fingerstick) 216 mg/dL (70-99) 275 mg/dL (70-99) 281 mg/dL (70-99) 273 mg/dL (70-99) Test 11/29/17 17:45 11/29/17 20:39 11/29/17 23:05 11/30/17 07:12 Glucose (Fingerstick) 413 mg/dL (70-99) 356 mg/dL (70-99) 261 mg/dL (70-99) 214 mg/dL (70-99) Test 11/30/17 12:09 Glucose (Fingerstick) 302 mg/dL (70-99) Laboratory Tests Test 11/29/17 17:45 11/29/17 20:39 11/29/17 23:05 11/30/17 07:12 Glucose (Fingerstick) 413 mg/dL (70-99) 356 mg/dL (70-99) 261 mg/dL (70-99) 214 mg/dL (70-99) Test 11/30/17 12:09 Glucose (Fingerstick) 302 mg/dL (70-99) Brief Hospital Course Mr. Alvarez is a 62 old admit to ICU until 11/24/17 for sepsis, hypotension No weight-bear on fore foot bilateral legs as per vasc sx note He has a bilateral wound VAC. Discharge Information Follow Up: Weeks Disposition/Orders: D/C to Home Scheduled Ascorbic Acid (Vitamin C) 500 Mg Tablet, 500 MG PO DAILY for 30 Days, #30 Prescribed by: JOSHUA MOSES on 11/28/17810 Famotidine (Famotidine) 20 Mg Tablet, 20 MG PO BID for 30 Days, #60 Prescribed by: JOSHUA MOSES on 11/28/17810 Hydrochlorothiazide (Hydrochlorothiazide Tablet ) 25 Mg Tablet, 25 MG PO DAILY for 30 Days, #30 Prescribed by: JOSHUA MOSES on 11/28/17810 Insulin Glargine,Hum.rec.anlog (Lantus Solostar) 100 Unit/1 Ml Insuln.pen, 30 UNITS SQ QHS for 30 Days Prescribed by: JOSHUA MOSES on 11/28/17810 Insulin Lispro (Humalog) 100 Unit/1 Ml Insuln.pen, 10 UNITS SQ TIDWMEALS for 30 Days Prescribed by: JOSHUA MOSES on 11/28/17810 Levetiracetam (Keppra) 500 Mg Tablet, 500 MG PO BID for 30 Days, #60 Prescribed by: JOSHUA MOSES on 11/28/17810 Lisinopril (Lisinopril) 10 Mg Tablet, 20 MG PO DAILY for 30 Days, #60 Prescribed by: JOSHUA MOSES on 11/28/17810 Nph, Human Insulin Isophane (Novolin N) 100 Unit/1 Ml Vial, 12 UNIT SQ BIDWMEALS , (Reported) Entered as Reported by: QIAN CARSON on 11/24/171703 Last Taken: UNKNOWN on Unknown Date & Time Last Action: New Order on 11/24 by QIAN CARSON Scheduled PRN Alprazolam (Alprazolam) 0.25 Mg Tablet, 0.25 MG PO PRN Q8HRS PRN for ANXIETY / AGITATION, #30 Prescribed by: JOSHUA MOSES on 11/28/17810 Hydrocodone Bit/Acetaminophen (Hydrocodone-Apap 10-325 ) 1 Each Tablet, 1 TAB PO PRN Q4HRS PRN for SEVERE PAIN, #30 Prescribed by: JOSHUA MOSES on 11/28/17810 Patient Instructions Patient Instructions > 30 min face to face PARRISH LOFTON MD Nov 30, 2017 12:35
--- NOTE | 2017-11-30 16:56 | PDOC ---
PROGRESS NOTES Assessment Assessment Seizure, provoked by metabolic disturbances. Metabolic encephalopathy. Respiratory failure, acute. Hyperglycemia, glucose level 490 mg/dL on 11/21. UTI. DM, not well controlled. HTN. 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 Ulcers in toes s/p right toe amputation in this hospitalization. Obesity. RECOMMENDATIONS/PLAN: Continue Keppra to 500 mg bid until he sees Neurosurgery at [facility]. Control hyperglycemia. Treat medical diseases. FU with PCP for toe ulcers s/p surgery. Prevent DVT. No anticoagulant at the present time due to risk of aneurysm hemorrhage. See Neurosurgery at [facility] per instructions. HISTORY OF THE PRESENT ILLNESS: This 62-y-old male patient with Hx of DM on Insulin per history of the patient suddenly LOC and had a seizure as convulsion during work. EMS was called and he was brought to the ER of [facility] and was found hyperglycemia and his glucose level was 490 mg/dl. No history of seizure in the past. Generally doing much better since 11/28/17. PAST MEDICAL HISTORY: DM. PAST SURGERY HISTORY: No major surgery recently. ALLERGY: Unknown MEDICATIONS: Refer to [facility] FAMILY HISTORY: Non contributory. SOCIAL HISTORY: He works at [employer]. Unknown his history of substance or drugs. REVIEW OF SYSTEMS: Constitutional: Obese. Head: No traumatic brain or head injury. Skin: No edema, or rash. Ear: No infection. Eyes: No vision loss or color blindness. Nose: No bleeding or purulent discharges. Hearing: No hearing decrease. Neck: No injury. Cardiac: HTN. Pulmonary: No COPD. GI: No GI ulcer, GI bleeding. Urinary/genital: UTI. Endocrinologic: Diabetes Mellitus, obesity. Skeletomuscular: No muscular atrophy, deformity. Neurological: see HP. Psychiatric: Unknown drug use/abuse. Otherwise, not [id number] review of systems. PHYSICAL EXAMINATION: General appearance is in subacute distress. HEENT: Normocephalic and nontraumatic. Eyes, nose, ears, and throat are unremarkable. Neck is supple. No lymphadenopathy. No bruits are heard over the carotid artery. No crepitus. Cardiovascular: S1, S2, regular rate and rhythm. Pulmonary: On event. Abdomen: Bowel sounds are positive. Extremities: Wounds in LE. No restriction of range of motion NEUROLOGICAL EXAMINATION: Awake. Sitting in chair. Oriented to time, place and person. PERRL. EOMI. CN: no focal findings. Muscle tone: within normal. Muscle strength: 4+ DTR: 2 UE, 1- at knee. Plantar reflex: Neutral response bilaterally Gait: Not examined. Sensory exam: no abnormal findings. No cerebellar signs elicited. F-T-N test fine. Objective Objective Vital Signs Date Time Temp Pulse Resp B/P (MAP) Pulse Ox O2 Delivery O2 Flow Rate FiO2 11/30/17 08:09 85 111/66 11/30/17 08:00 Room Air 11/30/17 07:00 98.0 16 97 98.0 Intake and Output 11/30/17 07:00 Intake Total 1350 ml Output Total 400 ml Balance 950 ml Intake Oral 1200 ml IV Total 150 ml Output Urine Total 400 ml # Voids 2 Vitals Signs Vitals VS - Last 72 Hours, by Label Date Time Temp Pulse Resp B/P (MAP) Pulse Ox O2 Delivery O2 Flow Rate FiO2 11/30/17 08:09 85 111/66 11/30/17 08:00 Room Air 11/30/17 07:00 98.0 85 16 111/66 (81) 97 Room Air 98.0 11/30/17 03:30 98.0 86 18 130/73 (92) 96 Room Air 98.0 11/29/17 23:25 98.8 83 18 90/50 (63) 95 Room Air 98.8 11/29/17 20:00 Room Air 11/29/17 19:25 98.2 89 18 88/52 (64) 96 Room Air 98.2 11/29/17 15:00 97.5 86 16 92/56 (68) 98 Room Air 97.5 11/29/17 11:00 98.1 91 16 112/64 (80) 98 Room Air 98.1 11/29/17 08:30 83 115/69 11/29/17 08:00 Room Air 11/29/17 07:00 98.0 83 18 115/69 (84) 96 Room Air 98.0 Laboratory Laboratory Laboratory Tests Test 11/29/17 17:45 11/29/17 20:39 11/29/17 23:05 11/30/17 07:12 Glucose (Fingerstick) 413 mg/dL (70-99) 356 mg/dL (70-99) 261 mg/dL (70-99) 214 mg/dL (70-99) Test 11/30/17 12:09 Glucose (Fingerstick) 302 mg/dL (70-99) Microbiology 11/21/17 Blood Culture - Final, Complete NO GROWTH AFTER 5 DAYS 11/21/17 Urine Culture - Final, Complete 11/21/17 Urine Culture Result 1 (GIUSEPPE) - Final, Complete 11/21/17 Anaerobic/Aerobic Culture - Final, Complete 11/21/17 Anaerobic Culture Result 1 (GIUSEPPE) - Final, Complete 11/21/17 Aerobic Culture - Final, Complete 11/21/17 Aerobic Culture Result 1 (GIUSEPPE) - Final, Complete 11/21/17 Aerobic Culture Result 2 (GIUSEPPE) - Final, Complete 11/21/17 Antimicrobic Susceptibility - Final, Complete 11/21/17 Gram Stain - Final, Complete 11/21/17 Gram Stain Result 1 (GIUSEPPE) - Final, Complete 11/21/17 Gram Stain Result 2 (GIUSEPPE) - Final, Complete 11/21/17 Gram Stain Result 3 (GIUSEPPE) - Final, Complete Medication Medications Current Medications Ertapenem 50 ml @ 100 mls/hr DAILY IV ; Start 12/01/17 at 09:00 Insulin Human Lispro (HumaLOG) 13 units 1X ONCE SQ Last administered on at 18:30; Start 11/29/17 at 18:00; Stop 11/29/17 at 18:03; Status DC Comment Review of Relevant I have reviewed the following items alta (where applicable) has been applied. POLLO ABDULLAHI MD Nov 30, 2017 16:56
[2017-12-01] MEDS ORDERED: ERTAPENEM 1GM IVPB (GENERIC) 50 ML IV SCH (09:00)
== END 2017-11-30 18:35 | disposition home or self-care (01) | DRG 853 ==
LOC: ER 16:53 → 1 WEST ICU 17:40 → 6 SOUTH 11-24 19:20
PROVIDERS: ADMIT Internal Medicine; ATTEND Internal Medicine
PROC: 5A1945Z Respiratory Ventilation, 24-96 Consecutive Hours (ICD-10-PCS; 2017-11-21)
PROC: 0BH17EZ Insertion of Endotracheal Airway into Trachea, Via Natural or Artificial Opening (ICD-10-PCS; 2017-11-21)
PROC: 0QBR0ZZ Excision of Left Toe Phalanx, Open Approach (ICD-10-PCS; 2017-11-23)
PROC: 0Y6M0Z9 Detachment at Right Foot, Partial 1st Ray, Open Approach (ICD-10-PCS; principal; 2017-11-23 13:00)
PROC: 02HV33Z Insertion of Infusion Device into Superior Vena Cava, Percutaneous Approach (ICD-10-PCS; 2017-11-28)
PROC: B5181ZA Fluoroscopy of Superior Vena Cava using Low Osmolar Contrast, Guidance (ICD-10-PCS; 2017-11-28)
PROC: B548ZZA Ultrasonography of Superior Vena Cava, Guidance (ICD-10-PCS; 2017-11-28)
DX: A41.9 Sepsis, unspecified organism (principal); J96.00 Acute respiratory failure, unspecified whether with hypoxia or hypercapnia; G93.41 Metabolic encephalopathy; E11.52 Type 2 diabetes mellitus with diabetic peripheral angiopathy with gangrene; M86.9 Osteomyelitis, unspecified; N39.0 Urinary tract infection, site not specified; L03.116 Cellulitis of left lower limb; L03.115 Cellulitis of right lower limb; M86.8X7 Other osteomyelitis, ankle and foot; E11.621 Type 2 diabetes mellitus with foot ulcer; E11.628 Type 2 diabetes mellitus with other skin complications; M12.9 Arthropathy, unspecified; L97.529 Non-pressure chronic ulcer of other part of left foot with unspecified severity; E11.65 Type 2 diabetes mellitus with hyperglycemia; I10 Essential (primary) hypertension; E11.69 Type 2 diabetes mellitus with other specified complication; E66.9 Obesity, unspecified; I67.1 Cerebral aneurysm, nonruptured; F41.9 Anxiety disorder, unspecified; L97.519 Non-pressure chronic ulcer of other part of right foot with unspecified severity; I95.9 Hypotension, unspecified; Z68.29 Body mass index [BMI] 29.0-29.9, adult; Z79.4 Long term (current) use of insulin
CPT/HCPCS: 31500; 36415; 36569; 36600; 51702; 70450; 70496; 71045; 73620; 74018; 76937; 77001; 80048; 80053; 80202; 80307; 80329; 81001; 82550; 82607; 82805; 82962; 83036; 83605; 83735; 84443; 84478; 85007; 85025; 85027; 85610; 87040; 87071; 87075; 87086; 87186; 87641; 88305; 88311; 93005; 93880; 93925; 93970; 94002; 94003; 95816; 96365; 96367; 99291; C1751; C1892; G0480; G6039; J0330; J1335; J1650; J1815; J1953; J2060; J2185; J2250; J2543; J2704; J3010; J3370; J3480; J3490; J7030; J7040; Q9967; S0028; 97116; 97535; A4461; G0479